=== PATIENT | male | born 1960 | race Caucasian/White ===

== ENCOUNTER 2023-07-01 11:04 | Outpatient (REF) | payer BC, SELFPAY | END 2023-07-01 11:05 | disposition home or self-care (01) | LOC: HO.BBR 11:04 | PROVIDERS: PCP Physician Assistant Surgical; Visit Provider Internal Medicine Hematology & Oncology | DX: D75.1 Secondary polycythemia (principal) | CPT/HCPCS: 85018; 99195 ==

== ENCOUNTER 2023-08-01 09:54 | Outpatient (REF) | payer BC, SELFPAY | END 2023-08-01 09:55 | disposition home or self-care (01) | LOC: HO.BBR 09:54 | PROVIDERS: PCP Physician Assistant Surgical; Visit Provider Internal Medicine Hematology & Oncology | DX: D75.1 Secondary polycythemia (principal) | CPT/HCPCS: 85014; 85018; 99195 ==

== ENCOUNTER 2023-09-01 08:57 | Outpatient (REF) | payer BC, SELFPAY | END 2023-09-01 08:58 | disposition home or self-care (01) | LOC: HO.BBR 08:57 | PROVIDERS: PCP Physician Assistant Surgical; Visit Provider Internal Medicine Hematology & Oncology | DX: D75.1 Secondary polycythemia (principal) | CPT/HCPCS: 85018 ==

== ENCOUNTER 2023-10-02 09:18 | Outpatient (REF) | payer BC, SELFPAY | END 2023-10-02 09:19 | disposition home or self-care (01) | LOC: HO.BBR 09:18 | PROVIDERS: PCP Physician Assistant Surgical; Visit Provider Internal Medicine Hematology & Oncology | DX: D75.1 Secondary polycythemia (principal) | CPT/HCPCS: 85014; 85018; 99195 ==

== ENCOUNTER 2023-11-06 08:07 | Outpatient (REF) | payer BC, SELFPAY | END 2023-11-06 08:08 | disposition home or self-care (01) | LOC: HO.BBR 08:07 | PROVIDERS: PCP Family Medicine; Visit Provider Internal Medicine Hematology & Oncology | DX: D75.1 Secondary polycythemia (principal) | CPT/HCPCS: 85014; 85018; 99195 ==

== ENCOUNTER 2023-12-11 08:22 | Outpatient (REF) | payer BC, SELFPAY | END 2023-12-11 08:23 | disposition home or self-care (01) | LOC: HO.BBR 08:22 | PROVIDERS: PCP Family Medicine; Visit Provider Physician Assistant Medical | DX: D75.1 Secondary polycythemia (principal) | CPT/HCPCS: 85018; 99195 ==

== ENCOUNTER 2024-02-11 08:06 | Outpatient (REF) | payer BC, SELFPAY | END 2024-02-11 08:07 | disposition home or self-care (01) | LOC: HO.BBR 08:06 | PROVIDERS: PCP Family Medicine; Visit Provider Physician Assistant Medical | DX: E83.110 Hereditary hemochromatosis (principal) | CPT/HCPCS: 85018; 99195 ==

== ENCOUNTER 2024-04-09 08:07 | Outpatient (REF) | payer BC, SELFPAY | END 2024-04-09 08:08 | disposition home or self-care (01) | LOC: HO.BBR 08:07 | PROVIDERS: PCP Family Medicine; Visit Provider Physician Assistant Medical | DX: D75.1 Secondary polycythemia (principal) | CPT/HCPCS: 85018; 99195 ==

== ENCOUNTER 2024-06-09 08:08 | Outpatient (REF) | payer BC, OTHER, SELFPAY ==
--- OUTSIDE RECORDS SUMMARY | 2024-06-09 08:14 | XMS_ITS | Continuity of Care Document ---
Author Name [facility] Organization [facility] Care Team Providers Care Plate Glass Installer Name Role Phone [facility] Unavailable Unavailable Problems Combined list of problems from Department of Defense and Veterans Affairs facilities. It does not include entries that were removed or entered in error. Problem Status Onset Date Problem Type Date of Resolution Comments Source Acute right-sided congestive heart failure Active 06/23/19 23 Condition Jul 29, 2023 Entered By: GIBRAN SCHWARTZ Comment: Acute on chronic right-sided heart failureFe2023 Entered By: RAUL GOLDBERG Comment: acute COPD exac 04/2023- intubated in ICU [facility] [place] [facility] Liver cyst Active 06/23/19 23 Condition [facility] [place] [facility] Peripheral venous insufficiency Active 06/23/19 23 Condition Jul 29, 2023 Entered By: GIBRAN SCHWARTZ Comment: Edema of both lower extremities due to peripheral venous insufficiency [facility] [place] [facility] Polyneuropathy Active 06/23/19 23 Condition Jul 29, 2023 Entered By: GIBRAN SCHWARTZ Comment: Peripheral polyneuropathy [facility] [place] [facility] Pulmonary emphysema Active 06/23/19 Condition Jul 30, 2023 Entered By: RAUL GOLDBERG Comment: home BiPAP and oxygen concentrator [facility] [place] [facility] Sleep apnea Active 06/23/19 23 Condition [facility] [place] [facility] Stasis dermatitis Active 06/23/19 23 Condition Jul 29, 2023 Entered By: GIBRAN SCHWARTZ Comment: Venous stasis dermatitis of both lower extremities [facility] [place] [facility] Alcoholic cirrhosis Active Condition Jul 30, 2023 Entered By: RAUL GOLDBERG Comment: on imaging while inpatient with right sided heart failure. recommend f/u liver u/s around 04/2024 [facility] [place] [facility] Diabetes mellitus Active Condition [facility] [place] [facility] Erythrocytosis Active Condition Jul Entered By: RAUL GOLDBERG Comment: HCT 62 in setting of resp failure/copd. seen by [facility] heme-nc, neg VIOLETA, epo not elevated. thought related to underlying lung disease and HETAL, phlebotomies scheduled by heme[facility] [place] [facility] Diagnosis: ICD-10-CM Z46.0 Encounter for fit/adjst of spectacles and contact lenses [facility] [place] [facility] Diagnosis: ICD-10-CM H40.033 Anatomical narrow angle, bilateral Active [facility] [place] [facility] Diagnosis: ICD-10-CM L71.8 Other rosacea Active [facility] [place] [facility] Diagnosis: ICD-10-CM D75.1 Secondary polycythemia Active Diagnosis [facility] [place] [place] [facility] Diagnosis: ICD-10-CM E11.9 Type 2 diabetes mellitus without complications Active [facility] [place] [facility] Diagnosis: ICD-10-CM Z23 Encounter for immunization Active [facility] [place] [facility] Medications Combined list of outpatient medications from Department of Defense and Veterans Affairs facilities.Medications provided include 1) outpatient medications from the last 15 months, and 2) patient-reported medications. Medication Details Route Status Patient Instructions Prescription Expires Prescription Number Last Dispense Date Ordering Provider Order Date Order Qty Source FUROSEMIDE 40MG TAB TAKE ONE TABLET BY MOUTH ONCE DAILY TO REMOVE FLUID/CO NTROL BLOOD PRESSURE ORAL ACTIVE 07/30/2024 [id number] Teodoro GOLDBERG 2023 90 [facility] [place] [facility] OLODATEROL 2.5MCG/TIOT ROPIUM 2.5MCG/ACTU AT [facility],ORAL,6 0D,4GM INHALE 2 PUFFS (1 DOSE) BY MOUTH ONCE DAILY FOR COPD RESPIR ATORY (INHAL ATION) ACTIVE 08/21/2024 [id number] CARA ENAMORADO 2023 1 [facility] TIOTROPIUM 2.5MCG/ACTU AT [facility],ORAL,6 0D,4GM INHALE 2 PUFFS BY MOUTH ONCE DAILY RESPIR ATORY (INHAL ATION) DISCONT INUED 08/07/2024 [id number] FURCOLO,T DAVID 2023 3 [facility] [place] [facility] UMECLIDINIU M/VILANTERO L (ANORO) [facility],ORAL INHALE BY MOUTH ONCE DAILY RESPIR ATORY (INHAL ATION) ACTIVE FURCOLO,T DAVID 2023 [facility] [place] Immunizations Combined list of available immunizations from the Department of Defense and Veterans Affairs facilities. Immunization Series Date Given Administered By Site Reaction Lot Number CVX Code Drug Human Resources Operations Specialist Status Comments Source COVID-19 (MODERNA), MRNA, LNP-S, PF, 50 MCG/0.5 ML (AGES 12+ YEARS) 2023 GIBRAN PACHECO E LEFT DELTO ID [id number] 312 complet ed [facility] INFLUENZA, SPLIT VIRUS, TRIVALENT, PF 2023 GIBRAN PACHECO E LEFT DELTO ID [id number] 140 complet ed [facility] ZOSTER RECOMBINANT 2023 AKASH DE ANDA RIGHT DELTO ID [id number] 187 complet ed [facility] HEP A-HEP B 2 2023 GRACIE MONTOYA SSA H LEFT DELTO ID [id number] 104 complet ed [facility] HEP A-HEP B 1 2023 RICKEY MATOSOT HY E LEFT DELTO ID [id number] 104 complet ed [facility] [place] ZOSTER RECOMBINANT 1 2023 CHILSON,TIMOT HY E RIGHT DELTO ID [id number] 187 complet ed [facility] [place] PNEUMOCOCCAL CONJUGATE PCV20, POLYSACCHARID E [id number] CONJUGATE, ADJUVANT, PF 2023 RICKEY MATOSOT HY E RIGHT DELTO ID [id number] 216 complet ed [facility] TDAP 2023 MANNIE MATOS HY E LEFT DELTO ID [id number] 115 complet ed [facility] [place] INFLUENZA, UNSPECIFIED FORMULATION 2023 88 complet ed [facility] [place] COVID-19 (MODERNA), MRNA, LNP-S, PF, 100 MCG/0.5ML DOSE OR 50 MCG/0.25ML DOSE 3 2020 207 complet ed Lot#: [id number] Mfr: [employer] [facility] COVID-19 (PFIZER), MRNA, LNP-S, PF, 30 MCG/0.3 ML DOSE 2 2020 208 complet ed Covid Card- [facility] Lot#: [id number] Mfr: [email or web address] [facility] [place] COVID-19 (PFIZER), MRNA, LNP-S, PF, 30 MCG/0.3 ML DOSE 1 2020 208 complet ed Covid card Lot#: [id number] Mfr: [email or web address] [facility] [place] Results Combined list of recent chemistry, hematology and other laboratory results from Department of Defense and Veterans Affairs, ranging from 15 months to all on record, depending upon the facility. Order Name Results Value Reference Range Date Interpretation Specimen Comments Source BASIC METABOLIC PANEL (fasting) UREA NITROGEN [MASS/VOLUM E] IN SERUM OR PLASMA 17 mg/dL 7 - 25 02/01 Specimen Type: SERUM No comment entered. Ordering Provider: OKSANA GOLDBERG Report Released Date/Time: Jan 13, 2024 03:44 PM Reporting Lab: [facility] [place] [facility] [address] [address] Performing Lab: [facility] [place] [facility] [address] [address] [facility] [place] [facility] BASIC METABOLIC PANEL (fasting) GLUCOSE [MASS/VOLUM E] IN SERUM OR PLASMA 123 mg/dL 65 - 100 02/01 H Specimen Type: SERUM No comment entered. Ordering Provider: OKSANA GOLDBERG Report Released Date/Time: Jan 13, 2024 03:44 PM Reporting Lab: [facility] [place] [facility] [address] [address] Performing Lab: [place] [facility] [place] [facility] [address] [address] [facility] [place] [facility] BASIC METABOLIC PANEL (fasting) SODIUM [MOLES/VOLU ME] IN SERUM OR PLASMA 139 mmol/L 135 - 145 02/01 Specimen Type: SERUM No comment entered. Ordering Provider: OKSANA GOLDBERG Report Released Date/Time: Jan 13, 2024 03:44 PM Reporting Lab: [place] [facility] [place] [facility] [address] [address] Performing Lab: [place] [facility] [place] [place] [facility] [address] [address] [facility] BASIC METABOLIC PANEL (fasting) POTASSIUM [MOLES/VOLU ME] IN SERUM OR PLASMA 4.1 mmol/L 3.5 - 5.0 02/01 Specimen Type: SERUM No comment entered. Ordering Provider: OKSANA GOLDBERG Report Released Date/Time: Jan 13, 2024 03:44 PM Reporting Lab: [place] [facility] [place] [facility] [address] [address] Performing Lab: [place] [facility] [place] [facility] [address] [address] [facility] [place] [facility] BASIC METABOLIC PANEL (fasting) CHLORIDE [MOLES/VOLU ME] IN SERUM OR PLASMA 104 mmol/L 100 - 110 02/01 Specimen Type: SERUM No comment entered. Ordering Provider: OKSANA GOLDBERG Report Released Date/Time: Jan 13, 2024 03:44 PM Reporting Lab: [place] [facility] [place] [facility] [address] [address] Performing Lab: [place] [facility] [place] [place] [facility] [address] [address] [facility] BASIC METABOLIC PANEL (fasting) CARBON DIOXIDE, TOTAL [MOLES/VOLU ME] IN SERUM OR PLASMA 26 meq/L 20 - 30 02/01 Specimen Type: SERUM No comment entered. Ordering Provider: OKSANA GOLDBERG Report Released Date/Time: Jan 13, 2024 03:44 PM Reporting Lab: [address] [address] Performing Lab: [address] [address] [facility] BASIC METABOLIC PANEL (fasting) CREATININE [MASS/VOLUM E] IN SERUM OR PLASMA 0.77 mg/dL 0.50 - 1.40 02/01 Specimen Type: SERUM No comment entered. Ordering Provider: OKSANA GOLDBERG Report Released Date/Time: Jan 13, 2024 03:44 PM Reporting Lab: [address] [address] Performing Lab: [phone] [place] [address] BASIC METABOLIC PANEL (fasting) GLOMERULAR FILTRATION RATE/1.73 SQ M.PREDICTED [VOLUME RATE/AREA] IN SERUM, PLASMA OR BLOOD BY CREATININE- BASED FORMULA (CKD-EPI 2020) >90mL/ min 60 02/01 Specimen Type: SERUM No comment entered. Ordering Provider: OKSANA GOLDBERG Report Released Date/Time: Jan 13, 2024 03:44 PM Reporting Lab: [address] [address] Performing Lab: [address] [phone] [place] [address] HEMOGLOBI N A1C PANEL HEMOGLOBIN A1C/HEMOGLO BIN.TOTAL IN BLOOD BY HPLC 5.6 4.0 - 5.6 02/01 Specimen Type: BLOOD Comment: Values obtained from A1C measurement s can vary. For atypical A1C assays, a reported value of 7.0 could actually be between 6.72 and 7.28 if measured by a reference method. A reported value of 9.0 could actually be between 8.73 and 9.27. Ref: http://www. ngsp.org/[place] Pdata.asp Ordering Provider: OKSANA GOLDBERG Report Released Date/Time: Jan 13, 2024 03:44 PM Reporting Lab: [facility] [place] [facility] [address] [address] Performing Lab: [facility] [place] [facility] [address] [address] [facility] [place] [facility] PSA PROSTATE SPECIFIC AG [MASS/VOLUM E] IN SERUM OR PLASMA 4.79 ng/mL 0.00 - 4.00 02/01 H Specimen Type: SERUM No comment entered. Ordering Provider: OKSANA GOLDBERG Report Released Date/Time: Jan 16, 2024 11:20 AM Reporting Lab: [facility] [place] [facility] [address] [address] Performing Lab: [facility] [place] [address] [address] [facility] [place] [facility] MICROALBU MIN CREATININ E RATIO PANEL MICROALBUMI N/CREATININ E [MASS RATIO] IN URINE 12.2 mg/g 0 - 29.9 07/30 Specimen Type: URINE No comment entered. Ordering Provider: OKSANA GOLDBERG Report Released Date/Time: Jul 30, 2023 11:11 AM Reporting Lab: [facility] [place] [facility] [address] [address] Performing Lab: [facility] [place] [address] [address] [facility] [place] [facility] MICROALBU MIN CREATININ E RATIO PANEL MICROALBUMI N [MASS/VOLUM E] IN URINE 0.5 mg/dL 07/30 Specimen Type: URINE No comment entered. Ordering Provider: OKSANA GOLDBERG Report Released Date/Time: Jul 30, 2023 11:11 AM Reporting Lab: [facility] [place] [facility] [address] [address] Performing Lab: [facility] [place] [address] [address] [facility] [place] [facility] MICROALBU MIN CREATININ E RATIO PANEL CREATININE [MASS/VOLUM E] IN URINE 40.83 mg/dL 07/30 Specimen Type: URINE No comment entered. Ordering Provider: OKSANA GOLDBERG Report Released Date/Time: Jul 30, 2023 11:11 AM Reporting Lab: [facility] [place] [facility] [address] [address] Performing Lab: [place] [facility] [place] [place] [facility] [address] [address] [facility] [place] [facility] CBC LEUKOCYTES [#/VOLUME] IN BLOOD BY AUTOMATED COUNT 7.13 10*3/u L 4.50 - 11.00 07/30 Specimen Type: BLOOD No comment entered. Ordering Provider: ROWENA SCHWARTZ Report Released Date/Time: Jul 29, 2023 07:36 PM Reporting Lab: [facility] [place] [place] [address] [address] Performing Lab: [place] [facility] [place] [address] [address] [facility] [place] [facility] CBC ERYTHROCYTE S [#/VOLUME] IN BLOOD BY AUTOMATED COUNT 5.12 10*6/u L 4.23 - 5.66 07/30 Specimen Type: BLOOD No comment entered. Ordering Provider: ROWENA SCHWARTZ Report Released Date/Time: Jul 29, 2023 07:36 PM Reporting Lab: [facility] [place] [address] [address] Performing Lab: [place] [facility] [place] [place] [address] [address] [facility] [place] [facility] CBC HEMOGLOBIN [MASS/VOLUM E] IN BLOOD 13.9 g/dL 12.8 - 17 07/30 Specimen Type: BLOOD No comment entered. Ordering Provider: ROWENA SCHWARTZ Report Released Date/Time: Jul 29, 2023 07:36 PM Reporting Lab: [facility] [place] [place] [address] [address] Performing Lab: [facility] [place] [place] [address] [address] [facility] [place] [facility] CBC HEMATOCRIT [VOLUME FRACTION] OF BLOOD BY AUTOMATED COUNT 44.1 39.2 - 50.4 07/30 Specimen Type: BLOOD No comment entered. Ordering Provider: ROWENA SCHWARTZ Report Released Date/Time: Jul 29, 2023 07:36 PM Reporting Lab: [facility] [place] [facility] [address] [address] Performing Lab: [place] [facility] [place] [facility] [address] [address] [facility] [place] [facility] CBC MCV [ENTITIC VOLUME] BY AUTOMATED COUNT 86.1 fL 82 - 99 07/30 Specimen Type: BLOOD No comment entered. Ordering Provider: ROWENA SCHWARTZ Report Released Date/Time: Jul 29, 2023 07:36 PM Reporting Lab: [facility] [place] [address] [address] Performing Lab: [facility] [place] [address] [address] [facility] [place] [facility] CBC MCHC [MASS/VOLUM E] BY AUTOMATED COUNT 31.5 g/dL 30.8 - 35.1 07/30 Specimen Type: BLOOD No comment entered. Ordering Provider: ROWENA SCHWARTZ Report Released Date/Time: Jul 29, 2023 07:36 PM Reporting Lab: [facility] [place] [address] [address] Performing Lab: [facility] [place] [address] [address] [facility] [place] [facility] CBC PLATELETS [#/VOLUME] IN BLOOD BY AUTOMATED COUNT 274 10*3/u L 140 - 360 07/30 Specimen Type: BLOOD No comment entered. Ordering Provider: ROWENA SCHWARTZ Report Released Date/Time: Jul 29, 2023 07:36 PM Reporting Lab: [facility] [place] [address] [address] Performing Lab: [facility] [place] [address] [address] [facility] [place] [facility] CBC ERYTHROCYTE DISTRIBUTIO N WIDTH [RATIO] BY AUTOMATED COUNT 18.4 12.0 - 16.0 07/30 H Specimen Type: BLOOD No comment entered. Ordering Provider: ROWENA SCHWARTZ Report Released Date/Time: Jul 29, 2023 07:36 PM Reporting Lab: [facility] [place] [facility] [address] [address] Performing Lab: [facility] [place] [facility] [address] [address] [facility] [place] [facility] CBC MCH [ENTITIC MASS] BY AUTOMATED COUNT 27.1 pg 26.2 - 32.6 07/30 Specimen Type: BLOOD No comment entered. Ordering Provider: ROWENA SCHWARTZ Report Released Date/Time: Jul 29, 2023 07:36 PM Reporting Lab: [facility] [place] [address] [address] Performing Lab: [facility] [place] [address] [address] [facility] [place] [facility] LIVER FUNCTION PROTEIN [MASS/VOLUM E] IN SERUM OR PLASMA 7.1 g/dL 6.0 - 8.3 07/30 Specimen Type: SERUM No comment entered. Ordering Provider: ROWENA SCHWARTZ Report Released Date/Time: Jul 29, 2023 07:36 PM Reporting Lab: [facility] [place] [address] [address] Performing Lab: [facility] [place] [address] [address] [facility] [place] [facility] LIVER FUNCTION ALBUMIN [MASS/VOLUM E] IN SERUM OR PLASMA 4.1 g/dL 3.5 - 5.0 07/30 Specimen Type: SERUM No comment entered. Ordering Provider: ROWENA SCHWARTZ Report Released Date/Time: Jul 29, 2023 07:36 PM Reporting Lab: [facility] [place] [address] [address] Performing Lab: [facility] [place] [facility] [address] [address] [facility] [place] [facility] LIVER FUNCTION ALKALINE PHOSPHATASE [ENZYMATIC ACTIVITY/VO LUME] IN SERUM OR PLASMA 64 U/L 40 - 150 07/30 Specimen Type: SERUM No comment entered. Ordering Provider: ROWENA SCHWARTZ Report Released Date/Time: Jul 29, 2023 07:36 PM Reporting Lab: [facility] [place] [facility] [address] [address] Performing Lab: [facility] [place] [facility] [address] [address] [facility] [place] [facility] LIVER FUNCTION ASPARTATE AMINOTRANSF ERASE [ENZYMATIC ACTIVITY/VO LUME] IN SERUM OR PLASMA 14 U/L 5 - 34 07/30 Specimen Type: SERUM No comment entered. Ordering Provider: ROWENA SCHWARTZ Report Released Date/Time: Jul 29, 2023 07:36 PM Reporting Lab: [facility] [place] [facility] [address] [address] Performing Lab: [facility] [place] [facility] [address] [address] [place] [facility] [place] [facility] LIVER FUNCTION ALANINE AMINOTRANSF ERASE [ENZYMATIC ACTIVITY/VO LUME] IN SERUM OR PLASMA 17 U/L 07/30 Specimen Type: SERUM No comment entered. Ordering Provider: ROWENA SCHWARTZ Report Released Date/Time: Jul 29, 2023 07:36 PM Reporting Lab: [facility] [place] [facility] [address] [address] Performing Lab: [facility] [place] [facility] [address] [address] [facility] [place] [facility] LIVER FUNCTION BILIRUBIN.T OTAL [MASS/VOLUM E] IN SERUM OR PLASMA 0.4 mg/dL 0.2 - 1.2 07/30 Specimen Type: SERUM No comment entered. Ordering Provider: ROWENA SCHWARTZ Report Released Date/Time: Jul 29, 2023 07:36 PM Reporting Lab: [facility] [place] [facility] [address] [address] Performing Lab: [place] [facility] [place] [facility] [address] [address] [facility] [place] [facility] BASIC METABOLIC PANEL (fasting) UREA NITROGEN [MASS/VOLUM E] IN SERUM OR PLASMA 14 mg/dL 7 - 25 07/30 Specimen Type: SERUM No comment entered. Ordering Provider: ROWENA SCHWARTZ Report Released Date/Time: Jul 29, 2023 07:36 PM Reporting Lab: [facility] [address] [address] Performing Lab: [facility] [address] [address] [facility] BASIC METABOLIC PANEL (fasting) GLUCOSE [MASS/VOLUM E] IN SERUM OR PLASMA 104 mg/dL 65 - 100 07/30 H Specimen Type: SERUM No comment entered. Ordering Provider: ROWENA SCHWARTZ Report Released Date/Time: Jul 29, 2023 07:36 PM Reporting Lab: [facility] [address] [address] Performing Lab: [facility] [address] [address] [facility] BASIC METABOLIC PANEL (fasting) SODIUM [MOLES/VOLU ME] IN SERUM OR PLASMA 139 mmol/L 135 - 145 07/30 Specimen Type: SERUM No comment entered. Ordering Provider: ROWENA SCHWARTZ Report Released Date/Time: Jul 29, 2023 07:36 PM Reporting Lab: [facility] [place] [facility] [address] [address] Performing Lab: [place] [facility] [address] [address] [facility] BASIC METABOLIC PANEL (fasting) POTASSIUM [MOLES/VOLU ME] IN SERUM OR PLASMA 4.6 mmol/L 3.5 - 5.0 07/30 Specimen Type: SERUM No comment entered. Ordering Provider: ROWENA SCHWARTZ Report Released Date/Time: Jul 29, 2023 07:36 PM Reporting Lab: [place] [facility] [place] [place] [facility] [address] [address] Performing Lab: [facility] [place] [place] [facility] [address] [address] [facility] [place] [facility] BASIC METABOLIC PANEL (fasting) CHLORIDE [MOLES/VOLU ME] IN SERUM OR PLASMA 103 mmol/L 100 - 110 07/30 Specimen Type: SERUM No comment entered. Ordering Provider: ROWENA SCHWARTZ Report Released Date/Time: Jul 29, 2023 07:36 PM Reporting Lab: [facility] [place] [place] [facility] [address] [address] Performing Lab: [facility] [place] [address] [address] [facility] [place] [facility] BASIC METABOLIC PANEL (fasting) CARBON DIOXIDE, TOTAL [MOLES/VOLU ME] IN SERUM OR PLASMA 25 meq/L 20 - 30 07/30 Specimen Type: SERUM No comment entered. Ordering Provider: ROWENA SCHWARTZ Report Released Date/Time: Jul 29, 2023 07:36 PM Reporting Lab: [facility] [place] [facility] [address] [address] Performing Lab: [facility] [place] [facility] [address] [address] [facility] [place] [facility] BASIC METABOLIC PANEL (fasting) CREATININE [MASS/VOLUM E] IN SERUM OR PLASMA 0.76 mg/dL 0.50 - 1.40 07/30 Specimen Type: SERUM No comment entered. Ordering Provider: ROWENA SCHWARTZ Report Released Date/Time: Jul 29, 2023 07:36 PM Reporting Lab: [facility] [place] [facility] [address] [address] Performing Lab: [facility] [place] [address] [address] [facility] [place] [facility] BASIC METABOLIC PANEL (fasting) GLOMERULAR FILTRATION RATE/1.73 SQ M.PREDICTED [VOLUME RATE/AREA] IN SERUM, PLASMA OR BLOOD BY CREATININE- BASED FORMULA (CKD-EPI 2020) >90mL/ min 60 07/30 Specimen Type: SERUM No comment entered. Ordering Provider: ROWENA SCHWARTZ Report Released Date/Time: Jul 29, 2023 07:36 PM Reporting Lab: [facility] [address] [address] Performing Lab: [facility] [address] [facility] LIPID PANEL, NON FASTING CHOLESTEROL [MASS/VOLUM E] IN SERUM OR PLASMA 157 mg/dL 07/30 Specimen Type: SERUM No comment entered. Ordering Provider: ROWENA SCHWARTZ Report Released Date/Time: Jul 29, 2023 07:36 PM Reporting Lab: [facility] [address] [address] Performing Lab: [facility] [address] [facility] LIPID PANEL, NON FASTING TRIGLYCERID E [MASS/VOLUM E] IN SERUM OR PLASMA 105 mg/dL 0 - 150 07/30 Specimen Type: SERUM No comment entered. Ordering Provider: ROWENA SCHWARTZ Report Released Date/Time: Jul 29, 2023 07:36 PM Reporting Lab: [facility] [address] [address] Performing Lab: [facility]ITALTRN [facility] [address] [facility]USE [facility] LIPID PANEL, NON FASTING CHOLESTEROL IN LDL [MASS/VOLUM E] IN SERUM OR PLASMA BY CALCULATION 84 mg/dL 0 - 129 07/30 Specimen Type: SERUM No comment entered. Ordering Provider: ROWENA SCHWARTZ Report Released Date/Time: Jul 29, 2023 07:36 PM Reporting Lab: [facility] [address] Performing Lab: [facility]ITALUSENY[facility] [address] [address] [facility] LIPID PANEL, NON FASTING CHOLESTEROL .TOTAL/CHOL ESTEROL IN HDL [MASS RATIO] IN SERUM OR PLASMA 3.0 07/30 Specimen Type: SERUM No comment entered. Ordering Provider: ROWENA SCHWARTZ Report Released Date/Time: Jul 29, 2023 07:36 PM Reporting Lab: [facility]ITALUSEN[facility] [address] [address] Performing Lab: [facility] [address] [address] [facility] LIPID PANEL, NON FASTING CHOLESTEROL IN HDL [MASS/VOLUM E] IN SERUM OR PLASMA 52 mg/dL 40 - 60 07/30 Specimen Type: SERUM No comment entered. Ordering Provider: ROWENA SCHWARTZ Report Released Date/Time: Jul 29, 2023 07:36 PM Reporting Lab: [facility] [address] [address] Performing Lab: [facility] [address] [address] [facility] HEPATITIS C ANTIBODY (HCV)-ARC HEPATITIS C VIRUS AB [PRESENCE] IN SERUM NON-RE ACTIVE 07/30 Specimen Type: SERUM Comment: Hep C Ab: No HCV antibody detected. If recent infection is suspected or other evidence suggests HCV infection, consider HCV nucleic acid testing Ordering Provider: ROWENA SCHWARTZ Report Released Date/Time: Jul 29, 2023 07:36 PM Reporting Lab: [facility] [address] [address] Performing Lab: [facility] [address] [address] [facility] PSA PROSTATE SPECIFIC AG [MASS/VOLUM E] IN SERUM OR PLASMA 3.96 ng/mL 0.00 - 4.00 07/30 Specimen Type: SERUM No comment entered. Ordering Provider: ROWENA SCHWARTZ Report Released Date/Time: Jul 29, 2023 07:36 PM Reporting Lab: [facility] [address] [address] Performing Lab: [facility] [address] [address] [facility] Vital Signs Combined list of inpatient and outpatient Vital Signs from Department of Defense and Veterans Affairs, ranging from 12 months to all on record, depending upon the facility. Vital Sign Value Date Comments Source SYSTOLIC BLOOD PRESSURE 120 03/04/20 24 14:28:22 [facility] DIASTOLIC BLOOD PRESSURE 80 024 14:28:22 [facility] PULSE OXIMETRY 94 03/04/2024 14:28:22 [facility] WEIGHT 180 03/04/2024 14:28:22 [facility] BMI 29kg/m2 03/04/2024 14:28:22 [facility] PAIN 5 03/04/2024 14:28:22 [facility] TEMPERATURE 98.3 03/04/2024 14:28:22 [facility] PULSE 84 03/04/2024 14:28:22 [facility] RESPIRATION 16 03/04/2024 14:28:22 [facility] SYSTOLIC BLOOD PRESSURE 134 11/05/19 24 13:55:25 [facility] DIASTOLIC BLOOD PRESSURE 80 024 13:55:25 [facility] PULSE OXIMETRY 97 11/05/2023 13:55:25 [facility] WEIGHT 190 11/05/2023 13:55:25 [facility] BMI 31kg/m2 11/05/2023 13:55:25 [facility] TEMPERATURE 98.1 11/05/2023 13:55:25 [facility] PULSE 81 11/05/2023 13:55:25 [facility] RESPIRATION 16 11/05/2023 13:55:25 [facility] WEIGHT 198.3 08/08/2023 14:07:58 [facility] BMI 32kg/m2 08/08/2023 14:07:58 [facility] SYSTOLIC BLOOD PRESSURE 140 07/30/19 24 10:17:04 [facility] DIASTOLIC BLOOD PRESSURE 90 024 10:17:04 [facility] PULSE OXIMETRY 93 07/30/2023 10:17:04 [facility] WEIGHT 200 07/30/2023 10:17:04 [facility] BMI 32kg/m2 07/30/2023 10:17:04 [facility] PAIN 3 07/30/2023 10:17:04 [facility] HEIGHT 66 07/30/2023 10:17:04 [facility] TEMPERATURE 98.8 07/30/2023 10:17:04 [facility] PULSE 92 07/30/2023 10:17:04 [facility] RESPIRATION 18 07/30/2023 10:17:04 [facility] Encounters Combined list of: 1) Encounters from Department of Veterans Affairs facilities going back up to thelast 18 months. 2) Encounters from the Department of Defense facilities going back up to 280 months. Location Location Details Encounter Type Encounter Number Reason For Visit Attending Provider ADM Date DC Date Status Disposition Source [facility] Outpatient Encounter [id number] 04/29 [facility] Outpatient [facility]counter [id number] 07/15 [facility] Out[facility]counter [id number] 07/25 [facility] Outpatient [facility]counter [id number] 07/25 [facility] Out[facility]counter [id number] 07/28 [facility] Out[facility]counter [id number] 07/29 [facility] Outpatient Encounter [id number] 07/29 [facility] OFFICE O/P NEW [place] 60 MIN [id number] Diagnos is: ICD-10- CM 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<b r/> FURCOLO,TI NA 07/30 [facility] Out[facility] Encounter [id number] 08/06 [facility] OFF/OP EST OCTOBER X REQ PHY/QHP [id number] Diagnos is: ICD-10- CM Z23 Encount er for immuniz ation<b r/> CHILSON,TI MOTHY E 08/08 [facility] Outpatient Encounter [id number] 08/21 [facility] OFF/OP EST MAY X REQ PHY/QHP [id number] Diagnos is: ICD-10- CM Z23 Encount er for immuniz ation<b r/> GALDINODULCE,TI MOTHY E 09/03 [facility] OFF/OP EST MAY X REQ PHY/QHP [id number] Diagnos is: ICD-10- CM Z23 Encount er for immuniz ation<b r/> Consuelo MONTOYA H 10/06 [facility] Outpatient Encounter [id number] 10/19 [facility] Outpatient Encounter [id number] 10/29 [facility] OFFICE O/P EST MOD 30 MIN [id number] Diagnos is: ICD-10- CM E11.9 Type 2 diabete s mellitu s without complic ations< br/> FURCOSONIA,TI NA 11/04 [facility] Outpatient Encounter [id number] 01/18 [facility] Outpatient Encounter [id number] 02/01 [facility] OFFICE O/P EST MOD 30 MIN [id number] Diagnos is: ICD-10- CM 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
CHRISTOPHER HENDRICKSONE 03/29 [facility] CMPTR OPHTH IMG OPTIC NERVE [id number] 1. 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
CHRISTOPHER HENDRICKSON 03/29 [facility] FIT SPECTACLES MULTIFOCAL [id number] Diagnos is: ICD-10- CM Z46.0 Encount er for fit/adj st of spectac les and contact lenses< br/> MADHAVICHRISTOPHER LI 03/29 [facility] Outpatient Encounter [id number] 04/20 [facility] Outpatient Encounter [id number] 05/10 [facility] Social History Combined list of available smoking, tobacco, and other social history from Department of Defense and Veterans Affairs facilities. Social History Type Response Date Comment Sourc e Tobacco smoking status [facility] VA-TOBACCO FORMER USER 07/29/2023 [facility] History of tobacco use CT-TOBACCO QUIT < 1 YEAR 07/29/2023 [facility] Plan of Care List of future care activities from Department of Veterans Affairs facilities. Additional future care activities may be listed in the Assessment and Plan section. Date/Time Care Activity Care Activity Detail Facili ty 08/26/2024 AMBULATORY - MEDICINE AMBULATORY - MEDICI NE [facility] 05/10/2024 Consult Order COMMUNITY CARE-P ULMONARY Cons Paring Machine Operator's Choice [facility]
--- OUTSIDE RECORDS SUMMARY | 2024-06-09 08:14 | XMS_ITS ---
Author Name [facility] [place] [facility] [place] [facility] [place] Address [address] [place] [address] Care Team Providers Care First Breaker Feeder Name Role Phone OKSANA GOLDBERGA Primary Care Provider Alejandro juarez Insurance Providers: All historical and current Section Date Range: From patient's date of to the date document was created. This section includes the names of all active insurance providers for the patient. Insurance Provider Type of Coverage Plan Name Start of Policy Coverage End of Policy Coverage Group Number Member ID Insurance Provider's Telephone Number Policy Block's Name Patient's Relationship to Policy Block [place]) PREFERRED PROVIDER ORGANIZAT ION (PPO) [employer] Jun 23, 2021 [id number] JACKELIN ACKERMAN PATIENT Selected Encounter This section includes the information on record at [place] for the Encounter. Date/Time Encounter Type Encounter Description Reason Pro vider Source Jul 28, 2023 11:01 AM Outpatient Encounter PRIMARY CARE/MEDICINE IHE Encounter Template Text not used by [place] Plan of Treatment: Future Appointments (+ 6 months) and Future Tests (+/- 45 days) The Plan of Treatment section includes future care activities for the patient from all [facility] treatment[facility]ilities. This section includes future appointments and future orders which are active, pending or scheduled. Future Appointments This section includes appointments that were scheduled to occur 6 months from the date of the Encounter, up to a maximum of 20 appointments. The data comes from all [place] treatment facilities. Appointment Date/Time Appointment Type Appointme nt Facility Name Jul 30, 2023 10:00 AM [place] [facility] [place] [facility] Aug 08, 2023 02:00 PM [place] [facility] [place] [facility] Aug 22[facility] 2023 06:00 AM [place] [facility] [place] [facility] Sep 04, 2023 01:00 PM [place] [place] [facility] [place] [facility] Oct 07, 2023 01:00 PM [place] [facility] [place] [facility] November 05, 2023 02:00 PM [place] [facility] [place] [facility] Lab Results: +/- 30 days of the encounter This section includes the Chemistry and Hematology Lab Results on record with [place] for the patient. Radiology Reports and Pathology Reports are provided separately, in subsequent sections. Lab Results This section contains the Chemistry/Hematology Results that were resulted 30 days before or 30 daysafter the date of the Encounter. Date/Time Source Result Type Result - Unit Interpretation Reference Range Comment Jul 30, 2023 11:48 AM [facility] [place] [facility] MICROALBUMIN CREATININE RATIO PANEL Specimen Type: URINE No comment entered. Ordering Provider: RAUL GOLDBERG Report Released Date/Time: Jul 30, 2023 11:11 AM Reporting Lab: [facility] [place] [facility] [address] [address] Performing [facility]: [facility] [place] [facility] [address] [address] MICROALBUMIN/C REATININE RATIO 12.2 mg/g 0-29.9 MICROALBUMIN,Q UANTITATIVE 0.5 mg/dL RR UNAVAIL CREATININE URINE 40.83 mg/dL Jul 30, 2023 11:43 AM [facility] [place] [facility] CBC Specimen Type: BLOOD No comment entered. Ordering Provider: GIBRAN SCHWARTZ Report Released Date/Time: Jul 29, 2023 07:36 PM Reporting Lab: [facility] [place] [facility] [address] [address] Performing Lab: [facility] [place] [facility] [address] [address] WBC 7.13 10*3/uL 4.50-11.00 RBC 5.12 10*6/uL 4.23-5.66 HGB 13.9 g/dL 12.8-17 HCT 44.1 39.2-50.4 MCV 86.1 fL 82-99 MCHC 31.5 g/dL 30.8-35.1 PLT 274 10*3/uL 140-360 RDW-CV 18.4 H 12.0-16.0 MCH 27.1 pg 26.2-32.6 Jul 30, 2023 11:43 AM [facility] LIVER FUNCTION Specimen Type: SERUM No comment entered. Ordering Provider: GIBRAN SCHWARTZ Report Released Date/Time: Jul 29, 2023 07:36 PM Reporting Lab: [address] [address] Performing Lab: [address] [address] PROTEIN,TOTAL 7.1 g/dL 6.0-8.3 ALBUMIN 4.1 g/dL 3.5-5.0 ALKALINE PHOSPHATASE 64 U/L 40-150 AST 14 U/L 5-34 ALT 17 U/L BILIRUBIN, TOTAL 0.4 mg/dL 0.2-1.2 Jul 30, 2023 11:43 AM [facility] BASIC METABOLIC PANEL (fasting) Specimen Type: SERUM No comment entered. Ordering Provider: GIBRAN SCHWARTZ Report Released Date/Time: Jul 29, 2023 07:36 PM Reporting Lab: [address] [address] Performing Lab: [address] [address] UREA NITROGEN 14 mg/dL 7-25 GLUCOSE 104 mg/dL H 65-100 SODIUM 139 mmol/L 135-145 POTASSIUM 4.6 mmol/L 3.5-5.0 CHLORIDE 103 mmol/L 100-110 CO2 25 meq/L 20-30 CREATININE, Serum 0.76 mg/dL 0.50-1.40 eGFR(CKD-EPI 2020) >90 mL/min >60 Jul 30, 2023 11:43 AM [facility] LIPID PANEL, NON FASTING Specimen Type: SERUM No comment entered. Ordering Provider: GIBRAN SCHWARTZ Report Released Date/Time: Jul 29, 2023 07:36 PM Reporting Lab: [facility] [address] [address] [address] Performing Lab: [facility] [address] [address] CHOLESTEROL 157 mg/dL TRIGLYCERIDE 105 mg/dL 0-150 LDL calculated 84 mg/dL 0-129 CHOL/HDL 3.0 HDL CHOLESTEROL 52 mg/dL 40-60 Jul 30, 2023 11:43 AM [facility] HEPATITIS C ANTIBODY (HCV)-ARC Specimen Type: SERUM Comment: Hep C Ab: No HCV antibody detected. If recent infection is suspected or other evidence suggests HCV infection, consider HCV nucleic acid testing Ordering Provider: GIBRAN SCWHARTZ Report Released Date/Time: Jul 29, 2023 07:36 PM Reporting Lab: [facility] [address] [address] [address] Performing Lab: [facility] [address] [address] [address] HEPATITIS C ANTIBODY NON-REACTIVE NON-REACTI VE Jul 30, 2023 11:43 AM [facility] PSA Specimen Type: SERUM No comment entered. Ordering Provider: GIBRAN SCHWARTZ Report Released Date/Time: Jul 29, 2023 07:36 PM Reporting Lab: [facility] [address] [facility] [address] [address] Performing Lab: [address] [address] PSA 3.96 ng/mL 0.00-4.00 Jul 30, 2023 11:42 AM [facility] HEMOGLOBIN A1C PANEL Specimen Type: BLOOD Comment: Values obtained from A1C measurements can vary. For atypical A1C assays, a reported value of 7.0 could actually be between 6.72 and 7.28 if measured by a reference method. A reported value of 9.0 could actually be between 8.73 and 9.27. Ref: http://www.ngs p.org/CAPdata. asp Ordering Provider: RAUL GOLDBERG Report Released Date/Time: Jul 30, 2023 11:11 AM Reporting Lab: [facility] [address] [facility] [address] [address] Performing Lab: [facility] [address] [facility] [address] HEMOGLOBIN A1C 6.8 H 4.0-5.6 Encounter Notes: All associated encounter notes This section contains the clinical notes associated to the Encounter. Date/Time Encounter Note(s) Provider Source Jul 28, 2023 11:01 AM PRIMARY CARE TELEP LJ ENCOUNTER NOTE: LOCAL TITLE: TELEPHONE NOTE/PRIMARY CARE STANDARD TITLE: PRIMARY CARE TELEPHONE ENCOUNTER NOTE DATE OF NOTE: JUL 28, 2023@11:01 ENTRY DATE: JUL 28, 2023@11:01:41 AUTHOR: INA PLATA EXP COSIGNER: URGENCY: STATUS: COMPLETED New pt. /es/ INA PLATA Advanced New Media Strategist Signed: 07/28/2023 11:01 Receipt Acknowledged By: 07/30/2023 16:39 /garo/ ALEXI MATOS MSN Ed., BSN WEBSITE DEVELOPER NURSE INA PLATA [facility]
--- OUTSIDE RECORDS SUMMARY | 2024-06-09 08:14 | XMS_ITS | Encounter Summary ---
Author Name [facility] [place] Organization [facility] [place] Address [address] [place] [address] Care Team Providers Care Bottom Ironer Name Role Phone OKSANA LANGA Primary Care Provider Alejandro juarez Insurance Providers: [...] [employer] Jun 23, 2021 [id number] JACKELIN ACKERMAN PATIENT Selected Encounter This section includes the information on record at [place] for the Encounter. Date/Time Encounter Type Encounter Description Reason Pro vider Source Jul 29, 2023 02:19 PM Outpatient Encounter PRIMARY CARE/MEDICINE IHE Encounter Template Text not used by [place] Plan of Treatment: Future Appointments (+ 6 [...] 20 appointments. The data comes from all [place] treatment facilities. Appointment Date/Time Appointment Type Appointme nt Facility Name Jul 30, 2023 10:00 AM AMBULATORY - MEDICINE [place] [facility] [place] [facility] Aug 08, 2023 02:00 PM AMBULATORY - MEDICINE [place] [facility] [place] [facility] Aug 22, 2023 06:00 AM AMBULATORY - MEDICINE [place] [facility] [place] [facility] Sep 04, 2023 01:00 PM AMBULATORY - MEDICINE [place] [facility] [place] [facility] Oct 07, 2023 01:00 PM AMBULATORY - MEDICINE [place] [facility] [place] [facility] November 05, 2023 02:00 PM AMBULATORY - MEDICINE [place] [facility] [place] [facility] Lab Results: +/- 30 days of the encounter This section includes the Chemistry and Hematology Lab Results on record with [place] for the patient. Radiology Reports and Pathology Reports are provided separately, in subsequent sections. Lab Results This section contains the Chemistry/Hematology Results that were resulted 30 days before or 30 daysafter the date of the Encounter. Date/Time Source Result Type Result - Unit Interpretation Reference Range Comment Jul 30, 2023 11:48 AM [place] [facility] [facility] [place] [facility] MICROALBUMIN CREATININE RATIO PANEL Specimen Type: URINE No comment entered. Ordering Provider: RAUL LANG Report Released Date/Time: Jul 30, 2023 11:11 AM Reporting Lab: [place] [facility] [facility] [address] [facility] [address] Per[facility] [place] [facility] [address] [facility] [address] MICROALBUMIN/C REATININE RATIO 12.2 mg/g 0-29.9 MICROALBUMIN,Q UANTITATIVE 0.5 mg/dL RR UNAVAIL CREATININE URINE 40.83 mg/dL Jul 30, 2023 11:43 AM [place] [facility] [facility] CBC Specimen Type: BLOOD No comment entered. Ordering Provider: GIBRAN SCHWARTZ Report Released Date/Time: Jul 29, 2023 07:36 PM Reporting [facility] [place] [facility] [address] [facility] [address] Performing Lab: [place] [facility] [facility] [facility] [address] [facility] [address] WBC 7.13 10*3/uL 4.50-11.00 RBC 5.12 10*6/uL 4.23-5.66 HGB 13.9 g/dL 12.8-17 HCT 44.1 39.2-50.4 MCV 86.1 fL 82-99 MCHC 31.5 g/dL 30.8-35.1 PLT 274 10*3/uL 140-360 RDW-CV 18.4 H 12.0-16.0 MCH 27.1 pg 26.2-32.6 Jul 30, 2023 11:43 AM [facility] LIVER FUNCTION Specimen Type: SERUM No comment entered. Ordering Provider: GIBRAN SCHWARTZ Report Released Date/Time: Jul 29, 2023 07:36 PM Reporting Lab: [address] [address] Performing Lab: [address] [address] PROTEIN,TOTAL 7.1 g/dL 6.0-8.3 ALBUMIN 4.1 g/dL 3.5-5.0 ALKALINE PHOSPHATASE 64 U/L 40-150 AST 14 U/L 5-34 ALT 17 U/L BILIRUBIN, TOTAL 0.4 mg/dL 0.2-1.2 Jul 30, 2023 11:43 AM [facility] BASIC METABOLIC PANEL (fasting) Specimen Type: SERUM No comment entered. Ordering Provider: GIBRAN SCHWARTZ Report Released Date/Time: Jul 29, 2023 07:36 PM Reporting Lab: [address] [address] Performing Lab: [address] [address] UREA NITROGEN 14 mg/dL 7-25 GLUCOSE 104 mg/dL H 65-100 SODIUM 139 mmol/L 135-145 POTASSIUM 4.6 mmol/L 3.5-5.0 CHLORIDE 103 mmol/L 100-110 CO2 25 meq/L 20-30 CREATININE, Serum 0.76 mg/dL 0.50-1.40 eGFR(CKD-EPI 2020) >90 mL/min >60 Jul 30, 2023 11:43 AM [facility] LIPID PANEL, NON FASTING Specimen Type: SERUM No comment entered. Ordering Provider: GIBRAN SCHWARTZ Report Released Date/Time: Jul 29, 2023 07:36 PM Reporting Lab: [facility] [address] [facility] [address] Performing Lab: [facility] [address] [facility] [address] CHOLESTEROL 157 mg/dL TRIGLYCERIDE 105 mg/dL 0-150 LDL calculated 84 mg/dL 0-129 CHOL/HDL 3.0 HDL CHOLESTEROL 52 mg/dL 40-60 Jul 30, 2023 11:43 AM [facility] HEPATITIS C ANTIBODY (HCV)-ARC Specimen Type: SERUM Comment: Hep C Ab: No HCV antibody detected. If recent infection is suspected or other evidence suggests HCV infection, consider HCV nucleic acid testing Ordering Provider: GIBRAN SCHWARTZ Report Released Date/Time: Jul 29, 2023 07:36 PM Reporting Lab: [facility] [address] [facility] [address] Performing Lab: [facility] [address] [facility] [address] HEPATITIS C ANTIBODY NON-REACTIVE NON-REACTI VE Jul 30, 2023 11:43 AM [facility] PSA Specimen Type: SERUM No comment entered. Ordering Provider: GIBRAN SCHWARTZ Report Released Date/Time: Jul 29, 2023 07:36 PM Reporting Lab: [facility] [address] [facility] [address] Performing Lab: [address] [address] PSA 3.96 ng/mL 0.00-4.00 Jul 30, 2023 11:42 AM [facility] HEMOGLOBIN A1C PANEL Specimen Type: BLOOD Comment: Values obtained from A1C measurements can vary. For atypical A1C assays, a reported value of 7.0 could actually be between 6.72 and 7.28 if measured by a reference method. A reported value of 9.0 could actually be between 8.73 and 9.27. Ref: http://www.ngs p.org/CAPdata. asp Ordering Provider: RAUL LANG Report Released Date/Time: Jul 30, 2023 11:11 AM Reporting Lab: [facility] [address] [facility] [address] Performing Lab: [address] [address] HEMOGLOBIN A1C 6.8 H 4.0-5.6 Social History: Smoking Status (Most current) and Tobacco Use (All prior to encounter date) This section includes the most current, and the historical, smoking and tobacco- related health factors from the [place] facility where the Encounter took place. Current Smoking Status This section includes the most current smoking, or tobacco-related health factor, from the [place] facility where the Encounter took place. Date/Time Current Smoking Status Comment Monica itisidro Jul 29, 2023 02:19 PM VA-TOBACCO FORMER USER [facility] Tobacco Use History This section includes a history of the smoking, or tobacco-related health factors, that were collected on or before the date of the Encounter. The data comes from the [place] facility where the Encounter took place. Date/Time Smoking Status/Tobacco Use Comment F acility Jul 29, 2023 02:19 PM VA-TOBACCO QUIT < 1 YEAR [facility] Encounter Notes: All associated encounter notes This section contains the clinical notes associated to the Encounter. Date/Time Encounter Note(s) Provider Source Jul 29, 2023 02:24 PM LETTERS: LOCAL TITLE: PATIENT LETTER (B) STANDARD TITLE: LETTERS DATE OF NOTE: JUL 29, 2023@14:24 ENTRY DATE: JUL 29, 2023@14:24:08 AUTHOR: ALEXI MATOS COSIGNER: URGENCY: STATUS: COMPLETED [facility] Outpatient [place] [phone] * [phone] * Date: 07/29/23 Dear Pelican: Jeannine Thank you for choosing the [facility] ([place]) [facility]. The Whole Health Program aims to support you in pursuing what matters most to you, and includes services that support your values and overall wellness. This includes the following offerings: * Yoga * Acupuncture * [place] Acupuncture for Acute Pain (offered weekly; drop-in or scheduled) * Individual health coaching * Facilities Coordinator * Biofeedback for Hypertension and Anxiety * Guided Imagery Group * Meditation Group * Cancer Support Group * Stress Management Group ( Stress Less ) The following require no referral from a provider, and can be initiated by you at any time: * Yoga * Meditation * [place] Acupuncture * Cancer Support Group * Individual Health Coaching * Stress Management Group ( Stress Less ) If interested in any of the above offerings, please reach out to the Whole Health Team at [phone]. [phone]. To schedule consult-required services, or if you would like more information regarding [place] health care benefits, please call toll free at [phone]), visit the [place] website at [place].gov[place]health[place] , or contact your local [place] Medical Center. If you have any questions, please do not hesitate to contact the Department of 's Affairs call center. Sincerely. Dr. Alexandra Walker Whole Health and Integrated School Manager [facility] Direct ALEXI MATOS [place] [facility] [place] [facility] Jul 29, 2023 02:23 PM LETTERS: LOCAL TITLE: PATIENT LETTER (B) STANDARD TITLE: LETTERS DATE OF NOTE: JUL 29, 2023@14:23 ENTRY DATE: JUL 29, 2023@14:23:12 AUTHOR: ALEXI MATOS EXP COSIGNER: URGENCY: STATUS: [place] [address] [phone] * [phone] Ext [phone] * Date: 07/29/23 Dear : Jeannine Thank you for choosing the [facility] ([place]) [facility]. Please be a few minutes early to this appt- about 15 mins. We would like to update your demographic information. To schedule or if you would like more information regarding [place] health care benefits, please call toll free at [phone]), visit the [place] website at [email or web address] , or contact your local [place] Medical Center. Welcome to patient aligned care team (Pact Team Eight) with (Dr. Lang). Prior to meeting you at your new patient appointment we are requesting some of your past medical history so that we may provide you with the exceptional care you deserve. Please note that it is very helpful to have these documents prior to your appointment date as the more information we have the better we will be able to meet your needs: * Last History & Physical * Immunization records * Medication list * Diagnosis list * Most recent labs * Diagnostic screens (Colonoscopy, Abdominal Aortic Aneurysm screen, Mammograms, PAPS, etc.) We have scheduled the following appt with you to see your new PCP: Your appt is scheduled for (07/30/23@1000)- This appt will be about an hour long appt which will give you and your Provider a chance to get to know each other. We have noticed that you are due to receive the following Immunizations: 1. Zoster vaccine- 2 shot series 2. TD/TDAP immunization 3. Covid 19 vaccine 4. Pneumococcal PCR 15, & 20 5. Influenza Vaccine You may either bring your records with you to your scheduled appointment, or drop them off ahead of your appointment or you may have them faxed to [phone] ATTN: CWM/NO/PACT- EightChamp Lang If you have any questions, please do not hesitate to contact the Department of 's Affairs call center at Ext [phone]. Just so that you know if you're feeling sick we have sick call hours at the [facility], and the [facility]- Fri thru Friday 08-1530- first come first serve- walk-in basis. [facility] has sick call hours Fri-Fri- -12, and 3P-4P- first come, first serve, walk-in basis- no appt needed. You can utilize our sick call system once you have seen your Primary Care Physician for the first time. Audiology Phone number- [phone]- Ext [phone] Optometry Phone Number- [phone] Ext [phone] Mental Health Clinic- [phone] Ext- [phone] Eligibility/Enrollment- [phone]- Ext-[phone], or- [phone] Veterans Rep [phone] Ext [phone] ROSENDO Van [phone] [place] Transportation [phone] Ext [phone], or,[phone] [place] [employer] [phone] ( Call within 72hrs of being seen in an acute care setting Sincerely. [facility] [address] [place] [address] Phone: Ext [phone] Upcoming Appointments: 07/30/23@1000- CWM/NO/PACT-Eight- Rickey Matos MSN Ed., BSN, RN [facility] [address] [place] [address] [address] [place] [address] [place] [address] - Ext [phone] [place] [facility] [address] [place] [address] [place] [address] [facility] Jul 29, 2023 02:19 PM PREVENTIVE MEDICINE NURSING NOTE: LOCAL TITLE: CLINICAL REMINDERS/NURSING STANDARD TITLE: PREVENTIVE MEDICINE NURSING NOTE DATE OF NOTE: JUL 29, 2023@14:19 ENTRY DATE: JUL 29, 2023@14:19:37 AUTHOR: ALEXI MATOS COSIGNER: URGENCY: STATUS: COMPLETED Community PCP's Teresa SHAFER General Work Place: [address] [place] [address] Tel: [employer] Advance Directive Screen MH AD: Patient does not have an Advance Directive completed and is requesting more information. The patient received education about Advance Directives and written notification of his/her rights. Vet was sent an advanced directive and was asked to fill it out and bring it in for PCP appt Depression Screening: Perform PHQ-2 A PHQ-2 screen was performed. The score was 0 which is a negative screen for depression. Over the past two weeks, how often have you been bothered by the following problems? 1. Little interest or pleasure in doing things Not at all 2. Feeling down, depressed, or hopeless Not at all Suicide Screen: C-SSRS Screening Forrest Suicide Severity Rating Scale (C-SSRS) screener 1. Over the past month, have you wished you were or wished you could go to sleep and not wake up? No 2. Over the past month, have you had any actual thoughts of killing yourself? No 3. Over the past month, have you been thinking about how you might do this? Response not required due to responses to other questions. 4. Over the past month, have you had these thoughts and had some intention of acting on them? Response not required due to responses to other questions. 5. Over the past month, have you started to work out or worked out the details of how to kill yourself? Response not required due to responses to other questions. 6. If yes, at any time in the past month did you intend to carry out this plan? Response not required due to responses to other questions. 7. In your lifetime, have you ever done anything, started to do anything, or prepared to do anything to end your life (for example, collected pills, obtained a gun, gave away valuables, went to the roof but didn't jump)? No 8. If YES, was this within the past 3 months? Response not required due to responses to other questions. Homelessness/Food Insecurity Screen: In the past 2 months, have you been living in stable housing that you own, rent, or stay in as part of a household? Yes - Living in stable housing. Are you worried or concerned that in the next 2 months you may NOT have stable housing that you own, rent, or stay in as part of a household? No - Not worried about housing near future The reports the following: Within the past 12 months, you worried whether your food would run out before you got money to buy more. Never true Within the past 12 months, the food you bought just didn't last and you didn't have money to get more. Never true MST Screening: Patient denies experiencing sexual trauma (MST). Preferred Language: What is your, or your caregiver's preferred language for healthcare? Preferred Language: Lithuanian PTSD Screening: PC-PTSD-5 A PTSD screening test (PC-PTSD-5) was negative (score=0). IN THE PAST MONTH, have you ever had any experience that was so frightening, horrible or traumatic. For example: A serious accident or fire a physical or sexual assault or abuse An earthquake or flood A war Seeing someone be killed or seriously injured Having a loved one through homicide or suicide 1. Have you ever experienced this kind of event? NO 2. Had nightmares about the event(s) or thought about the event(s) when you did not want to? Response not required due to responses to other questions. 3. Tried hard not to think about the event(s) or went out of your way to avoid situations that reminded you of the event(s)? Response not required due to responses to other questions. 4. Been constantly on guard, watchful, or easily startled? Response not required due to responses to other questions. 5. Hatch numb or detached from people, activities, or your surroundings? Response not required due to responses to other questions. 6. Hatch guilty or unable to stop blaming yourself or others for the event(s) or any problems the event(s) may have caused? Response not required due to responses to other questions. Tobacco Use Screening: The patient is a former tobacco user. The patient quit less than one year ago. Influenza Immunization: The patient has received the seasonal influenza vaccine for the current season at another location. Documented: INFLUENZA, UNSPECIFIED FORMULATION Historical Date Administered: Jul 25, 2023 Outside Location: Outside Healthcare Provider Information Source: FROM OTHER REGISTRY Comment: Zheng Alcohol Use Screen (AUDIT-C): Alcohol Screen: SCREEN FOR ALCOHOL (AUDIT-C) An alcohol screening test (AUDIT-C) was negative (score=2). 1. How often did you have a drink containing alcohol in the past year? Consider a drink to be a 12 ounce can or bottle of regular beer, 8 ounces of malt liquor, a 5 ounce glass of table wine, or a 1.5 ounce shot of liquor (like scotch, gin, or vodka). Monthly or less 2. How many drinks containing alcohol did you have on a typical day when you were drinking in the past year? One or two drinks 3. How often did you have six or more drinks on one occasion in the past year? Less than monthly /garo/ ALEXI MATOS MSN Ed., BSN ANCHOR TACKER NURSE Signed: 07/29/2023 19:31 ALEXI MATOS [facility]
--- OUTSIDE RECORDS SUMMARY | 2024-06-09 08:15 | XMS_ITS ---
Author Name [facility] [place] Organization [facility] [place] Address [address] [place] [address] Care Team Providers Care Music Therapist Name Role Phone RAUL GOLDBERG Primary Care Provider Alejandro juarez Insurance Providers: [...] [employer] Jun 23, 2021 [id number] JACKELIN ACKERMAN PATIENT Selected Encounter This section includes the information on record at [place] for the Encounter. Date/Time Encounter Type Encounter Description Reason Pro vider Source Jul 25, 2023 12:00 AM Outpatient Encounter EVENT (HISTORICAL) IHE Encounter Template Text not used by [place] Plan of Treatment: Future Appointments (+ 6 [...] 20 appointments. The data comes from all [place] treatment facilities. Appointment Date/Time Appointment Type Appointme nt Facility Name Jul 30, 2023 10:00 AM AM[place]ATORY [place]ICINE [place] [facility] Aug 08, 2023 02:00 PM AM[place]ULATORY [place]ICINE [place] [facility] Aug 22, 2023 06:00 AM AMBULATORY - [place]ICINE [place] [facility] Sep 04, 2023 01:00 PM AMBULATORY - MEDICINE [place] [facility] Oct 07, 2023 01:00 PM AMBULATORY [place]ICINE [place] [facility] November 05, 2023 02:00 PM AMBULATORY [place]ICINE [place] [facility] Lab Results: +/- 30 days of the encounter This section includes the Chemistry and Hematology Lab Results on record with [place] for the patient. Radiology Reports and Pathology Reports are provided separately, in subsequent sections. Lab Results This section contains the Chemistry/Hematology Results that were resulted 30 days before or 30 daysafter the date of the Encounter. Date/Time Source Result Type Result - Unit Interpretation Reference Range Comment Jul 30, 2023 11:48 AM [place] [facility] [place] [facility] MICROALBUMIN CREATININE RATIO PANEL Specimen Type: URINE No comment entered. Ordering Provider: RAUL GOLDBERG Report Released Date/Time: Jul 30, 2023 11:11 AM Reporting Lab: [place] [facility] [place] [facility] [address] [facility] [address] Performing Lab: [facility] [place] [facility] [address] [facility] [address] MICROALBUMIN/C REATININE RATIO 12.2 mg/g 0-29.9 MICROALBUMIN,Q UANTITATIVE 0.5 mg/dL RR UNAVAIL CREATININE URINE 40.83 mg/dL Jul 30, 2023 11:43 AM [place] [facility] [place] [facility] CBC Specimen Type: BLOOD No comment entered. Ordering Provider: GIBRAN SCHWARTZ Report Released Date/Time: Jul 29, 2023 07:36 PM Reporting Lab: [facility] [place] [facility] [address] [facility] [address] Performing Lab: [place] [facility] [facility] [address] [facility] [address] WBC 7.13 10*3/uL 4.50-11.00 RBC 5.12 10*6/uL 4.23-5.66 HGB 13.9 g/dL 12.8-17 HCT 44.1 39.2-50.4 MCV 86.1 fL 82-99 MCHC 31.5 g/dL 30.8-35.1 PLT 274 10*3/uL 140-360 RDW-CV 18.4 H 12.0-16.0 MCH 27.1 pg 26.2-32.6 Jul 30, 2023 11:43 AM [facility] LIVER FUNCTION Specimen Type: SERUM No comment entered. Ordering Provider: GIBRAN SCHWARTZ Report Released Date/Time: Jul 29, 2023 07:36 PM Reporting Lab: [address] [address] Performing Lab: [address] [address] PROTEIN,TOTAL 7.1 g/dL 6.0-8.3 ALBUMIN 4.1 g/dL 3.5-5.0 ALKALINE PHOSPHATASE 64 U/L 40-150 AST 14 U/L 5-34 ALT 17 U/L BILIRUBIN, TOTAL 0.4 mg/dL 0.2-1.2 Jul 30, 2023 11:43 AM [facility] BASIC METABOLIC PANEL (fasting) Specimen Type: SERUM No comment entered. Ordering Provider: GIBRAN SCHWARTZ Report Released Date/Time: Jul 29, 2023 07:36 PM Reporting Lab: [address] [address] Performing Lab: [address] [address] UREA NITROGEN 14 mg/dL 7-25 GLUCOSE 104 mg/dL H 65-100 SODIUM 139 mmol/L 135-145 POTASSIUM 4.6 mmol/L 3.5-5.0 CHLORIDE 103 mmol/L 100-110 CO2 25 meq/L 20-30 CREATININE, Serum 0.76 mg/dL 0.50-1.40 eGFR(CKD-EPI 2020) >90 mL/min >60 Jul 30, 2023 11:43 AM [facility] LIPID PANEL, NON FASTING Specimen Type: SERUM No comment entered. Ordering Provider: GIBRAN SCHWARTZ Report Released Date/Time: Jul 29, 2023 07:36 PM Reporting Lab: [facility] [address] [facility] [address] Performing Lab: [facility] [address] [facility] [address] CHOLESTEROL 157 mg/dL TRIGLYCERIDE 105 mg/dL 0-150 LDL calculated 84 mg/dL 0-129 CHOL/HDL 3.0 HDL CHOLESTEROL 52 mg/dL 40-60 Jul 30, 2023 11:43 AM [facility] HEPATITIS C ANTIBODY (HCV)-ARC Specimen Type: SERUM Comment: Hep C Ab: No HCV antibody detected. If recent infection is suspected or other evidence suggests HCV infection, consider HCV nucleic acid testing Ordering Provider: GIBRAN SCHWARTZ Report Released Date/Time: Jul 29, 2023 07:36 PM Reporting Lab: [facility] [address] [facility] [address] Performing Lab: [facility] [address] [facility] [address] HEPATITIS C ANTIBODY NON-REACTIVE NON-REACTI VE Jul 30, 2023 11:43 AM [facility] PSA Specimen Type: SERUM No comment entered. Ordering Provider: GIBRAN SCHWARTZ Report Released Date/Time: Jul 29, 2023 07:36 PM Reporting Lab: [facility] [address] [facility] [address] Performing Lab: [address] [address] PSA 3.96 ng/mL 0.00-4.00 Jul 30, 2023 11:42 AM [facility] HEMOGLOBIN A1C PANEL Specimen Type: BLOOD [...] Jul 30, 2023 11:11 AM Reporting Lab: [address] [address] Performing Lab: [address] [address] HEMOGLOBIN A1C 6.8 H 4.0-5.6 Immunizations: All administered on the encounter date This section contains immunizations associated to the Encounter. Immunization Series Date Issued Reaction Comments INFLUENZA, UNSPECIFIED FORMULATION Jul 25, 2023 Zheng
--- OUTSIDE RECORDS SUMMARY | 2024-06-09 08:16 | XMS_ITS ---
Author Name [facility] [place] [facility] [place] Address [address] [place] [address] Care Team Providers Care Sand Screener Operator Name Role Phone YUSUF RAUL Primary Care Provider Alejandro juarez Insurance Providers: [...] Name Patient's Relationship to Policy Block [place] PREFERRED PROVIDER ORGANIZAT ION (PPO) [employer] Jun 23, 2021 [id number] [phone] JACKELIN ACKERMAN PATIENT Selected Encounter This section includes the information on record at [place] for the Encounter. Date/Time Encounter Type Encounter Description Reason Provider Source Aug 08, 2023 02:00 PM OFF/OP EST OCTOBER X REQ PHY/QHP PRIMARY CARE/MEDICINE ICD-10-CM Z23 Encounter for immunization CHILSON,TIMOT HY E IHE Encounter Template Text not used by [place] Assessments - Encounter Diagnoses This section includes the primary and secondary diagnoses documented for the Encounter. Date/Time Primary/Secondary Diagnosis Diagnosis Name Provider Source Aug 08, 2023 02:26 PM PRIMARY Encounter for immunization CHILSON,TIMOT HY E [place] [facility] [place] [facility] Plan of Treatment: Future Appointments (+ 6 months) and Future Tests (+/- 45 days) The Plan of Treatment section includes future care activities for the patient from all [place] [facility] This section includes future appointments and future orders which are active, pending or scheduled. Future Appointments This section includes appointments that were scheduled to occur 6 months from the date of the Encounter, up to a maximum of 20 appointments. The data comes from all [place] treatment facilities. Appointment Date/Time Appointment Type Appointme nt Facility Name Aug 22, 2023 06:00 AM AMBULATORY - MEDICINE [facility] NTR WSN [facility] Sep 04, 2023 01:00 PM AMBULATORY MEDICINE [facility] NTRL [facility] Oct 07, 2023 01:00 PM AMBULATORY MEDICINE [facility] NTRL [facility] November 05, 2023 02:00 PM [facility] Feb 02, 2024 09:00 AM AMBULATORY MEDICINE [facility] Lab Results: +/- 30 days of the encounter This section includes the Chemistry and Hematology Lab Results on record with [place] for the patient. Radiology Reports and Pathology Reports are provided separately, in subsequent sections. Lab Results This section contains the Chemistry/Hematology Results that were resulted 30 days before or 30 daysafter the date of the Encounter. Date/Time Source Result Type Result - Unit Interpretation Reference Range Comment Jul 30, 2023 11:48 AM [facility] MICROALBUMIN CREATININE RATIO PANEL Specimen Type: URINE No comment entered. Ordering Provider: RAUL GOLDBERG Report Released Date/Time: Jul 30, 2023 11:11 AM Reporting Lab: [facility] [address] [facility] [address] Performing Lab: [facility] [address] [facility] [address] MICROALBUMIN/C REATININE RATIO 12.2 mg/g 0-29.9 MICROALBUMIN,Q UANTITATIVE 0.5 mg/dL RR UNAVAIL CREATININE URINE 40.83 mg/dL Jul 30, 2023 11:43 AM [facility] CBC Specimen Type: BLOOD No comment entered. Ordering Provider: GIBRAN SCHWARTZ Report Released Date/Time: Jul 29, 2023 07:36 PM Reporting Lab: [facility] [address] [facility] [address] Performing Lab: [facility] [address] [address] WBC 7.13 10*3/uL 4.50-11.00 RBC 5.12 10*6/uL 4.23-5.66 HGB 13.9 g/dL 12.8-17 HCT 44.1 39.2-50.4 MCV 86.1 fL 82-99 MCHC 31.5 g/dL 30.8-35.1 PLT 274 10*3/uL 140-360 RDW-CV 18.4 H 12.0-16.0 MCH 27.1 pg 26.2-32.6 Jul 30, 2023 11:43 AM [facility] LIVER FUNCTION Specimen Type: SERUM No comment entered. Ordering Provider: GIBRAN SCHWARTZ Report Released Date/Time: Jul 29, 2023 07:36 PM Reporting Lab: [address] [address] Performing Lab: [address] [address] PROTEIN,TOTAL 7.1 g/dL 6.0-8.3 ALBUMIN 4.1 g/dL 3.5-5.0 ALKALINE PHOSPHATASE 64 U/L 40-150 AST 14 U/L 5-34 ALT 17 U/L BILIRUBIN, TOTAL 0.4 mg/dL 0.2-1.2 Jul 30, 2023 11:43 AM [facility] BASIC METABOLIC PANEL (fasting) Specimen Type: SERUM No comment entered. Ordering Provider: GIBRAN SCHWARTZ Report Released Date/Time: Jul 29, 2023 07:36 PM Reporting Lab: [address] [address] Performing Lab: [address] [address] UREA NITROGEN 14 mg/dL 7-25 GLUCOSE 104 mg/dL H 65-100 SODIUM 139 mmol/L 135-145 POTASSIUM 4.6 mmol/L 3.5-5.0 CHLORIDE 103 mmol/L 100-110 CO2 25 meq/L 20-30 CREATININE, Serum 0.76 mg/dL 0.50-1.40 eGFR(CKD-EPI 2020) >90 mL/min >60 Jul 30, 2023 11:43 AM [facility] LIPID PANEL, NON FASTING Specimen Type: SERUM No comment entered. Ordering Provider: GIBRAN SCHWARTZ Report Released Date/Time: Jul 29, 2023 07:36 PM Reporting Lab: [address] [address] Performing Lab: [address] [address] CHOLESTEROL 157 mg/dL TRIGLYCERIDE 105 mg/dL 0-150 LDL calculated 84 mg/dL 0-129 CHOL/HDL 3.0 HDL CHOLESTEROL 52 mg/dL 40-60 Jul 30, 2023 11:43 AM [facility] HEPATITIS C ANTIBODY (HCV)-ARC Specimen Type: SERUM Comment: Hep C Ab: No HCV antibody detected. If recent infection is suspected or other evidence suggests HCV infection, consider HCV nucleic acid testing Ordering Provider: GIBRAN SCHWARTZ Report Released Date/Time: Jul 29, 2023 07:36 PM Reporting Lab: [address] [address] Performing Lab: [address] [address] HEPATITIS C ANTIBODY NON-REACTIVE NON-REACTI VE Jul 30, 2023 11:43 AM [facility] PSA Specimen Type: SERUM No comment entered. Ordering Provider: GIBRAN SCHWARTZ Report Released Date/Time: Jul 29, 2023 07:36 PM Reporting Lab: [facility] [address] [facility] [address] Performing Lab: [address] [address] PSA 3.96 ng/mL 0.00-4.00 Jul 30, 2023 11:42 AM [facility] HEMOGLOBIN A1C PANEL Specimen Type: BLOOD Comment: [...] Jul 30, 2023 11:11 AM Reporting Lab: [facility] [address] [facility] [address] Performing Lab: [address] [address] HEMOGLOBIN A1C 6.8 H 4.0-5.6 Vital Signs: All taken on the encounter date This section contains inpatient and outpatient Vital Signs collected on the date of the Encounter. Date/Time Temperature Pulse Blood Pressure Respiratory Rate SP02 Pain Height Weight Body Mass Index Source Aug 08, 2023 02:07 PM 198.3 32 [facility] Immunizations: All administered on the encounter date This section contains immunizations associated to the Encounter. Immunization Series Date Issued Reaction Comments PNEUMOCOCCAL CONJUGATE PCV20 , POLYSACCHARIDE [id number] CONJUGATE, ADJUVANT, PF Aug 08, 2023 TDAP Aug 08, 2023 Social History: Smoking Status (Most current) and Tobacco Use (All prior to encounter date) This section includes the most current, and the historical, smoking and tobacco- related health factors from the [place] facility where the Encounter took place. Current Smoking Status This section includes the most current smoking, or tobacco-related health factor, from the [place] facility where the Encounter took place. Date/Time Current Smoking Status Comment Monica ity Jul 29, 2023 02:19 PM [place]-TOBACCO FORMER USER [facility] Tobacco Use History This section includes a history of the smoking, or tobacco-related health factors, that were collected on or before the date of the Encounter. The data comes from the [place] facility where the Encounter took place. Date/Time Smoking Status/Tobacco Use Comment F acility Jul 29, 2023 02:19 PM VA-TOBACCO QUIT < 1 YEAR [place] [facility] [place] [facility] Encounter Notes: All associated encounter notes This section contains the clinical notes associated to the Encounter. Date/Time Encounter Note(s) Provider Source Aug 08, 2023 02:10 PM PREVENTIVE MEDICINE NURSING NOTE: LOCAL TITLE: CLINICAL REMINDERS/NURSING STANDARD TITLE: PREVENTIVE MEDICINE NURSING NOTE DATE OF NOTE: AUG 08, 2023@14:10 ENTRY DATE: AUG 08, 2023@14:10:34 AUTHOR: JUAN MATOS EXP COSIGNER: URGENCY: STATUS: COMPLETED Medication requested D: Vet would like the following med ordered: 1) TIOTROPIUM 2.5MCG/ACTUAT 60D ORAL INHL INHALE 2 PUFFS ACTIVE BY MOUTH ONCE DAILY Vet was told that he could go to Pharm as he has 3 refills left. Tdap Immunization: Administered: TDAP Date Administered: Aug 08, 2023 14:00 Endbander: [employer] Lot: [id number] Exp Date: Oct 16, 2025 NDC: 476422237922 Admin Route/Site: INTRAMUSCULAR/LEFT DELTOID Dosage: 0.5mL Vaccine Information Statement(s): TDAP (TETANUS, DIPHTHERIA, PERTUSSIS) VACCINE VIS Jan 26, 2021 ([place]) Order By: Policy Administered By: Juan Matos Vaccine Information Sheet (VIS) was given to the patient/caregiver, education regarding adverse reactions was discussed, as well as barriers to learning, if any, were acknowledged. Pneumococcal Conjugate Vaccine (PCV15/PCV20): PCV20 (Prevnar 20) Administered: PNEUMOCOCCAL CONJUGATE PCV20, POLYSACCHARIDE [id number] CONJUGATE, ADJUVANT, PF Date Administered: Aug 08, 2023 14:00 Endbander: [employer] Lot: [id number] Exp Date: Jun 22, 2024 NDC: [id number] Admin Route/Site: INTRAMUSCULAR/RIGHT DELTOID Dosage: 0.5mL Vaccine Information Statement(s): PNEUMOCOCCAL CONJUGATE ([id number]) VIS November 01, 2022 ([place]ORGI[place]) Order By: Policy Administered By: Juan Matos Vaccine Information Sheet (VIS) was given to the patient/caregiver, education regarding adverse reactions was discussed, as well as barriers to learning, if any, were acknowledged. /garo/ JUAN MATOS MSN Ed., BSN LAND DEVELOPMENT PROJECT MANAGER NURSE Signed: 08/08/2023 14:26 JUAN MATOS CNTRL [facility]
--- OUTSIDE RECORDS SUMMARY | 2024-06-09 08:16 | XMS_ITS ---
Author Name [facility] [place] [facility] [place] Address [address] [place] [address] Care Team Providers Care Crossband Layer Name Role Phone OKSANA GOLDBERGA Primary Care [...] [employer] Jun 23, 2021 [id number] [phone] JACKELIN ACKERMAN PATIENT Selected Encounter This section includes the information on record at [place] for the Encounter. Date/Time Encounter Type Encounter Description Reason Provider Source Sep 04, 2023 01:00 PM OFF/OP EST OCTOBER X REQ PHY/Q PRIMARY CARE/MEDICINE ICD-10-CM Z23 Encounter for immunization CHILSON,TIMOT HY E IHE Encounter Template Text not used by [place] Assessments - Encounter Diagnoses This section includes the primary and secondary diagnoses documented for the Encounter. Date/Time Primary/Secondary Diagnosis Diagnosis Name Provider Source Sep 04, 2023 01:23 PM PRIMARY Encounter for immunization CHILSON,TIMOT HY E [place] [facility] [place] [facility] Plan of Treatment: Future Appointments (+ 6 months) and Future Tests (+/- 45 days) The Plan of Treatment section includes future care activities for the patient from all [place] [facility]. This section includes future appointments and future orders which are active, pending or scheduled. Future Appointments This section includes appointments that were scheduled to occur 6 months from the date of the Encounter, up to a maximum of 20 appointments. The data comes from all [facility] facilities. Appointment Date/Time Appointment Type Appointme nt Facility Name Oct 07, 2023 01:00 PM AMBULATORY MEDICINE [facility] November 05, 2023 02:00 PM [facility] Feb 02, 2024 09:00 AM [facility] Mar 04, 2024 02:30 PM [facility] Immunizations: All administered on the encounter date This section contains immunizations associated to the Encounter. Immunization Series Date Issued Reaction Comments HEP A-HEP B 1 Sep 04, 2023 ZOSTER RECOMBINANT 1 Sep 04, 2023 Social History: Smoking Status (Most current) and Tobacco Use (All prior to encounter date) This section includes the most current, and the historical, smoking and tobacco- related health factors from the [place] facility where the Encounter took place. Current Smoking Status This section includes the most current smoking, or tobacco-related health factor, from the [place] facility where the Encounter took place. Date/Time Current Smoking Status Comment Facil ity Jul 29, 2023 02:19 PM VA-TOBACCO FORMER USER [facility] Tobacco Use History This section includes a history of the smoking, or tobacco-related health factors, that were collected on or before the date of the Encounter. The data comes from the [place] facility where the Encounter took place. Date/Time Smoking Status/Tobacco Use Comment F acility Jul 29, 2023 02:19 PM [place]-TOBACCO QUIT < 1 YEAR [facility] Encounter Notes: All associated encounter notes This section contains the clinical notes associated to the Encounter. Date/Time Encounter Note(s) Provider Source Sep 04, 2023 01:19 PM PREVENTIVE MEDICINE NURSING NOTE: LOCAL TITLE: CLINICAL REMINDERS/NURSING STANDARD TITLE: PREVENTIVE MEDICINE NURSING NOTE DATE OF NOTE: SEP 04, 2023@13:19 ENTRY DATE: SEP 04, 2023@13:19:51 AUTHOR: JUAN MATOS EXP COSIGNER: URGENCY: STATUS: COMPLETED Hepatitis B Serology/Immunization: Combination Hepatitis A / Hepatitis B vaccine Administered: HEP A-HEP B Date Administered: Sep 04, 2023 13:00 Series: Series 1 Street Cleaner: Where Was it Filmed Lot: [id number] Exp Date: Jun 21, 2025 ND: [id number] Admin Route/Site: INTRAMUSCULAR/LEFT DELTOID Dosage: 1mL Vaccine Information Statement(s): HEPATITIS B VACCINE VIS November 01, 2022 ([place]TH [place]ORE[place]) Order By: Policy Administered By: Juan Matos Vaccine Information Sheet (VIS) was given to the patient/caregiver, education regarding adverse reactions was discussed, as well as barriers to learning, if any, were acknowledged. Herpes Zoster (Shingles) Vaccine: Administered: ZOSTER RECOMBINANT Date Administered: Sep 04, 2023 13:00 Series: Series 1 Street Cleaner: Where Was it Filmed Lot: [id number] Exp Date: Mar 30, 2024 ND: [id number] Admin Route/Site: INTRAMUSCULAR/RIGHT DELTOID Dosage: 0.5mL Vaccine Information Statement(s): RECOMBINANT ZOSTER VACCINE VIS Jul 27, 2021 ([place]) Order By: Policy Administered By: Juan Matos Vaccine Information Sheet (VIS) was given to the patient/caregiver, education regarding adverse reactions was discussed, as well as barriers to learning, if any, were acknowledged. /garo/ JUAN MATOS MSN Ed., BSN FIRE PROTECTION SPECIALIST NURSE Signed: 09/04/2023 13:23 JUAN MATOS [facility]L [facility]
--- OUTSIDE RECORDS SUMMARY | 2024-06-09 08:16 | XMS_ITS | Encounter Summary ---
Author Name [facility] [place] Organization [place] Address [address] [place] [id number] Care Team Providers Care Church Organist Name Role Phone OKSANA GOLDBERGA Primary Care [...] [employer] Jun 23, 2021 [id number] [id number] JACKELIN ACKERMAN PATIENT Selected Encounter This section includes the information on record at [place] for the Encounter. Date/Time Encounter Type Encounter Description Reason Pro vider Source Oct 20, 2023 12:00 PM Outpatient Encounter COMMUNITY CARE CONSULT IHE Encounter Template Text not used by [place] Plan of Treatment: Future Appointments (+ 6 [...] 20 appointments. The data comes from all [place] treatment facilities. Appointment Date/Time Appointment Type Appointme nt Facility Name November 05, 2023 02:00 PM [facility]UL[facility] Feb 02, 2024 09:00 AM AMBULATORY - MEDICINE [facility] NTRL [facility] Mar 04, 2024 02:30 PM AMBULATORY - MEDICINE [facility] NTRL [facility] Mar 29, 2024 08:00 AM AMBULATORY - MEDICINE [facility] NTRL TRN [facility] Mar 29, 2024 08:30 AM AMBULATORY - MEDICINE [facility] Social History: Smoking Status (Most current) and Tobacco Use (All prior to encounter date) This section includes the most current, and the historical, smoking and tobacco- related health factors from the [place] facility where the Encounter took place. Current Smoking Status This section includes the most current smoking, or tobacco-related health factor, from the [place] facility where the Encounter took place. Date/Time Current Smoking Status Comment Monica blackmon Jul 29, 2023 02:19 PM VA-TOBACCO FORMER USER [facility] Tobacco Use History This section includes a history of the smoking, or tobacco-related health factors, that were collected on or before the date of the Encounter. The data comes from the [place] facility where the Encounter took place. Date/Time Smoking Status/Tobacco Use Comment [place] acmagui Jul 29, 2023 02:19 PM VA-TOBACCO QUIT < 1 YEAR [facility] Encounter Notes: All associated encounter notes This section contains the clinical notes associated to the Encounter. Date/Time Encounter Note(s) Provider Source Oct 20, 2023 12:00 PM NONVA CONSULT: LOCAL TITLE: COMMUNITY CARE-CONSULT RESULT NOTE STANDARD TITLE: NONVA CONSULT DATE OF NOTE: OCT 20, 2023@12:00 ENTRY DATE: OCTOBER 23, 2023@10:44:58 AUTHOR: CARLEY SEGOVIA EXP COSIGNER: URGENCY: STATUS: COMPLETED VistA Imaging - Scanned Document SCANNED DOCUMENT SIGNATURE NOT REQUIRED Electronically Filed: 10/23/2023 by: CARLEY SEGOVIA SQL SERVER DBA DEVELOPER CARLEY SEGOVIA [facility]
--- OUTSIDE RECORDS SUMMARY | 2024-06-09 08:16 | XMS_ITS | Encounter Summary ---
Author Name [facility] [place] Address [address] [place] [address] Care Team Providers Care Business Services Assistant Name Role Phone RAUL GOLDBERG Primary Care Provider Unavailyonas juarez Insurance Providers: All historical and current [...] [employer] Jun 23, 2021 [id number] JACKELIN ACKERMAN PATIENT Selected Encounter This section includes the information on record at [place] for the Encounter. Date/Time Encounter Type Encounter Description Reason Provider Source Oct 07, 2023 01:00 PM OFF/OP EST OCTOBER X REQ PHY/Q PRIMARY CARE/MEDICINE ICD-10-CM Z23 Encounter for immunization GRACIE GRIDER IHE Encounter Template Text not used by [place] Assessments - Encounter Diagnoses This section includes the primary and secondary diagnoses documented for the Encounter. Date/Time Primary/Secondary Diagnosis Diagnosis Name Provider Source Oct 07, 2023 01:25 PM PRIMARY Encounter for immunization GRACIE GRIDER [facility] [place] [facility] Plan of Treatment: Future Appointments (+ 6 months) and Future Tests (+/- 45 days) The Plan of Treatment section includes future care activities for the patient from all [place] [facility] This section includes future appointments and future orders which are active, pending or scheduled. Future Appointments This section includes appointments that were scheduled to occur 6 months from the date of the Encounter, up to a maximum of 20 appointments. The data comes from all [facility] facilities. Appointment Date/Time Appointment Type Appointme nt Facility Name November 05, 2023 02:00 PM AMBULATORY - MEDICINE [facility] Feb 02, 2024 09:00 AM [facility] MEDICINE [facility] Mar 04, 2024 02:30 PM AMBULATORY MEDICINE [facility] Mar 29, 2024 08:00 AM AMBULATORY MEDICINE [facility] Mar 29, 2024 08:30 AM AMBULATORY MEDICINE [facility] Immunizations: All administered on the encounter date This section contains immunizations associated to the Encounter. Immunization Series Date Issued Reaction Comments HEP A-HEP B 2 Oct 07, 2023 Social History: Smoking Status (Most current) and Tobacco Use (All prior to encounter date) This section includes the most current, and the historical, smoking and tobacco- related health factors from the [place] facility where the Encounter took place. Current Smoking Status This section includes the most current smoking, or tobacco-related health factor, from the [place] facility where the Encounter took place. Date/Time Current Smoking Status Comment Monica blackmon Jul 29, 2023 02:19 PM VA-TOBACCO FORMER USER [facility] Tobacco Use History This section includes a history of the smoking, or tobacco-related health factors, that were collected on or before the date of the Encounter. The data comes from the [place] facility where the Encounter took place. Date/Time Smoking Status/Tobacco Use Comment [place] acmagui Jul 29, 2023 02:19 PM [place]-TOBACCO QUIT < 1 YEAR [facility] Encounter Notes: All associated encounter notes This section contains the clinical notes associated to the Encounter. Date/Time Encounter Note(s) Provider Source November 11, 2023 01:37 PM ADMINISTRATIVE NOTE: LOCAL TITLE: FAX/MAIL RECEIVED STANDARD TITLE: ADMINISTRATIVE NOTE DATE OF NOTE: NOVEMBER 11, 2023@13:37 ENTRY DATE: NOVEMBER 11, 2023@13:37:29 AUTHOR: AKASH DE ANDA EXP COSIGNER: URGENCY: STATUS: COMPLETED Document Received On: October Document Type: Other: Disability Attending physician Statement Date of Service: October Facility and or Provider: Contact Information: PCP of Record: RAUL GOLDBERG Next visit with PCP: 02/02/2024 09:00 CWM/NO/PACT EIGHT Primary Care May keep copies of this document for up to 14 days and send the original for scanning. /garo/ AKASH DE ANDA LPN License Practical Nurse Signed: 11/11/2023 13:38 AKASH DE ANDA [place] [facility] [place] [facility] Oct 07, 2023 01:09 PM PREVENTIVE MEDICINE NURSING NOTE: LOCAL TITLE: CLINICAL REMINDERS/NURSING STANDARD TITLE: PREVENTIVE MEDICINE NURSING NOTE DATE OF NOTE: OCT 07, 2023@13:09 ENTRY DATE: OCT 07, 2023@13:09:08 AUTHOR: REGINA GRIDER EXP COSIGNER: URGENCY: STATUS: COMPLETED Hepatitis B Immunization: Combination Hepatitis A / Hepatitis B vaccine Administered: HEP A-HEP B Date Administered: Oct 07, 2023 13:00 Series: Series 2 Security Attendant: [employer] Lot: [id number] Exp Date: Jul 09, 2025 NDC: [id number] Admin Route/Site: INTRAMUSCULAR/LEFT DELTOID Dosage: 1mL Vaccine Information Statement(s): HEPATITIS B VACCINE VIS November 01, 2022 ([place]OR[place]) Order By: Policy Administered By: Regina Grider Vaccine Information Sheet (VIS) was given to the patient/caregiver, education regarding adverse reactions was discussed, as well as barriers to learning, if any, were acknowledged. COVID-19 Immunization: Vaccine given previously - no written/electronic documentation available The patient was instructed to bring a copy of their COVID-19 vaccine information to their next appointment so that this can be accurately recorded in their [place] medical record. [place] has upcoming PCP appointment-[place] agrees to get the third shot Hep A/B then. tolerated well and left area amb ad juanis. /garo/ REGINA GRIDER REGISTERED NURSE Signed: 10/07/2023 13:28 REGINA GRIDER CNTRL [facility]
--- OUTSIDE RECORDS SUMMARY | 2024-06-09 08:16 | XMS_ITS | Encounter Summary ---
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 Date/Time Encounter Type Encounter Description Reason Pro vider Source Aug 06, 2023 04:15 PM Outpatient Encounter COMMUNITY CARE CONSULT IHE [...] 20 appointments. The data comes from all [place] treatment facilities. Appointment Date/Time Appointment Type Appointme nt Facility Name Aug 08, 2023 02:00 PM AM[place]ULATORY [place]ICINE [place] [facility] [place] [facility] Aug 22, 2023 06:00 AM [place] [facility] [place] [facility] Sep 04, 2023 01:00 PM [place] [facility] [place] [facility] Oct 07, 2023 01:00 PM [place] [facility] [place] [facility] November 05, 2023 02:00 PM [place] [facility] [place] [facility] Feb 02, 2024 09:00 AM [place] [facility] [place] [facility] Lab Results: +/- 30 days of the encounter This section includes the Chemistry and Hematology Lab Results on record with [place] for the patient. Radiology Reports and Pathology Reports are provided separately, in subsequent sections. Lab Results This section contains the Chemistry/Hematology Results that were resulted 30 days before or 30 daysafter the date of the Encounter. Date/Time Source Result Type Result - Unit Interpretation Reference Range Comment Jul 30, 2023 11:48 AM [place] [facility] [place] [facility] MICROALBUMIN CREATININE RATIO PANEL Specimen Type: URINE No comment entered. Ordering Provider: RAUL GOLDBERG Report Released Date/Time: Jul 30, 2023 11:11 AM Reporting Lab: [place] [facility] [place] [facility] [address] [facility] [address] Performing Lab: [facility] [place] [facility] [address] [facility] [address] MICROALBUMIN/C REATININE RATIO 12.2 mg/g 0-29.9 MICROALBUMIN,Q UANTITATIVE 0.5 mg/dL RR UNAVAIL CREATININE URINE 40.83 mg/dL Jul 30, 2023 11:43 AM [place] [facility] [place] [facility] CBC Specimen Type: BLOOD No comment entered. Ordering Provider: GIBRAN SCHWARTZ Report Released Date/Time: Jul 29, 2023 07:36 PM Reporting Lab: [place] [facility] [place] [facility] [address] [facility] [address] Performing Lab: [place] [facility] [place] [facility] [address] [facility] [address] WBC 7.13 10*3/uL 4.50-11.00 RBC 5.12 10*6/uL 4.23-5.66 HGB 13.9 g/dL 12.8-17 HCT 44.1 39.2-50.4 MCV 86.1 fL 82-99 MCHC 31.5 g/dL 30.8-35.1 PLT 274 10*3/uL 140-360 RDW-CV 18.4 H 12.0-16.0 MCH 27.1 pg 26.2-32.6 Jul 30, 2023 11:43 AM [facility] LIVER FUNCTION Specimen Type: SERUM No comment entered. Ordering Provider: GIBRAN SCHWARTZ Report Released Date/Time: Jul 29, 2023 07:36 PM Reporting Lab: [address] [address] Performing Lab: [address] [address] PROTEIN,TOTAL 7.1 g/dL 6.0-8.3 ALBUMIN 4.1 g/dL 3.5-5.0 ALKALINE PHOSPHATASE 64 U/L 40-150 AST 14 U/L 5-34 ALT 17 U/L BILIRUBIN, TOTAL 0.4 mg/dL 0.2-1.2 Jul 30, 2023 11:43 AM [facility] BASIC METABOLIC PANEL (fasting) Specimen Type: SERUM No comment entered. Ordering Provider: GIBRAN SCHWARTZ Report Released Date/Time: Jul 29, 2023 07:36 PM Reporting Lab: [address] [address] Performing Lab: [address] [address] UREA NITROGEN 14 mg/dL 7-25 GLUCOSE 104 mg/dL H 65-100 SODIUM 139 mmol/L 135-145 POTASSIUM 4.6 mmol/L 3.5-5.0 CHLORIDE 103 mmol/L 100-110 CO2 25 meq/L 20-30 CREATININE, Serum 0.76 mg/dL 0.50-1.40 eGFR(CKD-EPI 2020) >90 mL/min >60 Jul 30, 2023 11:43 AM [facility] LIPID PANEL, NON FASTING Specimen Type: SERUM No comment entered. Ordering Provider: GIBRAN SCHWARTZ Report Released Date/Time: Jul 29, 2023 07:36 PM Reporting Lab: [facility] [address] [facility] [address] Performing Lab: [facility] [address] [facility] [address] CHOLESTEROL 157 mg/dL TRIGLYCERIDE 105 mg/dL 0-150 LDL calculated 84 mg/dL 0-129 CHOL/HDL 3.0 HDL CHOLESTEROL 52 mg/dL 40-60 Jul 30, 2023 11:43 AM [facility] HEPATITIS C ANTIBODY (HCV)-ARC Specimen Type: SERUM Comment: Hep C Ab: No HCV antibody detected. If recent infection is suspected or other evidence suggests HCV infection, consider HCV nucleic acid testing Ordering Provider: GIBRAN SCHWARTZ Report Released Date/Time: Jul 29, 2023 07:36 PM Reporting Lab: [facility] [address] [facility] [address] Performing Lab: [address] [address] HEPATITIS C ANTIBODY NON-REACTIVE NON-REACTI VE Jul 30, 2023 11:43 AM [facility] PSA Specimen Type: SERUM No comment entered. Ordering Provider: GIBRAN SCHWARTZ Report Released Date/Time: Jul 29, 2023 07:36 PM Reporting Lab: [facility] [address] [facility] [address] Performing Lab: [address] [address] PSA 3.96 ng/mL 0.00-4.00 Jul 30, 2023 11:42 AM [facility] HEMOGLOBIN A1C PANEL Specimen Type: BLOOD [...] Jul 30, 2023 11:11 AM Reporting Lab: [facility] [address] [facility] [address] Performing Lab: [facility] [address] [facility] [address] HEMOGLOBIN A1C 6.8 H 4.0-5.6 Social History: Smoking Status (Most current) and Tobacco Use (All prior to encounter date) This section includes the most current, and the historical, smoking and tobacco- related health factors from the [place] facility where the Encounter took place. Current Smoking Status This section includes the most current smoking, or tobacco-related health factor, from the [place] facility where the Encounter took place. Date/Time Current Smoking Status Comment Facil ity Jul 29, 2023 02:19 PM VA-TOBACCO FORMER USER [facility] Tobacco Use History This section includes a history of the smoking, or tobacco-related health factors, that were collected on or before the date of the Encounter. The data comes from the [place] facility where the Encounter took place. Date/Time Smoking Status/Tobacco Use Comment F acility Jul 29, 2023 02:19 PM VA-TOBACCO QUIT < 1 YEAR [facility] Encounter Notes: All associated encounter notes This section contains the clinical notes associated to the Encounter. Date/Time Encounter Note(s) Provider Source Aug 06, 2023 04:15 PM NONVA NOTE: LOCAL TITLE: COMMUNITY CARE-CARE COORDINATION PLAN NOTE STANDARD TITLE: NONVA NOTE DATE OF NOTE: AUG 06, 2023@16:15 ENTRY DATE: AUG 06, 2023@16:15:51 AUTHOR: JONAH SOSA COSIGNER: URGENCY: STATUS: COMPLETED is requesting community care Cardiology consult for his upcoming cardiology appt. at [facility] on 08/22/2023 at 10 AM [facility] also requesting script for Spiriva be filled by [place] pharmacy. BOBBI denis is active if needed for this request. Thank you. /garo/ JONAH SOSA Community [facility] RN Signed: 08/06/2023 16:17 Receipt Acknowledged By: 08/07/2023 15:02 /es/ ALEXI MATOS MSN Ed., BSN CORPORATE TRAVEL COORDINATOR NURSE 08/07/2023 09:40 /garo/ RAUL GOLDBERG D.O. PHYSICIAN JONAH SOSA [facility]
--- OUTSIDE RECORDS SUMMARY | 2024-06-09 08:16 | XMS_ITS | Encounter Summary ---
Author Name [facility] Organization [facility] [place] [place] Address [address] [place] [address] Care Team Providers Care Reliability Manager Name Role Phone OKSANA GOLDBERGA Primary Care [...] [employer] Jun 23, 2021 [id number] JACKELIN ACKERMAN PATIENT Selected Encounter This section includes the information on record at [place] for the Encounter. Date/Time Encounter Type Encounter Description Reason Pro vider Source Aug 22, 2023 12:00 AM Outpatient Encounter COMMUNITY CARE CONSULT IHE Encounter [...] 20 appointments. The data comes from all [place] treatment facilities. Appointment Date/Time Appointment Type Appointme nt Facility Name Sep 04, 2023 01:00 PM [place] [facility] [place] [facility] Oct 07, 2023 01:00 PM [place] [facility] [place] [facility] November 05, 2023 02:00 PM [place] [facility] [place] [facility] Feb 02, 2024 09:00 AM [place] [facility] Lab Results: +/- 30 days of the encounter This section includes the Chemistry and Hematology Lab Results on record with [place] for the patient. Radiology Reports and Pathology Reports are provided separately, in subsequent sections. Lab Results This section contains the Chemistry/Hematology Results that were resulted 30 days before or 30 daysafter the date of the Encounter. Date/Time Source Result Type Result - Unit Interpretation Reference Range Comment Jul 30, 2023 11:48 [facility] MICROALBUMIN CREATININE RATIO PANEL Specimen Type: URINE No comment entered. Ordering Provider: RAUL GOLDBERG Report Released Date/Time: Jul 30, 2023 11:11 AM Reporting Lab: [place] [facility] [place] [facility] [address] [facility] [address] Performing Lab: [facility] [address] [facility] [address] MICROALBUMIN/C REATININE RATIO 12.2 mg/g 0-29.9 MICROALBUMIN,Q UANTITATIVE 0.5 mg/dL RR UNAVAIL CREATININE URINE 40.83 mg/dL Jul 30, 2023 11:43 AM [facility] CBC Specimen Type: BLOOD No comment entered. Ordering Provider: GIBRAN SCHWARTZ Report Released Date/Time: Jul 29, 2023 07:36 PM Reporting Lab: [facility] [place] [facility] [address] [facility] [address] Performing Lab: [place] [facility] [address] [facility] [address] WBC 7.13 10*3/uL 4.50-11.00 RBC 5.12 10*6/uL 4.23-5.66 HGB 13.9 g/dL 12.8-17 HCT 44.1 39.2-50.4 MCV 86.1 fL 82-99 MCHC 31.5 g/dL 30.8-35.1 PLT 274 10*3/uL 140-360 RDW-CV 18.4 H 12.0-16.0 MCH 27.1 pg 26.2-32.6 Jul 30, 2023 11:43 AM [facility] LIVER FUNCTION Specimen Type: SERUM No comment entered. Ordering Provider: GIBRAN SCHWARTZ Report Released Date/Time: Jul 29, 2023 07:36 PM Reporting Lab: [address] [address] Performing Lab: [address] [address] PROTEIN,TOTAL 7.1 g/dL 6.0-8.3 ALBUMIN 4.1 g/dL 3.5-5.0 ALKALINE PHOSPHATASE 64 U/L 40-150 AST 14 U/L 5-34 ALT 17 U/L BILIRUBIN, TOTAL 0.4 mg/dL 0.2-1.2 Jul 30, 2023 11:43 AM [facility] BASIC METABOLIC PANEL (fasting) Specimen Type: SERUM No comment entered. Ordering Provider: GIBRAN SCHWARTZ Report Released Date/Time: Jul 29, 2023 07:36 PM Reporting Lab: [address] [address] Performing Lab: [address] [address] UREA NITROGEN 14 mg/dL 7-25 GLUCOSE 104 mg/dL H 65-100 SODIUM 139 mmol/L 135-145 POTASSIUM 4.6 mmol/L 3.5-5.0 CHLORIDE 103 mmol/L 100-110 CO2 25 meq/L 20-30 CREATININE, Serum 0.76 mg/dL 0.50-1.40 eGFR(CKD-EPI 2020) >90 mL/min >60 Jul 30, 2023 11:43 AM [facility] LIPID PANEL, NON FASTING Specimen Type: SERUM No comment entered. Ordering Provider: GIBRAN SCHWARTZ Report Released Date/Time: Jul 29, 2023 07:36 PM Reporting Lab: [facility] [address] [facility] [address] Performing Lab: [facility] [address] [facility] [address] CHOLESTEROL 157 mg/dL TRIGLYCERIDE 105 mg/dL 0-150 LDL calculated 84 mg/dL 0-129 CHOL/HDL 3.0 HDL CHOLESTEROL 52 mg/dL 40-60 Jul 30, 2023 11:43 AM [facility] HEPATITIS C ANTIBODY (HCV)-ARC Specimen Type: SERUM Comment: Hep C Ab: No HCV antibody detected. If recent infection is suspected or other evidence suggests HCV infection, consider HCV nucleic acid testing Ordering Provider: GIBRAN SCHWARTZ Report Released Date/Time: Jul 29, 2023 07:36 PM Reporting Lab: [facility] [address] [facility] [address] Performing Lab: [address] [address] HEPATITIS C ANTIBODY NON-REACTIVE NON-REACTI VE Jul 30, 2023 11:43 AM [facility] PSA Specimen Type: SERUM No comment entered. Ordering Provider: GIBRAN SCHWARZT Report Released Date/Time: Jul 29, 2023 07:36 PM Reporting Lab: [facility] [address] [facility] [address] Performing Lab: [address] [address] PSA 3.96 ng/mL 0.00-4.00 Jul 30, 2023 11:42 AM [facility] HEMOGLOBIN A1C PANEL Specimen Type: BLOOD [...] Jul 30, 2023 11:11 AM Reporting Lab: [facility] [address] [facility] [address] Performing Lab: [facility] [address] [facility] [address] HEMOGLOBIN A1C 6.8 H 4.0-5.6 Social History: Smoking Status (Most current) and Tobacco Use (All prior to encounter date) This section includes the most current, and the historical, smoking and tobacco- related health factors from the [place] facility where the Encounter took place. Current Smoking Status This section includes the most current smoking, or tobacco-related health factor, from the [place] facility where the Encounter took place. Date/Time Current Smoking Status Comment Facil ity Jul 29, 2023 02:19 PM VA-TOBACCO FORMER USER [facility] Tobacco Use History This section includes a history of the smoking, or tobacco-related health factors, that were collected on or before the date of the Encounter. The data comes from the [place] facility where the Encounter took place. Date/Time Smoking Status/Tobacco Use Comment F acility Jul 29, 2023 02:19 PM VA-TOBACCO QUIT < 1 YEAR [facility] Encounter Notes: All associated encounter notes This section contains the clinical notes associated to the Encounter. Date/Time Encounter Note(s) Provider Source Aug 22, 2023 12:00 AM NONVA CONSULT: LOCAL TITLE: COMMUNITY CARE-CONSULT RESULT NOTE STANDARD TITLE: NONVA CONSULT DATE OF NOTE: AUG 22, 2023 ENTRY DATE: OCTOBER 24, 2023@07:26:31 AUTHOR: YOSEF WELDON MA EXP COSIGNER: URGENCY: STATUS: COMPLETED VistA Imaging - Scanned Document SCANNED DOCUMENT SIGNATURE NOT REQUIRED Electronically Filed: 10/24/2023 by: YOSEF WELDON SUPERVISORY EXAMINER YOSEF WELDON [facility]
--- OUTSIDE RECORDS SUMMARY | 2024-06-09 08:16 | XMS_ITS ---
Author Name [facility] Organization [facility] Address [address] [place] [address] Care Team Providers Care Attendant [employer] La[employer] Name Role Phone RAUL GOLDBERG Primary Care Provider Unavailabl e Insurance Providers: All historical and current Section [...] [employer] Jun 23, 2021 [id number] JACKELIN ACKERMAN PATIENT Selected Encounter This section includes the information on record at NH for the Encounter. Date/Time Encounter Type Encounter Description Reason Provider Source Jul 30, 2023 10:00 AM OFFICE O/P [place] 60 MIN PRIMARY CARE/MEDICINE ICD-10-CM D75.1 Secondary polycythemia FURCOLO,RAUL E Encounter Template Text not used by NH Assessments - Encounter Diagnoses This section includes the primary and secondary diagnoses documented for the Encounter. Date/Time Primary/Secondary Diagnosis Diagnosis Name Provider Source Jul 30, 2023 12:32 PM PRIMARY Secondary polycythemia FURCOLO,RAUL [facility] [place] [facility] Jul 30, 2023 12:32 PM SECONDARY Acute diastolic (congestive) heart failure [facility]SANA GOLDBERGA [facility] [place] [facility] Jul 30, 2023 12:32 PM SECONDARY Emphysema, unspecified [facility] [place] [facility] Jul 30, 2023 12:32 PM SECONDARY Sleep apnea, unspecified FURCOLO,RAUL [facility] [place] [facility] Jul 30, 2023 12:32 PM SECONDARY Type 2 diabetes mellitus without complications RAUL GOLDBERG [facility] [place] [facility] Plan of Treatment: Future Appointments (+ 6 months) and Future Tests (+/- 45 days) The Plan of Treatment section includes future care activities for the patient from all NH treatmentfacilities. This section includes future appointments and future orders which are active, pending or scheduled. Future Appointments This section includes appointments that were scheduled to occur 6 months from the date of the Encounter, up to a maximum of 20 appointments. The data comes from all NH treatment facilities. Appointment Date/Time Appointment Type Appointme nt Facility Name Aug 08, 2023 02:00 PM AMBULATORY - MEDICINE [facility] [place] [facility] Aug 22, 2023 06:00 AM AMBULATORY - MEDICINE [facility] [place] [facility] Sep 04, 2023 01:00 PM AMBULATORY - MEDICINE [facility] [place] [facility] Oct 07, 2023 01:00 PM AMBULATORY - MEDICINE [facility] [place] [facility] November 05, 2023 02:00 PM AMBULATORY - MEDICINE [facility] [place] [facility] Lab Results: +/- 30 days of the encounter This section includes the Chemistry and Hematology Lab Results on record with NH for the patient. Radiology Reports and Pathology Reports are provided separately, in subsequent sections. Lab Results This section contains the Chemistry/Hematology Results that were resulted 30 days before or 30 daysafter the date of the Encounter. Date/Time Source Result Type Result - Unit Interpretation Reference Range Comment Jul 30, 2023 11:48 AM [facility] [place] [facility] MICROALBUMIN CREATININE RATIO PANEL Specimen Type: URINE No comment entered. Ordering Provider: RAUL GOLDBERG Report Released Date/Time: Jul 30, 2023 11:11 AM Reporting Lab: [facility] [address] [facility] [address] Performing Lab: [address] [address] MICROALBUMIN/C REATININE RATIO 12.2 mg/g 0-29.9 MICROALBUMIN,Q UANTITATIVE 0.5 mg/dL RR UNAVAIL CREATININE URINE 40.83 mg/dL Jul 30, 2023 11:43 AM [facility] CBC Specimen Type: BLOOD No comment entered. Ordering Provider: GIBRAN SCHWARTZ Report Released Date/Time: Jul 29, 2023 07:36 PM Reporting Lab: [address] [address] Performing Lab: [address] [address] WBC 7.13 10*3/uL 4.50-11.00 RBC 5.12 10*6/uL 4.23-5.66 HGB 13.9 g/dL 12.8-17 HCT 44.1 39.2-50.4 MCV 86.1 fL 82-99 MCHC 31.5 g/dL 30.8-35.1 PLT 274 10*3/uL 140-360 RDW-CV 18.4 H 12.0-16.0 MCH 27.1 pg 26.2-32.6 Jul 30, 2023 11:43 AM [facility] LIVER FUNCTION Specimen Type: SERUM No comment entered. Ordering Provider: GIBRAN SCHWARTZ Report Released Date/Time: Jul 29, 2023 07:36 PM Reporting Lab: [address] [address] Performing Lab: [address] [address] PROTEIN,TOTAL 7.1 g/dL 6.0-8.3 ALBUMIN 4.1 g/dL 3.5-5.0 ALKALINE PHOSPHATASE 64 U/L 40-150 AST 14 U/L 5-34 ALT 17 U/L BILIRUBIN, TOTAL 0.4 mg/dL 0.2-1.2 Jul 30, 2023 11:43 AM [facility] BASIC METABOLIC PANEL (fasting) Specimen Type: SERUM No comment entered. Ordering Provider: GIBRAN SCHWARTZ Report Released Date/Time: Jul 29, 2023 07:36 PM Reporting Lab: [facility] [address] [facility] [address] Performing Lab: [facility] [address] [facility] [address] UREA NITROGEN 14 mg/dL 7-25 GLUCOSE 104 mg/dL H 65-100 SODIUM 139 mmol/L 135-145 POTASSIUM 4.6 mmol/L 3.5-5.0 CHLORIDE 103 mmol/L 100-110 CO2 25 meq/L 20-30 CREATININE, Serum 0.76 mg/dL 0.50-1.40 eGFR(CKD-EPI 2020) >90 mL/min >60 Jul 30, 2023 11:43 AM [facility] LIPID PANEL, NON FASTING Specimen Type: SERUM No comment entered. Ordering Provider: GIBRAN SCHWARTZ Report Released Date/Time: Jul 29, 2023 07:36 PM Reporting Lab: [address] [address] Performing Lab: [address] [address] CHOLESTEROL 157 mg/dL TRIGLYCERIDE 105 mg/dL 0-150 LDL calculated 84 mg/dL 0-129 CHOL/HDL 3.0 HDL CHOLESTEROL 52 mg/dL 40-60 Jul 30, 2023 11:43 AM [facility] HEPATITIS C ANTIBODY (HCV)-ARC Specimen Type: SERUM Comment: Hep C Ab: No HCV antibody detected. If recent infection is suspected or other evidence suggests HCV infection, consider HCV nucleic acid testing Ordering Provider: GIBRAN SCHWARTZ Report Released Date/Time: Jul 29, 2023 07:36 PM Reporting Lab: [facility] [address] [facility] [address] Performing Lab: [address] [address] HEPATITIS C ANTIBODY NON-REACTIVE NON-REACTI VE Jul 30, 2023 11:43 AM [facility] PSA Specimen Type: SERUM No comment entered. Ordering Provider: GIBRAN SCHWARTZ Report Released Date/Time: Jul 29, 2023 07:36 PM Reporting Lab: [facility] [address] [facility] [address] Performing Lab: [facility] [address] [facility] [address] PSA 3.96 ng/mL 0.00-4.00 Jul 30, 2023 11:42 AM [facility] HEMOGLOBIN A1C PANEL Specimen Type: BLOOD Comment: Values obtained from A1C measurements can vary. For atypical A1C assays, a reported value of 7.0 could actually be between 6.72 and 7.28 if measured by a reference method. A reported value of 9.0 could actually be between 8.73 and 9.27. Ref: [email or web address] Ordering Provider: RAUL GOLDBERG Report Released Date/Time: Jul 30, 2023 11:11 AM Reporting Lab: [address] [address] Performing Lab: [address] [address] HEMOGLOBIN A1C 6.8 H 4.0-5.6 Vital Signs: All taken on the encounter date This section contains inpatient and outpatient Vital Signs collected on the date of the Encounter. Date/Time Temperature Pulse Blood Pressure Respiratory Rate SP02 Pain Height Weight Body Mass Index Source Jul 30, 2023 11:12 AM 113/76 [facility] [employer] [facility] Jul 30, 2023 10:17 AM 98.8 92 140/90 18 93 3 66 200 32 [facility] Social History: Smoking Status (Most current) and Tobacco Use (All prior to encounter date) This section includes the most current, and the historical, smoking and tobacco- related health factors from the NH facility where the Encounter took place. Current Smoking Status This section includes the most current smoking, or tobacco-related health factor, from the NH facility where the Encounter took place. Date/Time Current Smoking Status Comment Monica blackmon Jul 29, 2023 02:19 PM VA-TOBACCO FORMER USER [facility] Tobacco Use History This section includes a history of the smoking, or tobacco-related health factors, that were collected on or before the date of the Encounter. The data comes from the NH facility where the Encounter took place. Date/Time Smoking Status/Tobacco Use Comment F acility Jul 29, 2023 02:19 PM VA-TOBACCO QUIT < 1 YEAR [facility] Encounter Notes: All associated encounter notes This section contains the clinical notes associated to the Encounter. Date/Time Encounter Note(s) Provider Source Jul 30, 2023 10:21 AM PREVENTIVE MEDICINE NURSING NOTE: LOCAL TITLE: CLINICAL REMINDERS/NURSING STANDARD TITLE: PREVENTIVE MEDICINE NURSING NOTE DATE OF NOTE: JUL 30, 2023@10:21 ENTRY DATE: JUL 30, 2023@10:21:19 AUTHOR: YOHANA PACHECO EXP COSIGNER: URGENCY: STATUS: COMPLETED CLINICAL REMINDERS/NURSING Has ADDENDA Tobacco Pack Year History: Patient used cigarettes in the past, but quit and does not currently use them: Quit smoking LESS THAN 15 years. Year the patient quit smoking: Date: April 29, 2023 How many years has the patient smoked? # of years 40 Average number of packs/day over the entire time patient smoked: Packs/day /garo/ YOHANA PACHECO LPN Signed: 07/30/2023 10:22 07/30/2023 ADDENDUM STATUS: COMPLETED COVID-19 Immunization: Pfizer Patient received a prior dose of the [employer] COVID-19 Vaccine. Documented: COVID-19 ([employer]), MRNA, LNP-S, PF, 30 MCG/0.3 ML DOSE Historical Date Administered: October 27, 2020 Series: Series 1 [employer]iler Chief: [employer] Lot: [id number] Exp Date: Unknown Outside Location: Outside Healthcare Provider Information Source: FROM OTHER REGISTRY Comment: Covid card Patient received a prior dose of the [employer] COVID-19 Vaccine. Documented: COVID-19 ([employer]), MRNA, LNP-S, PF, 30 MCG/0.3 ML DOSE Historical Date Administered: November 17, 2020 Series: Series 2 [employer]iler Chief: [employer] Lot: [id number] Exp Date: Unknown Outside Location: Outside Healthcare Provider Information Source: FROM OTHER REGISTRY Comment: Covid Card- [facility] COVID-19 Immunization: Moderna Patient received a prior dose of the Moderna COVID-19 Vaccine. Documented: COVID-19 ([employer]), MRNA, LNP-S, PF, 100 MCG/0.5ML DOSE OR 50 MCG/0.25ML DOSE Historical Date Administered: Jun 20, 2021 Series: Series 3 Trailer Chief: [employer]. Lot: [id number] Exp Date: Unknown Outside Location: Outside Healthcare Provider Information Source: FROM OTHER REGISTRY BMI>30/>24.99 High Risk: At this visit, the health risks of obesity were reviewed and discussed with the [place], and the benefits of a weight management treatment program, such as MOVE! was discussed and offered to the . New Height and/or Weight Measurement just entered. BMI:32.35 HT: 66 inches Wt: 200 lbs /es/ ALEXI MATOS MSN Ed., BSN DYER HELPER NURSE Signed: 07/30/2023 11:20 YOHANA PACHECO [facility] [place] [facility] Jul 30, 2023 09:00 AM PHYSICIAN NOTE: LOCAL TITLE: MD NOTE STANDARD TITLE: PHYSICIAN NOTE DATE OF NOTE: JUL 30, 2023@09:00 ENTRY DATE: JUL 30, 2023@09:00:28 AUTHOR: RAUL GOLDBERG EXP COSIGNER: URGENCY: STATUS: COMPLETED KYRAJEANNINE II is a 63 year old WHITE MALE who is being seen today in primary care to establish care. ==== CARE TEAM ==== Community Primary Care Provider: SONI Casas (had not seen in years, to re- establish) [place] Specialists: Community Specialists: hematology- [facility]- apt 08/18/23- had HCT >60 Lashell Martinez 08/01/23- [place] [facility] Dr. 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 ==== HISTORY OF PRESENT ILLNESS ==== Patient presents today for establishing care. Late Mar 2023 started to develop LE edema and SOB. Had not seen his community PCP in many years- was going to be considered new patient- so took awhile to get in. Found to have sats in the 70s. Sent to [facility], then to [facility] as no improvement in resp status and needed intubation. Was in ICU on a ventilator for 3-4 days. HCT was 64. HbA1c was 7.4. diuresed. Echo showed normal Ef 65%. Left atrium severely dilated- pulm HTN and right heart failure. CT angio showed no PE. signs of liver cirrhosis. Sent home on BiPAP, oxygen, spiriva and lasix. given apts for heme- onc, pulm, cardiology. currently feeling back to baseline- no edema in legs, breathing is good, no weight gain. is out on short term disability from work. 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 ==== RELEVANT PAST MEDICAL HISTORY ==== Active problems - Computerized Problem List is the source for the followin. Erythrocytosis HCT 62 in setting of resp failure/copd. seen by [facility] heme-nc, neg VIOLETA, epo not elevated. thought related to underlying lung disease and HETAL, phlebotomies scheduled by heme/onc 2. Diabetes mellitus 3. Acute right-sided congestive heart failure Acute on chronic right-sided heart failure acute COPD exac 04/2023- intubated in ICU [facility] 4. Liver cyst 5. Pulmonary emphysema home BiPAP and oxygen concentrator 6. Peripheral venous insufficiency Edema of both lower extremities due to peripheral venous insufficiency 7. Stasis dermatitis Venous stasis dermatitis of both lower extremities 8. Polyneuropathy Peripheral polyneuropathy 9. Sleep apnea ==== PAST SURGICAL HISTORY ==== broken foot ==== FAMILY HISTORY ==== Mother: at age 79- COPD Father: alive at 88, BPH Siblings:4- sisters older sister - leukemia ==== SOCIAL HISTORY ==== Background: born and raised in [place], raised in [place]. did 2 years of college Sexual Orientation: heterosexual Marital Status: Children: 2 daughters and 1 son Lives with: one roommate- fired, involved with grandkids Employment Status: on disability- since hospitalization 05/12/23. 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 ==== REVIEW OF SYMPTOMS ==== NEGATIVE FOR: CONSTITUTION: no weight loss/gain, fatigue, fevers, night sweats HEENT: no vision problems, hearing loss,swallowing difficulties, sinus pain CV: no chest pain, palpitations, dyspnea on exertion, orthopnea RESP: no cough, shortness of breath, wheezing GI: no abdominal pain, N/V/D, constipation, blood in stool, normal appetite : no urinary frequency, nocturia, hematuria MUSC: no joint pain, joint swelling, muscle aches NEURO: no headaches, dizziness, memory loss, tremor, weakness PSYCH: no depression, anxiety, suicidal or homicidal thoughts SKIN: no rash, new skin lesions ==== PHYSICAL EXAM ==== Vitals: - - - - - - - B/P: 113/76 (07/30/2023 11:12) pulse: 92 (07/30/2023 10:17) resp: 18 (07/30/2023 10:17) temp: 98.8 F [37.1 C] (07/30/2023 10:17) Ht: 66 in [167.6 cm] (07/30/2023 10:17) Wgt: 200 lb [90.72 kg] (07/30/2023 10:17) BMI: BMI: 32.3 Exam: - - - - - - - RRR S1 S2 LCTA bilat, no rhonchi no LE edema normal thyroid ==== RECENT LABS ==== reviewed from [facility] 05/18/23 wbc 7.7, Hb 17.9, HCT 60 Na 138, K 4.3, eGFR 89 Mag 2.1 ==== ASSESSMENT AND PLAN ==== Active problems - Computerized Problem List is the source for the followin. Erythrocytosis HCT 62 in setting of resp failure/copd. seen by [facility] heme-nc, neg VIOLETA, epo not elevated. thought related to underlying lung disease and HETAL, phlebotomies scheduled by heme/onc 2. Diabetes mellitus- in hosp HbA1c 7.2, had no medical care for last few years- did not know he had diabetes. will recheck today and start medications if needed. 3. Acute right-sided congestive heart failure Acute on chronic right-sided heart failure acute COPD exac 04/2023- intubated in ICU [facility] 4. Liver cyst- found incedentally 5. Pulmonary emphysema home BiPAP and oxygen concentrator 6. Peripheral venous insufficiency Edema of both lower extremities due to peripheral venous insufficiency 7. Stasis dermatitis Venous stasis dermatitis of both lower extremities 8. Polyneuropathy Peripheral polyneuropathy- previously on gabapentin- not surrently 9. Sleep apnea- pulmonary HTN- thought to have sleep apnea, home with BiPAP. seeing pulmonary. may need official sleep study. 10. former smoker- quit 04/2023- 40 pack year. had CTA chest when hospitalized with respiratory failure 04/2023 at [facility]- no nodularity ==== HEALTH MAINTENANCE ==== Colonoscopy - will check with his pcp Abdominal Aortic Aneurysm Screening - CTA [facility] 04/2023- neg for AAA Prostate screening - Tetanus: due every 10 years Pneumonia Vacccine: Flu Vaccine: due yearly Covid Vaccine: due yearly ==== FOLLOW UP ==== 6 months VISIT TYPE: a HIGH complexity visit where over 60 minutes was spent in direct patient care, review of records and documentation. 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 The /caregiver was informed that we will continue to ask this screening question every 5 years. They can contact their provider/healthcare team if they have concerns about exposures and would like to be screened sooner. Printed information was offered and provided if desired. Sexual Orientation: The patient thinks of their sexual orientation as: Straight or Heterosexual /garo/ RAUL GOLDBERG D.O. PHYSICIAN Signed: 07/30/2023 12:32 RAUL GOLDBERG [facility]
--- OUTSIDE RECORDS SUMMARY | 2024-06-09 08:16 | XMS_ITS | Encounter Summary ---
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 Date/Time Encounter Type Encounter Description Reason Pro vider Source Jul 15, 2023 12:00 AM Outpatient Encounter COMMUNITY CARE [...] 20 appointments. The data comes from all [place] treatment facilities. Appointment Date/Time Appointment Type Appointme nt Facility Name Jul 30, 2023 10:00 AM [place]ORY [place] [facility] [place] [facility] Aug 08, 2023 02:00 PM [facility]ORY [place] [facility] [place] [facility] Aug 22, 2023 06:00 AM [facility] [place]INE [place] [facility] [place] [facility] Sep 04, 2023 01:00 PM [place] [place] [facility] [place] [facility] Oct 07, 2023 01:00 PM [place] [place] [facility] [place] [facility] November 05, 2023 02:00 PM [place]ORY - [place]INE [place] [facility] [place] [facility] Lab Results: +/- 30 days of the encounter This section includes the Chemistry and Hematology Lab Results on record with [place] for the patient. Radiology Reports and Pathology Reports are provided separately, in subsequent sections. Lab Results This section contains the Chemistry/Hematology Results that were resulted 30 days before or 30 daysafter the date of the Encounter. Date/Time Source Result Type Result - Unit Interpretation Reference Range Comment Jul 30, 2023 11:48 AM [place] [facility] [place] [facility] MICROALBUMIN CREATININE RATIO PANEL Specimen Type: URINE No comment entered. Ordering Provider: RAUL GOLDBERG Report Released Date/Time: Jul 30, 2023 11:11 AM Reporting Lab: [place] [facility] [place] [facility] [address] [facility] [address] Performing Lab: [facility] [place] [facility] [address] [facility] [address] MICROALBUMIN/C REATININE RATIO 12.2 mg/g 0-29.9 MICROALBUMIN,Q UANTITATIVE 0.5 mg/dL RR UNAVAIL CREATININE URINE 40.83 mg/dL Jul 30, 2023 11:43 AM [place] [facility] [place] [facility] CBC Specimen Type: BLOOD No comment entered. Ordering Provider: GIBRAN SCHWARTZ Report Released Date/Time: Jul 29, 2023 07:36 PM Reporting Lab: [place] [facility] [place] [facility] [address] [facility] [address] Performing Lab: [place] [facility] [place] [facility] [address] [facility] [address] WBC 7.13 10*3/uL 4.50-11.00 RBC 5.12 10*6/uL 4.23-5.66 HGB 13.9 g/dL 12.8-17 HCT 44.1 39.2-50.4 MCV 86.1 fL 82-99 MCHC 31.5 g/dL 30.8-35.1 PLT 274 10*3/uL 140-360 RDW-CV 18.4 H 12.0-16.0 MCH 27.1 pg 26.2-32.6 Jul 30, 2023 11:43 AM [facility] LIVER FUNCTION Specimen Type: SERUM No comment entered. Ordering Provider: GIBRAN SCHWARTZ Report Released Date/Time: Jul 29, 2023 07:36 PM Reporting Lab: [address] [address] Performing Lab: [address] [address] PROTEIN,TOTAL 7.1 g/dL 6.0-8.3 ALBUMIN 4.1 g/dL 3.5-5.0 ALKALINE PHOSPHATASE 64 U/L 40-150 AST 14 U/L 5-34 ALT 17 U/L BILIRUBIN, TOTAL 0.4 mg/dL 0.2-1.2 Jul 30, 2023 11:43 AM [facility] BASIC METABOLIC PANEL (fasting) Specimen Type: SERUM No comment entered. Ordering Provider: GIBRAN SCHWARTZ Report Released Date/Time: Jul 29, 2023 07:36 PM Reporting Lab: [address] [address] Performing Lab: [address] [address] UREA NITROGEN 14 mg/dL 7-25 GLUCOSE 104 mg/dL H 65-100 SODIUM 139 mmol/L 135-145 POTASSIUM 4.6 mmol/L 3.5-5.0 CHLORIDE 103 mmol/L 100-110 CO2 25 meq/L 20-30 CREATININE, Serum 0.76 mg/dL 0.50-1.40 eGFR(CKD-EPI 2020) >90 mL/min >60 Jul 30, 2023 11:43 AM [facility] LIPID PANEL, NON FASTING Specimen Type: SERUM No comment entered. Ordering Provider: GIBRAN SCHWARTZ Report Released Date/Time: Jul 29, 2023 07:36 PM Reporting Lab: [facility] [address] [facility] [address] Performing Lab: [facility] [address] [facility] [address] CHOLESTEROL 157 mg/dL TRIGLYCERIDE 105 mg/dL 0-150 LDL calculated 84 mg/dL 0-129 CHOL/HDL 3.0 HDL CHOLESTEROL 52 mg/dL 40-60 Jul 30, 2023 11:43 AM [facility] HEPATITIS C ANTIBODY (HCV)-ARC Specimen Type: SERUM Comment: Hep C Ab: No HCV antibody detected. If recent infection is suspected or other evidence suggests HCV infection, consider HCV nucleic acid testing Ordering Provider: GIBRAN SCHWARTZ Report Released Date/Time: Jul 29, 2023 07:36 PM Reporting Lab: [facility] [address] [facility] [address] Performing Lab: [address] [address] HEPATITIS C ANTIBODY NON-REACTIVE NON-REACTI VE Jul 30, 2023 11:43 AM [facility] PSA Specimen Type: SERUM No comment entered. Ordering Provider: GIBRAN SCHWARTZ Report Released Date/Time: Jul 29, 2023 07:36 PM Reporting Lab: [facility] [address] [facility] [address] Performing Lab: [address] [address] PSA 3.96 ng/mL 0.00-4.00 Jul 30, 2023 11:42 AM [facility] HEMOGLOBIN A1C PANEL Specimen Type: [...] Jul 30, 2023 11:11 AM Reporting Lab: [facility] [address] [facility] [address] Performing Lab: [address] [address] HEMOGLOBIN A1C 6.8 H 4.0-5.6 Encounter Notes: All associated encounter notes This section contains the clinical notes associated to the Encounter. Date/Time Encounter Note(s) Provider Source Jul 15, 2023 12:00 AM NONVA CONSULT: LOCAL TITLE: COMMUNITY CARE-CONSULT RESULT NOTE STANDARD TITLE: NONVA CONSULT DATE OF NOTE: JUL 15, 2023 ENTRY DATE: AUG 18, 2023@10:55:01 AUTHOR: DAVEY EDWARD EXP COSIGNER: URGENCY: STATUS: COMPLETED VistA Imaging - Scanned Document SCANNED DOCUMENT SIGNATURE NOT REQUIRED Electronically Filed: 08/18/2023 by: DAVEY CRAMER [facility]
--- OUTSIDE RECORDS SUMMARY | 2024-06-09 08:16 | XMS_ITS ---
Author Name [facility] [place] [facility] [place] Address [address] [place] [address] Care Team Providers Care Pre K Lead Teacher Name Role Phone OKSANA GOLDBERGA Primary Care [...] [employer] Jun 23, 2021 [id number] [phone] JACKELIN ACKERMAN PATIENT Selected Encounter This section includes the information on record at [place] for the Encounter. Date/Time Encounter Type Encounter Description Reason Pro vider Source Jul 29, 2023 07:20 PM Outpatient Encounter PRIMARY CARE/MEDICINE I[facility] Encounter Template Text not used by [place] Plan of Treatment: Future Appointments (+ 6 [...] 20 appointments. The data comes from all [place] treatment facilities. Appointment Date/Time Appointment Type Appointme nt Facility Name Jul 30, 2023 10:00 AM AM[place]ULATORY - [place]ICINE [place] [facility] [place] [facility] Aug 08, 2023 02:00 PM AMBULATORY - MEDICINE [place] [facility] [place] [facility] Aug 22, 2023 06:00 AM AMBULATORY - MEDICINE [place] [facility] [place] [facility] Sep 04, 2023 01:00 PM AMBULATORY - MEDICINE [place] [facility] [place] [facility] Oct 07, 2023 01:00 PM AMBULATORY - MEDICINE [place] [facility] [place] [facility] November 05, 2023 02:00 PM AMBULATORY - MEDICINE [place] [facility] [place] [facility] Lab Results: +/- 30 days of the encounter This section includes the Chemistry and Hematology Lab Results on record with [place] for the patient. Radiology Reports and Pathology Reports are provided separately, in subsequent sections. Lab Results This section contains the Chemistry/Hematology Results that were resulted 30 days before or 30 daysafter the date of the Encounter. Date/Time Source Result Type Result - Unit Interpretation Reference Range Comment Jul 30, 2023 11:48 AM [place] [facility] [place] [facility] MICROALBUMIN CREATININE RATIO PANEL Specimen Type: URINE No comment entered. Ordering Provider: RAUL GOLDBERG Report Released Date/Time: Jul 30, 2023 11:11 AM Reporting Lab: [place] [facility] [place] [facility] [address] [facility] [address] Performing [facility] [place] [facility] [address] [facility] [address] MICROALBUMIN/C REATININE RATIO 12.2 mg/g 0-29.9 MICROALBUMIN,Q UANTITATIVE 0.5 mg/dL RR UNAVAIL CREATININE URINE 40.83 mg/dL Jul 30, 2023 11:43 AM [place] [facility] [place] [facility] CBC Specimen Type: BLOOD No comment entered. Ordering Provider: GIBRAN SCHWARTZ Report Released Date/Time: Jul 29, 2023 07:36 PM Reporting Lab: [facility] [place] [facility] [address] [facility] [address] Performing Lab: [place] [facility] [place] [facility] [address] [facility] [address] WBC 7.13 10*3/uL 4.50-11.00 RBC 5.12 10*6/uL 4.23-5.66 HGB 13.9 g/dL 12.8-17 HCT 44.1 39.2-50.4 MCV 86.1 fL 82-99 MCHC 31.5 g/dL 30.8-35.1 PLT 274 10*3/uL 140-360 RDW-CV 18.4 H 12.0-16.0 MCH 27.1 pg 26.2-32.6 Jul 30, 2023 11:43 AM [facility] LIVER FUNCTION Specimen Type: SERUM No comment entered. Ordering Provider: GIBRAN SCHWARTZ Report Released Date/Time: Jul 29, 2023 07:36 PM Reporting Lab: [address] [address] Performing Lab: [address] [address] PROTEIN,TOTAL 7.1 g/dL 6.0-8.3 ALBUMIN 4.1 g/dL 3.5-5.0 ALKALINE PHOSPHATASE 64 U/L 40-150 AST 14 U/L 5-34 ALT 17 U/L BILIRUBIN, TOTAL 0.4 mg/dL 0.2-1.2 Jul 30, 2023 11:43 AM [facility] BASIC METABOLIC PANEL (fasting) Specimen Type: SERUM No comment entered. Ordering Provider: GIBRAN SCHWARTZ Report Released Date/Time: Jul 29, 2023 07:36 PM Reporting Lab: [address] [address] Performing Lab: [address] [address] UREA NITROGEN 14 mg/dL 7-25 GLUCOSE 104 mg/dL H 65-100 SODIUM 139 mmol/L 135-145 POTASSIUM 4.6 mmol/L 3.5-5.0 CHLORIDE 103 mmol/L 100-110 CO2 25 meq/L 20-30 CREATININE, Serum 0.76 mg/dL 0.50-1.40 eGFR(CKD-EPI 2020) >90 mL/min >60 Jul 30, 2023 11:43 AM [facility] LIPID PANEL, NON FASTING Specimen Type: SERUM No comment entered. Ordering Provider: GIBRAN SCHWARTZ Report Released Date/Time: Jul 29, 2023 07:36 PM Reporting Lab: [facility] [address] [facility] [address] Performing Lab: [facility] [address] [facility] [address] CHOLESTEROL 157 mg/dL TRIGLYCERIDE 105 mg/dL 0-150 LDL calculated 84 mg/dL 0-129 CHOL/HDL 3.0 HDL CHOLESTEROL 52 mg/dL 40-60 Jul 30, 2023 11:43 AM [facility] HEPATITIS C ANTIBODY (HCV)-ARC Specimen Type: SERUM Comment: Hep C Ab: No HCV antibody detected. If recent infection is suspected or other evidence suggests HCV infection, consider HCV nucleic acid testing Ordering Provider: GIBRAN SCHWARTZ Report Released Date/Time: Jul 29, 2023 07:36 PM Reporting Lab: [facility] [address] [facility] [address] Performing Lab: [facility] [address] [facility] [address] HEPATITIS C ANTIBODY NON-REACTIVE NON-REACTI VE Jul 30, 2023 11:43 AM [facility] PSA Specimen Type: SERUM No comment entered. Ordering Provider: GIBRAN SCHWARTZ Report Released Date/Time: Jul 29, 2023 07:36 PM Reporting Lab: [facility] [address] [facility] [address] Performing Lab: [address] [address] PSA 3.96 ng/mL 0.00-4.00 Jul 30, 2023 11:42 AM [facility] HEMOGLOBIN A1C PANEL Specimen Type: BLOOD [...] Jul 30, 2023 11:11 AM Reporting Lab: [facility] [address] [facility] [address] Performing Lab: [address] [address] HEMOGLOBIN A1C 6.8 H 4.0-5.6 Social History: Smoking Status (Most current) and Tobacco Use (All prior to encounter date) This section includes the most current, and the historical, smoking and tobacco- related health factors from the [place] facility where the Encounter took place. Current Smoking Status This section includes the most current smoking, or tobacco-related health factor, from the [place] facility where the Encounter took place. Date/Time Current Smoking Status Comment Facil ity Jul 29, 2023 02:19 PM VA-TOBACCO FORMER USER [facility] Tobacco Use History This section includes a history of the smoking, or tobacco-related health factors, that were collected on or before the date of the Encounter. The data comes from the [place] facility where the Encounter took place. Date/Time Smoking Status/Tobacco Use Comment F acility Jul 29, 2023 02:19 PM VA-TOBACCO QUIT < 1 YEAR [facility] Encounter Notes: All associated encounter notes This section contains the clinical notes associated to the Encounter. Date/Time Encounter Note(s) Provider Source Jul 29, 2023 07:22 PM MEDICATION MGT NOTE: LOCAL TITLE: MEDICATION RECONCILIATION STANDARD TITLE: MEDICATION MGT NOTE DATE OF NOTE: JUL 29, 2023@19:22 ENTRY DATE: JUL 29, 2023@19:22:53 AUTHOR: ALEXI MATOS COSIGNER: URGENCY: STATUS: COMPLETED Community PCP's Teresa SHAFER General Work Place: [address] [place] [phone] [place] [address] Tel: [employer] F: Medication reconciliation D: Vet is on the following med profile 1. tiotropium (Spiriva HandiHaler) 18 MCG inhalation capsule Indications: Pulmonary emphysema, unspecified emphysema type (CMS/HCC) Place 1 capsule (18 mcg) into inhaler and inhale in the morning. 30 capsule 2. 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 30 tablet /es/ ALEXI MATOS MSN Ed., BSN ORAL PATHOLOGIST NURSE Signed: 07/29/2023 19:26 Receipt Acknowledged By: 07/30/2023 08:06 /garo/ RAUL GOLDBERG D.O. PHYSICIAN ALEXI MATOS [facility]
--- OUTSIDE RECORDS SUMMARY | 2024-06-09 08:16 | XMS_ITS | Encounter Summary ---
Author Name [facility] [place] Organization [place] Address [address] [place] [address] Care Team Providers Care Tanning Drum Operator Name Role Phone RAUL GOLDBERG Primary Care [...] [employer] Jun 23, 2021 [id number] JACKELIN ACKERMAN PATIENT Selected Encounter This section includes the information on record at [place] for the Encounter. Date/Time Encounter Type Encounter [...] 20 appointments. The data comes from all [place] treatment facilities. Appointment Date/Time Appointment Type Appointme nt Facility Name Jul 30, 2023 10:00 AM AM[place]ULATORY [place]INE [place] [facility] [facility] Aug 08, 2023 02:00 PM AM[place]ORY [place] [facility] [place] [facility] Aug 22, 2023 06:00 AM [place] [facility] [place] [facility] Sep 04, 2023 01:00 PM AM[place]ULATORY [place]ICINE [place] [facility] [place] [facility] Oct 07, 2023 01:00 PM AM[place]ULATORY [place]ICINE [place] [facility] [place] [facility] November 05, 2023 02:00 PM AMBULATORY [place]ICINE [place] [facility] [place] [facility] Lab Results: +/- 30 days of the encounter This section includes the Chemistry and Hematology Lab Results on record with [place] for the patient. Radiology Reports and Pathology Reports are provided separately, in subsequent sections. Lab Results This section contains the Chemistry/Hematology Results that were resulted 30 days before or 30 daysafter the date of the Encounter. Date/Time Source Result Type Result - Unit Interpretation Reference Range Comment Jul 30, 2023 11:48 AM [place] [facility] [place] [facility] MICROALBUMIN CREATININE RATIO PANEL Specimen Type: URINE No comment entered. Ordering Provider: RAUL GOLDBERG Report Released Date/Time: Jul 30, 2023 11:11 AM Reporting Lab: [place] [facility] [place] [facility] [address] [facility] [address] Performing [facility] [place] [facility] [address] [facility] [address] MICROALBUMIN/C REATININE RATIO 12.2 mg/g 0-29.9 MICROALBUMIN,Q UANTITATIVE 0.5 mg/dL RR UNAVAIL CREATININE URINE 40.83 mg/dL Jul 30, 2023 11:43 AM [place] [facility] [place] [facility] CBC Specimen Type: BLOOD No comment entered. Ordering Provider: GIBRAN SCHWARTZ Report Released Date/Time: Jul 29, 2023 07:36 PM Reporting Lab[facility] [place] [facility] [address] [facility] [address] Performing Lab: [place] [facility] [facility] [address] [facility] [address] WBC 7.13 10*3/uL 4.50-11.00 RBC 5.12 10*6/uL 4.23-5.66 HGB 13.9 g/dL 12.8-17 HCT 44.1 39.2-50.4 MCV 86.1 fL 82-99 MCHC 31.5 g/dL 30.8-35.1 PLT 274 10*3/uL 140-360 RDW-CV 18.4 H 12.0-16.0 MCH 27.1 pg 26.2-32.6 Jul 30, 2023 11:43 AM [facility] LIVER FUNCTION Specimen Type: SERUM No comment entered. Ordering Provider: GIBRAN SCHWARTZ Report Released Date/Time: Jul 29, 2023 07:36 PM Reporting Lab: [address] [address] Performing Lab: [address] [address] PROTEIN,TOTAL 7.1 g/dL 6.0-8.3 ALBUMIN 4.1 g/dL 3.5-5.0 ALKALINE PHOSPHATASE 64 U/L 40-150 AST 14 U/L 5-34 ALT 17 U/L BILIRUBIN, TOTAL 0.4 mg/dL 0.2-1.2 Jul 30, 2023 11:43 AM [facility] BASIC METABOLIC PANEL (fasting) Specimen Type: SERUM No comment entered. Ordering Provider: GIBRAN SCHWARTZ Report Released Date/Time: Jul 29, 2023 07:36 PM Reporting Lab: [address] [address] Performing Lab: [address] [address] UREA NITROGEN 14 mg/dL 7-25 GLUCOSE 104 mg/dL H 65-100 SODIUM 139 mmol/L 135-145 POTASSIUM 4.6 mmol/L 3.5-5.0 CHLORIDE 103 mmol/L 100-110 CO2 25 meq/L 20-30 CREATININE, Serum 0.76 mg/dL 0.50-1.40 eGFR(CKD-EPI 2020) >90 mL/min >60 Jul 30, 2023 11:43 AM [facility] LIPID PANEL, NON FASTING Specimen Type: SERUM No comment entered. Ordering Provider: GIBRAN SCHWARTZ Report Released Date/Time: Jul 29, 2023 07:36 PM Reporting Lab: [facility] [address] [facility] [address] Performing Lab: [facility] [address] [facility] [address] CHOLESTEROL 157 mg/dL TRIGLYCERIDE 105 mg/dL 0-150 LDL calculated 84 mg/dL 0-129 CHOL/HDL 3.0 HDL CHOLESTEROL 52 mg/dL 40-60 Jul 30, 2023 11:43 AM [facility] HEPATITIS C ANTIBODY (HCV)-ARC Specimen Type: SERUM Comment: Hep C Ab: No HCV antibody detected. If recent infection is suspected or other evidence suggests HCV infection, consider HCV nucleic acid testing Ordering Provider: GIBRAN SCHWARTZ Report Released Date/Time: Jul 29, 2023 07:36 PM Reporting Lab: [facility] [address] [facility] [address] Performing Lab: [facility] [address] [facility] [address] HEPATITIS C ANTIBODY NON-REACTIVE NON-REACTI VE Jul 30, 2023 11:43 AM [facility] PSA Specimen Type: SERUM No comment entered. Ordering Provider: GIBRAN SCHWARTZ Report Released Date/Time: Jul 29, 2023 07:36 PM Reporting Lab: [facility] [address] [facility] [address] Performing Lab: [address] [address] PSA 3.96 ng/mL 0.00-4.00 Jul 30, 2023 11:42 AM [facility] HEMOGLOBIN A1C PANEL Specimen Type: BLOOD [...] Jul 30, 2023 11:11 AM Reporting Lab: [facility] [address] [facility] [address] Performing Lab: [address] [address] HEMOGLOBIN A1C 6.8 H 4.0-5.6 Encounter Notes: All associated encounter notes This section contains the clinical notes associated to the Encounter. Date/Time Encounter Note(s) Provider Source Jul 25, 2023 12:00 AM NONVA NOTE: LOCAL TITLE: NON-VA OUTPATIENT NOTES STANDARD TITLE: NONVA NOTE DATE OF NOTE: JUL 25, 2023 ENTRY DATE: AUG 08, 2023@14:20:04 AUTHOR: DAVEY EDWARD EXP COSIGNER: URGENCY: STATUS: COMPLETED VistA Imaging - Scanned Document SCANNED DOCUMENT SIGNATURE NOT REQUIRED Electronically Filed: 08/08/2023 by: DAVEY CRAMER [facility]
--- OUTSIDE RECORDS SUMMARY | 2024-06-09 08:18 | XMS_ITS ---
Author Name [facility] [place] Organization [facility] [place] Address [address] [place] [address] Care Team Providers Care Lead Application Architect Name Role Phone OKSANA GOLDBERGA Primary Care [...] [employer] Jun 23, 2021 [id number] [phone] JACKELIN ACKERMAN PATIENT Selected Encounter This section includes the information on record at [place] for the Encounter. Date/Time Encounter Type Encounter Description Reason Pro vider Source Jan 19, 2024 02:28 PM Outpatient Encounter PRIMARY CARE/MEDICINE IHE Encounter Template Text not used by [place] Plan of Treatment: Future Appointments (+ 6 [...] 20 appointments. The data comes from all [place] treatment facilities. Appointment Date/Time Appointment Type Appointme nt Facility Name Feb 02, 2024 09:00 AM AMBULATORY - MEDICINE [facility] Mar 04, 2024 02:30 PM AMBULATORY - MEDICINE [facility] Mar 29, 2024 08:00 AM [facility] Mar 29, 2024 08:30 AM [facility] May 25, 2024 10:00 AM AMBULATORY - MEDICINE [facility] Lab Results: +/- 30 days of the encounter This section includes the Chemistry and Hematology Lab Results on record with [place] for the patient. Radiology Reports and Pathology Reports are provided separately, in subsequent sections. Lab Results This section contains the Chemistry/Hematology Results that were resulted 30 days before or 30 daysafter the date of the Encounter. Date/Time Source Result Type Result - Unit Interpretation Reference Range Comment Feb 02, 2024 09:41 AM [facility] BASIC METABOLIC PANEL (fasting) Specimen Type: SERUM No comment entered. Ordering Provider: RAUL GOLDBERG Report Released Date/Time: Jan 13, 2024 03:44 PM Reporting Lab: [facility] [address] [facility] [id number] Performing Lab: [address] [address] UREA NITROGEN 17 mg/dL 7-25 GLUCOSE 123 mg/dL H 65-100 SODIUM 139 mmol/L 135-145 POTASSIUM 4.1 mmol/L 3.5-5.0 CHLORIDE 104 mmol/L 100-110 CO2 26 meq/L 20-30 CREATININE, Serum 0.77 mg/dL 0.50-1.40 eGFR(CKD-EPI 2020) >90 mL/min >60 Feb 02, 2024 09:41 AM [facility] HEMOGLOBIN A1C PANEL Specimen Type: BLOOD Comment: Values obtained from A1C measurements can vary. For atypical A1C assays, a reported value of 7.0 could actually be between 6.72 and 7.28 if measured by a reference method. A reported value of 9.0 could actually be between 8.73 and 9.27. Ref: http://www.ngs p.org/CAPdata. asp Ordering Provider: RAUL GOLDBERG Report Released Date/Time: Jan 13, 2024 03:44 PM Reporting Lab: [address] [address] Performing Lab: [address] [address] HEMOGLOBIN A1C 5.6 4.0-5.6 Feb 02, 2024 09:40 AM [facility] PSA Specimen Type: SERUM No comment entered. Ordering Provider: RAUL GOLDBERG Report Released Date/Time: Jan 16, 2024 11:20 AM Reporting Lab: [address] [address] Performing Lab: [address] [address] PSA 4.79 ng/mL H 0.00-4.00 Social History: Smoking Status (Most current) and [...] 29, 2023 02:19 PM VA-TOBACCO FORMER USER [facility] Tobacco Use History This section includes a history of the smoking, or tobacco-related health factors, that were collected on or before the date of the Encounter. The data comes from the [place] facility where the Encounter took place. Date/Time Smoking Status/Tobacco Use Comment F acility Jul 29, 2023 02:19 PM VA-TOBACCO QUIT < 1 YEAR [facility] Encounter Notes: All associated encounter notes This section contains the clinical notes associated to the Encounter. Date/Time Encounter Note(s) Provider Source Jan 19, 2024 02:31 PM ADMINISTRATIVE NOTE: LOCAL TITLE: ADMINISTRATIVE NOTE STANDARD TITLE: ADMINISTRATIVE NOTE DATE OF NOTE: JAN 19, 2024@14:31 ENTRY DATE: JAN 19, 2024@14:31:59 AUTHOR: JUSTIN HANDY EXP COSIGNER: URGENCY: STATUS: COMPLETED AMSA SPOKE TO ON THE TELEPHONE AND INFORMED HIM OF UPCOMING APPT AND THAT LABWORK IS NEEDED. /garo/ JUSTIN HANDY AMSA Signed: 01/19/2024 14:32 [facility] [place] [facility]
--- OUTSIDE RECORDS SUMMARY | 2024-06-09 08:18 | XMS_ITS ---
Author Name [facility] [place] [place] Organization [facility] [place] Address [address] [place] [address] Care Team Providers Care Project Reservoir Engineer Name Role Phone RAUL GOLDBERG Primary Care [...] [employer] Jun 23, 2021 [id number] JACKELIN ACKERMAN PATIENT Selected Encounter This section includes the information on record at [place] for the Encounter. Date/Time Encounter Type Encounter Description Reason Provider Source November 05, 2023 02:00 PM OFFICE O/P EST MOD 30 MIN PRIMARY CARE/MEDICINE ICD-10-CM E11.9 Type 2 diabetes mellitus without complications RALU GOLDBERG Sunny Encounter Template Text not used by [place] Assessments - Encounter Diagnoses This section includes the primary and secondary diagnoses documented for the Encounter. Date/Time Primary/Secondary Diagnosis Diagnosis Name Provider Source November 10, 2023 04:45 PM PRIMARY Type 2 diabetes mellitus without complications RAUL GOLDBERG [place] [facility] [place] [facility] November 10, 2023 04:45 PM SECONDARY Acute diastolic (congestive) heart failure RAUL GOLDBERG [place] [facility] [place] [facility] November 10, 2023 04:45 PM SECONDARY Encounter for immunization AKASH DE ANDA [place] [facility] [place] [facility] November 10, 2023 04:45 PM SECONDARY Sleep apnea, unspecified RAUL GOLDBERG [place] [facility] [place] [facility] November 10, 2023 04:45 PM SECONDARY Venous insufficiency (chronic) (peripheral) RAUL GOLDBERG [place] [facility] [place] [facility] Plan of Treatment: Future Appointments (+ 6 months) and Future Tests (+/- 45 days) The Plan of Treatment section includes future care activities for the patient [facility] [place] [facility] This section includes future appointments and future [...] 02, 2024 09:00 AM AMBULATORY - MEDICINE [facility] [place] [facility] Mar 04, 2024 02:30 PM AMBULATORY MEDICINE [facility] [place] [facility] Mar 29, 2024 08:00 AM AMBULATORY MEDICINE [facility] [place] [facility] Mar 29, 2024 08:30 AM AMBULATORY MEDICINE [facility] [place] [place] [facility] Vital Signs: All taken on the encounter date This section contains inpatient and outpatient Vital Signs collected on the date of the Encounter. Date/Time Temperature Pulse Blood Pressure Respiratory Rate SP02 Pain Height Weight Body Mass Index Source November 05, 2023 01:55 PM 98.1 81 134/80 16 97 190 31 [place] [facility] [place] [facility] Immunizations: All administered on the encounter date This section contains immunizations associated to the Encounter. Immunization Series Date Issued Reaction Comments ZOSTER RECOMBINANT November 05, 2023 Social History: Smoking Status (Most current) [...] 29, 2023 02:19 PM VA-TOBACCO FORMER USER [facility] Tobacco Use History This section includes a history of the smoking, or tobacco-related health factors, that were collected on or before the date of the Encounter. The data comes from the [place] facility where the Encounter took place. Date/Time Smoking Status/Tobacco Use Comment F acility Jul 29, 2023 02:19 PM [facility] Encounter Notes: All associated encounter notes This section contains the clinical notes associated to the Encounter. Date/Time Encounter Note(s) Provider Source November 05, 2023 02:19 PM PHYSICIAN NOTE: LOCAL TITLE: MD NOTE STANDARD TITLE: PHYSICIAN NOTE DATE OF NOTE: NOVEMBER 05, 2023@14:19 ENTRY DATE: NOVEMBER 05, 2023@14:19:43 AUTHOR: RAUL GOLDBERG COSIGNER: URGENCY: STATUS: COMPLETED JEANNINE RAE II is a 63 year old WHITE MALE who is being seen today in primary care for disability forms to be completed === CARE TEAM === Community Primary Care Provider: SONI Casas (had not seen in years, to re- establish) [place] Specialists: Community Specialists: hematology- [facility]- apt 08/18/23- had HCT >60 Lashell Martinez 08/01/23- gets phlebotomies [facility] pullore- Dr. 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 === HISTORY OF PRESENT ILLNESS === Late Mar 2023 started to develop LE edema and SOB. Had not seen his community PCP in many years- was going to be considered new patient- so took awhile to get in. Found to have sats in the 70s. Sent to [facility], then to [facility] as no improvement in resp status and [...] grandkids get off the bus from school. 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 gets winded and tired/fatigued easily. === RELEVANT PAST MEDICAL HISTORY === Active problems - Computerized Problem List is the source for the followin. Erythrocytosis HCT 62 in setting of resp failure/copd. seen by [facility] heme-nc, neg VIOLETA, epo not elevated. thought related to underlying lung disease and HETAL, phlebotomies scheduled by heme/onc 2. Diabetes mellitus 3. Acute right-sided congestive heart failure Acute on chronic right-sided heart failure acute COPD exac 04/2023- intubated in ICU [facility] 4. Liver cyst 5. Pulmonary emphysema home BiPAP and oxygen concentrator 6. Peripheral venous insufficiency Edema of both lower extremities due to peripheral venous insufficiency 7. Stasis dermatitis Venous stasis dermatitis of both lower extremities 8. Polyneuropathy Peripheral polyneuropathy 9. Sleep apnea === PAST SURGICAL HISTORY === broken foot === FAMILY HISTORY === Mother: at age 79- COPD Father: alive at 88, BPH Siblings:4- sisters older sister - leukemia === SOCIAL HISTORY === Background: born and raised in [place], raised in [place]. did 2 years of college Sexual Orientation: heterosexual Marital Status: Children: 2 daughters and 1 son Lives with: one roommate- fired, involved with grandkids Employment Status: on disability- since hospitalization 05/12/23. 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 === REVIEW OF SYMPTOMS === NEGATIVE FOR: CONSTITUTION: no weight loss/gain, fatigue, [...] thoughts SKIN: no rash, new skin lesions === PHYSICAL EXAM === Vitals: - - - - - - - B/P: 134/80 (11/05/2023 13:55) pulse: 81 (11/05/2023 13:55) resp: 16 (11/05/2023 13:55) temp: 98.1 F [36.7 C] (11/05/2023 13:55) Ht: 66 in [167.6 cm] (07/30/2023 10:17) Wgt: 190 lb [86.18 kg] (11/05/2023 13:55) BMI: BMI: 30.7 Exam: - - - - - - - RRR S1 S2 LCTA bilat, no rhonchi no LE edema normal thyroid === RECENT LABS === reviewed from [facility] 05/18/23 wbc 7.7, Hb 17.9, HCT 60 Na 138, K 4.3, eGFR 89 Mag 2.1 === ASSESSMENT AND PLAN === Active problems - Computerized Problem List is the source for the followin. Erythrocytosis HCT 62 in setting of resp failure/copd. seen by [facility] heme-nc, neg VIOLETA, epo not elevated. thought related to underlying lung disease and HETAL, phlebotomies scheduled by heme/onc 2. Diabetes mellitus- in hosp HbA1c 7.2, had no medical care for last few years- did not know he had diabetes. repeat was 6.8. diet controlled- moving better, walking better, taking better care of himself. 3. Acute right-sided congestive heart failure Acute on chronic right-sided heart failure acute COPD exac 04/2023- intubated in ICU [facility]. no further edema, better breathing status. complete [employer]ability forms today- unable to perform lifting/carry and repetitive movements. will require out of work for 6 months. 4. Liver cyst- found incedentally 5. Pulmonary emphysema home BiPAP and oxygen concentrator- not needing as much now 6. Peripheral venous insufficiency - improved overall 7. Stasis dermatitis Venous stasis dermatitis of both lower extremities 8. Polyneuropathy Peripheral polyneuropathy- previously on gabapentin- not surrently 9. Sleep apnea- pulmonary HTN- thought to have sleep apnea, home with BiPAP. seeing pulmonary. may need official sleep study. 10. former smoker- quit 04/2023- 40 pack year. had CTA chest when hospitalized with respiratory [place] [facility] no nodularity === HEALTH MAINTENANCE === Colonoscopy - will check with his pcp Abdominal Aortic Aneurysm Screening - CTA [facility] 04/2023- neg for AAA Prostate screening - Tetanus: due every 10 years Pneumonia Vacccine: Flu Vaccine: due yearly Covid Vaccine: due yearly === FOLLOW UP === 6 months VISIT TYPE: a MODERATE complexity visit where 30 minutes was spent in direct patient care, review of records and documentation. /garo/ RAUL GOLDBERG D.O. PHYSICIAN Signed: 11/10/2023 16:46 RAUL GOLDBERG [facility] [place] [facility] November 05, 2023 02:00 PM PREVENTIVE MEDICIN E NURSING NOTE: LOCAL TITLE: CLINICAL REMINDERS/NURSING STANDARD TITLE: PREVENTIVE MEDICINE NURSING NOTE DATE OF NOTE: NOVEMBER 05, 2023@14:00 ENTRY DATE: NOVEMBER 05, 2023@14:01:01 AUTHOR: AKASH DE ANDA EXP COSIGNER: URGENCY: STATUS: COMPLETED Herpes Zoster (Shingles) Vaccine: Administered: ZOSTER RECOMBINANT Date Administered: November 05, 2023 14:00 Series: Complete Gizzard Puller: Parkinsor Lot: [id number] Exp Date: Jul 17, 2025 NDC: [id number] Admin Route/Site: INTRAMUSCULAR/RIGHT DELTOID Dosage: 0.5mL Vaccine Information Statement(s): RECOMBINANT ZOSTER VACCINE VIS Jul 27, 2021 (IRAQI) Order By: Policy Administered By: Akash De Anda Vaccine Information Sheet (VIS) was given to the patient/caregiver, education regarding adverse reactions was discussed, as well as barriers to learning, if any, were acknowledged. PAVE Foot Check: A complete foot check was completed at this encounter. VISUAL INSPECTION: Includes inspection for skin breaks, deformity, erythema, trauma, pallor on elevation, dependent rubor, nail deformities, extensive callus and pitting edema. Visual exam results: Normal PEDAL PULSES: Includes palpation of dorsalis and posterior tibial pulses and signs/symptoms of vascular compromise like pain, pallor, parasthesia or paralysis. Present (even if diminished) SENSORY CHECK: Includes 10 gram Monofilament (Oakham-Cecile) test of sensation. Intact (Greater than or equal to 80% of sites checked) Abnormal (Less than 80% of sites checked): Intact LOW-RISK: LOW RISK INFORMATION PROVIDED: 1. Advised patient not to walk barefoot. 2. Explained the importance of daily foot checks for changes. 3. Stressed the importance of daily foot hygiene, including bathing and complete drying. /garo/ AKASH DE ANDA LPN License Practical Nurse Signed: 11/05/2023 14:04 AKASH DE ANDA [facility] [place] [facility]
--- OUTSIDE RECORDS SUMMARY | 2024-06-09 08:18 | XMS_ITS ---
Author Name [facility] [place] [facility] [place] Address [address] [place] [address] Care Team Providers Care Oil Developer Name Role Phone OKSANA LANGA Primary Care [...] [employer] Jun 23, 2021 [id number] [phone] JACKELIN ACKERMAN PATIENT Selected Encounter This section includes the information on record at [place] for the Encounter. Date/Time Encounter Type Encounter Description Reason Pro vider Source Feb 02, 2024 09:00 AM Outpatient Encounter PRIMARY CARE/MEDICINE IHE Encounter Template Text not used by [place] Plan of Treatment: Future Appointments (+ 6 [...] Date/Time Appointment Type Appointme nt Facility Name Mar 04, 2024 02:30 PM AMBULATORY - MEDICINE [facility] Mar 29, 2024 08:00 AM [email or web address] Mar 29, 2024 08:30 AM [facility] May 25, 2024 10:00 AM AMBULATORY - MEDICINE [facility] Lab Results: +/- 30 days of the [...] Range Comment Feb 02, 2024 09:41 AM [facility] BASIC METABOLIC PANEL (fasting) Specimen Type: SERUM No comment entered. Ordering Provider: RAUL LANG Report Released Date/Time: Jan 13, 2024 03:44 PM Reporting Lab: [facility] [address] [facility] [address] Performing Lab: [address] [address] UREA NITROGEN 17 mg/dL 7-25 GLUCOSE 123 mg/dL H 65-100 SODIUM 139 mmol/L 135-145 POTASSIUM 4.1 mmol/L 3.5-5.0 CHLORIDE 104 mmol/L 100-110 CO2 26 meq/L 20-30 CREATININE, Serum 0.77 mg/dL 0.50-1.40 eGFR(CKD-EPI 2020) >90 mL/min >60 Feb 02, 2024 09:41 AM [facility] HEMOGLOBIN A1C PANEL Specimen Type: BLOOD Comment: Values obtained from A1C measurements can vary. For atypical A1C assays, a reported value of 7.0 could actually be between 6.72 and 7.28 if measured by a reference method. A reported value of 9.0 could actually be between 8.73 and 9.27. Ref: http://www.ngs p.org/CAPdata. asp Ordering Provider: RAUL LANG Report Released Date/Time: Jan 13, 2024 03:44 PM Reporting Lab: [facility] [address] [facility] [address] Performing Lab: [address] [address] HEMOGLOBIN A1C 5.6 4.0-5.6 Feb 02, 2024 09:40 AM [facility] PSA Specimen Type: SERUM No comment entered. Ordering Provider: RAUL LANG Report Released Date/Time: Jan 16, 2024 11:20 AM Reporting Lab: [facility] [address] [facility] [address] Performing Lab: [address] [address] PSA 4.79 ng/mL H 0.00-4.00 Social History: Smoking Status (Most current) and Tobacco Use (All prior to encounter date) This section includes the most current, and the historical, smoking and tobacco- related health factors from the [place] facility where the Encounter took place. Current Smoking Status This section includes the most current smoking, or tobacco-related health factor, from the [place] facility where the Encounter took place. Date/Time Current Smoking Status Comment Monica blackmon Jul 29, 2023 02:19 PM VA-TOBACCO FORMER USER [facility] Tobacco Use History This section includes a history of the smoking, or tobacco-related health factors, that were collected on or before the date of the Encounter. The data comes from the [place] facility where the Encounter took place. Date/Time Smoking Status/Tobacco Use Comment F acmagui Jul 29, 2023 02:19 PM VA-TOBACCO QUIT < 1 YEAR [facility] Encounter Notes: All associated encounter notes This section contains the clinical notes associated to the Encounter. Date/Time Encounter Note(s) Provider Source Mar 15, 2024 03:42 PM ADDENDUM: LOCAL TITLE: Addendum STANDARD TITLE: ADDENDUM DATE OF NOTE: MAR 15, 2024@15:42:32 ENTRY DATE: MAR 15, 2024@15:42:33 AUTHOR: RAUL LANG EXP COSIGNER: URGENCY: STATUS: COMPLETED please fax to FAX number listed on letter. thanks. /garo/ RAUL LANG D.O. PHYSICIAN Signed: 03/15/2024 15:43 Receipt Acknowledged By: 03/15/2024 15:57 /garo/ JUSTIN RAMOSERSON AMSA --- Original Document --- 03/15/24 PATIENT LETTER (T): DATE 03/15/24 RE: JEANNINE FRANK SHORT II, 58 [employer] FAX: [phone] To Whom it may concern, I am the primary care physician for Mr. Short. It is no longer medically necessary for Mr. Short to use supplemental oxygen at night. Dr. Raul Lang [address] [address] RAUL LANG [place] [facility] [place] [facility] Mar 15, 2024 03:38 PM LETTERS: LOCAL TITLE: PATIENT LETTER (T) STANDARD TITLE: LETTERS DATE OF NOTE: MAR 15, 2024@15:38 ENTRY DATE: MAR 15, 2024@15:38:49 AUTHOR: RAUL LANG COSIGNER: URGENCY: STATUS: COMPLETED PATIENT LETTER (T) Has ADDENDA DEPARTMENT OF [facility] Toll Free Number Primary Care Telephone Assistance can be reached at extension [phone] [facility] scheduling can be reached at extension [phone] [facility] scheduling can be reached at ext [phone] DATE 03/15/24 RE: JEANNINE SHORT II, 58 [employer] FAX: [phone] To Whom it may concern, I am the primary care physician for Mr. Short. It is no longer medically necessary for Mr. Short to use supplemental oxygen at night. Dr. Raul Lang [facility] [address] [place] [address] 03/15/2024 ADDENDUM STATUS: COMPLETED please fax to FAX number listed on letter. princess. /garo/ RAUL LANG D.O. PHYSICIAN Signed: 03/15/2024 15:43 Receipt Acknowledged By: * AWAITING SIGNATURE * JUSTIN HANDY Sincerely, Your Primary Care Team [facility] [address] [facility] [address] [place] [address] [place] [address] [phone] [facility] [address] [place] [address] [place] [address] [phone] [facility] [address] [facility],[address]st Floor [address] [place] [address] [place] [address] [phone] RAUL LANG [place] [facility] [place] [facility] Feb 03, 2024 07:55 AM LETTERS: LOCAL TITLE: PATIENT LETTER (T) STANDARD TITLE: LETTERS DATE OF NOTE: FEB 03, 2024@07:55 ENTRY DATE: FEB 03, 2024@07:55:52 AUTHOR: RAUL LANG EXP COSIGNER: URGENCY: STATUS: COMPLETED DEPARTMENT OF [facility] Toll Free Number Primary Care Telephone Assistance can be reached at extension [phone] [facility] scheduling can be reached at extension [phone] [facility] scheduling can be reached at ext [phone] JEANNINE SHORT [address] [place], [place], [address] [place], Your recent test results are as follows: normal kidney function and electrolytes. slightly elevated prostate level, but only minimal change in the past 18 months, will continue to trend yearly. ---- PROSTATIC ASSAYS ---- SERUM Feb 01 Jul 30 Reference 2023 2023 09:40 11:43 Units Ranges - PSA 4.79 H 3.96 ng/mL 0 - 4 LAB CHEMISTRY & HEMATOLOGY Collection DT Specimen Test Name Result Units Ref Range 02/02/2024 09:41 BLOOD !! HEMOGLOBIN A1C 5.6 % 4.0 - 5.6 02/02/2024 09:41 SERUM CREATININE, Serum 0.77 mg/dL 0.50 - 1.40 eGFR(CKD-EPI 2020 >90 mL/min Ref: >=60 SODIUM 139 mmol/L 135 - 145 POTASSIUM 4.1 mmol/L 3.5 - 5.0 CHLORIDE 104 mmol/L 100 - 110 CO2 26 mEq/L 20 - 30 UREA NITROGEN 17 mg/dL 7 - 25 GLUCOSE 123 H mg/dL 65 - 100 02/02/2024 09:40 SERUM PSA 4.79 H ng/mL 0.00 - 4.00 Please call if you have any questions or concerns. Upcoming Appointments: 03/04/2024 14:30 CWM/NO/PACT EIGHT Sincerely, Your Primary Care Team [facility] [address] [address] [place] [address] [phone] [facility] [address] [place] [address] [place] [address] [phone] [facility] [address] [facility],1st Floor [address] [place] [address] [place] [address] [phone] RAUL LANG [facility]
--- OUTSIDE RECORDS SUMMARY | 2024-06-09 08:18 | XMS_ITS | Encounter Summary ---
Author Name [facility] [place] Organization [place] Address [address] [place] [address] Care Team Providers Care Bond Trader Name Role Phone OKSANA GOLDBERGA Primary Care Provider Unavailyonas juarez Insurance Providers: [...] [employer] Jun 23, 2021 [id number] [phone] JACKELIN ACKERMAN PATIENT Selected Encounter This section includes the information on record at [place] for the Encounter. Date/Time Encounter Type Encounter Description Reason Pro vider Source Mar 15, 2024 03:15 PM Outpatient Encounter ADMIN PAT ACTIVTIES (MASNONCT) IHE Encounter Template Text not used by [place] Plan of Treatment: Future Appointments (+ 6 [...] 20 appointments. The data comes from all [place] treatment facilities. Appointment Date/Time Appointment Type Appointme nt Facility Name Mar 29, 2024 08:00 AM AMBULATORY - MEDICINE [facility] Mar 29, 2024 08:30 AM [facility] May 25, 2024 10:00 AM AMBULATORY MEDICINE [facility] Aug 26, 2024 02:30 PM AMBULATORY MEDICINE [facility] Social History: Smoking Status (Most current) and Tobacco Use (All prior to encounter date) This section includes the most current, and the historical, smoking and tobacco- related health factors from the [place] facility where the Encounter took place. Current Smoking Status This section includes the most current smoking, or tobacco-related health factor, from the [place] facility where the Encounter took place. Date/Time Current Smoking Status Comment Facil ity Jul 29, 2023 02:19 PM VA-TOBACCO FORMER USER [facility] Tobacco Use History This section includes a history of the smoking, or tobacco-related health factors, that were collected on or before the date of the Encounter. The data comes from the [place] facility where the Encounter took place. Date/Time Smoking Status/Tobacco Use Comment F acility Jul 29, 2023 02:19 PM VA-TOBACCO QUIT < 1 YEAR [facility] Encounter Notes: All associated encounter notes This section contains the clinical notes associated to the Encounter. Date/Time Encounter Note(s) Provider Source Mar 15, 2024 03:15 PM ADMINISTRATIVE NOT E: LOCAL TITLE: CCC: SCHEDULING ADMINISTRATION STANDARD TITLE: ADMINISTRATIVE NOTE DATE OF NOTE: MAR 15, 2024@15:15:18 ENTRY DATE: MAR 15, 2024@15:15:18 AUTHOR: ODESSA GUERRERO COSIGNER: URGENCY: STATUS: COMPLETED CCC: SCHEDULING ADMINISTRATION Has ADDENDA Patient Demographics Patient Name: JEANNINE RAE II Patient Primary Phone: [phone] Patient Primary Address: [address] [place] [id number] Patient : 1960 Patient Age: 63 Caller/Recipient Relation to Patient: Self Administrative Administrative Note Reason: Medication Renewal [place] Medications Refill/Renewal Request: Rx #[id number] - TIOTROPIUM 2.5MCG/ACTUAT 60D ORAL INHL Administrative Note Comments: Pt. requests refill/renewal for above listed medication(s), be sent to address on file. IMPORTANT: This note was created by [facility] Clinical Contact Center staff. Please do not alert the staff member by adding them as a signer for future communications. Alerts are not monitored by this user. /garo/ ODESSA GUERRERO [facility] A[facility] Signed: 03/15/2024 15:15 Receipt Acknowledged By: 03/15/2024 16:24 /es/ RAUL GOLDBERG D.O. PHYSICIAN 03/15/2024 15:51 /es/ REINA MARTINEZ, RN REGISTERED NURSE 03/15/2024 ADDENDUM STATUS: COMPLETED has refills- he needs to call pharamcy for them /garo/ RAUL GOLDBERG D.O. PHYSICIAN Signed: 03/15/2024 16:25 ODESSA GUERRERO [place] [facility] TRN [facility]
--- OUTSIDE RECORDS SUMMARY | 2024-06-09 08:18 | XMS_ITS ---
Author Name [facility] [place] Address [address] [place] [address] Care Team Providers Care Financial Recording Clerk Name Role Phone OKSANA GOLDBERGA Primary Care [...] [employer] Jun 23, 2021 [id number] [phone] JACKELIN ACKERMAN PATIENT Selected Encounter This section includes the information on record at [place] for the Encounter. Date/Time Encounter Type Encounter Description Reason Pro vider Source Mar 15, 2024 01:59 PM Outpatient Encounter PRIMARY CARE/MEDICINE IHE Encounter [...] 29, 2024 08:00 AM AMBULATORY - MEDICINE [facility] Mar 29, 2024 08:30 AM [place] [facility] May 25, 2024 10:00 AM [place] [place] [facility] Aug 26, 2024 02:30 PM [facility] Social History: Smoking Status (Most current) and Tobacco Use (All prior to encounter date) This section includes the most current, and the historical, smoking and tobacco- related health factors from the [place] facility where the Encounter took place. Current Smoking Status This section includes the most current smoking, or tobacco-related health factor, from the [place] facility where the Encounter took place. Date/Time Current Smoking Status Comment Facil ity Jul 29, 2023 02:19 PM VA-TOBACCO FORMER USER [facility] Tobacco Use History This section includes a history of the smoking, or tobacco-related health factors, that were collected on or before the date of the Encounter. The data comes from the [place] facility where the Encounter took place. Date/Time Smoking Status/Tobacco Use Comment F acility Jul 29, 2023 02:19 PM VA-TOBACCO QUIT < 1 YEAR [facility] Encounter Notes: All associated encounter notes This section contains the clinical notes associated to the Encounter. Date/Time Encounter Note(s) Provider Source Mar 15, 2024 01:59 PM ADMINISTRATIVE NOTE: LOCAL TITLE: ADMINISTRATIVE NOTE STANDARD TITLE: ADMINISTRATIVE NOTE DATE OF NOTE: MAR 15, 2024@13:59 ENTRY DATE: MAR 15, 2024@13:59:27 AUTHOR: LINDSEY CASTRO COSIGNER: URGENCY: STATUS: COMPLETED ADMINISTRATIVE NOTE Has ADDENDA CALLED THE CLINIC FOR THE FOLLOWIN)NEEDS CONSULT FOR OPTOM APPT HERE AT THE [facility] 2) NEEDS THE PCP TO SEND FAX STATING HE NO LONGER NEEDS O2 AT NIGHT TO /garo/ LINDSEY CHERRY Signed: 03/15/2024 14:02 Receipt Acknowledged By: 03/15/2024 14:36 /es/ DEMARCUS WU LPN [employer] CAPTAIN for AKASH DE ANDA 03/15/2024 15:38 /es/ RAUL GOLDBERG D.O. PHYSICIAN 03/15/2024 14:14 /es/ REINA MARTINEZ, RN REGISTERED NURSE 03/15/2024 ADDENDUM STATUS: COMPLETED consult entered as requested, held for signature ALERT TO PCP for consideration of faxing letter to number in message stating that is no longer in need of Oxygen at nighttime. 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 /garo/ REINA MARTINEZ, SOFÍA REGISTERED NURSE Signed: 03/15/2024 14:15 LINDSEY CASTRO CN[facility]L [facility]
--- OUTSIDE RECORDS SUMMARY | 2024-06-09 08:18 | XMS_ITS | Encounter Summary ---
Author Name [facility] [place] Organization [facility] [place] [facility] [place] Address [address] [place] [address] Care Team Providers Care Lumber Cutter Name Role Phone RAUL GOLDBERG Primary Care [...] [employer] Jun 23, 2021 [id number] JACKELIN ACKERMAN PATIENT Selected Encounter This section includes the information on record at [place] for the Encounter. Date/Time Encounter Type Encounter Description Reason Provider Source Mar 04, 2024 02:30 PM OFFICE O/P EST MOD 30 MIN PRIMARY CARE/MEDICINE ICD-10-CM D75.1 Secondary polycythemia FURCOLO,RAUL E Encounter Template Text not used by [place] Assessments - Encounter Diagnoses This section includes the primary and secondary diagnoses documented for the Encounter. Date/Time Primary/Secondary Diagnosis Diagnosis Name Provider Source Mar 04, 2024 03:02 PM PRIMARY Secondary polycythemia FURCOLO,RAUL [place] [facility] [place] [facility] Mar 04, 2024 03:02 PM SECONDARY Alcoholic cirrhosis of liver without ascites FURCOLO,RAUL [facility] [place] [facility] Mar 04, 2024 03:02 PM SECONDARY Emphysema, unspecified FURCOLO,RAUL [facility] [place] [facility] Mar 04, 2024 03:02 PM SECONDARY Encounter for immunization GIBRAN PACHECO [facility] [place] [facility] Mar 04, 2024 03:02 PM SECONDARY Polyneuropathy, unspecified FURCOLO,RAUL [facility] [place] [facility] Mar 04, 2024 03:02 PM SECONDARY Sleep apnea, unspecified FURCOLO,RAUL [facility] [place] [facility] Mar 04, 2024 03:02 PM SECONDARY Type 2 diabetes mellitus without complications FURCOLO,RAUL [facility] [place] [facility] Mar 04, 2024 03:02 PM SECONDARY Venous insufficiency (chronic) (peripheral) FURCOLO,RAUL [facility] [place] [facility] Plan of Treatment: Future Appointments (+ 6 months) and Future Tests (+/- 45 days) The Plan of Treatment section includes future care activities for the patient from all [place] [facility]. This section includes future appointments and future orders which are active, pending or scheduled. Future Appointments This section includes appointments that were scheduled to occur 6 months from the date of the Encounter, up to a maximum of 20 appointments. The data comes from all [place] treatment facilities. Appointment Date/Time Appointment Type Appointme nt Facility Name Mar 29, 2024 08:00 AM AMBULATORY - MEDICINE [place] [facility] [place] [facility] Mar 29, 2024 08:30 AM AMBULATORY - MEDICINE [place] [facility] [place] [facility] May 25, 2024 10:00 AM AMBULATORY - MEDICINE [place] [facility] [place] [facility] Aug 26, 2024 02:30 PM AMBULATORY - MEDICINE [place] [facility] [place] [facility] Vital Signs: All taken on the encounter date This section contains inpatient and outpatient Vital Signs collected on the date of the Encounter. Date/Time Temperature Pulse Blood Pressure Respiratory Rate SP02 Pain Height Weight Body Mass Index Source Mar 04, 2024 02:28 PM 98.3 84 120/80 16 94 5 180 29 [facility] Immunizations: All administered on the encounter date This section contains immunizations associated to the Encounter. Immunization Series Date Issued Reaction Comments COVID-19 (MODERNA), MRNA, LN P-S, PF, 50 MCG/0.5 ML (AGES 12+ YEARS) Mar 04, 2024 INFLUENZA, SPLIT VIRUS, TRIVALENT, PF Sep 12, 2 024 Social History: Smoking Status (Most current) and Tobacco Use (All prior to encounter date) This section includes the most current, and the historical, smoking and tobacco- related health factors from the [place] facility where the Encounter took place. Current Smoking Status This section includes the most current smoking, or tobacco-related health factor, from the [place] facility where the Encounter took place. Date/Time Current Smoking Status Comment Facil ity Jul 29, 2023 02:19 PM VA-TOBACCO FORMER USER [facility] Tobacco Use History This section includes a history of the smoking, or tobacco-related health factors, that were collected on or before the date of the Encounter. The data comes from the [place] facility where the Encounter took place. Date/Time Smoking Status/Tobacco Use Comment F acility Jul 29, 2023 02:19 PM VA-TOBACCO QUIT < 1 YEAR [facility] Encounter Notes: All associated encounter notes This section contains the clinical notes associated to the Encounter. Date/Time Encounter Note(s) Provider Source Mar 04, 2024 02:41 PM PHYSICIAN NOTE: LOCAL TITLE: NOTE STANDARD TITLE: PHYSICIAN NOTE DATE OF NOTE: MAR 04, 2024@14:41 ENTRY DATE: MAR 04, 2024@14:41:55 AUTHOR: RAUL GOLDBERG EXP COSIGNER: URGENCY: STATUS: COMPLETED NOTE Has ADDENDA JEANNINE RAE II is a 63 year old WHITE MALE who is being seen today in primary care for disability forms to be completed ==== CARE TEAM ==== Community Primary Care Provider: SONI Casas (had not seen in years, to re- establish) [facility] Specialists: Community Specialists: hematology- [place] Oates- apt 08/18/23- had HCT >60 Lashell Martinez 08/01/23- gets phlebotomies [facility] [place] [place] pulm- Dr. 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 ==== HISTORY OF PRESENT ILLNESS ==== -gets phlebotomies still every 2 months, if Hb >13 -seeing pulmonary- no changes -feels wel, energy is good, no LE edema, no SOB -no longer on home O2. does pull through hooker O2 with his CPAP (was his mom's oxygen unit) -still out on shrt term disability- active- driving, fishing, doing home projects -continues with improved diet- diabetic control good ==== RELEVANT PAST MEDICAL HISTORY ==== Active problems - Computerized Problem List is the source for the followin. Erythrocytosis HCT 62 in setting of resp failure/copd. seen by [facility] heme-nc, neg VIOLETA, epo not elevated. thought related to underlying lung disease and HETAL, phlebotomies scheduled by heme/onc 2. Diabetes mellitus- imporved 3. Acute right-sided congestive heart failure Acute on chronic right-sided heart failure acute COPD exac 04/2023- intubated in ICU [facility] 4. Liver cyst 5. Pulmonary emphysema home BiPAP and oxygen concentrator 6. Peripheral venous insufficiency Edema of both lower extremities due to peripheral venous insufficiency 7. Stasis dermatitis Venous stasis dermatitis of both lower extremities 8. Polyneuropathy Peripheral polyneuropathy 9. Sleep apnea - uses cpap ==== PAST SURGICAL HISTORY ==== broken foot ==== FAMILY HISTORY ==== Mother: at age 79- COPD Father: alive at 88, BPH Siblings:4- sisters older sister - leukemia ==== SOCIAL HISTORY ==== Background: born and raised in [place], raised in [place]. did 2 years of college Sexual Orientation: heterosexual Marital Status: Children: 2 daughters and 1 son Lives with: one roommate- fired, involved with grandkids Employment Status: on disability- since hospitalization 05/12/23. 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 [employer] Alcohol Use: currently drinks 6 beers a week, previously drank heavier, denies any problematic drinking Tobacco Use: former smoker- quit after hospitalization 04/2023- 40 years x 1 ppd Drug Use: marijuana, remote cocaine Exercise: goes up and down 3 floors, can walk 1 mile ==== ALLERGIES ==== Patient has answered NKA ==== MEDICATIONS ==== Active and Recently Outpatient Medications (excluding Supplies): Active Outpatient Medications Status 1) FUROSEMIDE 40MG TAB TAKE ONE TABLET BY MOUTH ONCE ACTIVE DAILY TO REMOVE FLUID/CONTROL BLOOD PRESSURE 2) OLODATEROL/TIOTROP 2.5MCG/ACTUAT 60D INH INHALE 2 ACTIVE PUFFS (1 DOSE) BY MOUTH ONCE DAILY FOR COPD Active Non-VA Medications Status 1) Non-VA UMECLIDINIUM/VILANTEROL (ANORO) INHL,ORAL BY ACTIVE MOUTH 3 Total Medications ==== REVIEW OF SYMPTOMS ==== NEGATIVE FOR: [...] - - - - - - B/P: 120/80 (03/04/2024 14:28) pulse: 84 (03/04/2024 14:28) resp: 16 (03/04/2024 14:28) temp: 98.3 F [36.8 C] (03/04/2024 14:28) Ht: 66 in [167.6 cm] (07/30/2023 10:17) Wgt: 180 lb [81.65 kg] (03/04/2024 14:28) BMI: BMI: 29.1 Exam: - - - - - - - RRR S1 S2 LCTA bilat no LE edema ==== RECENT LABS ==== SERUM Aug 12 Reference 2023 09:41 Units Ranges - GLUCOSE 123 H mg/dL 65 - 100 BUN 17 mg/dL 7 - 25 CREATININE 0.77 mg/dL .5 - 1.4 eGFR See Eval Ref: See Eval Sodium 139 mmol/L 135 - 145 K+/Pot 4.1 mmol/L 3.5 - 5 CL 104 mmol/L 100 - 110 CO2 26 mEq/L 20 - 30 HGB-A1c 5.6 % 4 - 5.6 PSA 4.79 H ng/mL 0 - 4 ==== ASSESSMENT AND PLAN ==== Active problems - Computerized Problem List is the source for the followin. Erythrocytosis HCT 62 in setting of resp failure/copd. seen by [facility] heme-nc, neg VIOLETA, epo not elevated. thought related to underlying lung disease and HETAL, phlebotomies scheduled by heme/onc- now every 2 mo- when Hb>13 2. Diabetes mellitus- improved overall with better diet 3. Acute right-sided congestive heart failure Acute on chronic right-sided heart failure acute COPD exac 04/2023- intubated in ICU [facility]. no further edema, better breathing status. nromal echo on repeat Ef 60% 4. Liver cyst- found incedentally 5. Pulmonary emphysema home BiPAP and oxygen concentrator- not needing as much now. sees pulmonary [facility] 6. Peripheral venous insufficiency - improved overall 7. Stasis dermatitis Venous stasis dermatitis of both lower extremities 8. Polyneuropathy Peripheral polyneuropathy- previously on gabapentin- not currently 9. Sleep apnea- pulmonary HTN- thought to have sleep apnea, home with BiPAP. seeing pulmonary. 10. former smoker- quit 04/2023- 40 pack year. had CTA chest when hospitalized with respiratory failure 04/2023 at [facility]- no nodularity ==== HEALTH MAINTENANCE ==== Colonoscopy - will check with his pcp Abdominal Aortic Aneurysm Screening - CTA [facility] 04/2023- neg for AAA Prostate screening - Tetanus: due every 10 years Pneumonia Vacccine: Flu Vaccine: due yearly Covid Vaccine: due yearly ==== FOLLOW UP ==== 6 months VISIT TYPE: a MODERATE complexity visit where 30 minutes was spent in direct patient care, review of records and documentation. /garo/ RAUL GOLDBERG D.O. PHYSICIAN Signed: 03/04/2024 15:04 04/23/2024 ADDENDUM STATUS: COMPLETED reviewed [facility] records 04/23/24- no record of colonosocpy /es/ RAUL GOLDBERG D.O. PHYSICIAN Signed: 04/23/2024 14:14 RAUL GOLDBERG [facility] [place] [facility] Mar 04, 2024 02:33 PM PREVENTIVE MEDICINE NURSING NOTE: LOCAL TITLE: CLINICAL REMINDERS/NURSING STANDARD TITLE: PREVENTIVE MEDICINE NURSING NOTE DATE OF NOTE: MAR 04, 2024@14:33 ENTRY DATE: MAR 04, 2024@14:33:18 AUTHOR: KARTHIK PACHECO EXP COSIGNER: URGENCY: STATUS: COMPLETED COVID-19 Immunization: Moderna Monovalent (Spikevax) Administered: COVID-19 (MODERNA), MRNA, LNP-S, PF, 50 MCG/0.5 ML (AGES 12 + YEARS) Date Administered: Mar 04, 2024 14:30 Series: Booster Relationship Specialist: CDEL. Lot: [id number] Exp Date: Apr 25, 2024 NDC: [id number] Admin Route/Site: INTRAMUSCULAR/LEFT DELTOID Dosage: 0.5mL Vaccine Information Statement(s): COVID-19 MRNA VACCINE (12+ YRS) VACCINE VIS Apr 10, 2023 (MOZAMBICAN) Order By: Policy Administered By: Karthik Pacheco Vaccine administered without complications. Influenza Immunization: Influenza, Trivalent, Preservative Free (Fluarix-Syringe) Administered: INFLUENZA, SPLIT VIRUS, TRIVALENT, PF Date Administered: Mar 04, 2024 14:30 Series: Booster Relationship Specialist: [employer] Lot: [id number] Exp Date: Dec 20, 2024 NDC: [id number] Admin Route/Site: INTRAMUSCULAR/LEFT DELTOID Dosage: 0.5mL Vaccine Information Statement(s): INFLUENZA(FLU) VACC(INACTIVATED OR RECOMBINANT)VIS Jan 26, 2021 (MOZAMBICAN) Order By: Policy Administered By: Karthik Pacheco The Influenza Vaccine Information Statement (VIS) was reviewed with the patient/caregiver which lists the benefits and risks of the vaccine and the risks of not receiving the Influenza vaccine. The patient/caregiver denied any prior severe reaction to this vaccine or its components or a severe allergic reaction, such as anaphylaxis, to any vaccine or any injectable therapy. The patient/caregiver gave verbal consent to receive the vaccine. /garo/ KARTHIK PACHECO LPN Signed: 03/04/2024 14:35 KARTHIK PACHECO [facility]
--- OUTSIDE RECORDS SUMMARY | 2024-06-09 08:19 | XMS_ITS | Encounter Summary ---
Author Name [facility] [place] Organization [place] Address [address] [place] [address] Care Team Providers Care Field Examiner Name Role Phone RAUL GOLDBERG Primary Care [...] [employer] Jun 23, 2021 [id number] JACKELIN ACKERMAN PATIENT Selected Encounter This section includes the information on record at [place] for the Encounter. Date/Time Encounter Type Encounter Description Reason Pro vider Source Apr 20, 2024 03:10 PM Outpatient Encounter ADMIN PAT ACTIVTIES (MASNONCT) IHE Encounter Template Text not used by [place] Plan of Treatment: Future Appointments (+ 6 [...] 20 appointments. The data comes from all [facility]. Appointment Date/Time Appointment Type Appointme nt Facility Name May 25, 2024 10:00 AM AMBULATORY - MEDICINE [facility] Aug 26, 2024 02:30 PM AMBULATORY - MEDICINE [facility] Active, Pending, and Scheduled Orders This section includes a listing of several types of active, pending, and scheduled orders, including clinic medications orders, diagnostic test orders, procedure orders and consult orders; where the start date of the order is 45 days before the date of the Encounter or 45 days after the date of theEncounter. The data comes from all [facility]. Test Date/Time Test Type Test Details Facility Name May 10, 2024 02:04 PM Consult Order COMMUNITY CARE-PULMONARY Cons Track Laminating Machine Tender's Choice [facility] Social History: Smoking Status (Most current) and Tobacco Use (All prior to encounter date) This section includes the most current, and the historical, smoking and tobacco- related health factors from the [place] facility where the Encounter took place. Current Smoking Status This section includes the most current smoking, or tobacco-related health factor, from the [place] facility where the Encounter took place. Date/Time Current Smoking Status Comment Facil ity Jul 29, 2023 02:19 PM VA-TOBACCO FORMER USER [facility] Tobacco Use History This section includes a history of the smoking, or tobacco-related health factors, that were collected on or before the date of the Encounter. The data comes from the [place] facility where the Encounter took place. Date/Time Smoking Status/Tobacco Use Comment F acility Jul 29, 2023 02:19 PM [place]-TOBACCO QUIT < 1 YEAR [facility] Encounter Notes: All associated encounter notes This section contains the clinical notes associated to the Encounter. Date/Time Encounter Note(s) Provider Source Apr 20, 2024 03:10 PM PHARMACY NOTE: LOCAL TITLE: V1 PHARMACY CUSTOMER CARE MEDICATION RENEWAL STANDARD TITLE: PHARMACY NOTE DATE OF NOTE: APR 20, 2024@15:10 ENTRY DATE: APR 20, 2024@15:10:55 AUTHOR: MAGGY MERA EXP COSIGNER: URGENCY: STATUS: COMPLETED V1 PHARMACY CUSTOMER CARE MEDICATION RENEWAL Has ADDENDA Date: Mar Division: [facility] referred by Pharmacy Call Center for medication renewal: Non-controlled/maintenan ce medication Medications requested: [id number] TIOTROPIUM 2.5MCG/ACTUAT 60D ORAL INHL Defer to primary care provider To be mailed . Please review and renew if appropriate. *This note was generated by [facility]/[place] Pharmacy Customer Care. If you have any questions or need assistance, do not contact this author. Please refer all questions to your local, on-site pharmacy departments. /garo/ MAGGY MERA [facility] [employer] Trailer Mechanic, [place]/Pharmacy Customer Care Signed: 04/20/2024 15:11 Receipt Acknowledged By: 04/20/2024 16:17 /garo/ RAUL GOLDBERG D.O. PHYSICIAN 04/20/2024 15:20 /garo/ REINA MARTINEZ, SOFÍA REGISTERED NURSE 04/20/2024 ADDENDUM STATUS: COMPLETED already refills- please direct them to the pharmacy /garo/ RAUL GOLDBERG D.O. PHYSICIAN Signed: 04/20/2024 16:18 MAGGY MERA [facility]
--- OUTSIDE RECORDS SUMMARY | 2024-06-09 08:19 | XMS_ITS ---
Author Name [facility] [place] Organization [place] Address [address] [place] [address] Care Team Providers Care Education Diagnostician Name Role Phone OKSANA GOLDBERGA Primary Care [...] [employer] Jun 23, 2021 [id number] JACKELIN ACKERMAN PATIENT Selected Encounter This section includes the information on record at [place] for the Encounter. Date/Time Encounter Type Encounter Description Reason Provider Source Mar 29, 2024 09:04 AM FIT SPECTACLES MULTIFOCAL OPTOMETRY ICD-10-CM Z46.0 Encounter for fit/adjst of spectacles and contact lenses SPENCER HENDRICKSON Encounter Template Text not used by [place] Assessments - Encounter Diagnoses This section includes the primary and secondary diagnoses documented for the Encounter. Date/Time Primary/Secondary Diagnosis Diagnosis Name Provider Source Mar 29, 2024 09:04 AM PRIMARY Encounter for fit/adjst of spectacles and contact lenses [facility] Plan of Treatment: Future Appointments (+ 6 months) and Future Tests (+/- 45 days) The Plan of Treatment section includes future care activities for the patient from all [place] [facility]. This section includes future appointments and future orders which are active, pending or scheduled. Future Appointments This section includes appointments that were scheduled to occur 6 months from the date of the Encounter, up to a maximum of 20 appointments. The data comes from all [facility]. Appointment Date/Time Appointment Type Appointme nt Facility Name May 25, 2024 10:00 AM AMBULATORY - MEDICINE [facility] Aug 26, 2024 02:30 PM AMBULATORY - MEDICINE [facility] Active, Pending, and Scheduled Orders This section includes a listing of several types of active, pending, and scheduled orders, including clinic medications orders, diagnostic test orders, procedure orders and consult orders; where the start date of the order is 45 days before the date of the Encounter or 45 days after the date of theEncounter. The data comes from all [facility]. Test Date/Time Test Type Test Details Facility Name May 10, 2024 02:04 PM Consult Order COMMUNITY CARE-PULMONARY Cons Ophthalmology Surgical Technician's Choice [facility] Social History: Smoking Status (Most current) and [...] 29, 2023 02:19 PM VA-TOBACCO FORMER USER [facility] Tobacco Use History This section includes a history of the smoking, or tobacco-related health factors, that were collected on or before the date of the Encounter. The data comes from the [place] facility where the Encounter took place. Date/Time Smoking Status/Tobacco Use Comment F acility Jul 29, 2023 02:19 PM [place]-TOBACCO QUIT < 1 YEAR [facility] Encounter Notes: All associated encounter notes This section contains the clinical notes associated to the Encounter. Date/Time Encounter Note(s) Provider Source Mar 29, 2024 09:04 AM OPTOMETRY NOTE: LOCAL TITLE: OPTOMETRY NOTE STANDARD TITLE: OPTOMETRY NOTE DATE OF NOTE: MAR 29, 2024@09:04 ENTRY DATE: MAR 29, 2024@09:04:14 AUTHOR: DUTCH PEÑA COSIGNER: URGENCY: STATUS: COMPLETED OPTOMETRY NOTE Has ADDENDA The quote provided below is for informational purposes only. Please verify prior to the creation of a purchase order. [facility] [employer] 2819 RX INFORMATION OD +4.00 -1.00 X80 Add:+2.25 Pzm:0.00 Dir: Prz2:0.00 Dir2: OS +3.75 -0.25 X105 Add:+2.25 Pzm:0.00 Dir: Prz2:0.00 Dir2: FITTING INFORMATION FPD: NPD: Meigs:R:30.5 L:32.0 SEG HT:R:19 L:19 Tint:BALDWIN Shade:3 VA Billable Items FRAME: 28 [facility] [id number] Right Lens: POLY VA PROGRESSIVE 1.586 POLY Left Lens: POLY VA PROGRESSIVE 1.586 POLY KLEAR ANTI-REFLECTIVE COATING SOLID TINT CLIN items [employer] - AR Coating 0004 - Progressive - Glass Plastic Poly The quote provided below is for informational purposes only. Please verify prior to the creation of a purchase order. [facility] [employer] 2819 RX INFORMATION OD +4.00 -1.00 X80 Add:+2.25 Pzm:0.00 Dir: Prz2:0.00 Dir2: OS +3.75 -0.25 X105 Add:+2.25 Pzm:0.00 Dir: Prz2:0.00 Dir2: FITTING INFORMATION FPD: NPD: Meigs:R:30.5 L:32.0 SEG HT:R:18 L:18 Tint:None Shade:None VA Billable Items FRAME: SA5 [facility] [id number] Right Lens: POLY VA PROGRESSIVE 1.586 POLY Left Lens: POLY VA PROGRESSIVE 1.586 POLY KLEAR ANTI-REFLECTIVE COATING CLIN items [employer] - AR Coating [employer] - [employer] Frame 0004 - Progressive - Glass Plastic Poly /garo/ DUTCH PEÑA SCOUT EXECUTIVE Signed: 03/29/2024 09:07 Receipt Acknowledged By: 03/29/2024 09:09 /garo/ Rosemary Willett LPN Licensed Practical Nurse 03/29/2024 ADDENDUM STATUS: COMPLETED PDS pharmacy graduate intern fit 2 PAL eyeglasses on 03/29/2024. OPT HT entered consult(s) as requested for provider signature. /garo/ Rosemary Willett LPN Licensed Practical Nurse Signed: 03/29/2024 09:12 DUTCH PEÑA [facility]
--- OUTSIDE RECORDS SUMMARY | 2024-06-09 08:19 | XMS_ITS | Encounter Summary ---
Author Name [place] Organization [place] Address [address] [place] [address] Care Team Providers Care Asphalt Patcher Name Role Phone OKSANA GOLDBERGA Primary Care [...] [employer] Jun 23, 2021 [id number] JACKELIN ACKERMAN PATIENT Selected Encounter This section includes the information on record at [place] for the Encounter. Date/Time Encounter Type Encounter Description Reason Provider Source Mar 29, 2024 08:30 AM [facility] OPTIC NERVE OPTOMETRY ICD-10-CM H40.033 Anatomical narrow angle, bilateral SPENCER HENDRICKSON Sunny Encounter Template Text not used by [place] Assessments - Encounter Diagnoses This section includes the primary and secondary diagnoses documented for the Encounter. Date/Time Primary/Secondary Diagnosis Diagnosis Name Provider Source Mar 29, 2024 02:08 PM PRIMARY Anatomical narrow angle, bilateral [facility]ICKSON [facility] Mar 29, 2024 02:08 PM SECONDARY Open angle with borderline findings, low risk, bilateral SPENCER HENDRICKSON [facility] Plan of Treatment: Future Appointments (+ 6 months) and Future Tests (+/- 45 days) The Plan of Treatment section includes future care activities for the patient from all [place] treatmentfacilities. This section includes future appointments and future orders which are active, pending or scheduled. Future Appointments This section includes appointments that were scheduled to occur 6 months from the date of the Encounter, up to a maximum of 20 appointments. The data comes from all [place] treatment facilities. Appointment Date/Time Appointment Type Appointme nt Facility Name May 25, 2024 10:00 AM AMBULATORY - MEDICINE [facility] Aug 26, 2024 02:30 PM AMBULATORY - MEDICINE [facility] Active, Pending, and Scheduled Orders This section includes a listing of several types of active, pending, and scheduled orders, including clinic medications orders, diagnostic test orders, procedure orders and consult orders; where the start date of the order is 45 days before the date of the Encounter or 45 days after the date of theEncounter. The data comes from all [facility]. Test Date/Time Test Type Test Details Facility Name May 10, 2024 02:04 PM Consult Order COMMUNITY CARE-PULMONARY Cons Marketing Strategy Manager's Choice [facility] Social History: Smoking Status (Most current) and Tobacco Use (All prior to encounter date) This section includes the most current, and the historical, smoking and tobacco- related health factors from the [place] facility where the Encounter took place. Current Smoking Status This section includes the most current smoking, or tobacco-related health factor, from the [place] facility where the Encounter took place. Date/Time Current Smoking Status Comment Facil ity Jul 29, 2023 02:19 PM VA-TOBACCO FORMER USER [facility] Tobacco Use History This section includes a history of the smoking, or tobacco-related health factors, that were collected on or before the date of the Encounter. The data comes from the [place] facility where the Encounter took place. Date/Time Smoking Status/Tobacco Use Comment F acility Jul 29, 2023 02:19 PM VA-TOBACCO QUIT < 1 YEAR [facility] Encounter Notes: All associated encounter notes This section contains the clinical notes associated to the Encounter. 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 Optical pachymetry right eye: Average central corneal thickness is 520 ??m. Average central corneal thickness left eye is 529 ??m. ++++++++++++++++++++++++ ++++++++++++++++++++++++ ++++++++++++++++++++++++ ++++++++ ++++++++++++++++++++++++ ++++++++++++++++++++++++ ++++++++++++++++++++++++ ++++++++ Marginal quality OCT with low signal strength each eye Optic nerve OCT left eye: Average retinal nerve fiber layer thickness is 71 ??m with average cup-to-disc ratio 0.77 and vertical cup-to-disc ratio of 0.72. Disc area is large measuring 2.03 mm??. There is evidence of nerve fiber layer thinning superior and temporal quadrant right eye. Optic nerve OCT left eye: Average central retinal nerve fiber layer thickness is 73 ??m with average cup-to-disc ratio 0.77 and vertical cup-to-disc ratio of 0.74. Disc area is larger than right measuring 2.26 mm??. There is evidence of nerve fiber layer thinning temporal and inferior quadrants. Will continue to follow this low risk glaucoma suspect based on physical examination and imaging. Will plan for repeat optic nerve OCT with visual field testing at return exam in 12 months. /garo/ Sydni Hendrickson OD CHIEF OF OPTOMETRY Signed: 03/29/2024 14:09 SYDNI HENDRICKSON CNTL [facility]
== END 2024-06-09 08:09 | disposition home or self-care (01) ==
LOC: HO.BBR 08:08
PROVIDERS: PCP Family Medicine; Visit Provider Physician Assistant Medical
DX: D75.1 Secondary polycythemia (principal)
CPT/HCPCS: 85014; 85018; 99195

== ENCOUNTER 2024-08-10 08:05 | Outpatient (REF) | payer BC, OTHER, SELFPAY ==
--- OUTSIDE RECORDS SUMMARY | 2024-08-10 08:09 | XMS_ITS | Encounter Summary ---
Author Name Department of Vetera Affairs ([place]) Organization Department of Vetera [place]) Address [address] [place] [address] Care Team Providers Care Brownfield Program Coordinator Name Role Phone OKSANA GOLDBERGA Primary Care Provider Unavailyonas e Insurance Providers: All historical and current [...] [employer] Jun 23, 2021 [id number] [id number] JACKELIN ACKERMAN PATIENT Selected Encounter This section includes the information on record at [place] for the Encounter. Date/Time Encounter Type Encounter Description Reason Pro vider Source Jul 15, 2024 11:25 AM Outpatient Encounter ADMIN PAT ACTIVTIES (MASNONCT) IHE Encounter Template Text not used by MD Plan of Treatment: Future Appointments (+ 6 [...] 20 appointments. The data comes from all [facility]. Appointment Date/Time Appointment Type Appointme nt Facility Name Jul 28, 2024 03:00 PM AMBULATORY - MEDICINE [facility] Aug 04, 2024 11:20 AM AMBULATORY - MEDICINE [facility] Aug 05, 2024 09:00 AM AMBULATORY - NONE [facility] Active, Pending, and Scheduled Orders This section includes a listing of several types of active, pending, and scheduled orders, including clinic medications orders, diagnostic test orders, procedure orders and consult orders; where the start date of the order is 45 days before the date of the Encounter or 45 days after the date of theEncounter. The data comes from all [facility]. Test Date/Time Test Type Test Details Facility Name Jul 28, 2024 03:48 PM Consult Order COMMUNITY CARE-COLONOSCOPY SCREENING Cons Research Editor's Choice [facility] Lab Results: +/- 30 days of the encounter This section includes the Chemistry and Hematology Lab Results on record with MD for the patient. Radiology Reports and Pathology Reports are provided separately, in subsequent sections. Lab Results This section contains the Chemistry/Hematology Results that were resulted 30 days before or 30 daysafter the date of the Encounter. Date/Time Source Result Type Result - Unit Interpretation Reference Range Comment Jul 28, 2024 03:54 PM [facility] BASIC METABOLIC PANEL (fasting) Specimen Type: SERUM No comment entered. Ordering Provider: RAUL GOLDBERG Report Released Date/Time: Mar 04, 2024 03:04 PM Reporting Lab: [facility] [address] [address] Performing Lab: [facility] [address] [address] UREA NITROGEN 14 mg/dL 7-25 GLUCOSE 129 mg/dL H 65-100 SODIUM 139 mmol/L 135-145 POTASSIUM 3.7 mmol/L 3.5-5.0 CHLORIDE 100 mmol/L 100-110 CO2 31 meq/L H 20-30 CREATININE, Serum 0.89 mg/dL 0.50-1.40 eGFR(CKD-EPI 2020) >90 mL/min >60 Jul 28, 2024 03:54 PM [facility] LIVER FUNCTION Specimen Type: SERUM No comment entered. Ordering Provider: RAUL GOLDBERG Report Released Date/Time: Mar 04, 2024 03:04 PM Reporting Lab: [facility] [address] [facility] [address] Performing Lab: [address] [address] PROTEIN,TOTAL 7.6 g/dL 6.0-8.3 ALBUMIN 4.2 g/dL 3.5-5.0 ALKALINE PHOSPHATASE 75 U/L 40-150 AST 14 U/L 5-34 ALT 13 U/L BILIRUBIN, TOTAL 0.3 mg/dL 0.2-1.2 Jul 28, 2024 03:54 PM [facility] HEMOGLOBIN A1C PANEL Specimen Type: BLOOD Comment: Values obtained from A1C measurements can vary. For atypical A1C assays, a reported value of 7.0 could actually be between 6.72 and 7.28 if measured by a reference method. A reported value of 9.0 could actually be between 8.73 and 9.27. Ref: http://www.ngs p.org/CAPdata. asp Ordering Provider: RAUL GOLDBERG Report Released Date/Time: Mar 04, 2024 03:04 PM Reporting Lab: [address] [address] Performing Lab: [address] [address] HEMOGLOBIN A1C 6.1 H 4.0-5.6 Jul 28, 2024 03:54 PM [facility] CBC Specimen Type: BLOOD No comment entered. Ordering Provider: RAUL GOLDBERG Report Released Date/Time: Mar 04, 2024 03:04 PM Reporting Lab: [address] [address] Performing Lab: [address] [address] WBC 8.16 10*3/uL 4.50-11.00 RBC 4.85 10*6/uL 4.23-5.66 HGB 14.5 g/dL 12.8-17 HCT 43.2 39.2-50.4 MCV 89.1 fL 82-99 MCHC 33.6 g/dL 30.8-35.1 PLT 290 10*3/uL 140-360 RDW-CV 13.5 12.0-16.0 MCH 29.9 pg 26.2-32.6 Social History: Smoking Status (Most current) and Tobacco Use (All prior to encounter date) This section includes the most current, and the historical, smoking and tobacco- related health factors from the [place] facility where the Encounter took place. Current Smoking Status This section includes the most current smoking, or tobacco-related health factor, from the [place] facility where the Encounter took place. Date/Time Current Smoking Status Comment Facil ity Jul 29, 2023 02:19 PM VA-TOBACCO FORMER USER [facility] Tobacco Use History This section includes a history of the smoking, or tobacco-related health factors, that were collected on or before the date of the Encounter. The data comes from the [place] facility where the Encounter took place. Date/Time Smoking Status/Tobacco Use Comment F acility Jul 29, 2023 02:19 PM VA-TOBACCO QUIT < 1 YEAR [facility] Radiology Reports: +/- 30 days of the encounter Radiology Reports For cases when an order for radiology services may have been completed prior to the date of the Encounter, the report list includes the Radiology Reports that were completed up to 30 days before dateof the Encounter. For cases when an order for radiology services may have been completed after the date of the Encounter, the report list also includes the Radiology Reports that were completed up to30 days after date of the Encounter. The data comes from all [place] treatment facilities. Date/Time Radiology Report Provider Source Aug 05, 2024 08:57 AM ULTRASOUND ABDOMEN LIMITED: JEANNINE RAE [id number] -1960 [facility] Date: AUG 05, 2024@08:57 Req Phys: RAUL GOLDBERG Loc: [facility] PACT EIGHT SALES AND PRODUCTION MANAGER (Req'g Loc) Img Loc: ULTRASOUND Service: Unknown [facility] [place] [id number] (Case [id number] COMPLETE) ULTRASOUND ABDOMEN LIMITED (US Detailed) CPT:48244 Reason for Study: f/u liver u/s Clinical History: abnormal in setting of acute CHF in 04/2023, needs repeat, h/o heavy ETOH Report Status: Verified Date Reported: AUG 05, 2024 Date Verified: AUG 05, 2024 Scene Painter E-Sig:/ES/FRANK HUSTON JR Report: Study: Abdominal ultrasound. Comparison: None. Reported prior abnormal liver ultrasound with no prior report or images provided. Findings: The liver is normal in size and diffusely increased in echogenicity consistent with hepatic steatosis/fibrosis with several areas of focal fatty sparing and several small hepatic simple cysts present, cysts all below 1.0 cm in greatest dimension. No intrahepatic bile duct dilatation is seen. No solid hepatic mass is seen. The portal vein is patent with normal hepatopedal flow. The common hepatic duct measures 0.35 cm, which is normal. Correlation with prior imaging and/or report is recommended. An addendum can be performed once submitted for comparison. The spleen is normal and measures 10.0 cm in length. The visualized pancreas is normal. The gallbladder is partially decompressed with no gallstones or pericholecystic edema identified. There is a negative sonographic Jordan sign present. If gallbladder dysfunction is suspected, a HIDA scan may be helpful to better evaluate. No ascites is identified. Impression: Liver and gallbladder findings, as described above. Primary Diagnostic Code: No immediate attention required Primary Interpreting Staff: FRANK HUSTON JR, Radiologist (Scene Painter) /FRANK BURGESS JR [facility] Encounter Notes: All associated encounter notes This section contains the clinical notes associated to the Encounter. Date/Time Encounter Note(s) Provider Source Jul 15, 2024 11:25 AM ADMINISTRATIVE NOTE: LOCAL TITLE: CCC: SCHEDULING ADMINISTRATION STANDARD TITLE: ADMINISTRATIVE NOTE DATE OF NOTE: JUL 15, 2024@11:25:16 ENTRY DATE: JUL 15, 2024@11:25:17 AUTHOR: BASSEM GRIFFITH COSIGNER: URGENCY: STATUS: COMPLETED CCC: SCHEDULING ADMINISTRATION Has ADDENDA Patient Demographics Patient Name: JEANNINE RAE II Patient Primary Phone: [phone] Patient Primary Address: [address] [place] [address] Patient : 1960 Patient Age: 64 Call Back Number: [phone] Caller/Recipient Relation to Patient: Other If Other Describe Relation to Patient: Steve Financial Disability Caller Name: William Administrative Administrative Note Reason: Other Administrative Note Comments: William with [employer] financial disability calling to request the Disability form be faxed again. Stated they received all records on 06/24/24 but did not receive the actual disability form that the provider fills out and signs. Please call [phone] and fax is [phone] IMPORTANT: This note was created by [facility] Clinical Contact Center staff. Please do not alert the staff member by adding them as a signer for future communications. Alerts are not monitored by this user. /garo/ BASSEM CLARKE 1 CCC AMSA Signed: 07/15/2024 11:25 Receipt Acknowledged By: 07/20/2024 08:30 /garo/ AKASH DE ANDA LPN License Practical Nurse 07/20/2024 10:05 /garo/ DAWSON LINDSEY, MSN, RN, CNL PRIMARY CARE TEAM NURSE 07/16/2024 ADDENDUM STATUS: COMPLETED form placed in RN folder /garo/ LEXII SMITH Registered Nurse Signed: 07/16/2024 10:56 07/20/2024 ADDENDUM STATUS: COMPLETED Last [employer] forms completed back in 11/11/23. Missing forms refaxed from that date per provider's advice. Advised to let us know if these are the froms they need by fax. /garo/ AKASH DE ANDA LPN License Practical Nurse Signed: 07/20/2024 08:39 BASSEM GRIFFITH MD CNTL [facility]
--- OUTSIDE RECORDS SUMMARY | 2024-08-10 08:09 | XMS_ITS ---
Author Name Department [place] Organization [place] Address [address] [place] [address] Care Team Providers Care Mobile Product Manager Name Role Phone OKSANA GOLDBERGA Primary [...] [employer] Jun 23, 2021 [id number] [id number] JACKELIN ACKERMAN PATIENT Selected Encounter This section includes the information on record at [place] for the Encounter. Date/Time Encounter Type Encounter Description Reason Pro vider Source Jul 16, 2024 01:54 PM Outpatient Encounter PRIMARY CARE/MEDICINE IHE Encounter Template Text not used by [place] Plan of Treatment: Future Appointments (+ 6 [...] 20 appointments. The data comes from all [place] treatment facilities. Appointment Date/Time Appointment Type Appointme nt Facility Name Jul 28, 2024 03:00 PM AMBULATORY - MEDICINE [place] [facility] Aug 04, 2024 11:20 AM AMBULATORY - MEDICINE [facility] NTRL [facility] Aug 05, 2024 09:00 AM AMBULATORY - NONE [facility] Active, Pending, and Scheduled Orders This section includes a listing of several types of active, pending, and scheduled orders, including clinic medications orders, diagnostic test orders, procedure orders and consult orders; where the start date of the order is 45 days before the date of the Encounter or 45 days after the date of theEncounter. The data comes from all [facility]. Test Date/Time Test Type Test Details Facility Name Jul 28, 2024 03:48 PM Consult Order COMMUNITY CARE-COLONOSCOPY SCREENING Cons Vineyard Tender's Choice [facility] Lab Results: +/- 30 days of the encounter This section includes the Chemistry and Hematology Lab Results on record with [place] for the patient. Radiology Reports and Pathology Reports are provided separately, in subsequent sections. Lab Results This section contains the Chemistry/Hematology Results that were resulted 30 days before or 30 daysafter the date of the Encounter. Date/Time Source Result Type Result - Unit Interpretation Reference Range Comment Jul 28, 2024 03:54 PM [facility] BASIC METABOLIC PANEL (fasting) Specimen Type: SERUM No comment entered. Ordering Provider: RAUL GOLDBERG Report Released Date/Time: Mar 04, 2024 03:04 PM Reporting Lab: [facility] [address] [facility] [address] Performing Lab: [address] [address] UREA NITROGEN 14 mg/dL 7-25 GLUCOSE 129 mg/dL H 65-100 SODIUM 139 mmol/L 135-145 POTASSIUM 3.7 mmol/L 3.5-5.0 CHLORIDE 100 mmol/L 100-110 CO2 31 meq/L H 20-30 CREATININE, Serum 0.89 mg/dL 0.50-1.40 eGFR(CKD-EPI 2020) >90 mL/min >60 Jul 28, 2024 03:54 PM [facility] LIVER FUNCTION Specimen Type: SERUM No comment entered. Ordering Provider: RAUL GOLDBERG Report Released Date/Time: Mar 04, 2024 03:04 PM Reporting Lab: [facility] [address] [facility] [address] Performing Lab: [address] [address] PROTEIN,TOTAL 7.6 g/dL 6.0-8.3 ALBUMIN 4.2 g/dL 3.5-5.0 ALKALINE PHOSPHATASE 75 U/L 40-150 AST 14 U/L 5-34 ALT 13 U/L BILIRUBIN, TOTAL 0.3 mg/dL 0.2-1.2 Jul 28, 2024 03:54 PM [facility] HEMOGLOBIN A1C PANEL Specimen Type: BLOOD [...] Mar 04, 2024 03:04 PM Reporting Lab: [address] [address] Performing Lab: [address] [address] HEMOGLOBIN A1C 6.1 H 4.0-5.6 Jul 28, 2024 03:54 PM [facility] CBC Specimen Type: BLOOD No comment entered. Ordering Provider: RAUL GOLDBERG Report Released Date/Time: Mar 04, 2024 03:04 PM Reporting Lab: [address] [address] Performing Lab: [address] [address] WBC 8.16 10*3/uL 4.50-11.00 RBC 4.85 10*6/uL [...] and tobacco- related health factors from the [place] facility where the Encounter took place. Current Smoking Status This section includes the most current smoking, or tobacco-related health factor, from the [place] facility where the Encounter took place. Date/Time Current Smoking Status Comment Facil ity Jul 29, 2023 02:19 PM VA-TOBACCO FORMER USER [facility] Tobacco Use History This section includes a history of the smoking, or tobacco-related health factors, that were collected on or before the date of the Encounter. The data comes from the [place] facility where the Encounter took place. Date/Time Smoking Status/Tobacco Use Comment F acility Jul 29, 2023 02:19 PM [place]-TOBACCO QUIT < 1 YEAR [facility] Radiology Reports: +/- 30 days of the [...] the Encounter. The data comes from all [place] treatment facilities. Date/Time Radiology Report Provider Source Aug 05, 2024 08:57 AM ULTRASOUND ABDOMEN LIMITED: JEANNINE RAE [id number] -[id number] M Ex Date: AUG 05, 2024@08:57 Req Phys: RAUL GOLDBERG Loc: [facility] PACT EIGHT REFERRAL MANAGER (Req'g Loc) Img Loc: ULTRASOUND Service: Unknown [facility] [place] [id number] (Case [id number] COMPLETE) ULTRASOUND ABDOMEN LIMITED (US Detailed) CPT:33178 Reason for Study: f/u liver u/s Clinical History: abnormal in setting of acute CHF in 04/2023, needs repeat, h/o heavy ETOH Report Status: Verified Date Reported: AUG 05, 2024 Date Verified: AUG 05, 2024 Experimental Machinist E-Sig:/ES/FRANK HUSTON JR Report: Study: Abdominal ultrasound. [...] Primary Interpreting Staff: FRANK HUSTON JR, Radiologist (Experimental Machinist) /FRANK BURGESS JR [facility] Encounter Notes: All associated encounter notes This section contains the clinical notes associated to the Encounter. Date/Time Encounter Note(s) Provider Source Jul 16, 2024 01:54 PM LETTERS: LOCAL TITLE: PATIENT LETTER (T) STANDARD TITLE: LETTERS DATE OF NOTE: JUL 16, 2024@13:54 ENTRY DATE: JUL 16, 2024@13:54:57 AUTHOR: JUSTIN HANDY COSIGNER: URGENCY: STATUS: COMPLETED DEPARTMENT OF Veterans Affairs [facility] Toll Free Number Primary Care Telephone Assistance can be reached at extension [phone] [facility] scheduling can be reached at extension [phone] [facility] scheduling can be reached at ext [phone] JEANNINE VASQUEZHORTENSIA GARCIA [address] [place], [place], [address] Dear [place]: If you are still interested in scheduling your'e appointment with to discuss and fill out disability form, please give us a call to schedule your appointment at Ext [phone]. We have been unable to reach you by the phone number that is currently on our records. If you have any questions, please do not hesitate to contact the Department of [place]'s Affairs call center at Ext [phone]. Just so that you know,if you're feeling sick we have sick call hours at the [facility], and the [facility]- Fri thru Friday 08-1530- first come first serve- walk-in basis. [facility] has sick call hours Fri-Fri- -12, and 3P-4P- first come, first serve, walk-in basis- no appt needed. You can utilize our sick call system once you have seen your Primary Care Physician for the first time. Audiology Phone number- [phone]- Ext [phone] Optometry Phone Number- [phone] Ext [phone] [facility]- [phone] Ext- [phone] Eligibility/Enrollment- [phone]- [phone], or- [phone] [facility] [phone] Ext [phone] [facility] [phone] Thank you for your service to our nation, and we look forward to hearing from you soon. If you have any questions, please do not hesitate to contact the Department of 's Affairs call center at Ext [phone]. We look forward to providing your health care! Please call us so that we can update your record. Sincerely. Justin Barron NO PACT 8 [facility] [address] [place] [phone] Ext [phone] [facility] [address] [phone] [place], [place] [phone] - Ext [phone] [facility] [address] [facility] [place] [address] 78 [facility] [phone] [place] [address] Sincerely, Your Primary Care Team [facility] [address] [address] [place] [address] [phone] [facility] [address] [place] [address] [place] [address] [phone] [facility] [address] [facility] [place] [address] [place] [address] JUSTIN HANDY [place] [facility]
--- OUTSIDE RECORDS SUMMARY | 2024-08-10 08:09 | XMS_ITS | Encounter Summary ---
Author Organization [employer] Address [address] [place] [address] Care Team Providers Care Cigarette Inspector Name Role Phone Geovanna Morgan DO Primary Care Provider [phone] Inactive/Transferred Primary Care Provider Unava ilable Encounter Details Date Type Department Care Team (Late st Contact Info) Description 01/14/2024 Orders Only [facility] MEDICAL [address] [place] [address] Kimberlee Osorio PA Pulmonary emphysema, unspecified emphysema type (CMS/HCC); Liver cyst; Polycythemia; Acute on chronic right-sided heart failure (CMS/HCC); History of snoring; Venous stasis dermatitis of both lower extremities Social History Tobacco Use Types Packs/Day Years Used Date Smoking Tobacco: Some Days Cigarettes Passive Smoke Exposure: Current Smokeless Tobacco: Never Comments:Cutting down to abo ut two to three days out of the week with smoking. Alcohol Use Standard Drinks/Week Comments Yes 0 (1 standard drink = 0.6 oz pur e alcohol) Ocassionally Alcohol Answer Date Recorded How often do you have a drink containing alcohol ? 0 01/08/2024 How many drinks containing a lcohol do you have on a typical day when you are drinking? 0 01/08/2024 How often do you have six or more drinks on one occasion? 0 01/08/2024 Housing Stability Answer Date Recorded What is your housing situation today? I have kindra bingham 05/08/[address] you li ve. Do you have problems with any of the following? None of the above 05/08/2023 Food Insecurity Answer Date Recorded Within the past 12 months, y ou worried that your food would run out before you got money to buy more: Never True 05/08/2023 Within the past 12 months,th e food you bought just didn't last and you didn't have enough money to get more: Never True Transportation Answer Date Recorded In the past 12 months, has l ack of transportation kept you from medical appts, meetings, work or from getting things needed for daily living? No 05/08/2023 Intimate Partner Violence Answer Date R ecorded Within the last year, have y ou been afraid of your partner or ex-partner? 2 01/08/2024 Within the last year, have y ou been humiliated or emotionally abused in other ways by your partner or ex-partner? 2 Within the last year, have y ou been kicked, hit, slapped, or otherwise physically hurt by your partner or ex-partner? 2 01/08/2024 Within the last year, have y ou been raped or forced to have any kind of sexual activity by your partner or ex-partner? 2 01/08/2024 Utilities Answer Date Recorded In the past 12 months, has t he [employer], gas, oil or water [place] threatened to shut off services in your home? 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 Not on file Not on file Not on file documented as of this encounter Plan of Treatment Not on file documented as of this encounter Procedures Procedure Name Priority Date/Time Associated Diagnosis Comments POLYSOMNOGRAM Routine 10/20/2023 History of snoring documented in this encounter Results * Polysomnography (10/20/2023) [facility] ORDERABLES Final Re sult documented in this encounter Visit Diagnoses Diagnosis Pulmonary emphysema, unspecified emphysema type (CMS/HCC) Liver cyst Other specified disorders of liver Polycythemia Polycythemia, secondary Acute on chronic right-sided heart failure (CMS/HCC) History of snoring Venous stasis dermatitis of both lower extremities documented in this encounter Care Teams Cigarette Inspector Relationship Specialty Start Date End Date Geovanna Morgan DO [address] [place], [place] [id number] PCP - General Family Medicine 01/07/24 07/04/24 Inactive/Transferred PCP - General 07/05/24 documented as of this encounter
--- OUTSIDE RECORDS SUMMARY | 2024-08-10 08:09 | XMS_ITS ---
Author Name [facility] [place] [facility] [place] Organization [facility] [place] Address [address] [place] [address] Care Team Providers Care Preschool Teacher Name Role Phone YUSUF RAUL Primary Care Provider Unavailyonas juarez Insurance Providers: [...] [employer] Jun 23, 2021 [id number] JACKELIN ACKERMAN PATIENT Selected Encounter This section includes the information on record at [place] for the Encounter. Date/Time Encounter Type Encounter Description Reason Provider Source Aug 04, 2024 11:20 AM RPR&REFITG SPECT XCP APHAKIA OPTOMETRY ICD-10-CM Z46.0 Encounter for fit/adjst of spectacles and contact lenses KENTON CRABTREE Encounter Template Text not used by [place] Assessments - Encounter Diagnoses This section includes the primary and secondary diagnoses documented for the Encounter. Date/Time Primary/Secondary Diagnosis Diagnosis Name Provider Source Aug 04, 2024 11:50 AM PRIMARY Encounter for fit/adjst of spectacles and contact lenses KENTON CRABTREE [facility] Plan of Treatment: Future Appointments (+ 6 months) and Future Tests (+/- 45 days) The Plan of Treatment section includes future care activities for the patient from all [place] treatmentfacilities. This section includes future appointments and future orders which are active, pending or scheduled. Future Appointments This section includes appointments that were scheduled to occur 6 months from the date of the Encounter, up to a maximum of 20 appointments. The data comes from all [place] treatment facilities. Appointment Date/Time Appointment Type Appointme nt Facility Name Aug 05, 2024 09:00 AM AMBULATORY - NONE [facility] Feb 01, 2025 11:30 AM AMBULATORY - MEDICINE [facility] Active, Pending, and Scheduled Orders This section includes a listing of several types of active, pending, and scheduled orders, including clinic medications orders, diagnostic test orders, procedure orders and consult orders; where the start date of the order is 45 days before the date of the Encounter or 45 days after the date of theEncounter. The data comes from all [facility] Test Date/Time Test Type Test Details Facility Name Jul 28, 2024 03:48 PM Consult Order COMMUNITY CARE-COLONOSCOPY SCREENING Cons Quarter Seamer's Choice [facility] Lab Results: +/- 30 days of the encounter This section includes the Chemistry and Hematology Lab Results on record with [place] for the patient. Radiology Reports and Pathology Reports are provided separately, in subsequent sections. Lab Results This section contains the Chemistry/Hematology Results that were resulted 30 days before or 30 daysafter the date of the Encounter. Date/Time Source Result Type Result - Unit Interpretation Reference Range Comment Jul 28, 2024 03:54 PM [facility] BASIC METABOLIC PANEL (fasting) Specimen Type: SERUM No comment entered. Ordering Provider: RAUL GOLDBERG Report Released Date/Time: Mar 04, 2024 03:04 PM Reporting Lab: [address] [address] Performing Lab: [address] [address] UREA NITROGEN 14 mg/dL 7-25 GLUCOSE 129 mg/dL H 65-100 SODIUM 139 mmol/L 135-145 POTASSIUM 3.7 mmol/L 3.5-5.0 CHLORIDE 100 mmol/L 100-110 CO2 31 meq/L H 20-30 CREATININE, Serum 0.89 mg/dL 0.50-1.40 eGFR(CKD-EPI 2020) >90 mL/min >60 Jul 28, 2024 03:54 PM [facility] LIVER FUNCTION Specimen Type: SERUM No comment entered. Ordering Provider: RAUL GOLDBERG Report Released Date/Time: Mar 04, 2024 03:04 PM Reporting Lab: [address] [address] Performing Lab: [address] [address] PROTEIN,TOTAL 7.6 g/dL 6.0-8.3 ALBUMIN 4.2 g/dL 3.5-5.0 ALKALINE PHOSPHATASE 75 U/L 40-150 AST 14 U/L 5-34 ALT 13 U/L BILIRUBIN, TOTAL 0.3 mg/dL 0.2-1.2 Jul 28, 2024 03:54 PM [facility] HEMOGLOBIN A1C PANEL Specimen Type: [...] Mar 04, 2024 03:04 PM Reporting Lab: [address] [address] Performing Lab: [address] [address] HEMOGLOBIN A1C 6.1 H 4.0-5.6 Jul 28, 2024 03:54 PM [facility] CBC Specimen Type: BLOOD No comment entered. Ordering Provider: RAUL GOLDBERG Report Released Date/Time: Mar 04, 2024 03:04 PM Reporting Lab: [facility] [address] [facility] [address] Performing Lab: [facility] [address] [facility] [address] WBC 8.16 10*3/uL 4.50-11.00 RBC 4.85 10*6/uL [...] and tobacco- related health factors from the [place] facility where the Encounter took place. Current Smoking Status This section includes the most current smoking, or tobacco-related health factor, from the [place] facility where the Encounter took place. Date/Time Current Smoking Status Comment Facil ity Jul 28, 2024 03:00 PM VA-TOBACCO USE CAROLYN E DAYS CIGARETTES [facility] Tobacco Use History This section includes a history of the smoking, or tobacco-related health factors, that were collected on or before the date of the Encounter. The data comes from the [place] facility where the Encounter took place. Date/Time Smoking Status/Tobacco Use Comment F acility Jul 28, 2024 03:00 PM VA-TOBACCO USE CAROLYN E DAYS CIGARETTES [facility] Jul 29, 2023 02:19 PM VA-TOBACCO FORMER USER [facility] Jul 29, 2023 02:19 PM VA-TOBACCO QUIT < 1 YEAR [facility] Radiology Reports: +/- 30 days of [...] the Encounter. The data comes from all [place] treatment facilities. Date/Time Radiology Report Provider Source Aug 05, 2024 08:57 AM ULTRASOUND ABDOMEN LIMITED: JEANNINE RAE [id number] -[id number] M Exm Date: AUG 05, 2024@08:57 Req Phys: GUIDORAUL GUERRA Pat Loc: [facility] PACT EIGHT PRODUCT DEVELOPMENT ENGINEER (Req'g Loc) Img Loc: ULTRASOUND Service: Unknown [facility] [address] (Case [id number] COMPLETE) ULTRASOUND ABDOMEN LIMITED (US Detailed) CPT:54714 Reason for Study: f/u liver u/s Clinical History: abnormal in setting of acute CHF in 04/2023, needs repeat, h/o heavy ETOH Report Status: Verified Date Reported: AUG 05, 2024 Date Verified: AUG 05, 2024 Airplane Refueler E-Sig:/ES/FRANK HUSTON JR Report: Study: Abdominal ultrasound. [...] Primary Interpreting Staff: FRANK HUSTON JR, Radiologist (Airplane Refueler) /FRANK BURGESS JR [facility] Encounter Notes: All associated encounter notes This section contains the clinical notes associated to the Encounter. Date/Time Encounter Note(s) Provider Source Aug 04, 2024 11:50 AM OPTOMETRY NOTE: LOCAL TITLE: OPTOMETRY NOTE STANDARD TITLE: OPTOMETRY NOTE DATE OF NOTE: AUG 04, 2024@11:50 ENTRY DATE: AUG 04, 2024@11:50:13 AUTHOR: KENTON CRABTREE EXP COSIGNER: URGENCY: STATUS: COMPLETED OPT HT Fit and adjusted 2 pairs of eyeglasses per patients request. /garo/ KENTON LEVI [facility] Signed: 08/04/2024 11:50 KENTON CRABTREE [facility]
--- OUTSIDE RECORDS SUMMARY | 2024-08-10 08:09 | XMS_ITS ---
Author Name [facility] [place] Organization [place] Address [address] [place] [address] Care Team Providers Care General Lithographic Worker Name Role Phone OKSANA GOLDBERGA Primary Care [...] [employer] Jun 23, 2021 [id number] [id number] JACKELIN ACKERMAN PATIENT Selected Encounter This section includes the information on record at [place] for the Encounter. Date/Time Encounter Type Encounter Description Reason Pro vider Source Jul 28, 2024 03:00 PM Outpatient Encounter TELEPHONE/MEDICINE IHE Encounter Template Text not used by [place] Plan of Treatment: Future Appointments (+ 6 [...] 20 appointments. The data comes from all [place] treatment facilities. Appointment Date/Time Appointment Type Appointme nt Facility Name Aug 04, 2024 11:20 AM AMBULATORY - MEDICINE [facility] Aug 05, 2024 09:00 AM AMBULATORY - NONE [facility] Active, Pending, and Scheduled Orders This section includes a listing of several types of active, pending, and scheduled orders, including clinic medications orders, diagnostic test orders, procedure orders and consult orders; where the start date of the order is 45 days before the date of the Encounter or 45 days after the date of theEncounter. The data comes from all [place] treatment facilities. Test Date/Time Test Type Test Details Facility Name Jul 28, 2024 03:48 PM Consult Order COMMUNITY CARE-COLONOSCOPY SCREENING Cons Machine [employer] Choice [facility] Lab Results: +/- 30 days of the encounter This section includes the Chemistry and Hematology Lab Results on record with [place] for the patient. Radiology Reports and Pathology Reports are provided separately, in subsequent sections. Lab Results This section contains the Chemistry/Hematology Results that were resulted 30 days before or 30 daysafter the date of the Encounter. Date/Time Source Result Type Result - Unit Interpretation Reference Range Comment Jul 28, 2024 03:54 PM [facility] BASIC METABOLIC PANEL (fasting) Specimen Type: SERUM No comment entered. Ordering Provider: RAUL GOLDBERG Report Released Date/Time: Mar 04, 2024 03:04 PM Reporting Lab: [address] [address] Performing Lab: [address] [address] UREA NITROGEN 14 mg/dL 7-25 GLUCOSE 129 mg/dL H 65-100 SODIUM 139 mmol/L 135-145 POTASSIUM 3.7 mmol/L 3.5-5.0 CHLORIDE 100 mmol/L 100-110 CO2 31 meq/L H 20-30 CREATININE, Serum 0.89 mg/dL 0.50-1.40 eGFR(CKD-EPI 2020) >90 mL/min >60 Jul 28, 2024 03:54 PM [facility] LIVER FUNCTION Specimen Type: SERUM No comment entered. Ordering Provider: RAUL GOLDBERG Report Released Date/Time: Mar 04, 2024 03:04 PM Reporting Lab: [facility] [address] [facility] [address] Performing Lab: [address] [address] PROTEIN,TOTAL 7.6 g/dL 6.0-8.3 ALBUMIN 4.2 g/dL 3.5-5.0 ALKALINE PHOSPHATASE 75 U/L 40-150 AST 14 U/L 5-34 ALT 13 U/L BILIRUBIN, TOTAL 0.3 mg/dL 0.2-1.2 Jul 28, 2024 03:54 PM [facility] HEMOGLOBIN A1C PANEL Specimen Type: BLOOD Comment: [...] Mar 04, 2024 03:04 PM Reporting Lab: [address] [address] Performing Lab: [address] [address] HEMOGLOBIN A1C 6.1 H 4.0-5.6 Jul 28, 2024 03:54 PM [facility] CBC Specimen Type: BLOOD No comment entered. Ordering Provider: RAUL GOLDBERG Report Released Date/Time: Mar 04, 2024 03:04 PM Reporting Lab: [address] [address] Performing Lab: [address] [address] WBC 8.16 10*3/uL 4.50-11.00 RBC 4.85 10*6/uL [...] and tobacco- related health factors from the [place] facility where the Encounter took place. Current Smoking Status This section includes the most current smoking, or tobacco-related health factor, from the [place] facility where the Encounter took place. Date/Time Current Smoking Status Comment Facil ity Jul 28, 2024 03:00 PM VA-TOBACCO USE CAROLYN E DAYS CIGARETTES [place] [facility] [place] [facility] Tobacco Use History This section includes a history of the smoking, or tobacco-related health factors, that were collected on or before the date of the Encounter. The data comes from the [place] facility where the Encounter took place. Date/Time Smoking Status/Tobacco Use Comment F acility Jul 28, 2024 03:00 PM VA-TOBACCO USE CAROLYN E DAYS CIGARETTES [facility] [place] [facility] Jul 29, 2023 02:19 PM VA-TOBACCO FORMER USER [facility] [place] [facility] Jul 29, 2023 02:19 PM VA-TOBACCO QUIT < 1 YEAR [place] [facility] [place] [facility] Radiology Reports: +/- 30 days of [...] the Encounter. The data comes from all [place] treatment facilities. Date/Time Radiology Report Provider Source Aug 05, 2024 08:57 AM ULTRASOUND ABDOMEN LIMITED: JEANNINE RAE [id number] -[id number] [facility] Date: AUG 05, 2024@08:57 Req Phys: RAUL GOLDBERG Loc: [facility] PACT EIGHT FISH BIN TENDER (Req'g Loc) Img Loc: ULTRASOUND Service: Unknown [facility] [place] [address] (Case [id number] COMPLETE) ULTRASOUND ABDOMEN LIMITED (US Detailed) CPT:38442 Reason for Study: f/u liver u/s Clinical History: abnormal in setting of acute CHF in 04/2023, needs repeat, h/o heavy ETOH Report Status: Verified Date Reported: AUG 05, 2024 Date Verified: AUG 05, 2024 Grubber E-Sig:/ES/FRANK HUSTON JR Report: Study: Abdominal ultrasound. [...] Primary Interpreting Staff: FRANK HUSTON JR, Radiologist (Grubber) /FRANK BURGESS JR [facility] Encounter Notes: All associated encounter notes This section contains the clinical notes associated to the Encounter. Date/Time Encounter Note(s) Provider Source Jul 28, 2024 05:38 PM LETTERS: LOCAL TITLE: PATIENT LETTER (T) STANDARD TITLE: LETTERS DATE OF NOTE: JUL 28, 2024@17:38 ENTRY DATE: JUL 28, 2024@17:38:53 AUTHOR: VERA LIRIANO COSIGNER: URGENCY: STATUS: COMPLETED PATIENT LETTER (T) Has ADD[facility] Toll Free Number Primary Care Telephone Assistance can be reached at extension [phone] [facility] scheduling can be reached at extension [phone] [facility] scheduling can be reached at ext [phone] JEANNINE RAE II [address] [place], [place], [address] Dear , The Referral Coordination Team at [facility] has attempted to contact you on 07.28.2024 to discuss a Gastroenterology referral that was requested by your healthcare provider. We would appreciate hearing from you so that we can assist in coordinating this care. Please call FINA Pham,RN-BC at [phone] Ext [phone] at your earliest convenience. It's important that we process this request as soon as possible to make sure you receive the care your provider requested. Unfortunately if you do not hear from you within 14 days of this letter your healthcare provider will be informed and the request may be discontinued. We look forward to your call and thank you for the opportunity to serve you. 07/30/2024 ADDENDUM STATUS: COMPLETED LETTER MAILED TODAY 07/30/2024. GASTRO. /garo/ ANGELA MOODY Signed: 07/30/2024 09:40 Sincerely, Your Primary Care Team [facility] [address] [facility] [address] [place] [address] [place] [address] [facility] [address] [place] [address] [place] [address] [phone] [facility] [address] [facility] Floor [address] [place] [address] [place] [address] VERA LIRIANO [facility] C[facility]ANDR[facility]
--- OUTSIDE RECORDS SUMMARY | 2024-08-10 08:09 | XMS_ITS | Encounter Summary ---
Author Organization [employer] Address [address] [place] [address] Care Team Providers Care Capacitor Pack Press Operator Name Role Phone Kimberlee Osorio Primary Care Provider Geovanna Herrera DO Primary Care Provider [phone] Inactive/Transferred Primary Care Provider Unava ilable Encounter Details Date Type Department Care Team (Late st Contact Info) Description 09/15/2023 Orders Only [facility] MEDICAL [address] [place] [address] Kimberlee Osorio PA Pulmonary emphysema, unspecified emphysema type (CMS/HCC) Social History Tobacco Use Types Packs/Day Years Used Date Smoking Tobacco: Every Day Cigarettes Passive Smoke Exposure: Current Smokeless Tobacco: Never Alcohol Use Standard Drinks/Week Comments Yes 0 (1 standard drink = 0.6 oz pur e alcohol) Ocassionally Housing Stability Answer Date Recorded What is your housing situation today? I have kindrahiginio bingham 05/08/[address] you [...] things needed for daily living? No 05/08/2023 Utilities Answer Date Recorded In the past 12 months, has t he electric, gas, oil or water company threatened to shut off services in your home? No 05/08/2023 Depression Answer Date Recorded Patient Health Questionnaire-2 Score 2 05/08/2023 Sex and Gender Information Value Date Recorded Sex Assigned at Male 05/07/2023 12:05 PM EST Legal Sex Male 12:00 PM EST Gender Identity Male 05/07/2023 12:05 PM EST Sexual Orientation Straight 05/07/2023 12 :05 PM EST documented as of this encounter Plan of Treatment Not on file documented as of this encounter Procedures Procedure Name Priority Date/Time Associated Diagnosis Comments PULMONARY FUNCTION TESTING Routine 09/10/2023 Pulmonary emphysema, unspecified emphysema type (CMS/HCC) documented in this encounter Results * Pulmonary function test (09/10/2023) Kimberlee [facility]AFER PFT ORDERABLES Final Result documented in this encounter Visit Diagnoses Diagnosis Pulmonary emphysema, unspecified emphysema type (CMS/HCC) documented in this encounter Care Teams Capacitor Pack Press Operator Relationship Specialty Start Date End Date Kimberlee Osorio PA PCP - General Family Medicine 05/09/23 01/06/24 Geovanna Morgan DO [address] [place] [address] PCP - General Family Medicine 01/07/24 07/04/24 Inactive/Transferred PCP - General 07/05/24 documented as of this encounter
--- OUTSIDE RECORDS SUMMARY | 2024-08-10 08:09 | XMS_ITS ---
Author Name [facility] Organization [facility] Address [address] [place] [address] Care Team Providers Care Yarn Weigher Name Role Phone OKSANA GOLDBERGA Primary Care [...] [employer] Jun 23, 2021 [id number] JACKELIN ACKERMAN PATIENT Selected Encounter This section includes the information on record at [place] for the Encounter. Date/Time Encounter Type Encounter Description Reason Provider Source Mar 29, 2024 08:00 AM COMPRE OPH EXAM NEW PT 1/> OPTOMETRY ICD-10-CM L71.8 SPENCER Fair Encounter Template Text not used by [place] Assessments - Encounter Diagnoses This section includes the primary and secondary diagnoses documented for the Encounter. Date/Time Primary/Secondary Diagnosis Diagnosis Name Provider Source Mar 29, 2024 10:50 AM PRIMARY Other [facility] Mar 29, 2024 10:50 AM SECONDARY Anatomical narrow angle, bilateral DEANN HENDRICKSON [facility] [place] [facility] Mar 29, 2024 10:50 AM SECONDARY Combined forms of age-related cataract, bilateral DEANN HENDRICKSON [facility] [place] [facility] Mar 29, 2024 10:50 AM SECONDARY Meibomian gland dysfnct left eye, upper and lower eyelids DEANN HENDRICKSON [facility] [place] [facility] Mar 29, 2024 10:50 AM SECONDARY Meibomian gland dysfnct right eye, upper and lower eyelids DEANN HENDRICKSON [facility] [place] [facility] Mar 29, 2024 10:50 AM SECONDARY Open angle with borderline findings, low risk, bilateral DEANN HENDRICKSON [facility] [place] [facility] Mar 29, 2024 10:50 AM SECONDARY Type 2 diabetes mellitus without complications DEANN HENDRICKSON [facility] [place] [facility] Plan of Treatment: Future Appointments (+ 6 months) and Future Tests (+/- 45 days) The Plan of Treatment section includes future care activities for the patient from all [facility] This section includes future appointments and future orders which are active, pending or scheduled. Future Appointments This section includes appointments that were scheduled to occur 6 months from the date of the Encounter, up to a maximum of 20 appointments. The data comes from all [place] treatment facilities. Appointment Date/Time Appointment Type Appointme nt Facility Name May 25, 2024 10:00 AM AMBULATORY - MEDICINE [facility] [place] [facility] Jul 28, 2024 03:00 PM AMBULATORY - MEDICINE [facility] [place] [facility] Aug 04, 2024 11:20 AM AMBULATORY - MEDICINE [facility] [place] [facility] Aug 05, 2024 09:00 AM AMBULATORY - NONE [facility] [place] [facility] Active, Pending, and Scheduled Orders This section includes a listing of several types of active, pending, and scheduled orders, including clinic medications orders, diagnostic test orders, procedure orders and consult orders; where the start date of the order is 45 days before the date of the Encounter or 45 days after the date of theEncounter. The data comes from all [place] treatment facilities. Test Date/Time Test Type Test Details Facility Name May 10, 2024 02:04 PM Consult Order COMMUNITY CARE-PULMONARY Cons First Assistant's Choice [facility] Social History: Smoking Status (Most current) and Tobacco Use (All prior to encounter date) This section includes the most current, and the historical, smoking and tobacco- related health factors from the [place] facility where the Encounter took place. Current Smoking Status This section includes the most current smoking, or tobacco-related health factor, from the [place] facility where the Encounter took place. Date/Time Current Smoking Status Comment Facil ity Jul 29, 2023 02:19 PM VA-TOBACCO FORMER USER [facility] Tobacco Use History This section includes a history of the smoking, or tobacco-related health factors, that were collected on or before the date of the Encounter. The data comes from the [place] facility where the Encounter took place. Date/Time Smoking Status/Tobacco Use Comment F acility Jul 29, 2023 02:19 PM VA-TOBACCO QUIT < 1 YEAR [facility] Encounter Notes: All associated encounter notes This section contains the clinical notes associated to the Encounter. Date/Time Encounter Note(s) Provider Source Mar 29, 2024 08:22 AM OPTOMETRY CONSULT: LOCAL TITLE: CONSULT REPORT/OPTOMETRY STANDARD TITLE: OPTOMETRY CONSULT DATE OF NOTE: MAR 29, 2024@08:22 ENTRY DATE: MAR 29, 2024@08:22:16 AUTHOR: SIMONE HENDRICKSON COSIGNER: URGENCY: STATUS: COMPLETED Active problems - Computerized Problem List is the source for the followin. Erythrocytosis 2. Diabetes mellitus 3. Alcoholic cirrhosis 4. Acute right-sided congestive heart failure 5. Liver cyst 6. Pulmonary emphysema 7. Peripheral venous insufficiency 8. Stasis dermatitis 9. Polyneuropathy 10. Sleep apnea Active Outpatient Medications (including Supplies): Active Outpatient Medications Status 1) FUROSEMIDE 40MG TAB TAKE ONE TABLET BY MOUTH ONCE ACTIVE DAILY TO REMOVE FLUID/CONTROL BLOOD PRESSURE 2) OLODATEROL/TIOTROP 2.5MCG/ACTUAT 60D INH INHALE 2 ACTIVE PUFFS (1 DOSE) BY MOUTH ONCE DAILY FOR COPD Active Non-VA Medications Status 1) Non-VA UMECLIDINIUM/VILANTEROL (ANORO) INHL,ORAL BY ACTIVE MOUTH 3 Total Medications Allergies: Patient has answered NKA All medications including those prescribed by outside VA's, community providers, and all OTC meds were reviewed and reconciled with patient to the best of their abilities. This 63 year old MALE is seen today for eye examination Medical, eye, personal, and social history are all reviewed and is contributory to today's visit for history of diabetes without retinopathy or macular edema either eye as well as bilateral anatomically narrow angle glaucoma status post laser iridotomy's each eye. He was seen for comprehensive eye examination at [facility] 02/20/24 but could not afford to obtain new glasses at that time and comes with prescription requesting updated glasses. Since last hemoglobin A1c obtained February 02, 2024 was 5.6. He is diet controlled for his diabetes. (-) Pain: (-) CRUZ: (-) Diplopia: (-) Flashes: (-) Floaters: (-) Amaurosis Fugax/Tia's: (+) Eye Injury: Laceration upper lid as child without complication or sequelae (+) Eye Surgery: Bilateral laser iridotomy's [place] 1 1-2 years ago (-) TBI: Family ocular history: (+) Glaucoma mother (-) macular degeneration or blindness Chief Complaint: Needs new eye glasses. Vision: With 20/20 right eye 20/20 left eye Without Correction Pupils, EOMS, confrontation flynn are all done and shows round somewhat miotic but reactive pupils with full extraocular motility and full confrontation flynn to finger counting each eye Current Wear: OD: +3.75 -0.75 axis 087 OS: +3.75 -0.50 axis 100 +1.75 add New RX 02/20/24 OD: +4.25 -1.50 axis 090 OS: +3.50 -0.50 axis 100 +2.25 add Autorefraction: OD: +4.00 -1.25 axis 074 OS: +3.75 -0.75 axis 109 Refraction: OD: +4.00 -1.00 axis 080 20/20 OS: +3.75 -0.25 axis 105 20/20 +2.25 add 20/20 Tonometry: 14 OD 14 OS Time: 8:12 AM declines dilated retinal examination today due to recent community exam PreTreatment IOP: OD OS Pachymetry: Optical pachymetry obtained today 520 ??m right eye 529 ??m left eye Thinner than average right thinner than the left eye Rosacea facies with rhinophyma Anterior segment: Lids: Heavy dermatochalasis with winking and ptosis right greater than the left upper lid with lower lid bags and chronic meibomian gland dysfunction all 4 live Conj: Mild chronic injection each eye Cornea: Clear centrally without staining or pigment each eye AC:2 and quiet each eye Iris: Patent iridotomy 9:00 right eye 3:00 left eye no NVI, no pigment dispersion Lens: Early nuclear sclerotic and cortical changes each eye no pseudoexfoliation Vit: Clear each eye Fundus exam: Dilated: xxx Non dilated: C/D: Larger asymmetric disc size left greater than right I 0.75 each eye with intact rim tissue, good color no splinter hemorrhage or notching and no NVD Macula: No lipid, edema, thickening each eye A/V: 1/2 each eye Vessels: Mild tortuosity each eye Periphery: Not assessed each eye Impression: Rosacea facies with chronic meibomian gland dysfunction currently asymptomatic with regard to dry eye symptoms. Bilateral anatomically narrow angle glaucoma status post patent laser iridotomy's each eye. Bilateral open-angle glaucoma suspect secondary to larger optic nerve cupping with somewhat thinner than average pachymetry each eye but without evidence of pseudoexfoliation or pigment dispersion each eye. Diabetes without obvious evidence of retinopathy or macular edema either eye. Declines dilated retinal examination today due to recent community exam 02/20/24. Early nuclear sclerotic and cortical cataracts overall functioning well visually at present, update glasses today Plan: Patient education as noted above reviewed exam and imaging findings now. Marginal quality OCT without dilation. Will plan for repeat optic nerve OCT with visual field testing at return exam in 12 months. Order new glasses today. Stressed the importance of optimize control of blood sugar, blood pressure and cholesterol with healthy lifestyle. Education: Diabetes: Patient was educated regarding diabetes and related ocular complications including retinopathy and cataract formation as well as other related systemic complications. The importance of good blood sugar control, blood sugar testing as recommended by their PCP and the importance of timely follow up were all emphasized. Glaucoma: Patient was educated regarding glaucoma/glaucoma suspect as well as the natural history of this diagnosis including prognosis. Stress importance of compliance and persistency with glaucoma medication when prescribed, timely follow up as well as the role of ancillary testing. Exclusion criteria for ancillary testing include significantly reduced acuity, mental status changes affecting the patient's ability to attend to the test or other physical limitations that would prohibit the patient's ability to participate in testing. Return to Clinic 12 months for exam with optic nerve OCT and visual field testing at her bilateral low risk glaucoma suspect secondary to optic nerve appearance with history of bilateral anatomically narrow angle glaucoma status post laser iridotomy's each eye. Ophthalmic medication reconciliation: He is currently not taking or prescribed any ocular medications. EYE: Visual Function Reminder: Normal Vision: 20/25 or better: Unspecified disorder of refraction or accommodation (367.9). Medication Reconciliation: Outpatient: Has the patient been taking medications as documented in the EMLR? YES: The patient has been taking medications as documented in the EMLR. Essential Medication List for Review used to complete this medication reconciliation. INCLUDED IN THIS LIST: Alphabetical list of active outpatient prescriptions dispensed from this VA (local) and dispensed from another VA or [facility] facility (remote) as well as inpatient orders (local, pending and active), local clinic medications, locally documented non-VA medications, and local prescriptions that have or been discontinued in the past 90 days. - All changes in medications, including all non-VA/Herbal/OTC medications were entered into CPRS. - If there were any medications the patient should no longer take, they were discontinued. - The patient/caregiver was instructed to update this list, discard old lists, and take this list to the next appointment, whether with a VA or non-VA provider. JLV Link Data on this list may not be complete. Please check JLV. Allergies/ADRs (Tool #5) FACILITY ALLERGY/ADR -------- No Remote Allergy/ADR Data available for this patient [facility] No Known Allergies Med [facility] (Tool #1) INCLUDED IN THIS LIST: Alphabetical list of active outpatient prescriptions dispensed from this [place] (local) and dispensed from another [place] or [facility] facility (remote) as well as inpatient orders (local pending and active), local clinic medications, locally documented non-VA medications, and local prescriptions that have or been discontinued in the past 90 days. Non-VA Meds Last Documented On: Jul 30, 2023 NOTE The display of VA prescriptions dispensed from another [place] or [facility] facility (remote) is limited to active outpatient prescription entries matched to National Drug File at the originating site and may not include some items such as investigational drugs, compounds, etc. NOT INCLUDED IN THIS LIST: Medications self-entered by the patient into personal health records (i.e. [facility]) are NOT included in this list. Non-VA medications documented outside this [place], remote inpatient orders (regardless of status) and remote clinic medications are NOT included in this list. The patient and provider must always discuss medications the patient is taking, regardless of where the medication was dispensed or obtained. OUTPT FUROSEMIDE 40MG TAB (Status = Active) TAKE ONE TABLET BY MOUTH ONCE DAILY TO REMOVE FLUID/CONTROL BLOOD PRESSURE Rx# [id number] Last Released: 02/20/24 Qty/Days Supply: Rx Expiration Date: 07/30/24 Refills Remainin Indication: FOR EDEMA WITH DEFECTIVE KIDNEY FUNCTION OUTPT OLODATEROL/TIOTROP 2.5MCG/ACTUAT 60D INH (Status = Active) INHALE 2 PUFFS (1 DOSE) BY MOUTH ONCE DAILY FOR COPD Rx# [id number] Last Released: 03/26/24 Qty/Days Supply: 07/22 Rx Expiration Date: 08/21/24 Refills Remainin Indication: FOR COPD Non-VA UMECLIDINIUM/VILANTEROL (ANORO) INHL,ORAL INHALE BY MOUTH ONCE DAILY Non-VA medication recommended by [place] provider. Indication: FOR BRONCHOSPASM PREVENTION WITH COPD SUPPLIES Declines printed copy of medication list nayan /garo/ Simone Hendrickson OD CHIEF OF OPTOMETRY Signed: 03/29/2024 14:03 SIM[facility]ENDRICKSON [facility]
--- OUTSIDE RECORDS SUMMARY | 2024-08-10 08:09 | XMS_ITS | Continuity of Care Document ---
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 It does not include entries that were removed or entered in error. Problem Status Onset Date Problem Type Date of Resolution Comments Source Acute right-sided congestive heart failure Active 06/23/19 23 Condition Jul 30, 2023 Entered By: RAUL GOLDBERG Comment: acute COPD exac 04/2023- intubated in ICU [facility] 2024 Entered By: RAUL GOLDBERG Comment: repeat echo- normal Ef 60% [facility] Liver cyst Active [...] [facility] Pulmonary emphysema Active 06/23/19 23 Condition Jul 30, 2023 Entered By: RAUL GOLDBERG Comment: home BiPAP and oxygen concentrator [facility] Sleep apnea Active 06/23/19 23 Condition [facility] Stasis dermatitis Active 06/23/19 23 Condition Jul 29, 2023 Entered By: GIBRAN SCHWARTZ Comment: Venous stasis dermatitis of both lower extremities [facility] Diabetes mellitus Active Condition [facility] [place] [facility] Erythrocytosis Active Condition Jul Entered By: RAUL GOLDBERG Comment: HCT 62 in setting of resp failure/copd. seen by [facility] heme-nc, neg VIOLETA, epo not elevated. thought related to underlying lung disease and HETAL, phlebotomies [facility] Fatty liver Active Condition Jul 30, 2023 Entered By: RUAL GOLDBERG Comment: on imaging while inpatient with right sided heart failure. 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 Active Diagnosis [facility] [place] [facility] Diagnosis: ICD-10-CM E11.9 Type 2 diabetes mellitus without complications Active Diagnosis [facility] [place] [facility] Diagnosis: ICD-10-CM Z23 Encounter for immunization Active [facility] [place] [facility] Medications Combined list of outpatient medications [...] REMOVE FLUID/CO NTROL BLOOD PRESSURE ORAL ACTIVE 07/29/2025 [id number] JESSIKALOT DAVID 2024 90 [facility] FUROSEMIDE 40MG TAB TAKE ONE TABLET BY MOUTH ONCE DAILY TO REMOVE FLUID/CO NTROL BLOOD PRESSURE ORAL DISCONT INUED 07/30/2024 [id number] GUIDOCOLOT DAVID 2023 90 [facility] OLODATEROL 2.5MCG/TIOT ROPIUM 2.5MCG/ACTU AT INHL,ORAL,6 0D,4GM INHALE 2 PUFFS (1 DOSE) BY MOUTH ONCE DAILY FOR COPD RESPIR ATORY (INHAL ATION) ACTIVE 07/29/2025 [id number] FURCOLO,T DAVID 2024 3 [facility] [place] OLODATEROL 2.5MCG/TIOT ROPIUM 2.5MCG/ACTU AT INHL,ORAL,6 0D,4GM INHALE 2 PUFFS (1 DOSE) BY MOUTH ONCE DAILY FOR COPD RESPIR ATORY (INHAL ATION) DISCONT INUED 08/21/2024 [id number] DILLAN CARA LOYD 2023 1 [facility] [place] TIOTROPIUM 2.5MCG/ACTU AT INHL,ORAL,6 0D,4GM INHALE 2 PUFFS BY MOUTH ONCE DAILY RESPIR ATORY (INHAL ATION) DISCONT INUED 08/07/2024 [id number] FURCOLO,T DAVID 2023 3 [facility] [place] UMECLIDINIU M/VILANTERO L (ANORO) INHL,ORAL INHALE BY MOUTH ONCE DAILY RESPIR ATORY (INHAL ATION) ACTIVE FURCOLO,T DAVID 2023 [facility] [place] [facility] Immunizations Combined list of available immunizations from the Department of Defense and Veterans Affairs facilities. 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 Comments Source COVID-19 (MODERNA), MRNA, LNP-S, PF, 50 MCG/0.5 ML (AGES 12+ YEARS) 2023 GIBRAN PACHECO E LEFT DELTO ID [id number] 312 complet ed [facility] [place] [facility] INFLUENZA, SPLIT VIRUS, TRIVALENT, PF 2023 GIBRAN PACHECO E LEFT DELTO ID [id number] 140 complet ed [facility] [place] [facility] ZOSTER RECOMBINANT 2023 AKASH DE ANDA RIGHT DELTO ID [id number] 187 complet ed [facility] [place] [facility] HEP A-HEP B 2 2023 GRACIE MONTOYA SSA H LEFT DELTO ID [id number] 104 complet ed [facility] HEP A-HEP B 1 2023 CHIDULCE,TIMOT HY E LEFT DELTO ID [id number] 104 complet ed [facility] ZOSTER RECOMBINANT 1 2023 CHILSON,TIMOT HY E RIGHT DELTO ID [id number] 187 complet ed [facility] PNEUMOCOCCAL CONJUGATE PCV20, POLYSACCHARID E [id number] CONJUGATE, ADJUVANT, PF 2023 CHILSON,TIMOT HY E RIGHT DELTO ID [id number] 216 complet ed [facility] TDAP 2023 CHILSON,TIMOT HY E LEFT DELTO ID [id number] 115 complet ed [facility] INFLUENZA, UNSPECIFIED FORMULATION 2023 88 complet ed [employer] [facility] COVID-19 (MODERNA), MRNA, LNP-S, PF, 100 MCG/0.5ML DOSE OR 50 MCG/0.25ML DOSE 3 2020 207 complet ed Lot#: [id number] Mfr: MODERNA [employer] [facility] COVID-19 (PFIZER), MRNA, LNP-S, PF, 30 MCG/0.3 ML DOSE 2 2020 208 complet ed Covid Card- [facility] Lot#: [id number] Mfr: [employer] [facility] COVID-19 (PFIZER), MRNA, LNP-S, PF, 30 MCG/0.3 ML DOSE 1 2020 208 complet ed Covid card Lot#: [id number] Mfr: [employer], [employer] [facility] Results [...] OR PLASMA 14 mg/dL 7 - 25 07/28 Specimen Type: SERUM No comment entered. Ordering Provider: OKSANA GOLDBERG Report Released Date/Time: Mar 04, 2024 03:04 PM Reporting Lab: [facility] [place] [facility] [address] [facility] [address] Performing Lab: [facility] [place] [facility] [address] [facility] [address] [facility] [place] [facility] BASIC METABOLIC PANEL (fasting) GLUCOSE [MASS/VOLUM E] IN SERUM OR PLASMA 129 mg/dL 65 - 100 07/28 H Specimen Type: SERUM No comment entered. Ordering Provider: OKSANA GOLDBERG Report Released Date/Time: Mar 04, 2024 03:04 PM Reporting Lab: [facility] [address] [facility] [address] Performing Lab: [facility] [address] [facility]ITAL[facility] BASIC METABOLIC PANEL (fasting) SODIUM [MOLES/VOLU ME] IN SERUM OR PLASMA 139 mmol/L 135 - 145 07/28 Specimen Type: SERUM No comment entered. Ordering Provider: OKSANA GOLDBERG Report Released Date/Time: Mar 04, 2024 03:04 PM Reporting Lab: [facility] [place] [facility] [address] [facility] [address] Performing Lab: [facility] [address] [address] [facility] BASIC METABOLIC PANEL (fasting) POTASSIUM [MOLES/VOLU ME] IN SERUM OR PLASMA 3.7 mmol/L 3.5 - 5.0 07/28 Specimen Type: SERUM No comment entered. Ordering Provider: OKSANA GOLDBERG Report Released Date/Time: Mar 04, 2024 03:04 PM Reporting Lab: [facility] [place] [facility] [address] [facility] [address] Performing Lab: [facility] [address] [address] [facility] [facility] BASIC METABOLIC PANEL (fasting) CHLORIDE [MOLES/VOLU ME] IN SERUM OR PLASMA 100 mmol/L 100 - 110 07/28 Specimen Type: SERUM No comment entered. Ordering Provider: OKSANA GOLDBERG Report Released Date/Time: Mar 04, 2024 03:04 PM Reporting Lab: [address] [address] Performing Lab: [address] [address] [facility] BASIC METABOLIC PANEL (fasting) CARBON DIOXIDE, TOTAL [MOLES/VOLU ME] IN SERUM OR PLASMA 31 meq/L 20 - 30 07/28 H Specimen Type: SERUM No comment entered. Ordering Provider: KOSANA GOLDBERG Report Released Date/Time: Mar 04, 2024 03:04 PM Reporting Lab: [address] [address] Performing Lab: [address] [address] [facility] BASIC METABOLIC PANEL (fasting) CREATININE [MASS/VOLUM E] IN SERUM OR PLASMA 0.89 mg/dL 0.50 - 1.40 07/28 Specimen Type: SERUM No comment entered. Ordering Provider: OKSANA GOLDBERG Report Released Date/Time: Mar 04, 2024 03:04 PM Reporting Lab: [address] [address] Performing Lab: [address] [address] [facility] BASIC METABOLIC PANEL (fasting) GLOMERULAR FILTRATION RATE/1.73 SQ M.PREDICTED [VOLUME RATE/AREA] IN SERUM, PLASMA OR BLOOD BY CREATININE- BASED FORMULA (CKD-EPI 2020) >90mL/ min 60 07/28 Specimen Type: SERUM No comment entered. Ordering Provider: OKSANA GOLDBERG Report Released Date/Time: Mar 04, 2024 03:04 PM Reporting Lab: [address] [address] Performing Lab: [facility] [place] [facility] [address] [facility] [address] [facility] [place] [facility] LIVER FUNCTION PROTEIN [MASS/VOLUM E] IN SERUM OR PLASMA 7.6 g/dL 6.0 - 8.3 07/28 Specimen Type: SERUM No comment entered. Ordering Provider: OKSANA GOLDBERG Report Released Date/Time: Mar 04, 2024 03:04 PM Reporting Lab: [facility] [place] [facility] [address] [facility] [address] Performing Lab: [facility] [place] [facility] [address] [facility] [address] [facility] [place] [facility] LIVER FUNCTION ALBUMIN [MASS/VOLUM E] IN SERUM OR PLASMA 4.2 g/dL 3.5 - 5.0 07/28 Specimen Type: SERUM No comment entered. Ordering Provider: OKSANA GOLDBERG Report Released Date/Time: Mar 04, 2024 03:04 PM Reporting Lab: [facility] [place] [facility] [address] [facility] [address] Performing Lab: [facility] [place] [address] [address] [facility] [place] [facility] LIVER FUNCTION ALKALINE PHOSPHATASE [ENZYMATIC ACTIVITY/VO LUME] IN SERUM OR PLASMA 75 U/L 40 - 150 07/28 Specimen Type: SERUM No comment entered. Ordering Provider: OKSANA GOLDBERG Report Released Date/Time: Mar 04, 2024 03:04 PM Reporting Lab: [facility] [place] [facility] [address] [facility] [address] Performing Lab: [facility] [place] [address] [address] [facility] [place] [facility] LIVER FUNCTION ASPARTATE AMINOTRANSF ERASE [ENZYMATIC ACTIVITY/VO LUME] IN SERUM OR PLASMA 14 U/L 5 - 34 07/28 Specimen Type: SERUM No comment entered. Ordering Provider: OKSANA GOLDBERG Report Released Date/Time: Mar 04, 2024 03:04 PM Reporting Lab: [facility] [address] [facility] [address] Performing Lab: [facility]RL TRN [facility]ITALUSE[facility] [address] [facility] [address] [facility] LIVER FUNCTION ALANINE AMINOTRANSF ERASE [ENZYMATIC ACTIVITY/VO LUME] IN SERUM OR PLASMA 13 U/L 07/28 Specimen Type: SERUM No comment entered. Ordering Provider: OKSANA GOLDBERG Report Released Date/Time: Mar 04, 2024 03:04 PM Reporting Lab: [facility] [address] [facility] [address] Performing Lab: [facility]RL [facility]N [facility]ITALUSE[address] [address] [facility] LIVER FUNCTION BILIRUBIN.T OTAL [MASS/VOLUM E] IN SERUM OR PLASMA 0.3 mg/dL 0.2 - 1.2 07/28 Specimen Type: SERUM No comment entered. Ordering Provider: OKSANA GOLDBERG Report Released Date/Time: Mar 04, 2024 03:04 PM Reporting Lab: [facility]ITALN [address] [address] Performing Lab: [facility] [address] [address] [facility] HEMOGLOBI N A1C PANEL HEMOGLOBIN A1C/HEMOGLO BIN.TOTAL IN BLOOD BY HPLC 6.1 4.0 - 5.6 07/28 H Specimen Type: BLOOD Comment: Values obtained from A1C measurement s can vary. For atypical A1C assays, a reported value of 7.0 could actually be between 6.72 and 7.28 if measured by a reference method. A reported value of 9.0 could actually be between 8.73 and 9.27. Ref: http://www. ngsp.org/[place] Pdata.asp Ordering Provider: OKSANA GOLDBERG Report Released Date/Time: Mar 04, 2024 03:04 PM Reporting Lab: [address] [address] Performing Lab: [facility] [address] [facility] [address] [facility] [place] [facility] CBC LEUKOCYTES [#/VOLUME] IN BLOOD BY AUTOMATED COUNT 8.16 10*3/u L 4.50 - 11.00 07/28 Specimen Type: BLOOD No comment entered. Ordering Provider: OKSANA GOLDBERG Report Released Date/Time: Mar 04, 2024 03:04 PM Reporting Lab: [facility] [address] [facility] [address] Performing Lab: [facility] [address] [facility] [address] [facility] [place] [facility] CBC ERYTHROCYTE S [#/VOLUME] IN BLOOD BY AUTOMATED COUNT 4.85 10*6/u L 4.23 - 5.66 07/28 Specimen Type: BLOOD No comment entered. Ordering Provider: OKSANA GOLDBERG Report Released Date/Time: Mar 04, 2024 03:04 PM Reporting Lab: [facility] [place] [facility] [address] [facility] [address] Performing Lab: [facility] [place] [facility] [address] [facility] [address] [facility] [place] [facility] CBC HEMOGLOBIN [MASS/VOLUM E] IN BLOOD 14.5 g/dL 12.8 - 17 07/28 Specimen Type: BLOOD No comment entered. Ordering Provider: OKSANA GOLDBERG Report Released Date/Time: Mar 04, 2024 03:04 PM Reporting Lab: [facility] [place] [facility] [address] [facility] [address] Performing Lab: [facility] [place] [address] [address] [facility] [place] [facility] CBC HEMATOCRIT [VOLUME FRACTION] OF BLOOD BY AUTOMATED COUNT 43.2 39.2 - 50.4 07/28 Specimen Type: BLOOD No comment entered. Ordering Provider: OKSANA GOLDBERG Report Released Date/Time: Mar 04, 2024 03:04 PM Reporting Lab: [facility] [place] [facility] [address] [facility] [address] Performing Lab: [facility] [place] [facility] [address] [facility] [address] [facility] [place] [facility] CBC MCV [ENTITIC VOLUME] BY AUTOMATED COUNT 89.1 fL 82 - 99 07/28 Specimen Type: BLOOD No comment entered. Ordering Provider: OKSANA GOLDBERG Report Released Date/Time: Mar 04, 2024 03:04 PM Reporting Lab: [facility] [place] [facility] [address] [facility] [address] Performing Lab: [facility] [place] [facility] [address] [facility] [address] [facility] [place] [facility] CBC MCHC [MASS/VOLUM E] BY AUTOMATED COUNT 33.6 g/dL 30.8 - 35.1 07/28 Specimen Type: BLOOD No comment entered. Ordering Provider: OKSANA GOLDBERG Report Released Date/Time: Mar 04, 2024 03:04 PM Reporting Lab: [facility] [place] [facility] [address] [facility] [address] Performing Lab: [facility] [place] [facility] [address] [facility] [address] [facility] [place] [facility] CBC PLATELETS [#/VOLUME] IN BLOOD BY AUTOMATED COUNT 290 10*3/u L 140 - 360 07/28 Specimen Type: BLOOD No comment entered. Ordering Provider: OKSANA GOLDBERG Report Released Date/Time: Mar 04, 2024 03:04 PM Reporting Lab: [facility] [place] [facility] [address] [facility] [address] Performing Lab: [facility] [place] [facility] [address] [facility] [address] [facility] [place] [facility] CBC ERYTHROCYTE DISTRIBUTIO N WIDTH [RATIO] BY AUTOMATED COUNT 13.5 12.0 - 16.0 07/28 Specimen Type: BLOOD No comment entered. Ordering Provider: OKSANA GOLDBERG Report Released Date/Time: Mar 04, 2024 03:04 PM Reporting Lab: [facility] [place] [facility] [address] [facility] [address] Performing Lab: [facility] [place] [facility] [address] [facility] [address] [facility] [place] [facility] CBC MCH [ENTITIC MASS] BY AUTOMATED COUNT 29.9 pg 26.2 - 32.6 07/28 Specimen Type: BLOOD No comment entered. Ordering Provider: OKSANA GOLDBERG Report Released Date/Time: Mar 04, 2024 03:04 PM Reporting Lab: [facility] [place] [facility] [address] [facility] [address] Performing Lab: [facility]RL W[facility]N [facility] [address] [facility] [place] [facility] BASIC METABOLIC PANEL (fasting) UREA NITROGEN [MASS/VOLUM E] IN SERUM OR PLASMA 17 mg/dL 7 - 25 02/01 Specimen Type: SERUM No comment entered. Ordering Provider: OKSANA GOLDBERG Report Released Date/Time: Jan 13, 2024 03:44 PM Reporting Lab: [facility] [place] [facility] [address] [facility] [address] Performing Lab: [facility] [place] [place] [address] [address] [facility] [place] [facility] BASIC METABOLIC PANEL (fasting) GLUCOSE [MASS/VOLUM E] IN SERUM OR PLASMA 123 mg/dL 65 - 100 02/01 H Specimen Type: SERUM No comment entered. Ordering Provider: OKSANA GOLDBERG Report Released Date/Time: Jan 13, 2024 03:44 PM Reporting Lab: [facility] [place] [facility] [address] [facility] [address] Performing Lab: [facility] [place] [place] [address] [address] [facility] [place] [facility] BASIC METABOLIC PANEL (fasting) SODIUM [MOLES/VOLU ME] IN SERUM OR PLASMA 139 mmol/L 135 - 145 02/01 Specimen Type: SERUM No comment entered. Ordering Provider: OKSANA GOLDBERG Report Released Date/Time: Jan 13, 2024 03:44 PM Reporting Lab: [facility] [place] [facility] [address] [facility] [address] Performing Lab: [facility]RL W[facility]N [facility]ITALUSEMARY [facility] [address] [facility] [address] [facility]ERRUN[facility]LETRN [facility]OSPITALUSE [facility] BASIC METABOLIC PANEL (fasting) POTASSIUM [MOLES/VOLU ME] IN SERUM OR PLASMA 4.1 mmol/L 3.5 - 5.0 02/01 Specimen Type: SERUM No comment entered. Ordering Provider: OKSANA GOLDBERG Report Released Date/Time: Jan 13, 2024 03:44 PM Reporting Lab: [facility]ENTERRUN[facility]LETRN [facility]PITALUSEMARY [facility] [address] [facility] [address] Performing Lab: [facility]RL TRN [facility]ITALUSE[address] [address] [facility] BASIC METABOLIC PANEL (fasting) CHLORIDE [MOLES/VOLU ME] IN SERUM OR PLASMA 104 mmol/L 100 - 110 02/01 Specimen Type: SERUM No comment entered. Ordering Provider: OKSANA GOLDBERG Report Released Date/Time: Jan 13, 2024 03:44 PM Reporting Lab: [facility]LETRN [facility]ITALUSE[address] [address] Performing Lab: [facility]RL W[facility]N [facility]ITALUSE[address] [address] [facility] BASIC METABOLIC PANEL (fasting) CARBON DIOXIDE, TOTAL [MOLES/VOLU ME] IN SERUM OR PLASMA 26 meq/L 20 - 30 02/01 Specimen Type: SERUM No comment entered. Ordering Provider: OKSANA GOLDBERG Report Released Date/Time: Jan 13, 2024 03:44 PM Reporting Lab: [facility]LETRN [facility]ITALUSE[address] [address] Performing Lab: [facility]RL TRN [facility]ITALUSE[address] [address] [facility] BASIC METABOLIC PANEL (fasting) CREATININE [MASS/VOLUM E] IN SERUM OR PLASMA 0.77 mg/dL 0.50 - 1.40 02/01 Specimen Type: SERUM No comment entered. Ordering Provider: OKSANA GOLDBERG Report Released Date/Time: Jan 13, 2024 03:44 PM Reporting Lab: [address] [address] Performing Lab: [address] [address] [facility] BASIC METABOLIC PANEL (fasting) GLOMERULAR FILTRATION RATE/1.73 SQ M.PREDICTED [VOLUME RATE/AREA] IN SERUM, PLASMA OR BLOOD BY CREATININE- BASED FORMULA (CKD-EPI 2020) >90mL/ min 60 02/01 Specimen Type: SERUM No comment entered. Ordering Provider: OKSANA GOLDBERG Report Released Date/Time: Jan 13, 2024 03:44 PM Reporting Lab: [address] [address] Performing Lab: [address] [address] [facility] HEMOGLOBI N A1C PANEL HEMOGLOBIN A1C/HEMOGLO BIN.TOTAL [...] Jan 13, 2024 03:44 PM Reporting Lab: [address] [address] Performing Lab: [address] [address] [facility] PSA PROSTATE SPECIFIC AG [MASS/VOLUM E] IN SERUM OR PLASMA 4.79 ng/mL 0.00 - 4.00 02/01 H Specimen Type: SERUM No comment entered. Ordering Provider: OKSANA GOLDBERG Report Released Date/Time: Jan 16, 2024 11:20 AM Reporting Lab: [facility] [address] [facility] [address] Performing Lab: [facility] [address] [facility] [address] [facility] MICROALBU MIN CREATININ E RATIO PANEL MICROALBUMI N/CREATININ E [MASS RATIO] IN URINE 12.2 mg/g 0 - 29.9 07/30 Specimen Type: URINE No comment entered. Ordering Provider: OKSANA GOLDBERG Report Released Date/Time: Jul 30, 2023 11:11 AM Reporting Lab: [facility] [address] [facility] [address] Performing Lab: [facility] [address] [facility] [address] [facility] MICROALBU MIN CREATININ E RATIO PANEL MICROALBUMI N [MASS/VOLUM E] IN URINE 0.5 mg/dL 07/30 Specimen Type: URINE No comment entered. Ordering Provider: OKSANA GOLDBERG Report Released Date/Time: Jul 30, 2023 11:11 AM Reporting Lab: [facility] [address] [facility] [address] Performing Lab: [facility] [facility] [address] [facility] [address] [facility] MICROALBU MIN CREATININ E RATIO PANEL CREATININE [MASS/VOLUM E] IN URINE 40.83 mg/dL 07/30 Specimen Type: URINE No comment entered. Ordering Provider: OKSANA GOLDBERG Report Released Date/Time: Jul 30, 2023 11:11 AM Reporting Lab: [facility] [facility] [address] [facility] [address] Performing Lab: [facility] [place] [facility] [address] [facility] [address] [facility] CBC LEUKOCYTES [#/VOLUME] IN BLOOD BY AUTOMATED COUNT 7.13 10*3/u L 4.50 - 11.00 07/30 Specimen Type: BLOOD No comment entered. Ordering Provider: ROWENA SCHWARTZ Report Released Date/Time: Jul 29, 2023 07:36 PM Reporting Lab: [facility] [place] [facility] [address] [facility] [address] Performing Lab: [facility] [place] [facility] [address] [facility] [address] [facility] CBC ERYTHROCYTE S [#/VOLUME] IN BLOOD BY AUTOMATED COUNT 5.12 10*6/u L 4.23 - 5.66 07/30 Specimen Type: BLOOD No comment entered. Ordering Provider: ROWENA SCHWARTZ Report Released Date/Time: Jul 29, 2023 07:36 PM Reporting Lab: [facility] [place] [address] [address] Performing Lab: [facility] [place] [address] [address] [facility] CBC HEMOGLOBIN [MASS/VOLUM E] IN BLOOD 13.9 g/dL 12.8 - 17 07/30 Specimen Type: BLOOD No comment entered. Ordering Provider: ROWENA SCHWARTZ Report Released Date/Time: Jul 29, 2023 07:36 PM Reporting Lab: [facility] [place] [address] [address] Performing Lab: [facility] [place] [address] [address] [facility] CBC HEMATOCRIT [VOLUME FRACTION] OF BLOOD BY AUTOMATED COUNT 44.1 39.2 - 50.4 07/30 Specimen Type: BLOOD No comment entered. Ordering Provider: ROWENA SCHWARTZ Report Released Date/Time: Jul 29, 2023 07:36 PM Reporting Lab: [facility] [place] [address] [address] Performing Lab: [facility] [place] [address] [address] [facility] CBC MCV [ENTITIC VOLUME] BY AUTOMATED COUNT 86.1 fL 82 - 99 07/30 Specimen Type: BLOOD No comment entered. Ordering Provider: ROWENA SCHWARTZ Report Released Date/Time: Jul 29, 2023 07:36 PM Reporting Lab: [facility] [place] [facility] [address] [facility] [address] Performing Lab: [facility] [place] [facility] [address] [facility] [address] [facility] CBC MCHC [MASS/VOLUM E] BY AUTOMATED COUNT 31.5 g/dL 30.8 - 35.1 07/30 Specimen Type: BLOOD No comment entered. Ordering Provider: ROWENA SCHWARTZ Report Released Date/Time: Jul 29, 2023 07:36 PM Reporting Lab: [facility] [place] [address] [address] Performing Lab: [facility] [place] [address] [address] [facility] [place] [facility] CBC PLATELETS [#/VOLUME] IN BLOOD BY AUTOMATED COUNT 274 10*3/u L 140 - 360 07/30 Specimen Type: BLOOD No comment entered. Ordering Provider: ROWENA SCHWARTZ Report Released Date/Time: Jul 29, 2023 07:36 PM Reporting Lab: [facility] [place] [address] [address] Performing Lab: [facility] [place] [address] [address] [facility] [place] CBC ERYTHROCYTE DISTRIBUTIO N WIDTH [RATIO] BY AUTOMATED COUNT 18.4 12.0 - 16.0 07/30 H Specimen Type: BLOOD No comment entered. Ordering Provider: ROWENA SCHWARTZ Report Released Date/Time: Jul 29, 2023 07:36 PM Reporting Lab: [facility] [place] [address] [address] Performing Lab: [facility] [place] [address] [address] [facility] [place] [facility] CBC MCH [ENTITIC MASS] BY AUTOMATED COUNT 27.1 pg 26.2 - 32.6 07/30 Specimen Type: BLOOD No comment entered. Ordering Provider: ROWENA SCHWARTZ Report Released Date/Time: Jul 29, 2023 07:36 PM Reporting Lab: [facility] [place] [facility] [address] [facility] [address] Performing Lab: [facility] [place] [facility] [address] [facility] [address] [facility] [place] [facility] LIVER FUNCTION PROTEIN [MASS/VOLUM E] IN SERUM OR PLASMA 7.1 g/dL 6.0 - 8.3 07/30 Specimen Type: SERUM No comment entered. Ordering Provider: ROWENA SCHWARTZ Report Released Date/Time: Jul 29, 2023 07:36 PM Reporting Lab: [facility] [place] [facility] [address] [facility] [address] Performing Lab: [facility] [place] [facility] [address] [facility] [address] [facility] [place] [facility] LIVER FUNCTION ALBUMIN [MASS/VOLUM E] IN SERUM OR PLASMA 4.1 g/dL 3.5 - 5.0 07/30 Specimen Type: SERUM No comment entered. Ordering Provider: ROWENA SCHWARTZ Report Released Date/Time: Jul 29, 2023 07:36 PM Reporting Lab: [facility] [place] [address] [address] Performing Lab: [facility] [place] [facility] [address] [facility] [address] [facility] L[facility] FUNCTION ALKALINE PHOSPHATASE [ENZYMATIC ACTIVITY/VO LUME] IN SERUM OR PLASMA 64 U/L 40 - 150 07/30 Specimen Type: SERUM No comment entered. Ordering Provider: ROWENA SCHWARTZ Report Released Date/Time: Jul 29, 2023 07:36 PM Reporting Lab: [facility] [place] [facility] [address] [facility] [address] Performing Lab: [facility] [place] [facility] [address] [facility] [address] [facility] LIVER FUNCTION ASPARTATE AMINOTRANSF ERASE [ENZYMATIC ACTIVITY/VO LUME] IN SERUM OR PLASMA 14 U/L 5 - 34 07/30 Specimen Type: SERUM No comment entered. Ordering Provider: ROWENA SCHWARTZ Report Released Date/Time: Jul 29, 2023 07:36 PM Reporting Lab: [facility] [place] [facility] [address] [facility] [address] Performing Lab: [facility] [place] [facility] [address] [facility] [address] [facility] LIVER FUNCTION ALANINE AMINOTRANSF ERASE [ENZYMATIC ACTIVITY/VO LUME] IN SERUM OR PLASMA 17 U/L 07/30 Specimen Type: SERUM No comment entered. Ordering Provider: ROWENA SCHWARTZ Report Released Date/Time: Jul 29, 2023 07:36 PM Reporting Lab: [facility] [place] [facility] [address] [facility] [address] Performing Lab: [facility] [place] [facility] [address] [facility] [address] [facility] [place] LIVER FUNCTION BILIRUBIN.T OTAL [MASS/VOLUM E] IN SERUM OR PLASMA 0.4 mg/dL 0.2 - 1.2 07/30 Specimen Type: SERUM No comment entered. Ordering Provider: ROWENA SCHWARZT Report Released Date/Time: Jul 29, 2023 07:36 PM Reporting Lab: [facility] [place] [facility] [address] [facility] [address] Performing Lab: [facility] [place] [facility] [address] [facility] [address] [facility] [place] [facility] Vital Signs Combined list of inpatient and outpatient Vital Signs from Department of Defense and Veterans Affairs, ranging from 12 months to all on record, depending upon the facility. Vital Sign Value Date Comments Source SYSTOLIC BLOOD PRESSURE 120 03/04/20 24 14:28:22 [facility] DIASTOLIC BLOOD PRESSURE 80 024 14:28:22 [facility] PULSE OXIMETRY 94 03/04/2024 14:28:22 [facility] WEIGHT 180 03/04/2024 14:28:22 [facility] BMI 29 kg/m2 03/04/2024 14:28:22 [facility] [...] 13[facility]55:25 [facility] BMI 31 kg/m2 11/05/2023 13:55:25 [facility] TEMPERATURE 98.1 11/05/2023 13:55:25 [facility] PULSE 81 11/05/2023 13[facility]55:25 [facility] RESPIRATION 16 11/05/2023 13:55:25 [facility] Encounters Combined list of: 1) Encounters from Department of Veterans Affairs facilities going backup to the last 18 months, not all VA inpatient encounters are included; 2) Encounters from the Department of Defense facilities going backup to 280 months. Location Location Details Encounter Type Encounter Number Reason For Visit Attending Provider ADM Date DC Date Status Disposition Source [facility] Out[facility]counter [id number] 04/29 [facility]counter [id number] 07/15 [facility] Out[facility]counter [id number] 07/25 [facility] [id number] 07/25 [facility] Encounter [id number] 07/28 [facility] [id number] 07/29 [facility] Encounter [id number] 07/29 [facility] OFFICE O/P NEW [place] 60 MIN [id number] Diagnos is: ICD-10- CM 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 FURCOLO,TI NA 07/30 [facility] Encounter [id number] 08/06 [facility] OFF/OP EST OCTOBER X REQ PHY/QHP [id number] Diagnos is: ICD-10- CM Z23 Encount er for immuniz ation CHILSON,TI MOTHY E 08/08 [facility] Out[facility] Encounter [id number] 08/21 [facility] OFF/OP EST MAY X REQ PHY/QHP [id number] Diagnos is: ICD-10- CM Z23 Encount er for immuniz ation MARY JO MATOS MOTHY E 09/03 [facility] OFF/OP EST MAY X REQ PHY/QHP [id number] Diagnos is: ICD-10- CM Z23 Encount er for immuniz ation Consuelo MONTOYA H 10/06 [facility] Out[facility] Encounter [id number] 10/19 [facility] Out[facility] Encounter [id number] 10/29 [facility] OFFICE O/P EST MOD 30 MIN [id number] Diagnos is: ICD-10- CM E11.9 Type 2 diabete s mellitu s without complic ations FURMARI,TI NA 11/04 [facility] Out[facility] En[facility] [id number] 01/18 [facility] Out[facility] Encounter [id number] 02/01 [facility] OFFICE O/P EST MOD 30 MIN [id number] Diagnos is: ICD-10- CM 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 Diagnos is: ICD-10- CM H40.033 Anatomi anni narrow angle, bilater al CHRISTOPHER HENDRICKSON 03/29 [facility] FIT SPECTACLES MULTIFOCAL [id number] Diagnos is: ICD-10- CM Z46.0 Encount er for fit/adj st of spectac les and contact lenses CHRISTOPHER HENDRICKSON 03/29 [facility] Encounter [id number] 1.04/20 [facility] Out[facility] [id number] 05/10 [facility] Out[facility] Encounter [id number] 07/01 [facility] Out[facility]counter [id number] 07/15 [facility] Outpatient [facility]counter [id number] 07/16 [facility] Outpatient [facility]counter [id number] 07/28 [facility] OFFICE O/P EST MOD 30 MIN [id number] Diagnos is: ICD-10- CM 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 Social History Type Response Date Comment Sourc e Tobacco smoking status NHIS VA-TOBACCO USE SOME DAYS CIGARETTES 07/28/2024 [facility] [place] [facility] History of tobacco use VA-TOBACCO NEVER USED OTHER TYPE 07/28/2024 [facility] [place] [facility] History of tobacco use VA-TOBACCO FORMER USER 07/29/2023 [facility] [place] [facility] Plan of Care List of future care activities from Department of Veterans Affairs facilities. Additional future care activities may be listed in the Assessment and Plan section. Date/Time Care Activity Care Activity Detail Facili ty 02/01/2025 AMBULATORY - MEDICINE AMBULATORY - MEDICI [place] [facility] [place] [facility] 07/28/2024 Consult Order COMMUNITY [facility]ARE-C OLONOSCOPY SCREENING Cons [facility]
--- OUTSIDE RECORDS SUMMARY | 2024-08-10 08:09 | XMS_ITS | Encounter Summary ---
Author Name [facility] [place] Organization [facility] [place] Address [address] [place] [address] Care Team Providers Care Field Gauger Name Role Phone RAUL GOLDBERG Primary Care [...] [employer] Jun 23, 2021 [id number] [phone] JACKELIN ACKERMAN PATIENT Selected Encounter This section includes the information on record at [place] for the Encounter. Date/Time Encounter Type Encounter Description Reason Provider Source Jul 28, 2024 03:00 PM OFFICE O/P EST MOD 30 MIN PRIMARY CARE/MEDICINE ICD-10-CM D75.1 Secondary polycythemia FURCOLORAUL E Encounter Template Text not used by CO Assessments - Encounter Diagnoses This section includes the primary and secondary diagnoses documented for the Encounter. Date/Time Primary/Secondary Diagnosis Diagnosis Name Provider Source Jul 28, 2024 04:01 PM PRIMARY Secondary polycythemia FURCOLO,RAUL [facility] [place] [facility] Jul 28, 2024 04:01 PM SECONDARY Acute diastolic (congestive) heart failure FURCOLO,RAUL [facility] [place] [facility] Jul 28, 2024 04:01 PM SECONDARY Alcoholic cirrhosis of liver without ascites FURCOLO,RAUL [facility] [place] [facility] Jul 28, 2024 04:01 PM SECONDARY Emphysema, unspecified FURCOLO,RAUL [facility] [place] [facility] Jul 28, 2024 04:01 PM SECONDARY Polyneuropathy, unspecified FURCOLO,RAUL [facility] [place] [facility] Jul 28, 2024 04:01 PM SECONDARY Sleep apnea, unspecified FURCOLO,RAUL [facility] [place] [facility] Jul 28, 2024 04:01 PM SECONDARY Type 2 diabetes mellitus without complications FURCOLO,RAUL [facility] [place] [facility] Jul 28, 2024 04:01 PM SECONDARY Venous insufficiency (chronic) (peripheral) FURCOLO,RAUL [facility] [place] [facility] Plan of Treatment: Future Appointments (+ 6 months) and Future Tests (+/- 45 days) The Plan of Treatment section includes future care activities for the patient from all [facility]. This section includes future appointments and future [...] - MEDICINE CO [facility] [place] [facility] Aug 05, 2024 09:00 AM AMBULATORY - NONE [facility] [place] [facility] Active, Pending, and Scheduled Orders This [...] PM Consult Order COMMUNITY CARE-COLONOSCOPY SCREENING Cons [employer] Lab Results: +/- 30 days of the encounter This section includes the Chemistry and Hematology Lab Results on record with CO for the patient. Radiology Reports and Pathology Reports are provided separately, in subsequent sections. Lab Results This section contains the Chemistry/Hematology Results that were resulted 30 days before or 30 daysafter the date of the Encounter. Date/Time Source Result Type Result - Unit Interpretation Reference Range Comment Jul 28, 2024 03:54 PM [facility] BASIC METABOLIC PANEL (fasting) Specimen Type: SERUM No comment entered. Ordering Provider: RAUL GOLDBERG Report Released Date/Time: Mar 04, 2024 03:04 PM Reporting Lab: [address] [address] Performing Lab: [address] [address] UREA NITROGEN 14 mg/dL 7-25 GLUCOSE 129 mg/dL H 65-100 SODIUM 139 mmol/L 135-145 POTASSIUM 3.7 mmol/L 3.5-5.0 CHLORIDE 100 mmol/L 100-110 CO2 31 meq/L H 20-30 CREATININE, Serum 0.89 mg/dL 0.50-1.40 eGFR(CKD-EPI 2020) >90 mL/min >60 Jul 28, 2024 03:54 PM [facility] LIVER FUNCTION Specimen Type: SERUM No comment entered. Ordering Provider: RAUL GOLDBERG Report Released Date/Time: Mar 04, 2024 03:04 PM Reporting Lab: [address] [address] Performing Lab: [address] [address] PROTEIN,TOTAL 7.6 g/dL 6.0-8.3 ALBUMIN 4.2 g/dL 3.5-5.0 ALKALINE PHOSPHATASE 75 U/L 40-150 AST 14 U/L 5-34 ALT 13 U/L BILIRUBIN, TOTAL 0.3 mg/dL 0.2-1.2 Jul 28, 2024 03:54 PM [facility] HEMOGLOBIN A1C PANEL Specimen Type: BLOOD [...] Mar 04, 2024 03:04 PM Reporting Lab: [facility] [address] [facility] [address] Performing Lab: [address] [address] HEMOGLOBIN A1C 6.1 H 4.0-5.6 Jul 28, 2024 03:54 PM [facility] CBC Specimen Type: BLOOD No comment entered. Ordering Provider: RAUL GOLDBERG Report Released Date/Time: Mar 04, 2024 03:04 PM Reporting Lab: [facility] [address] [facility] [address] Performing Lab: [facility] [address] [facility] [address] WBC 8.16 10*3/uL 4.50-11.00 RBC 4.85 10*6/uL [...] Current Smoking Status Comment Monica blackmon Jul 28, 2024 03:00 PM VA-TOBACCO USE CAROLYN E DAYS CIGARETTES [facility] Tobacco Use History This section includes a history of the smoking, or tobacco-related health factors, that were collected on or before the date of the Encounter. The data comes from the [place] facility where the Encounter took place. Date/Time Smoking Status/Tobacco Use Comment F acility Jul 28, 2024 03:00 PM VA-TOBACCO USE CAROLYN E DAYS CIGARETTES [facility] Jul 29, 2023 02:19 PM VA-TOBACCO FORMER USER [facility] Jul 29, 2023 02:19 PM CO-TOBACCO QUIT < 1 YEAR [facility] Radiology Reports: +/- 30 days of [...] the Encounter. The data comes from all [place] treatment facilities. Date/Time Radiology Report Provider Source Aug 05, 2024 08:57 AM ULTRASOUND ABDOMEN LIMITED: JEANNINE RAE [id number] -[id number] M Ex Date: AUG 05, 2024@08:57 Req Phys: RAUL GOLDBERG Loc: [facility] PACT EIGHT SCIENTIFIC SYSTEMS ANALYST (Req'g Loc) Img Loc: ULTRASOUND Service: Unknown [place] [address] (Case [id number] COMPLETE) ULTRASOUND ABDOMEN LIMITED (US Detailed) CPT:47572 Reason for Study: f/u liver u/s Clinical History: abnormal in setting of acute CHF in 04/2023, needs repeat, h/o heavy ETOH Report Status: Verified Date Reported: AUG 05, 2024 Date Verified: AUG 05, 2024 Historical Archeologist E-Sig:/ES/FRANK HUSTON JR Report: Study: Abdominal ultrasound. [...] Primary Interpreting Staff: FRANK HUSTON JR, Radiologist (Historical Archeologist) /FRANK BURGESS JR [facility] Encounter Notes: All associated encounter notes This section contains the clinical notes associated to the Encounter. Date/Time Encounter Note(s) Provider Source Jul 29, 2024 09:24 AM LETTERS: LOCAL TITLE: PATIENT LETTER (T) STANDARD TITLE: LETTERS DATE OF NOTE: JUL 29, 2024@09:24 ENTRY DATE: JUL 29, 2024@09:24:33 AUTHOR: RAUL GOLDBERG COSIGNER: URGENCY: STATUS: COMPLETED DEPARTMENT OF [facility] Toll Free Number Primary Care Telephone Assistance can be reached at extension [phone] [facility] scheduling can be reached at extension [phone] [facility] scheduling can be reached at ext [phone] JEANNINE RAE [address] [place], [place], [address] Dear , Your recent test results are as follows: Excellent diabetic control. Normal blood sugar. Normal kidney function and electrolytes. Normal blood counts. Your liver function is normal. LAB CHEMISTRY & HEMATOLOGY Collection DT Specimen Test Name Result Units Ref Range 07/28/2024 15:55 BLOOD !! HEMOGLOBIN A1C 6.1 H % 4.0 - 5.6 07/28/2024 15:55 BLOOD WBC 8.16 K/cmm 4.50 - 11.00 RBC 4.85 M/cmm 4.23 - 5.66 HGB 14.5 g/dL 12.8 - 17 HCT 43.2 % 39.2 - 50.4 MCV 89.1 fl 82 - 99 MCH 29.9 pg 26.2 - 32.6 MCHC 33.6 g/dL 30.8 - 35.1 RDW-CV 13.5 % 12.0 - 16.0 PLT 290 K/cmm 140 - 360 07/28/2024 15:54 SERUM CREATININE, Serum 0.89 mg/dL 0.50 - 1.40 eGFR(CKD-EPI 2020 >90 mL/min Ref: >=60 SODIUM 139 mmol/L 135 - 145 POTASSIUM 3.7 mmol/L 3.5 - 5.0 CHLORIDE 100 mmol/L 100 - 110 CO2 31 H mEq/L 20 - 30 UREA NITROGEN 14 mg/dL 7 - 25 GLUCOSE 129 H mg/dL 65 - 100 PROTEIN,TOTAL 7.6 g/dL 6.0 - 8.3 ALBUMIN 4.2 g/dL 3.5 - 5.0 ALK REBECA 75 U/L 40 - 150 AST 14 U/L 5 - 34 BILIRUBIN, TOTAL 0.3 mg/dL 0.2 - 1.2 ALT 13 U/L <6 - 55 Please call if you have any questions or concerns. Upcoming Appointments: 08/04/2024 11:20 [facility] OPTOMETRY FITTING 02/01/2025 11:30 CWM/NO/PACT EIGHT 04/07/2025 07:30 [facility] OPTOMETRY 2 AM Sincerely, Your Primary Care Team [facility] [address] [address] [place] [address] [phone] [facility] [address] [place] [address] [place] [address] [phone] [facility] [address] [facility] [place] [address] [place] [address] RAUL GOLDBERG [facility] Jul 28, 2024 03:25 PM PHYSICIAN NOTE: LOCAL TITLE: MD NOTE STANDARD TITLE: PHYSICIAN NOTE DATE OF NOTE: JUL 28, 2024@15:25 ENTRY DATE: JUL 28, 2024@15:25:52 AUTHOR: RAUL GOLDBERGIGNER: URGENCY: STATUS: COMPLETED JEANNINE RAE II is a 63 year old WHITE MALE who is being seen today in primary care for disability forms to be completed === CARE TEAM === Community Primary Care Provider: SONI Casas (had not seen in years, to re- establish) CO Specialists: Community Specialists: hematology- [facility]- apt 08/18/23- had HCT >60 [facility] Juan 08/01/23- gets phlebotomies [facility] pul- Dr. 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 === HISTORY OF PRESENT ILLNESS === -gets phlebotomies still every 2 months at [place], if Hb >13 -seeing pulmonary- no changes -feels wel, energy is good, no LE edema, no SOB -no longer on home O2. 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 Erythrocytosis HCT 62 in setting of resp failure/copd. seen by [facility] heme-nc, neg VIOLETA, epo not elevated. thought related to underlying lung disease and HETAL, phlebotomies scheduled by heme/onc 2. Diabetes mellitus- imporved 3. Acute right-sided congestive heart failure Acute on chronic right-sided heart failure acute COPD exac 04/2023- intubated in ICU [facility] 4. Liver cyst 5. Pulmonary emphysema home BiPAP and oxygen concentrator 6. Peripheral venous insufficiency Edema of both lower extremities due to peripheral venous insufficiency 7. Stasis dermatitis Venous stasis dermatitis of both lower extremities 8. Polyneuropathy Peripheral polyneuropathy 9. Sleep apnea - uses cpap === PAST SURGICAL HISTORY === broken foot === FAMILY HISTORY === Mother: at age 79- COPD Father: alive at 88, BPH Siblings:4- sisters older sister - leukemia === SOCIAL HISTORY === Background: born and raised in [place], raised in [place]. did 2 years of college Sexual Orientation: heterosexual Marital Status: Children: 2 daughters and 1 son Lives with: one roommate, involved with grandkids Employment Status: on disability 05/12/23-04/23/2024. 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 retiring at age [age]. does not plan on going back to work Alcohol Use: currently drinks 6 beers a week, previously drank heavier, denies any problematic drinking Tobacco Use: former smoker- quit after hospitalization 04/2023- 40 years x 1 ppd. some smoking occasionally now Drug Use: marijuana, remote cocaine Exercise: goes up and down 3 floors, can walk 1 mile === ALLERGIES === Patient has answered NKA === MEDICATIONS === Active and Recently Outpatient Medications (excluding Supplies): Active Outpatient Medications Status 1) FUROSEMIDE 40MG TAB TAKE ONE TABLET BY MOUTH ONCE ACTIVE DAILY TO REMOVE FLUID/CONTROL BLOOD PRESSURE 2) OLODATEROL/TIOTROP 2.5MCG/ACTUAT 60D INH INHALE 2 ACTIVE PUFFS (1 DOSE) BY MOUTH ONCE DAILY FOR COPD Active Non-VA Medications Status 1) Non-VA UMECLIDINIUM/VILANTEROL (ANORO) INHL,ORAL BY ACTIVE MOUTH 3 Total Medications === REVIEW OF SYMPTOMS === NEGATIVE FOR: [...] S1 S2 LCTA bilat no LE edema === RECENT LABS === will do labs today. === ASSESSMENT AND PLAN === Active problems - Computerized Problem List is the source for the followin. Erythrocytosis HCT 62 in setting of resp failure/copd. seen by [facility] heme-nc, neg VIOLETA, epo not elevated. thought related to underlying lung disease and HETAL, phlebotomies performed by [facility] now- they do POC Hb 2. Diabetes mellitus- improved overall with better diet. not on any medication- will do labs today 3. congestive heart failure - resolved. no further edema, better breathing status. normal echo on repeat Ef 60%. was on short term disability through [employer] from 05/12/2023- 04/23/2024. is retiring from his work now that he is 64. no need to complete any further short term disability paperwork. 4. Liver cyst- found incedentally. also in setting of CHF in 04/2023 appeared to have alcoholic cirrhosis- will repeat liver u/s 5. Pulmonary emphysema home BiPAP and oxygen concentrator- not needing as much now. sees pulmonary [facility] 6. Peripheral venous insufficiency - improved overall 7. Stasis dermatitis Venous stasis dermatitis of both lower extremities 8. Polyneuropathy Peripheral polyneuropathy- previously on gabapentin- not currently 9. Sleep apnea- pulmonary HTN- thought to have sleep apnea, home with BiPAP. seeing pulmonary. 10. nicotine dependece- did start smoking again. encourgaed to quit === HEALTH MAINTENANCE === Colonoscopy - agrees to do- ordered today Abdominal Aortic Aneurysm Screening - CTA [facility] 04/2023- neg for AAA Prostate screening - Tetanus: due every 10 years Pneumonia Vacccine: Flu Vaccine: due yearly Covid Vaccine: due yearly === FOLLOW UP === 6 months- will cancel august VISIT TYPE: a MODERATE complexity visit where 30 minutes was spent in direct patient care, review of records and documentation. /garo/ RAUL GOLDBERG D.O. PHYSICIAN Signed: 07/28/2024 16:01 RAUL GOLDBERG [facility] [place] [facility] Jul 28, 2024 03:13 PM PREVENTIVE MEDICIN E NURSING NOTE: LOCAL TITLE: CLINICAL REMINDERS/NURSING STANDARD TITLE: PREVENTIVE MEDICINE NURSING NOTE DATE OF NOTE: JUL 28, 2024@15:13 ENTRY DATE: JUL 28, 2024@15:13:20 AUTHOR: AKASH DE ANDA EXP COSIGNER: URGENCY: STATUS: COMPLETED Suicide Screen: C-SSRS Screening [place] Suicide Severity Rating Scale (C-SSRS) screener 1. [...] required due to responses to other questions. Depression Screening: Perform PHQ-2 A PHQ-2 screen was performed. The score was 0 which is a negative screen for depression. Over the past two weeks, how often have you been bothered by the following problems? 1. Little interest or pleasure in doing things Not at all 2. Feeling down, depressed, or hopeless Not at all Tobacco Use Screening: The patient smokes cigarettes some days. The patient has never used other types of tobacco. Alcohol Use Screen (AUDIT-C): Alcohol Screen: SCREEN FOR ALCOHOL (AUDIT-C) An alcohol screening test (AUDIT-C) was negative (score=3). 1. How often did you have a drink containing alcohol in the past year? Consider a drink to be a 12 ounce can or bottle of regular beer, 8 ounces of malt liquor, a 5 ounce glass of table wine, or a 1.5 ounce shot of liquor (like scotch, gin, or vodka). Two to three times per week 2. How many drinks containing alcohol did you have on a typical day when you were drinking in the past year? One or two drinks 3. How often did you have six or more drinks on one occasion in the past year? Never Sexual Orientation: The patient thinks of their sexual orientation as: Straight or Heterosexual /es/ AKASH DE ANDA LPN License Practical Nurse Signed: 07/28/2024 15:18 [facility]
--- OUTSIDE RECORDS SUMMARY | 2024-08-10 08:09 | XMS_ITS | Continuity of Care Document ---
Author Organization [facility] Address [address] [place] [address]- Care Team Providers Care Trimmer Tailer Name Role Phone Amrita Lang DO Primary Care Physician [id number] Date(s): [facility]17/24 - 07/19/24 [facility] [address] [place] [id number] Discharge Disposition: A-D/C Home Attending Physician: Marisel Camargo MD Admitting Physician: Marisel Camargo MD Referring Physician: Amrita Lang DO Encounter Type: Disch Recurring OP Allergies, Adverse Reactions, Alerts No Known Allergies Medications albuterol CFC free 90 mcg/inh inhalation aerosol 2, puffs, Inhalation, 4 times a day, PRN, # 18 Gm, Refills 11, Tot. Refills 11, Maintenance, 07/15/23 1:09:00 PM EST, Aerosol, Route to Pharmacy Electronically, [id number], [facility], 162.5, cm, 07/15/23 11:23:00 EST, Height, 87.7, kg, 06/17/23 10:06:00 EST, DryWeight Start Date: 07/15/23 Stop Date: 07/09/24 Status: Ordered Quantity: 18.0 Unit: g Repeat number: 12 Anoro Ellipta 62.5 mcg-25 mcg/inh inhalation powder 1 puffs, Inhalation, Daily, # 30 each, 11 Refills, Maintenance, 07/15/23 1:09:00 PM EST, Powder, [facility], Partial fill upon patient request if the prescription is for a schedule II opioid drug., 1 puffs Inhalation Daily, 162.5, cm, 07/15/23 11:23:00 EST, Height, 87.7, kg, 06/17/23 10:06:00 EST, Dry Weight Start Date: 07/15/23 Status: Ordered Quantity: 30.0 Unit: each Repeat number: 12 furosemide 40 mg oral tablet 40 mg, 1, tablet, By Mouth, Daily in AM, 1 tablet daily for management of weight/fluid overload/heart. Weigh yourself daily before breakfast and call your primary if you gain 3 lbs in 3 days or 5lbs in 7 days., # 30 tablet, Refills 0, Tot. Refills 0, Maintenance, 05/19/23 3:36:00 PM EST, Route to Pharmacy Electronically, [facility], NO FURTHER REFILLS FROM THIS MD. DO NOT CONTACT THIS MD. FURTHER REFILLS PER PCP DR PENNINGTON., 170, cm, 05/19/23 5:53:00 EST, Height, 97.5, kg, 05/13/23 3:09:00 EST, Dry Weight Start Date: 05/19/23 Status: Ordered Quantity: 30.0 Unit: tablet Repeat number: 1 gabapentin 100 mg oral capsule 100 mg, 1, capsule, By Mouth, 3 times a day Start Date: 05/13/23 Status: Ordered Repeat number: 1 Overnight oximetry Overnight oximetry, See Instructions, # 1 each, Refills 0, Tot. Refills 0, Maintenance, DME: [facility]. Diagnosis: COPD, J44.9; HETAL, G47.33. Test: Overnight oximetry on room air while using noninvasive ventilation., 05/25/24 12:12:00 PM EST, Supply Start Date: 05/25/24 Status: Ordered Quantity: 1.0 Unit: each Repeat number: 1 Spiriva HandiHaler 18 mcg inhalation capsule 1 capsule = 18 mcg, Inhalation, Daily, 1 capsule daily for management of COPD. use two inhalations of one capsule for each dose. Follow up closely with the lung doctors and your primary., # 30 capsule, 0 Refills, Maintenance, 05/19/23 3:37:00 PM EST, [facility], NO FURTHER REFILLS FROM THIS MD. DO NOT CONTACT THIS MD. FURTHER REFILLS PER PCP DR PENNINGTON., 170, cm, 05/19/23 5:53:00 EST,Height, 97.5, kg, 05/13/23 3:09:00 EST, Dry Weight Start Date: 05/19/23 Status: Ordered Quantity: 30.0 Unit: capsule Repeat number: 1 Stiolto Respimat 60 ACT 2.5 mcg-2.5 mcg/inh inhalation aerosol 2 puffs, Inhalation, Every 24 hours, # 4 Gm, 11 Refills, Maintenance, 08/21/23 10:49:00 AM EST, Aerosol, Partial fill upon patient request if the prescription is for a schedule II opioid drug. Start Date: 08/21/23 Status: Ordered Quantity: 4.0 Unit: g Repeat number: 12 Indication: Chronic obstructive pulmonary disease, unspecified Problem List Condition Confirmation Course Effective Dates Status Health St atus Informant Cor pulmonale (chronic) Confirmed Active Chronic hypoxemic respiratory failure Confirmed Active Liver cirrhosis Confirmed Active Obese class I Confirmed Active Vital Signs Most recent to oldest [Reference Range]: 1 Height 162.5 cm (05/19/24 10:11 AM) Weight 87.7 kg (05/19/24 10:11 AM) Oxygen Saturation [94-100 %] 97 % (05/19/24 10:11 AM) Pulse Rate [55-90 bpm] 94 bpm *H* (05/19/24 10:11 AM) Body Mass Index [18.5-24.99 kg/m2] 33.21 kg/m2 *>HHI* (05/19/24 10:11 AM) Blood Pressure [90-138/55-84 mm Hg] 143/ 90mm Hg *H* (05/19/24 10:11 AM) Temperature [96.8-100.4 DegF] 97.6 DegF (05/19/24 10:11 AM) Mode of Delivery (Oxygen) Room air (05/19/24 10:11 AM) Blood pressure sites Arm, right (05/19/24 10:11 AM) Temperature Route Oral (05/19/24 10:11 AM) Dry Weight 87.7 kg (05/19/24 10:11 AM) Weight Obtained Via Standing scale (05/19/24 10:11 AM) Dry Weight Obtained Via Standing scale (05/19/24 10:11 AM) Social History Social History Type Response Smoking Status 10 or more cigarette s (1/2 pack or more)/day in last 30 days; Use: quite 3 weeks ago; Interested in cessation: No; Patient wants NRT during admission No entered on: 06/04/23 Sex Sex Representation Male (finding) Patient Care team information Care Team Personnel Name: Maria Del Carmen Cowart RN Position: S RN Member Role: Primary Care Nurse Name: Amrita Lang DO Position: [facility] Outreach Member Role: PCP Address: [address] [facility] [place] [address]- Telecom: Name: Bunny Diego RN Position: [facility] RN Member Role: Primary Care Nurse Name: Jacqueline Pedersen RN Position: [facility] RN Member Role: Primary Care Nurse Name: Ruby Orta Position: [facility] Outreach Member Role: Lifetime Consulting Physician Name: Viviana Herring RN Position: [facility] RN Member Role: Primary Care Nurse Name: Geovanna Pendleton RN Position: [facility] RN Member Role: Primary Care Nurse Name: Sharri Draper RN Position: [facility] RN Member Role: Primary Care Nurse Name: Den Siddiqui RN Position: [facility] RN Member Role: Primary Care Nurse Name: Aleta Guzman RN Position: [facility] RN Member Role: Primary Care Nurse Name: Marisel Camargo MD Position: [facility] Physician - Oncology Med Service: Hematology & Oncology Member Role: Admitting Physician Address: [address] [place] [address] [place] [address]- Telecom: Care Team Related Persons Name: KRISTAN RAE Name: JEANNINE RAE Insurance Providers Guarantor name: JEANNINE RAE Health Plan Information #: 1 Payer: [employer] Member Number: [id number] Policy Number: NA Group Number: [id number] Health Plan Information #: 2 Payer: [employer] Member Number: [id number] Policy Number: NA Group Number: NA
--- OUTSIDE RECORDS SUMMARY | 2024-08-10 08:09 | XMS_ITS | Clinical Summary ---
Author Organization [employer] Address [address] [place] [address] 7[address] [place] [address] Care Team Providers Care Caregivers Non Medical Name Role Phone Inactive/Transferred Primary Care Provider Unava ilable Allergies No known active allergies Medications albuterol 108 (90 Base) MCG/ACT inhalerIndications :Pulmonary emphysema, unspecified emphysema type (CMS/HCC) Inhale 2 puffs in the morning, at noon, in the evening, and at bedtime. 18 g 3 4 Active furosemide (Lasix) 40 MG tabletIndications: Chronic right-sided heart failure (CMS/HCC),Edema of both lower extremities due to peripheral venous insufficiency Take 1 tablet (40 mg) by mouth Once per day. 30 tablet 11 4 01/08/20 25 Active Anoro Ellipta 62.5-25 MCG/ACT aerosol powderIndications: Pulmonary emphysema, unspecified emphysema type (CMS/HCC) Inhale 1 puff Once per day. 180 each 3 4 Active Active Problems Problem Noted Date Diagnosed Date Alcoholic cirrhosis 01/08/2024 Overview (01/08/2024): Jul 30, 2023 Entered By: RAUL GOLDBERG Comment: on imaging while inpatient with right sided heart failure. recommend f/u liver u/s around 04/2024 Type 2 diabetes mellitus wit hout complication, without long-term current use of insulin 01/08/2024 Erythrocytosis 01/08/2024 Overview (01/08/2024): Polycythemia d/t lung disease/HETAL. neg VIOLETA, epo not elevated. Followed by heme- onc every 6 months. Phlebotomies scheduled every 2 months but does not need frequently Assessment & Plan (01/08/2024 12:00 PM EDT): Polycythemia d/t lung disease/HETAL. neg VIOLETA, epo not elevated. Followed by heme- onc every 6 months. Phlebotomies scheduled every 2 months but does not need frequently Skin lesion of left leg 01/08/2024 Assessment & Plan (01/08/2024 2:03 PM EDT): 10x12 mm raised scaly lesion of medial left calf, reportedly unchanged. Will re-evaluate at next visit Umbilical hernia without obstruction and without gangrene 10/08/2023 Assessment & Plan (10/08/2023 11:38 AM EDT): Patient concerned today as he notes 'he has always had an innie belly button, but recently it has turned into an outtie.' He states that he has only noticed this recently and he is unsure how long it has been like this as he does not have any pain or associated symptoms. He denies any difficulty moving his bowels or feelings of constipation. On physical exam, a 1.5 cm, non-tender, flesh-colored bulge consistent with an umbilical hernia was noted. As the patient is not having any pain or constipation/obstructive symptoms and is otherwise not bothered by it, no further treatment recommended at this time. The patient was advised however, if this hernia becomes painful, discolored, or if he notices signs and symptoms of obstruction such as constipation to report to the emergency room for the possibility of a strangulated hernia. Patient agreed with the plan and understood the red flag symptoms. Cor pulmonale (chronic) 05/22/2023 Overview (01/08/2024): TTE 05/13/23 in hospital suggestive of pulmonary hypertension with right heart failure. Repeat TTE 11/12/23 showed improved right ventricular systolic function but confirmed elevated RASP 35-40mmHg Assessment & Plan (01/08/2024 4:55 PM EDT): Repeat TTE in October 2023 showed improvement in right ventricular function but pulmonary hypertension remains. Appears to be benefitting from treatment of HETAL and COPD. Continue current regimen Assessment & Plan (10/08/2023 11:34 AM EDT): Patient has a history of acute on chronic right sided heart failure for which he is being managed with Lasix 40 mg. He does note [facility] a cardiac rehab 'exercise group,' which he feels as though he does not need, but will be compliant with there recommendations. He reports that his symptoms related to this have also been well managed, denying any difficulty breathing or any signs of peripheral edema. Physical exam revealed no swelling of the bilateral upper or lower extremities as well as lungs that were clear to auscultation bilaterally. Patient continues to be stable, will continue current medication regimen and obtain CMP to assess for electrolyte status with continued lasix use. Assessment & Plan (07/09/2023 9:32 AM EST): Stable. Continues on Lasix 40mg. States he has not been having any peripheral edema. He has not been having any diff breathing. He has an appt with Vascular on . Assessment & Plan (05/22/2023 5:00 PM EST): Found to have HF upon admission to hospital. Echo results in chart. Follow up with Cardiology. Will be following him closely, every 2w for now. Extremity cyanosis 05/12/2023 Assessment & Plan (05/13/2023 8:45 AM EST): Kraig was seen today to review his labwork with polycythemia; his Hematocrit Fri and repeat Sat were 63.3 and 63.7. Hgb was 18.7. Provider covering advised pt to set up appt with me today, which he did. Pt asymptomatic. Pt was found to have some slightly erythematous bilateral hands upon arrival today. He had a BP of 97/64 with HR 79, RR of 16 and O2 sat 95%. Pt denied any new complaints/injuries since (when he was last seen). Upon my arrival in the room the pt's hands were more erythematous with violaceous hues. He also had decreased pulses and sensation bilaterally. He continues to deny any symptoms. He stated that he just started his Lasix today; he just picked up his medications. He has not taken the Ian at this point either. We discussed that he was getting worse and we would like to get an ambulance for him to get to the hospital. I discussed that I was not trying to scare him but he was having increased resp diff (abd breathing), increased cyanosis, and VS went to tachycardia and hypertension. His BP went to 148/79, HR went to 100, O2 sat 70% on RA. His hands/forearms began getting very violaceous and his R3 finger was completely white. His radial pulses bilaterally were weak and thready. He continued to mentate well. He began having some perioral cyanosis and the tip of his nose as well. He began having erythema all over his abdomen, which was distended but soft. He stated he would not go via ambulance to the ER. He called his roommate, who came from [place] to bring him to [facility]. I discussed with the pt due to his decline in the short amt of time that he was at our facility that he would likely start at [facility] but will likely be transferred to [facility]. I told him that he was pretty serious at this point and he needed immediate care but continued to refuse to go by ambulance. I discussed with him that the ambulance could get him O2, IVF/Lasix, etc. But he continued to refuse to go by ambulance. His friend brought him to [facility] [place] [facility]. I called in a report to SOFÍA Valles at [facility]. Discussed the seriousness/pt refusing to go by ambulance. Encounter to establish care 05/08/2023 Assessment & Plan (05/08/2023 4:44 PM EST): Pt not seen by PCP in many years. Will be scheduling a new pt visit at some point; we need to get his peripheral edema and venous stasis changes under control first. Edema of both lower extremit ies due to peripheral venous insufficiency 06/23/2022 Overview (01/08/2024): >>OVERVIEW FOR PERIPHERAL VENOUS INSUFFICIENCY WRITTEN ON 01/08/2024 11:40 AM BY JALIL SEGUNDO DO Jul 29, 2023 Entered By: GIBRAN SCHWARTZ Comment: Edema of both lower extremities due to peripheral venous insufficiency Assessment & Plan (02/15/2024 2:44 PM EDT): Stable on furosemide 40 mg daily Assessment & Plan (05/13/2023 8:32 AM EST): Continued 3+ pitting edema up to his knees. Just took first dose of Lasix today. Denies chest pain, diff breathing, and shortness of breath. Assessment & Plan (01/08/2024 11:41 AM EDT): Images from the original note were not included. >>ASSESSMENT AND PLAN FOR EDEMA OF BOTH LOWER EXTREMITIES DUE TO PERIPHERAL VENOUS INSUFFICIENCY WRITTEN ON 05/08/2023 4:46 PM BY SONI BAJWA Onset appx weeks ago. States he is having shooting pains, R>L. +3 pitting edema up to his knee bilaterally. Pain is shooting and stabbing pain. No medical history. Also having discoloration bilaterally, dark erythema to violaceous. Sensation intact to bilateral extremities. Pulses diminished bilaterally. Lasix 40mg daily. Advised to wear compression stockings daily. Refer to Vascular Sx for arterial concerns. US with ABIs ordered. >>ASSESSMENT AND PLAN FOR PERIPHERAL VENOUS INSUFFICIENCY WRITTEN ON 05/08/2023 4:47 PM BY SONI BAJWA Started with the peripheral edema. Smoker 40+y, appx 1/2ppd. Bilateral dark erythema/violaceous in color. Polyneuropathy 06/23/2022 Overview (01/08/2024): Jul 29, 2023 Entered By: GIBRAN SCHWARTZ Comment: Peripheral polyneuropathy Assessment & Plan (05/08/2023 4:46 PM EST): States when his legs started swelling he began having sharp, shooting pains down into his feet from his legs. R>L. States it is intermittent but when is it happening it hurts a lot. Gabapentin 100mg tid. Liver cyst 06/23/2022 Assessment & Plan (05/22/2023 4:59 PM EST): Found on CT while being admitted to hospital. Told to follow up outpatient with PCP. Ordered MRI and GI consult. Asymptomatic. Pulmonary emphysema 06/23/2022 Overview (01/08/2024): PFTs 09/10/23: mild obstructive ventilatory defect without significant bronchodilator response. FEV1/FVC = 62% Jul 30, 2023 Entered By: RAUL GOLDBERG Comment: home BiPAP and oxygen concentrator Assessment & Plan (01/08/2024 11:24 AM EDT): PFTs 09/10/23: mild obstructive ventilatory defect without significant bronchodilator response. FEV1/FVC = 62% Assessment & Plan (10/08/2023 11:30 AM EDT): Patient has a history of pulmonary emphysema which he has been managing on supplemental oxygen. He states his symptoms have been very good lately, he has not had to use the supplemental oxygen during the day at all and has been maintaining O2 saturations within his goal range. He notes that he only uses the supplemental oxygen at night, connected to his CPAP. Additionally, he states that he has a sleep study coming up to further monitor this. Patient is stable with this condition, continue current regimen and follow up with sleep study. Assessment & Plan (07/09/2023 9:32 AM EST): Stable. Doing very well. Continues on O2; however, not needing it as much. He states he occasionally needs it with exertion; but he was able to do some chores and housework yesterday and did not need his O2 at all and maintained his O2 sats around 93%. Great job! He has an appt with Dr Paul on 07/25. He continues on the Spiriva. He has completely quit smoking! He does occasionally smoke marijuana. Assessment & Plan (06/05/2023 3:21 PM EST): Doing well. Down to 2L O2! Having multiple follow up appts with Pulmonology, Cardiology. Followed by Hem/Onc and getting his blood taken out due to significant hematocrits. Followed closely by them. MRI scheduled for tomorrow due to incidental liver findings on CT while in hospital. Will be filling out short term disability paperwork to extend his disability longer. Has multiple upcoming doctor appts and is still recovering from a significant hospital stay. Assessment & Plan (05/22/2023 4:58 PM EST): Referral to Pulm. Ordered PFTs Smoking cessation. Continues on O2 3L via [place] for now. Will continue to monitor. Will be having VNA nursing at home to monitor. Sleep apnea 06/23/2022 Overview (02/04/2024): Images from the original note were not included. Assessment & Plan (02/15/2024 2:44 PM EDT): Compliant with CPAP Resolved Problems Problem Noted Date Diagnosed Date Resolved Date Stasis dermatitis 06/23/2022 01/08/2024 Overview (01/08/2024): Jul 29, 2023 Entered By: GIBRAN SCHWARTZ Comment: Venous stasis dermatitis of both lower extremities Immunizations Name Administration Dates Next Due Hep A / Hep B 10/07/2023,09/04/2023 Influenza injectable quadrivalent preservative f ree 07/21/2023 Influenza, Unspecified 07/25/2023 Influenza, seasonal, injectable, preservative fr ee 03/04/2024 Moderna Covid-19 Vaccine 12+ 06/20/2021 Pfizer Covid-19 Vaccine 12+ 11/17/2020, Pneumococcal Conjugate PCV 20 08/08/2023 Tdap 08/08/2023 Zoster, Recombinant 11/05/2023,09/04/2023 Social History Tobacco Use Types Packs/Day Years Used Date Smoking Tobacco: Some Days Cigarettes Passive Smoke Exposure: Current Smokeless Tobacco: Never Tobacco Cessation:Ready to Q uit: Not Asked; Counseling Given: Not Answered Comments:Cutting down to about two to three days out of the [...] the past 12 months, has t he [employer], gas, oil or water [employer] threatened to shut off services in your [...] file Not on file Not on file Last Filed Vital Signs Vital Sign Reading Time Taken Comments Blood Pressure 106/71 01/08/2024 10:52 AM EDT Pulse 81 01/08/2024 10:52 AM EDT Temperature 36.6 ??C (97.9 ??F) 01/08/2024 10:52 AM E DT Respiratory Rate - - Oxygen Saturation 93% 01/08/2024 10:52 AM EDT Inhaled Oxygen Concentration - - Weight 82.1 kg (181 lb) 01/08/2024 10:52 AM EDT Height 167.6 cm (5' 6 ) 01/08/2024 10:52 AM EDT Body Mass Index 29.21 01/08/2024 10:52 AM EDT Plan of Treatment Health Maintenance Due Date Last Done Comments CT Colonography 1959 Colonoscopy 1959 Colorectal Cancer Screening 1959 FIT DNA/Cologuard 1959 FIT 1959 FOBT 1959 Sigmoidoscopy 1959 Diabetes: Foot Exam 1969 Eye Exam 1969 Hepatitis C Screening 1977 Diabetes: Urine Protein Screening 1978 RSV Patients and Patients Aged 60 years or older (1 - Risk 60-74 years 1-dose series) 2019 Hepatitis A Vaccines (3 of 3 - Hep A Twinrix risk 3-dose series) 03/08/2024 10/07/2023, 09/04/2023 Hepatitis B Vaccines (3 of 3 - Hep B Twinrix risk 3-dose series) 03/08/2024 10/07/2023, 09/04/2023 Depression Screening 05/08/2024 05/08/2023, 05/08/20 23 Lipid Panel 05/08/2024 05/08/2023 SDOH Screening 05/08/2024 05/08/2023 Diabetes: Hemoglobin A1C 07/10/2024 01/08/2024, 04/23 Alcohol/Substance Use Screening 01/07/2025 01/08/2024 Tobacco Screening 01/07/2025 01/08/2024 DTaP/Tdap/Td Vaccines (2 - Td or Tdap) 08/08/2033 08/08/2023 Pneumococcal Vaccine: 50+ Years Completed 08/08/2023 Zoster Vaccines Completed 11/05/2023, 09/04/2023 COVID-19 Vaccine Completed 03/04/2024, , 06/20/2021, Additional history exists Influenza Vaccine Completed 03/04/2024, , 07/21/2023 HIB Vaccines Aged Out No longer eligi ble based on patient's age to complete this topic HPV Vaccines Aged Out No longer eligi ble based on patient's age to complete this topic IPV Vaccines Aged Out No longer eligi ble based on patient's age to complete this topic Meningococcal Vaccine Aged Out No catalina agustin eligible based on patient's age to complete this topic RSV under 20 months Aged Out No longe r eligible based on patient's age to complete this topic Rotavirus Vaccines Aged Out No longer eligible based on patient's age to complete this topic Procedures Procedure Name Priority Date/Time Associated Diagnosis Comments POCT GLYCOSYLATED HEMOGLOBIN (HGB A1C) Routine 01/08/2024 11:01 AM EDT Type 2 diabetes mellitus without complication, without long-term current use of insulin ([facility]) LIPID PANEL, STANDARD Routine 05/08/2023 4:13 PM EST Encounter to establish care from Last 3 Months or Most Recently Relevant to Health Maintenance Results * (ABNORMAL) POCT glycosylated hemoglobin (Hgb A1c) (01/08/2024 11:01 AM EDT) Pathologist [facility] Hemoglobin A1C 6.5(A) 4.0 - 6.0 % Blood Capillary blood specimen / Unknown 01/08/2024 11:01 AM EDT [facility] POINT OF CARE TEST ENTER/EDIT ORDERABLES Final Result * (ABNORMAL) Lipid panel (05/08/2023 4:13 PM EST) Cholesterol, Total 112 (<200) MG/DL [facility] Triglyceride (mg/dL) in Serum/Plasma 157(H) (<150) MG/DL [facility] HDL Cholesterol 39(L) (>39) MG/DL [facility] LDL Cholesterol, Calculated 42 (0-130) MG/DL [facility] Non HDL Chol. (LDL+VLDL) 73 (<160) MG/DL [facility] Comment: Testing performed or reported by [facility], a Service of [facility], [address] [place] [id number] Manuel Hopkins MD, Hook Puller [facility]# [id number] Blood Venous blood specimen / Unknown 05/08/2023 4:13 PM EST 05/08/2023 4:14 PM EST us Kimberlee [facility] BLOOD ORDERABLES Final Resul t [facility] [address] [place] [id number] from Last 3 Months or Most Recently Relevant to Health Maintenance Care Teams Caregivers Non Medical Relationship Specialty Start Date End Date Inactive/Transferred PCP - General 07/05/24
== END 2024-08-10 08:06 | disposition home or self-care (01) ==
LOC: HO.BBR 08:05
PROVIDERS: PCP Family Medicine; Visit Provider Physician Assistant Medical
DX: D75.1 Secondary polycythemia (principal)
CPT/HCPCS: 85014; 85018; 99195

== ENCOUNTER 2024-10-08 08:06 | Outpatient (REF) | payer OTHER, SELFPAY ==
--- OUTSIDE RECORDS SUMMARY | 2024-10-08 08:14 | XMS_ITS | Clinical Summary ---
Author Organization [employer] Address [address] [place] [address] [address] [place] [address] Care Team Providers Care Ocean Freight Agent Name Role Phone Inactive/Transferred Primary Care Provider [...] He called his roommate, who came from [place] to bring him to [place] [facility]. I discussed with the pt due to his decline in the short amt of time that he was at our facility that he would likely start at [place] but will likely be transferred to [facility]. I told him that he was pretty serious at this point and he needed immediate care but continued to refuse to go by ambulance. I discussed with him that the ambulance could get him O2, IVF/Lasix, etc. But he continued to refuse to go by ambulance. His friend brought him to [place] [facility]. I called in a report to SOFÍA Valles at [facility]. Discussed the seriousness/pt refusing to go by [...] the past 12 months, has t he [employer], gas, oil or water [employer] threatened to shut off services in your [...] complication, without long-term current use of insulin ([facility]) LIPID PANEL, STANDARD Routine 05/08/2023 4:13 PM EST Encounter to establish care from Last 3 Months or Most Recently Relevant to Health Maintenance Results * (ABNORMAL) POCT glycosylated hemoglobin (Hgb A1c) (01/08/2024 11:01 AM EDT) Pathologist [facility] Hemoglobin A1C 6.5(A) 4.0 - 6.0 % Blood Capillary blood specimen / Unknown 01/08/2024 11:01 AM EDT [facility] POINT OF CARE TEST ENTER/EDIT ORDERABLES Final Result * (ABNORMAL) Lipid panel (05/08/2023 4:13 PM EST) Cholesterol, Total 112 (<200) MG/DL [facility] Triglyceride (mg/dL) in Serum/Plasma 157(H) (<150) MG/DL [facility] HDL Cholesterol 39(L) (>39) MG/DL [facility] LDL Cholesterol, Calculated 42 (0-130) MG/DL [facility] Non HDL Chol. (LDL+VLDL) 73 (<160) MG/DL [facility] Comment: Testing performed or reported by [facility], a Service of [facility], [address] [place] [id number] Manuel Hopkins MD, Product Safety Associate [facility]# [id number] Blood Venous blood specimen / Unknown 05/08/2023 4:13 PM EST 05/08/2023 4:14 PM EST us Kimberlee [facility] BLOOD ORDERABLES Final Resul t [facility] [address] [place] [id number] from Last 3 Months or Most Recently Relevant to Health Maintenance Care Teams Ocean Freight Agent Relationship Specialty Start Date End Date Inactive/Transferred PCP - General 07/05/24
--- OUTSIDE RECORDS SUMMARY | 2024-10-08 08:14 | XMS_ITS ---
Author Name [facility] [place] [facility] [place] [facility] [place] Address [address] [place] [address] Care Team Providers Care Oral Surgery Technician Name Role Phone OKSANA GOLDBERGA Primary Care [...] Block's Name Patient's Relationship to Policy Block Selected Encounter This section includes the information on record at [place] for the Encounter. Date/Time Encounter Type Encounter Description Reason Provider Source Mar 29, 2024 08:00 AM COMPRE OPH EXAM NEW PT 1/> OPTOMETRY ICD-10-CM L71.8 Other SPENCER Marquis Encounter Template Text not used by VA Assessments - Encounter Diagnoses This section includes the primary and secondary diagnoses documented for the Encounter. Date/Time Primary/Secondary Diagnosis Diagnosis Name Provider Source Mar 29, 2024 10:50 AM PRIMARY Other DEANN Marquis [place] [facility] [place] [facility] Mar 29, 2024 10:50 AM SECONDARY Anatomical narrow angle, bilateral DEANN HENDRICKSON [place] [facility] [place] [facility] Mar 29, 2024 10:50 AM SECONDARY Combined forms of age-related cataract, bilateral DEANN HENDRICKSON [place] [facility] [place] [facility] Mar 29, 2024 10:50 AM SECONDARY Meibomian gland dysfnct left eye, upper and lower eyelids DEANN HENDRICKSON [place] [facility] [place] [facility] Mar 29, 2024 10:50 AM SECONDARY Meibomian gland dysfnct right eye, upper and lower eyelids DEANN HENDRICKSON [place] [facility] [place] [facility] Mar 29, 2024 10:50 AM SECONDARY Open angle with borderline findings, low risk, bilateral DEANN HENDRICKSON [place] [facility] [place] [facility] Mar 29, 2024 10:50 AM SECONDARY Type 2 diabetes mellitus without complications [facility] Plan of Treatment: Future Appointments (+ 6 months) and Future Tests (+/- 45 days) The Plan of Treatment section includes future care activities for the patient from all [place] [facility]. This section includes future appointments and future orders which are active, pending or scheduled. Future Appointments This section includes appointments that were scheduled to occur 6 months from the date of the Encounter, up to a maximum of 20 appointments. The data comes from all [place] treatment facilities. Appointment Date/Time Appointment Type Appointme nt Facility Name May 25, 2024 10:00 AM AMBULATORY - MEDICINE [place] [facility] [place] [facility] Jul 28, 2024 03:00 PM AMBULATORY - MEDICINE [place] [facility] [place] [facility] Aug 04, 2024 11:20 AM AMBULATORY - MEDICINE [place] [facility] [place] [facility] Aug 05, 2024 09:00 AM [facility] NONE [facility] Social History: Smoking Status (Most current) and Tobacco Use (All prior to encounter date) This section includes the most current, and the historical, smoking and tobacco- related health factors from the VA facility where the Encounter took place. Current Smoking Status This section includes the most current smoking, or tobacco-related health factor, from the VA facility where the Encounter took place. Date/Time Current Smoking Status [place] Jul 29, 2023 02:19 PM VA-TOBACCO FORMER USER [facility] Tobacco Use History This section includes a history of the smoking, or tobacco-related health factors, that were collected on or before the date of the Encounter. The data comes from the [place] facility where the Encounter took place. Date/Time Smoking Status/Tobacco Use Comment [place] frost Jul 29, 2023 02:19 PM VA-TOBACCO QUIT < 1 YEAR [place] [facility] Encounter Notes: All associated encounter [...] was seen for comprehensive eye examination at [facility] 02/20/24 but could not afford to [...] sequelae (+) Eye Surgery: Bilateral laser iridotomy's [place] 1 1-2 years ago (-) TBI: Family [...] this VA (local) and dispensed from another [place] or [facility] facility (remote) as well as inpatient orders [...] Remote Allergy/ADR Data available for this patient [place] [facility] [place] [facility] No Known Allergies Med Recon NoGlossary (Tool #1) INCLUDED IN THIS LIST: Alphabetical list of active outpatient prescriptions dispensed from this VA (local) and dispensed from another [place] or DoD facility (remote) as well as inpatient orders (local pending and active), local clinic medications, locally documented non-VA medications, and local prescriptions that have or been discontinued in the past 90 days. Non-VA Meds Last Documented On: Jul 30, 2023 NOTE The display of VA prescriptions dispensed from another [place] or [facility] facility (remote) is limited to active outpatient prescription entries matched to National Drug File at the originating site and may not include some items such as investigational drugs, compounds, etc. NOT INCLUDED IN THIS LIST: Medications self-entered by the patient into personal health records (i.e. [employer]) are NOT included in this list. Non-VA medications documented outside this [place], remote inpatient orders (regardless of status) and remote clinic medications are NOT included in this list. The patient and provider must always discuss medications the patient is taking, regardless of where the medication was dispensed or obtained. OUTPT FUROSEMIDE 40MG TAB (Status = Active) TAKE ONE TABLET BY MOUTH ONCE DAILY TO REMOVE FLUID/CONTROL BLOOD PRESSURE Rx# [id number] Last Released: 02/20/24 Qty/Days Supply: Rx Expiration Date: 07/30/24 Refills Remainin Indication: FOR EDEMA WITH DEFECTIVE KIDNEY FUNCTION OUTPT OLODATEROL/TIOTROP 2.5MCG/ACTUAT 60D INH (Status = Active) INHALE 2 PUFFS (1 DOSE) BY MOUTH ONCE DAILY FOR COPD Rx# [id number] Last Released: 03/26/24 Qty/Days Supply: 07/22 Rx Expiration Date: 08/21/24 Refills Remainin Indication: FOR COPD Non-VA UMECLIDINIUM/VILANTEROL (ANORO) INHL,ORAL INHALE BY MOUTH ONCE DAILY Non-VA medication recommended by [place] provider. Indication: FOR BRONCHOSPASM PREVENTION WITH COPD SUPPLIES Declines printed copy of medication list nayan /garo/ Simone Hendrickson OD CHIEF OF OPTOMETRY Signed: 03/29/2024 14:03 SIMONE HENDRICKSON [facility] [place] [facility]
--- OUTSIDE RECORDS SUMMARY | 2024-10-08 08:14 | XMS_ITS | Encounter Summary ---
Author Organization [employer] Address [address] [place] [address] Care Team Providers Care Care Consultant Name Role Phone Geovanna Morgan DO Primary Care Provider [phone] Inactive/Transferred Primary Care Provider Unava ilable Encounter Details Date Type Department Care Team (Late st Contact Info) Description 01/14/2024 Orders Only [facility] MEDICAL [address] [place] [address] Kimberlee Osorio PA Pulmonary emphysema, unspecified emphysema [...] the past 12 months, has t he [employer], gas, oil or water [facility]. threatened to shut off services in your [...] extremities documented in this encounter Care Teams Care Consultant Relationship Specialty Start Date End Date Geovanna Morgan DO [address] [place], [place] [id number] PCP - General Family Medicine 01/07/24 07/04/24 Inactive/Transferred PCP - General 07/05/24 documented as of this encounter
--- OUTSIDE RECORDS SUMMARY | 2024-10-08 08:14 | XMS_ITS ---
Author Name [facility] [place]) Organization [facility] [place] ([place] Address [address] [place] [address] Care Team Providers Care Recreation Leader Name Role Phone RAUL GOLDBERG Primary Care [...] MIN PRIMARY CARE/MEDICINE ICD-10-CM D75.1 Secondary polycythemia RAUL GOLDBERG E Encounter Template Text not used by [place] Assessments - Encounter Diagnoses This section includes the primary and secondary diagnoses documented for the Encounter. Date/Time Primary/Secondary Diagnosis Diagnosis Name Provider Source Jul 28, 2024 04:01 PM PRIMARY Secondary polycythemia OKSANA GOLDBERGA [place] [facility] [place] [facility] Jul 28, 2024 04:01 PM SECONDARY Acute diastolic (congestive) heart failure OKSANA GOLDBERGA [place] [facility] [place] [facility] Jul 28, 2024 04:01 PM SECONDARY Alcoholic cirrhosis of liver without ascites FURCOLO,RAUL [place] [facility] [place] [facility] Jul 28, 2024 04:01 PM SECONDARY Emphysema, unspecified FURCOLO,RAUL [place] [facility] [place] [facility] Jul 28, 2024 04:01 PM SECONDARY Polyneuropathy, unspecified FURCOLO,RAUL [place] [facility] [place] [facility] Jul 28, 2024 04:01 PM SECONDARY Sleep apnea, unspecified FURCOLO,RAUL [place] [facility] [place] [facility] Jul 28, 2024 04:01 PM SECONDARY Type 2 diabetes mellitus without complications FURCOLO,RAUL [place] [facility] [place] [facility] Jul 28, 2024 04:01 PM SECONDARY Venous insufficiency (chronic) (peripheral) GUIDOCOLORAUL [place] [facility] [place] [facility] Plan of Treatment: Future Appointments (+ 6 months) and Future Tests (+/- 45 days) The Plan of Treatment section includes future care activities for the patient [facility] [place] [facility] This section includes future appointments and [...] 04, 2024 11:20 AM AMBULATORY - MEDICINE [place] [facility] [place] [facility] Aug 05, 2024 09:00 AM AMBULATORY - NONE [place] [facility] [place] [facility] October 27, 2024 02:30 PM AMBULATORY - NONE [place] [facility] [place] [facility] Active, Pending, and Scheduled Orders This section includes a listing of several types of active, pending, and scheduled orders, including clinic medications orders, diagnostic test orders, procedure orders and consult orders; where the start date of the order is 45 days before the date of the Encounter or 45 days after the date of theEncounter. The data comes from all [place] treatment facilities. Test Date/Time Test Type Test Details Facility Name Jul 28, 2024 03:48 PM Consult Order COMMUNITY CARE-COLONOSCOPY SCREENING Cons [employer] Technician's Choice [place] [facility] [place] [facility] Lab Results: +/- 30 days [...] Type Result - Unit Interpretation Reference Range Specimen Type Comment Jul 28, 2024 03:54 PM [facility] BASIC METABOLIC PANEL (fasting) SERUM Specime n Type: SERUM No comment entered. Ordering Provider: RAUL GOLDBERG Report Released Date/Time: Mar 04, 2024 03:04 PM Reporting Lab: [address] [address] Performing Lab: [address] [address] UREA NITROGEN 14 mg/dL 7-25 GLUCOSE 129 mg/dL H 65-100 SODIUM 139 mmol/L 135-145 POTASSIUM 3.7 mmol/L 3.5-5.0 CHLORIDE 100 mmol/L 100-110 CO2 31 meq/L H 20-30 CREATININE, Serum 0.89 mg/dL 0.50-1.40 eGFR(CKD-EPI 2020) >90 mL/min >60 Jul 28, 2024 03:54 PM [facility] LIVER FUNCTION SERUM Specimen Type: SERUM No comment entered. Ordering Provider: RAUL GOLDBERG Report Released Date/Time: Mar 04, 2024 03:04 PM Reporting Lab: [address] [address] Performing Lab: [address] [address] PROTEIN,TOTAL 7.6 g/dL 6.0-8.3 ALBUMIN 4.2 g/dL 3.5-5.0 ALKALINE PHOSPHATASE 75 U/L 40-150 AST 14 U/L 5-34 ALT 13 U/L BILIRUBIN, TOTAL 0.3 mg/dL 0.2-1.2 Jul 28, 2024 03:54 PM [facility] HEMOGLOBIN A1C PANEL BLOOD Specimen Type: BLO OD Comment: Values obtained from A1C measurements can vary. For atypical A1C assays, a reported value of 7.0 could actually be between 6.72 and 7.28 if measured by a reference method. A reported value of 9.0 could actually be between 8.73 and 9.27. Ref: http://www.ngsp.org/CAPdata.asp Ordering Provider: RAUL GOLDBERG Report Released Date/Time: Mar 04, 2024 03:04 PM Reporting Lab: [address] [address] Performing Lab: [address] [address] HEMOGLOBIN A1C 6.1 H 4.0-5.6 Jul 28, 2024 03:54 PM [facility] CBC BLOOD Specimen Type: BLOOD No comment entered. Ordering Provider: RAUL GOLDBERG Report Released Date/Time: Mar 04, 2024 03:04 PM Reporting Lab: [address] [address] Performing Lab: [address] [address] WBC 8.16 10*3/uL 4.50-11.00 RBC 4.85 10*6/uL [...] PM VA-TOBACCO USE CAROLYN E DAYS CIGARETTES [facility] Tobacco Use History This section includes a history of the smoking, or tobacco-related health factors, that were collected on or before the date of the Encounter. The data comes from the [place] facility where the Encounter took place. Date/Time Smoking Status/Tobacco Use Comment F acility Jul 28, 2024 03:00 PM VA-TOBACCO USE CAROLYN E DAYS CIGARETTES [facility] Jul 29, 2023 02:19 PM VA-TOBACCO FORMER USER [facility] Jul 29, 2023 02:19 PM [place]-TOBACCO QUIT < 1 YEAR [facility] Radiology Reports: +/- 30 days of [...] the Encounter. The data comes from all [place] treatment facilities. Date/Time Radiology Report Provider Source Aug 05, 2024 08:57 AM ULTRASOUND ABDOMEN LIMITED: JEANNINE RAE [id number] -[id number] M Exm Date: AUG 05, 2024@08:57 Req Phys: RAUL GOLDBERG Loc: [facility] PACT EIGHT BRAZER ASSEMBLER (Req'g Loc) Img Loc: ULTRASOUND Service: [place] [address] (Case [id number] COMPLETE) ULTRASOUND ABDOMEN LIMITED (US Detailed) CPT:74612 Reason for Study: f/u liver u/s Clinical History: abnormal in setting of acute CHF in 04/2023, needs repeat, h/o heavy ETOH Report Status: Verified Date Reported: AUG 05, 2024 Date Verified: AUG 05, 2024 Medical Services Assistant E-Sig:/ES/FRANK HUSTON JR Report: Study: Abdominal ultrasound. [...] Primary Interpreting Staff: FRANK HUSTON JR, Radiologist (Medical Services Assistant) /FRANK BURGESS JR [facility] Encounter Notes: All associated encounter notes This section contains the clinical notes associated to the Encounter. Date/Time Encounter Note(s) Provider Source Jul 29, 2024 09:24 AM LETTERS: LOCAL TITLE: PATIENT LETTER (T) STANDARD TITLE: LETTERS DATE OF NOTE: JUL 29, 2024@09:24 ENTRY DATE: JUL 29, 2024@09:24:33 AUTHOR: RAUL GOLDBERG COSIGNER: URGENCY: STATUS: COMPLETED DEPARTMENT [facility] Toll Free Number Primary Care Telephone Assistance can be reached at extension [phone] [facility] scheduling can be reached at extension [phone] [facility] scheduling can be reached at ext [phone] [facility] [address] [place], [place], [address] Dear Aurora, Your recent test results are as follows: [...] 2 AM Sincerely, Your Primary Care Team [facility] [address] [address] [place] [address] [phone] [facility] [address] [place] [address] [place] [address] [phone] [facility] [address] [place] [address] [place] [address] RAUL GOLDBERG [place] [facility] [place] [facility] Jul 28, 2024 03:25 PM PHYSICIAN NOTE: [...] not seen in years, to re- establish) [place] Specialists: Community Specialists: [facility]- had HCT >60 Lashell Martinez 08/01/23- gets phlebotomies [facility] pulm- Dr. 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 === HISTORY OF PRESENT ILLNESS === -gets phlebotomies still every 2 months at [place], if Hb >13 -seeing pulmonary- no changes -feels wel, energy is good, no LE edema, no SOB -no longer on home O2. 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 Erythrocytosis HCT 62 in setting of resp failure/copd. seen by [facility] heme-nc, neg VIOLETA, epo not elevated. thought related to underlying lung disease and HETAL, phlebotomies scheduled by heme/onc 2. Diabetes mellitus- imporved 3. Acute right-sided congestive heart failure Acute on chronic right-sided heart failure acute COPD exac 04/2023- intubated in ICU [facility] 4. Liver cyst 5. Pulmonary [...] HISTORY === Background: born and raised in [place], raised in [place]. did 2 years of college Sexual Orientation: heterosexual Marital Status: Children: 2 daughters and 1 son Lives with: one roommate, involved with grandkids Employment Status: on disability 05/12/23-04/23/2024. 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 does not plan [...] in setting of resp failure/copd. seen by [facility] heme-nc, neg VIOLETA, epo not elevated. thought related to underlying lung disease and HETAL, phlebotomies performed by [facility] now- they do POC Hb 2. Diabetes mellitus- improved overall with better diet. not on any medication- will do labs today 3. congestive heart failure - resolved. no further edema, better breathing status. normal echo on repeat Ef 60%. was on short term disability through [employer] from 05/12/2023- 04/23/2024. is retiring from his work now that he is 64. no need to complete any further short term disability paperwork. 4. Liver cyst- found incedentally. also in setting of CHF in 04/2023 appeared to have alcoholic cirrhosis- will repeat liver u/s 5. Pulmonary emphysema home BiPAP and oxygen concentrator- not needing as much now. sees pulmonary [facility] 6. Peripheral venous insufficiency - improved [...] today Abdominal Aortic Aneurysm Screening - CTA [facility] 04/2023- neg for AAA Prostate screening - Tetanus: due every 10 years Pneumonia Vacccine: Flu Vaccine: due yearly Covid Vaccine: due yearly === FOLLOW UP === 6 months- will cancel august VISIT TYPE: a MODERATE complexity visit where 30 minutes was spent in direct patient care, review of records and documentation. /garo/ RAUL GOLDBERG D.O. PHYSICIAN Signed: 07/28/2024 16:01 RAUL GOLDBERG [place] [facility] [place] [facility] Jul 28, 2024 03:13 PM PREVENTIVE MEDICIN E NURSING NOTE: LOCAL TITLE: CLINICAL REMINDERS/NURSING STANDARD TITLE: PREVENTIVE MEDICINE NURSING NOTE DATE OF NOTE: JUL 28, 2024@15:13 ENTRY DATE: JUL 28, 2024@15:13:20 AUTHOR: AKASH DE ANDA EXP COSIGNER: URGENCY: STATUS: COMPLETED Suicide Screen: C-SSRS Screening [place] Suicide Severity Rating Scale (C-SSRS) screener 1. [...] Signed: 07/28/2024 15:18 AKASH DE ANDA [facility]
--- OUTSIDE RECORDS SUMMARY | 2024-10-08 08:14 | XMS_ITS | Continuity of Care Document ---
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 It does not include entries that were removed or entered in error. Problem Status Onset Date Problem Type Date of Resolution Comments Source Acute right-sided congestive heart failure Active 06/23/19 23 Condition Jul 30, 2023 Entered By: RAUL GOLDBERG Comment: acute COPD exac 04/2023- intubated in ICU [facility] 2024 Entered By: RAUL GOLDBERG Comment: [...] in setting of resp failure/copd. seen by [facility] heme-nc, neg VIOLETA, epo not elevated. thought related to underlying lung disease and HETAL, phlebotomies [facility] [place] [facility] Fatty liver Active Condition Jul 30, 2023 Entered By: RAUL GOLDBERG Comment: on imaging while inpatient with right sided heart failure. recommend f/u liver u/s around 04/[address] [facility] [place] [facility] Diagnosis: ICD-10-CM Z46.0 Encounter for fit/adjst of spectacles and contact lenses Active Diagnosis [facility] [place] [facility] Diagnosis: ICD-10-CM D75.1 Secondary polycythemia Active Diagnosis 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 Active Diagnosis [facility] [place] [facility] Diagnosis: ICD-10-CM E11.9 Type 2 diabetes mellitus without complications Active Diagnosis [facility] [place] [facility] Diagnosis: ICD-10-CM Z23 Encounter for immunization Active Diagnosis [facility] [place] [facility] Medications Combined list of outpatient medications [...] FLUID/CO NTROL BLOOD PRESSURE ORAL ACTIVE 07/29/2025 [id number] JESSIKALOT DAVID 2024 90 [facility] [place] [facility] FUROSEMIDE 40MG TAB TAKE ONE TABLET BY MOUTH ONCE DAILY TO REMOVE FLUID/CO NTROL BLOOD PRESSURE ORAL DISCONT INUED 07/30/2024 [id number] GUIDOCOLOT DAVID 2023 90 [facility] OLODATEROL 2.5MCG/TIOT ROPIUM 2.5MCG/ACTU AT INHL,ORAL,6 0D,4GM INHALE 2 PUFFS (1 DOSE) BY MOUTH ONCE DAILY FOR COPD RESPIR ATORY (INHAL ATION) ACTIVE 07/29/2025 [id number] FURCOLO,T DAVID 2024 3 [facility] OLODATEROL 2.5MCG/TIOT ROPIUM 2.5MCG/ACTU AT INHL,ORAL,6 0D,4GM INHALE 2 PUFFS (1 DOSE) BY MOUTH ONCE DAILY FOR COPD RESPIR ATORY (INHAL ATION) DISCONT INUED 08/21/2024 [id number] DILLAN CARA LOYD 2023 1 [facility] TIOTROPIUM 2.5MCG/ACTU AT INHL,ORAL,6 0D,4GM INHALE 2 PUFFS BY MOUTH ONCE DAILY RESPIR ATORY (INHAL ATION) DISCONT INUED 08/07/2024 [id number] FURCOLO,T DAVID 2023 3 [facility] UMECLIDINIU M/VILANTERO L (ANORO) INHL,ORAL INHALE BY MOUTH ONCE DAILY RESPIR ATORY (INHAL ATION) ACTIVE FURCOLO,T DAVID 2023 [facility] Immunizations Combined list of available immunizations from the Department of Defense and Veterans Affairs facilities. Immunization Series Date Given Administered By Site Reaction Lot Number CVX Code Drug Manager Ccu Status Comments Source COVID-19 (MODERNA), MRNA, LNP-S, PF, 50 MCG/0.5 ML (AGES 12+ YEARS) 2023 GIBRAN PACHECO E LEFT DELTO ID [id number] 312 complet ed Booster for Series, [facility] INFLUENZA, SPLIT VIRUS, TRIVALENT, PF 2023 GIBRAN PACHECO E LEFT DELTO ID [id number] 140 complet ed Booster for Series, [facility] ZOSTER RECOMBINANT 2023 AKASH DE ANDA RIGHT DELTO ID [id number] 187 complet ed Completed Series, [facility] HEP A-HEP B 2 2023 GRACIE MONTOYA SSA H LEFT DELTO ID [id number] 104 complet ed [facility] HEP A-HEP B 1 2023 CHILSON,TIMOT HY E LEFT DELTO ID [id number] 104 complet ed [facility] ZOSTER RECOMBINANT 1 2023 CHILSON,TIMOT HY E RIGHT DELTO ID [id number] 187 complet ed [facility] PNEUMOCOCCAL CONJUGATE PCV20, POLYSACCHARID E [id number] CONJUGATE, ADJUVANT, PF 2023 CHILSON,TIMOT HY E RIGHT DELTO ID [id number] 216 complet ed [facility] TDAP 2023 CHILSON,TIMOT HY E LEFT DELTO ID [id number] 115 complet ed [facility] INFLUENZA, UNSPECIFIED FORMULATION 2023 88 complet ed HISTORICA L INFORMATI ON - FROM OTHER REGISTRY, [facility] COVID-19 (MODERNA), MRNA, LNP-S, PF, 100 MCG/0.5ML DOSE OR 50 MCG/0.25ML DOSE 3 2020 207 complet ed HISTORICA L INFORMATI ON - FROM OTHER REGISTRY, Lot#: [id number] Mfr: [employer] [facility] COVID-19 (PFIZER), MRNA, LNP-S, PF, 30 MCG/0.3 ML DOSE 2 2020 208 complet ed HISTORICA L INFORMATI ON - FROM OTHER REGISTRY, Covid Card- [facility] Lot#: [id number] Mfr: [employer] [facility] COVID-19 (PFIZER), MRNA, LNP-S, PF, 30 MCG/0.3 ML DOSE 1 2020 208 complet ed HISTORICA L INFORMATI ON - FROM OTHER REGISTRY, Covid card Lot#: [id number] Mfr: [employer] [facility] [place] [facility] Results Combined list of recent chemistry, hematology [...] Mar 04, 2024 03:04 PM Reporting Lab: [facility] [place] [facility] [address] [address] Performing Lab: [facility] [place] [facility] [address] [address] [facility] [place] [facility] BASIC METABOLIC PANEL (fasting) GLUCOSE [MASS/VOLUM E] IN SERUM OR PLASMA 129 mg/dL 65 - 100 07/28 H Specimen Type: SERUM No comment entered. Ordering Provider: OKSANA GOLDBERG Report Released Date/Time: Mar 04, 2024 03:04 PM Reporting Lab: [facility] [place] [facility] [address] [address] Performing Lab: [facility] [place] [facility] [address] [address] [facility] BASIC METABOLIC PANEL (fasting) SODIUM [MOLES/VOLU ME] IN SERUM OR PLASMA 139 mmol/L 135 - 145 07/28 Specimen Type: SERUM No comment entered. Ordering Provider: OKSANA GOLDBERG Report Released Date/Time: Mar 04, 2024 03:04 PM Reporting Lab: [facility] [place] [facility] [address] [address] Performing Lab: [facility] [place] [facility] [address] [address] [facility] [place] [facility] BASIC METABOLIC PANEL (fasting) POTASSIUM [MOLES/VOLU ME] IN SERUM OR PLASMA 3.7 mmol/L 3.5 - 5.0 07/28 Specimen Type: SERUM No comment entered. Ordering Provider: OKSANA GOLDBERG Report Released Date/Time: Mar 04, 2024 03:04 PM Reporting Lab: [facility] [place] [facility] [address] [address] Performing Lab: [facility] [address] [address] [facility]N [facility] BASIC METABOLIC PANEL (fasting) CHLORIDE [MOLES/VOLU ME] IN SERUM OR PLASMA 100 mmol/L 100 - 110 07/28 Specimen Type: SERUM No comment entered. Ordering Provider: OKSANA GOLDBERG Report Released Date/Time: Mar 04, 2024 03:04 PM Reporting Lab: [facility]ENTERUSE[address] [address] Performing Lab: [facility]USE[address] [address] [facility] SYSTEMRHILL CREST BEHAVIORAL HEALTH SERVICESTRN [facility]ENTERUSE [facility] BASIC METABOLIC PANEL (fasting) CARBON DIOXIDE, TOTAL [MOLES/VOLU ME] IN SERUM OR PLASMA 31 meq/L 20 - 30 07/28 H Specimen Type: SERUM No comment entered. Ordering Provider: OKSANA GOLDBERG Report Released Date/Time: Mar 04, 2024 03:04 PM Reporting Lab: [facility] [place] [place] [address] [address] Performing Lab: DC CNTRL W[facility]N [facility]ENTERUSE[address] [address] [facility]RL W[facility]N [facility]ENTERUSE [facility] BASIC METABOLIC PANEL (fasting) CREATININE [MASS/VOLUM E] IN SERUM OR PLASMA 0.89 mg/dL 0.50 - 1.40 07/28 Specimen Type: SERUM No comment entered. Ordering Provider: OKSANA GOLDBERG Report Released Date/Time: Mar 04, 2024 03:04 PM Reporting Lab: [facility] [place] [address] [address] Performing Lab: DC CN[facility]L W[facility]ENTERUSE[address] [address] [facility] SYSTEMRL [facility]N [facility]ENTERUSE [facility] BASIC METABOLIC PANEL (fasting) GLOMERULAR FILTRATION RATE/1.73 SQ M.PREDICTED [VOLUME RATE/AREA] IN SERUM, PLASMA OR BLOOD BY CREATININE- BASED FORMULA (CKD-EPI 2020) >90mL/ min 60 07/28 Specimen Type: SERUM No comment entered. Ordering Provider: OKSANA GOLDBERG Report Released Date/Time: Mar 04, 2024 03:04 PM Reporting Lab: [facility]RL [facility] [place] [address] [address] Performing Lab: [facility] SYSTEMRL W[facility]N [facility]ENTERUSE[address] [address] [facility] LIVER FUNCTION PROTEIN [MASS/VOLUM E] IN SERUM OR PLASMA 7.6 g/dL 6.0 - 8.3 07/28 Specimen Type: SERUM No comment entered. Ordering Provider: OKSANA GOLDBERG Report Released Date/Time: Mar 04, 2024 03:04 PM Reporting Lab: [facility] SYSTEMRL TRN [place] [address] Performing Lab: [facility] SYSTEMRL W[facility]N [facility]ENTERUSE[address] [address] [facility] LIVER FUNCTION ALBUMIN [MASS/VOLUM E] IN SERUM OR PLASMA 4.2 g/dL 3.5 - 5.0 07/28 Specimen Type: SERUM No comment entered. Ordering Provider: OKSANA GOLDBERG Report Released Date/Time: Mar 04, 2024 03:04 PM Reporting Lab: [facility]RL WSTRN [place] [address] Performing Lab: [facility] SYSTEMRL W[facility]N [facility]ENTERUSE[address] [address] [facility] LIVER FUNCTION ALKALINE PHOSPHATASE [ENZYMATIC ACTIVITY/VO LUME] IN SERUM OR PLASMA 75 U/L 40 - 150 07/28 Specimen Type: SERUM No comment entered. Ordering Provider: OKSANA GOLDBERG Report Released Date/Time: Mar 04, 2024 03:04 PM Reporting Lab: [facility] SYSTEMRHILL CREST BEHAVIORAL HEALTH SERVICESTRN [facility]ENTERUSE[address] [address] Performing Lab: DC CNTRL [facility] [address] [address] [facility] SYSTEMRL W[facility]N [place] [facility] LIVER FUNCTION ASPARTATE AMINOTRANSF ERASE [ENZYMATIC ACTIVITY/VO LUME] IN SERUM OR PLASMA 14 U/L 5 - 34 07/28 Specimen Type: SERUM No comment entered. Ordering Provider: OKSANA GOLDBERG Report Released Date/Time: Mar 04, 2024 03:04 PM Reporting Lab: [facility] [place] [facility] [address] [address] Performing Lab: [facility] SYSTEMRL WSTRN [facility]ENTERUSEMARY [facility] [address] [address] [facility] SYSTEMRL W[facility]N [place] [facility] LIVER FUNCTION ALANINE AMINOTRANSF ERASE [ENZYMATIC ACTIVITY/VO LUME] IN SERUM OR PLASMA 13 U/L 07/28 Specimen Type: SERUM No comment entered. Ordering Provider: OKSANA GOLDBERG Report Released Date/Time: Mar 04, 2024 03:04 PM Reporting Lab: [facility] [place] [facility] [address] [address] Performing Lab: [facility] SYSTEMRL WSTRN [place]SE[address] [address] [facility] SYSTEMRL TRN [facility]USE [facility] LIVER FUNCTION BILIRUBIN.T OTAL [MASS/VOLUM E] IN SERUM OR PLASMA 0.3 mg/dL 0.2 - 1.2 07/28 Specimen Type: SERUM No comment entered. Ordering Provider: OKSANA GOLDBERG Report Released Date/Time: Mar 04, 2024 03:04 PM Reporting Lab: [facility] CN[facility] WSTRN [place] [address] Performing Lab: [facility] SYSTEMRL WSTRN [facility]ENTERUSE[address] [address] [facility] SYSTEMRFAYETTE MEDICAL CENTERN [facility] HEMOGLOBI N A1C PANEL HEMOGLOBIN A1C/HEMOGLO [...] PM Reporting Lab: [facility] [place] [address] [address] Performing Lab: [facility] [place] [facility] [address] [address] [facility] [place] [place] [facility] CBC LEUKOCYTES [#/VOLUME] IN BLOOD BY AUTOMATED COUNT 8.16 10*3/u L 4.50 - 11.00 07/28 Specimen Type: BLOOD No comment entered. Ordering Provider: OKSANA GOLDBERG Report Released Date/Time: Mar 04, 2024 03:04 PM Reporting Lab: [facility] [place] [address] [address] Performing Lab: [facility] [place] [facility] [address] [address] [facility] [place] [place] [facility] CBC ERYTHROCYTE S [#/VOLUME] IN BLOOD BY AUTOMATED COUNT 4.85 10*6/u L 4.23 - 5.66 07/28 Specimen Type: BLOOD No comment entered. Ordering Provider: OKSANA GOLDBERG Report Released Date/Time: Mar 04, 2024 03:04 PM Reporting Lab: [facility] [place] [address] [address] Performing Lab: [facility] [place] [address] [address] [facility] [place] [place] [facility] CBC HEMOGLOBIN [MASS/VOLUM E] IN BLOOD 14.5 g/dL 12.8 - 17 07/28 Specimen Type: BLOOD No comment entered. Ordering Provider: OKSANA GOLDBERG Report Released Date/Time: Mar 04, 2024 03:04 PM Reporting Lab: [facility] [place] [address] [address] Performing Lab: [facility] [place] [place] [facility] [address] [address] [facility] [place] [facility] CBC HEMATOCRIT [VOLUME FRACTION] OF BLOOD BY AUTOMATED COUNT 43.2 39.2 - 50.4 07/28 Specimen Type: BLOOD No comment entered. Ordering Provider: OKSANA GOLDBERG Report Released Date/Time: Mar 04, 2024 03:04 PM Reporting Lab: [facility] [place] [facility] [address] [address] Performing Lab: [facility] [place] [facility] [address] [address] [facility] [place] [facility] CBC MCV [ENTITIC VOLUME] BY AUTOMATED COUNT 89.1 fL 82 - 99 07/28 Specimen Type: BLOOD No comment entered. Ordering Provider: OKSANA GOLDBERG Report Released Date/Time: Mar 04, 2024 03:04 PM Reporting Lab: [facility] [place] [facility] [address] [address] Performing Lab: [facility] [place] [place] [facility] [address] [address] [facility] [place] [facility] CBC MCHC [MASS/VOLUM E] BY AUTOMATED COUNT 33.6 g/dL 30.8 - 35.1 07/28 Specimen Type: BLOOD No comment entered. Ordering Provider: OKSANA GOLDBERG Report Released Date/Time: Mar 04, 2024 03:04 PM Reporting Lab: [facility] [place] [facility] [address] [address] Performing Lab: [facility] [place] [facility] [address] [address] [facility] [place] [facility] CBC PLATELETS [#/VOLUME] IN BLOOD BY AUTOMATED COUNT 290 10*3/u L 140 - 360 07/28 Specimen Type: BLOOD No comment entered. Ordering Provider: OKSANA GOLDBERG Report Released Date/Time: Mar 04, 2024 03:04 PM Reporting Lab: [facility] [place] [facility] [address] [address] Performing Lab: [facility] [place] [facility] [address] [address] [facility] [place] [facility] CBC ERYTHROCYTE DISTRIBUTIO N WIDTH [RATIO] BY AUTOMATED COUNT 13.5 12.0 - 16.0 07/28 Specimen Type: BLOOD No comment entered. Ordering Provider: OKSANA GOLDBERG Report Released Date/Time: Mar 04, 2024 03:04 PM Reporting Lab: [facility] [place] [facility] [address] [address] Performing Lab: [facility] [place] [facility] [address] [address] [facility] [place] [facility] CBC MCH [ENTITIC MASS] BY AUTOMATED COUNT 29.9 pg 26.2 - 32.6 07/28 Specimen Type: BLOOD No comment entered. Ordering Provider: OKSANA GOLDBERG Report Released Date/Time: Mar 04, 2024 03:04 PM Reporting Lab: [facility] SYSTEMRL [facility]N [place] [facility] [address] [address] Performing Lab: [facility] [place] [facility] [address] [address] [facility] [place] [facility] BASIC METABOLIC PANEL (fasting) UREA NITROGEN [MASS/VOLUM E] IN SERUM OR PLASMA 17 mg/dL 7 - 25 02/01 Specimen Type: SERUM No comment entered. Ordering Provider: OKSANA GOLDBERG Report Released Date/Time: Jan 13, 2024 03:44 PM Reporting Lab: [facility] [place] [facility] [address] [address] Performing Lab: [facility] [place] [facility] [address] [address] [facility]RL [facility] [place] [facility] BASIC METABOLIC PANEL (fasting) GLUCOSE [MASS/VOLUM E] IN SERUM OR PLASMA 123 mg/dL 65 - 100 02/01 H Specimen Type: SERUM No comment entered. Ordering Provider: OKSANA GOLDBERG Report Released Date/Time: Jan 13, 2024 03:44 PM Reporting Lab: [facility] [place] [facility] [address] [address] Performing Lab: [facility] SYSTEMRHILL CREST BEHAVIORAL HEALTH SERVICESTRN [facility]ENTERUSEMARY [facility] [address] [address] [facility] SYSTEMRHILL CREST BEHAVIORAL HEALTH SERVICESTRN [facility]ENTERUSE [facility] BASIC METABOLIC PANEL (fasting) SODIUM [MOLES/VOLU ME] IN SERUM OR PLASMA 139 mmol/L 135 - 145 02/01 Specimen Type: SERUM No comment entered. Ordering Provider: OKSANA GOLDBERG Report Released Date/Time: Jan 13, 2024 03:44 PM Reporting Lab: [facility] SYSTEMRHILL CREST BEHAVIORAL HEALTH SERVICESTRN [facility]ENTERUSEMARY [facility] [address] [address] Performing Lab: [facility] SYSTEMRHILL [facility] BEHAVIOR[facility] HEALTH SERVICESTRN [facility]ENTERUSE[address] [address] [facility] BASIC METABOLIC PANEL (fasting) POTASSIUM [MOLES/VOLU ME] IN SERUM OR PLASMA 4.1 mmol/L 3.5 - 5.0 02/01 Specimen Type: SERUM No comment entered. Ordering Provider: OKSANA GOLDBERG Report Released Date/Time: Jan 13, 2024 03:44 PM Reporting Lab: [facility] SYSTEMRHILL CREST BEHAVIORAL HEALTH SERVICESTRN [facility]ENTERUSE[address] [address] Performing Lab: [facility] SYSTEMRL TRN [facility]ENTERUSE[address] [address] [facility] BASIC METABOLIC PANEL (fasting) CHLORIDE [MOLES/VOLU ME] IN SERUM OR PLASMA 104 mmol/L 100 - 110 02/01 Specimen Type: SERUM No comment entered. Ordering Provider: OKSANA GOLDBERG Report Released Date/Time: Jan 13, 2024 03:44 PM Reporting Lab: [facility] SYSTEMRL TRN [facility]ENTERUSE[address] [address] Performing Lab: [facility] SYSTEMRHILL CREST BEHAVIORAL HEALTH SERVICESTRN [facility]ENTERUSE[address] [address] [facility] BASIC METABOLIC PANEL (fasting) CARBON DIOXIDE, TOTAL [MOLES/VOLU ME] IN SERUM OR PLASMA 26 meq/L 20 - 30 02/01 Specimen Type: SERUM No comment entered. Ordering Provider: OKSANA GOLDBERG Report Released Date/Time: Jan 13, 2024 03:44 PM Reporting Lab: [address] [address] Performing Lab: [address] [address] [facility] BASIC METABOLIC PANEL (fasting) CREATININE [MASS/VOLUM E] IN SERUM OR PLASMA 0.77 mg/dL 0.50 - 1.40 02/01 Specimen Type: SERUM No comment entered. Ordering Provider: OKSANA GOLDBERG Report Released Date/Time: Jan 13, 2024 03:44 PM Reporting Lab: [address] [address] Performing Lab: [address] [address] [facility] BASIC METABOLIC PANEL (fasting) GLOMERULAR FILTRATION RATE/1.73 SQ M.PREDICTED [VOLUME RATE/AREA] IN SERUM, PLASMA OR BLOOD BY CREATININE- BASED FORMULA (CKD-EPI 2020) >90mL/ min 60 02/01 Specimen Type: SERUM No comment entered. Ordering Provider: OKSANA GOLDBERG Report Released Date/Time: Jan 13, 2024 03:44 PM Reporting Lab: [address] [address] Performing Lab: [address] [address] [facility] HEMOGLOBI N A1C PANEL HEMOGLOBIN A1C/HEMOGLO BIN.TOTAL [...] PM Reporting Lab: [facility] [place] [facility] [address] [facility] [address] Performing Lab: [facility] [place] [facility] [address] [facility] [address] [address] [facility] [place] [facility] PSA PROSTATE SPECIFIC AG [MASS/VOLUM E] IN SERUM OR PLASMA 4.79 ng/mL 0.00 - 4.00 02/01 H Specimen Type: SERUM No comment entered. Ordering Provider: OKSANA GOLDBERG Report Released Date/Time: Jan 16, 2024 11:20 AM Reporting Lab: [facility] [place] [facility] [address] [facility] [address] Performing Lab: [facility] [place] [facility] [address] [facility] [address] [address] [facility] [place] [facility] MICROALBU MIN CREATININ E RATIO PANEL MICROALBUMI N/CREATININ E [MASS RATIO] IN URINE 12.2 mg/g 0 - 29.9 07/30 Specimen Type: URINE No comment entered. Ordering Provider: OKSANA GOLDBERG Report Released Date/Time: Jul 30, 2023 11:11 AM Reporting Lab: [facility] [place] [facility] [address] [facility] [address] Performing Lab: [facility] [place] [facility] [address] [facility] [address] [facility] [place] [facility] MICROALBU MIN CREATININ E RATIO PANEL MICROALBUMI N [MASS/VOLUM E] IN URINE 0.5 mg/dL 07/30 Specimen Type: URINE No comment entered. Ordering Provider: OKSANA GOLDBERG Report Released Date/Time: Jul 30, 2023 11:11 AM Reporting Lab: [facility] [place] [facility] [address] [facility] [address] Performing Lab: [facility] [place] [facility] [address] [facility] [address] [facility] [place] [facility] MICROALBU MIN CREATININ E RATIO PANEL CREATININE [MASS/VOLUM E] IN URINE 40.83 mg/dL 07/30 Specimen Type: URINE No comment entered. Ordering Provider: OKSANA GOLDBERG Report Released Date/Time: Jul 30, 2023 11:11 AM Reporting Lab: [facility] [place] [address] [address] Performing Lab: [facility] [place] [address] [address] [facility] [place] [facility] CBC LEUKOCYTES [#/VOLUME] IN BLOOD BY AUTOMATED COUNT 7.13 10*3/u L 4.50 - 11.00 07/30 Specimen Type: BLOOD No comment entered. Ordering Provider: ROWENA SCHWARTZ Report Released Date/Time: Jul 29, 2023 07:36 PM Reporting Lab: [facility] [place] [address] [address] Performing Lab: [facility] [place] [address] [address] [facility] [place] [facility] CBC ERYTHROCYTE S [#/VOLUME] IN BLOOD BY AUTOMATED COUNT 5.12 10*6/u L 4.23 - 5.66 07/30 Specimen Type: BLOOD No comment entered. Ordering Provider: ROWENA SCHWARTZ Report Released Date/Time: Jul 29, 2023 07:36 PM Reporting Lab: [facility] [place] [address] [address] Performing Lab: [facility] [place] [address] [address] [facility] [place] [facility] CBC HEMOGLOBIN [MASS/VOLUM E] IN BLOOD 13.9 g/dL 12.8 - 17 07/30 Specimen Type: BLOOD No comment entered. Ordering Provider: ROWENA SCHWARTZ Report Released Date/Time: Jul 29, 2023 07:36 PM Reporting Lab: [facility] [place] [address] [address] Performing Lab: [facility] [place] [address] [address] [facility] [place] [facility] CBC HEMATOCRIT [VOLUME FRACTION] OF BLOOD BY AUTOMATED COUNT 44.1 39.2 - 50.4 07/30 Specimen Type: BLOOD No comment entered. Ordering Provider: ROWENA SCHWARTZ Report Released Date/Time: Jul 29, 2023 07:36 PM Reporting Lab: [facility] [place] [facility] [address] [facility] [address] Performing Lab: [facility] [place] [facility] [address] [address] [facility] [place] [facility] CBC MCV [ENTITIC VOLUME] BY AUTOMATED COUNT 86.1 fL 82 - 99 07/30 Specimen Type: BLOOD No comment entered. Ordering Provider: ROWENA SCHWARTZ Report Released Date/Time: Jul 29, 2023 07:36 PM Reporting Lab: [facility] [place] [facility] [address] [address] Performing Lab: [facility] [place] [address] [address] [facility] [place] [facility] CBC MCHC [MASS/VOLUM E] BY AUTOMATED COUNT 31.5 g/dL 30.8 - 35.1 07/30 Specimen Type: BLOOD No comment entered. Ordering Provider: ROWENA SCHWARTZ Report Released Date/Time: Jul 29, 2023 07:36 PM Reporting Lab: [facility] [place] [facility] [address] [facility] [address] Performing Lab: [facility] [place] [address] [address] [facility] [place] [facility] CBC PLATELETS [#/VOLUME] IN BLOOD BY AUTOMATED COUNT 274 10*3/u L 140 - 360 07/30 Specimen Type: BLOOD No comment entered. Ordering Provider: ROWENA SCHWARTZ Report Released Date/Time: Jul 29, 2023 07:36 PM Reporting Lab: [facility] [place] [facility] [address] [facility] [address] Performing Lab: [facility] [place] [address] [address] [facility] [place] [facility] CBC ERYTHROCYTE DISTRIBUTIO N WIDTH [RATIO] BY AUTOMATED COUNT 18.4 12.0 - 16.0 07/30 H Specimen Type: BLOOD No comment entered. Ordering Provider: ROWENA SCHWARTZ Report Released Date/Time: Jul 29, 2023 07:36 PM Reporting Lab: [facility] [place] [address] [address] Performing Lab: [facility] [place] [address] [address] [facility] [place] [facility] CBC MCH [ENTITIC MASS] BY AUTOMATED COUNT 27.1 pg 26.2 - 32.6 07/30 Specimen Type: BLOOD No comment entered. Ordering Provider: ROWENA SCHWARTZ Report Released Date/Time: Jul 29, 2023 07:36 PM Reporting Lab: [facility] [place] [place] [address] [address] Performing Lab: [facility] [place] [address] [address] [facility] [place] [facility] LIVER FUNCTION PROTEIN [MASS/VOLUM E] IN SERUM OR PLASMA 7.1 g/dL 6.0 - 8.3 07/30 Specimen Type: SERUM No comment entered. Ordering Provider: ROWENA SCHWARTZ Report Released Date/Time: Jul 29, 2023 07:36 PM Reporting Lab: [facility] [place] [address] [address] Performing Lab: [facility] [place] [address] [address] [facility] [place] [facility] LIVER FUNCTION ALBUMIN [MASS/VOLUM E] IN SERUM OR PLASMA 4.1 g/dL 3.5 - 5.0 07/30 Specimen Type: SERUM No comment entered. Ordering Provider: ROWENA SCHWARTZ Report Released Date/Time: Jul 29, 2023 07:36 PM Reporting Lab: [facility] [place] [address] [address] Performing Lab: [facility] [place] [address] [address] [facility] [place] [facility] LIVER FUNCTION ALKALINE PHOSPHATASE [ENZYMATIC ACTIVITY/VO LUME] IN SERUM OR PLASMA 64 U/L 40 - 150 07/30 Specimen Type: SERUM No comment entered. Ordering Provider: ROWENA SCHWARTZ Report Released Date/Time: Jul 29, 2023 07:36 PM Reporting Lab: [facility] [place] [address] [address] Performing Lab: [facility] [place] [address] [address] [facility] [place] [facility] LIVER FUNCTION ASPARTATE AMINOTRANSF ERASE [ENZYMATIC ACTIVITY/VO LUME] IN SERUM OR PLASMA 14 U/L 5 - 34 07/30 Specimen Type: SERUM No comment entered. Ordering Provider: ROWENA SCHWARTZ Report Released Date/Time: Jul 29, 2023 07:36 PM Reporting Lab: [facility] [place] [address] [address] Performing Lab: [facility] [place] [address] [address] [facility] [place] [facility] LIVER FUNCTION ALANINE AMINOTRANSF ERASE [ENZYMATIC ACTIVITY/VO LUME] IN SERUM OR PLASMA 17 U/L 07/30 Specimen Type: SERUM No comment entered. Ordering Provider: ROWENA SCHWARTZ Report Released Date/Time: Jul 29, 2023 07:36 PM Reporting Lab: [facility] [place] [address] [address] Performing Lab: [facility] [place] [address] [address] [facility] [place] [facility] LIVER FUNCTION BILIRUBIN.T OTAL [MASS/VOLUM E] IN SERUM OR PLASMA 0.4 mg/dL 0.2 - 1.2 07/30 Specimen Type: SERUM No comment entered. Ordering Provider: ROWENA SCWHARTZ Report Released Date/Time: Jul 29, 2023 07:36 PM Reporting Lab: [facility] [place] [address] [place] [address] Performing Lab: [facility] [place] [facility] [address] [address] [facility] [place] [facility] Vital [...] [facility] [place] [facility] Out[facility] Encounter [id number] 04/29 [facility] [place] [facility] [place] En[facility] [id number] 07/15 [facility] [place] [facility] [place] [facility] En[facility] [id number] 07/25 [facility] [place] [facility] [facility] [place] [facility] En[facility] [id number] 07/25 [facility] [place] [facility] [place] [facility] En[facility] [id number] 07/28 [facility] [place] [facility] [place] [facility] En[facility] [id number] 07/29 [facility] [place] [facility] [place] [facility] En[facility] [id number] 07/29 [facility] [place] [facility] [place] [facility] OFFICE O/P NEW HI 60 MIN [id number] Diagnos is: ICD-10- CM 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 FURCOLO,TI NA 07/30 [facility] [place] [place] En[facility] [id number] 08/06 [facility] [place] [place] OFF/OP EST MAY X REQ PHY/QHP [id number] Diagnos is: ICD-10- CM Z23 Encount er for immuniz ation CHIDULCE,TI MOTHY E 08/08 [facility] [place] [place] En[facility] [id number] 08/21 [facility] [place] [facility] [place] OFF/OP EST MAY X REQ PHY/QHP [id number] Diagnos is: ICD-10- CM Z23 Encount er for immuniz ation CHIDULCE,TI MOTHY E 09/03 [facility] [place] [place] OFF/OP EST MAY X REQ PHY/QHP [id number] Diagnos is: ICD-10- CM Z23 Encount er for immuniz ation Consuelo MONTOYA H 10/06 [facility] [place] [place] En[facility] [id number] 10/19 [facility] [place] [facility] [place] [facility] En[facility] [id number] 10/29 [facility] [place] [facility] [facility] [place] [facility] OFFICE O/P EST MOD 30 MIN [id number] Diagnos is: ICD-10- CM E11.9 Type 2 diabete s mellitu s without complic ations FURCOLO,TI NA 11/04 [facility] [place] [place] En[facility] [id number] 01/18 [facility] [place] [facility] [place] [facility] En[facility] [id number] 02/01 [facility] [place] [facility] [place] [facility] OFFICE O/P EST MOD 30 MIN [id number] Diagnos is: ICD-10- CM 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 Diagnos is: ICD-10- CM H40.033 Anatomi anni narrow angle, bilater al CHRISTOPHER HENDRICKSON 03/29 [facility] [place] [place] FIT SPECTACLES MULTIFOCAL [id number] Diagnos is: ICD-10- CM Z46.0 Encount er for fit/adj st of spectac les and contact lenses CHRISTOPHER HENDRICKSON 03/29 [facility] [place] [place] En[facility] [id number] 1.04/20 [facility] [place] [facility] [place] [facility] En[facility] [id number] 05/10 [facility] [place] [facility] [place] [facility] Out[facility] Encounter [id number] 05/25 [facility] [place] [facility] [place] [facility] Out[facility] Encounter [id number] [facility] [place] [facility] [place] [facility] Encounter [id number] 07/15 [facility] [place] [facility] [place] [facility] Out[facility] Encounter [id number] 07/16 [facility] [place] [facility] [place] [facility] Out[facility] Encounter [id number] 07/28 [facility] [place] [facility] [place] [facility] OFFICE O/P EST MOD 30 MIN [id number] Diagnos is: ICD-10- CM 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 Social History Type Response Date Comment Sourc e Tobacco smoking status NHIS VA-TOBACCO USE SOME DAYS CIGARETTES [facility] History of tobacco use VA-TOBACCO NEVER USED OTHER TYPE 07/28/2024 [facility] History of tobacco use DC-TOBACCO FORMER USER 07/29/2023 [facility] Plan of Care List of future care activities from Department of Veterans Affairs facilities. Additional future care activities may be listed in the Assessment and Plan section. Date/Time Care Activity Care Activity Detail Facili ty 10/27/2024 AMBULATORY - NONE AMBULATORY - NONE [facility]
--- OUTSIDE RECORDS SUMMARY | 2024-10-08 08:14 | XMS_ITS ---
Author Name [facility] [place] Address [address] [place] [address] Care Team Providers Care Community Organization Worker Name Role Phone OKSANA GOLDBERGA Primary [...] section includes the information on record at [place] for the Encounter. Date/Time Encounter Type Encounter Description Reason Provider Source Mar 29, 2024 08:30 AM [facility] OPTIC NERVE OPTOMETRY ICD-10-CM H40.033 Anatomical narrow angle, bilateral SPENCER HENDRICKSON Sunny Encounter Template Text not used by [place] Assessments - Encounter Diagnoses This section includes the primary and secondary diagnoses documented for the Encounter. Date/Time Primary/Secondary Diagnosis Diagnosis Name Provider Source Mar 29, 2024 02:08 PM PRIMARY Anatomical narrow angle, bilateral SPENCER HENDRICKSON [facility] [place] [facility] Mar 29, 2024 02:08 PM SECONDARY Open angle with borderline findings, low risk, bilateral SPENCER HENDRICKSON [facility] Plan of Treatment: Future Appointments (+ 6 months) and Future Tests (+/- 45 days) The Plan of Treatment section includes future care activities for the patient from all [place] treatmentfacilities. This section includes future appointments and future orders which are active, pending or scheduled. Future Appointments This section includes appointments that were scheduled to occur 6 months from the date of the Encounter, up to a maximum of 20 appointments. The data comes from all [place] treatment facilities. Appointment Date/Time Appointment Type Appointme nt Facility Name May 25, 2024 10:00 AM [facility]ATORY [facility] Jul 28, 2024 03:00 PM [facility] Aug 04, 2024 11:20 AM [facility]ATORY - [facility] Aug 05, 2024 09:00 AM AMBULATORY - NONE [facility] Social History: Smoking Status (Most current) [...] 29, 2023 02:19 PM VA-TOBACCO FORMER USER [facility] Tobacco Use History This section includes a history of the smoking, or tobacco-related health factors, that were collected on or before the date of the Encounter. The data comes from the [place] facility where the Encounter took place. Date/Time Smoking Status/Tobacco Use Comment F acility Jul 29, 2023 02:19 PM VA-TOBACCO QUIT < 1 YEAR [facility] Encounter Notes: All associated encounter notes [...] OF OPTOMETRY Signed: 03/29/2024 14:09 SYDNI HENDRICKSON [facility]
--- OUTSIDE RECORDS SUMMARY | 2024-10-08 08:14 | XMS_ITS ---
Author Name [facility] [place] Organization [place] Address [address] [place] [address] Care Team Providers Care Call Center Analyst Name Role Phone RAUL GOLDBERG Primary Care [...] section includes the information on record at [place] for the Encounter. Date/Time Encounter Type Encounter Description Reason Provider Source November 05, 2023 02:00 PM OFFICE O/P EST MOD 30 MIN PRIMARY CARE/MEDICINE ICD-10-CM E11.9 Type 2 diabetes mellitus without complications RAUL GOLDBERG Sunny Encounter Template Text not used by [place] Assessments - Encounter Diagnoses This section includes the primary and secondary diagnoses documented for the Encounter. Date/Time Primary/Secondary Diagnosis Diagnosis Name Provider Source November 10, 2023 04:45 PM PRIMARY Type 2 diabetes mellitus without complications RAUL GOLDBERG [place] [facility] [place] [facility] November 10, 2023 04:45 PM SECONDARY Acute diastolic (congestive) heart failure RAUL GOLDBERG [facility] [place] [facility] November 10, 2023 04:45 PM SECONDARY Encounter for immunization AKASH DE ANDA [facility] November 10, 2023 04:45 PM SECONDARY Sleep apnea, unspecified [facility]DBERG [facility] November 10, 2023 04:45 PM SECONDARY Venous insufficiency (chronic) (peripheral) RAUL GOLDBERG [facility] Plan of Treatment: Future Appointments (+ 6 months) and Future Tests (+/- 45 days) The Plan of Treatment section includes future care activities for the patient from all [place] [facility]. This section includes future appointments and future orders which are active, pending or scheduled. Future Appointments This section includes appointments that were scheduled to occur 6 months from the date of the Encounter, up to a maximum of 20 appointments. The data comes from all [facility] facilities. Appointment Date/Time Appointment Type Appointme nt Facility Name Feb 02, 2024 09:00 AM AMBULATORY - MEDICINE [facility] Mar 04, 2024 02:30 PM AMBULATORY MEDICINE [facility] Mar 29, 2024 08:00 AM AMBULATORY [facility]INE [facility] Mar 29, 2024 08:30 AM AMBULATORY MEDICINE [facility] Vital Signs: All taken on the encounter date This section contains inpatient and outpatient Vital Signs collected on the date of the Encounter. Date/Time Temperature Pulse Blood Pressure Respiratory Rate SP02 Pain Height Weight Body Mass Index Source November 05, 2023 01:55 PM 98.1 81 134/80 16 97 190 31 [employer] Immunizations: All administered on the encounter date This section contains immunizations associated to the Encounter. Immunization Series Date Issued Administered By Site Reaction Lot Number CVX Code Drug Head Of Sales Promotion Comment(s) Source ZOSTER RECOMBINANT November 05, 2023 AKASH DE ANDA RIGHT DELTO ID [id number] [employer] DAVID Completed Series, ADMINISTERE D AT [facility] Social History: Smoking Status (Most current) and Tobacco Use (All prior to encounter date) This section includes the most current, and the historical, smoking and tobacco- related health factors from the [place] facility where the Encounter took place. Current Smoking Status This section includes the most current smoking, or tobacco-related health factor, from the [place] facility where the Encounter took place. Date/Time Current Smoking Status Comment Monica ity Jul 29, 2023 02:19 PM VA-TOBACCO FORMER USER [facility] Tobacco Use History This section includes a history of the smoking, or tobacco-related health factors, that were collected on or before the date of the Encounter. The data comes from the [place] facility where the Encounter took place. Date/Time Smoking Status/Tobacco Use Comment F acility Jul 29, 2023 02:19 PM VA-TOBACCO QUIT < 1 YEAR [facility] Encounter Notes: All associated encounter notes [...] not seen in years, to re- establish) [place] Specialists: Community Specialists: hematology- [facility]- apt 08/18/23- had HCT >60 Lashell Martinez 08/01/23- gets phlebotomies [facility] pullore- Dr. 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 === HISTORY OF PRESENT ILLNESS === Late Mar 2023 started to develop LE edema and SOB. Had not seen his community PCP in many years- was going to be considered new patient- so took awhile to get in. Found to have sats in the 70s. Sent to [facility], then to [facility] as no improvement in resp status [...] in setting of resp failure/copd. seen by [facility] heme-nc, neg VIOLETA, epo not elevated. thought related to underlying lung disease and HETAL, phlebotomies scheduled by heme/onc 2. Diabetes mellitus 3. Acute right-sided congestive heart failure Acute on chronic right-sided heart failure acute COPD exac 04/2023- intubated in ICU [facility] 4. Liver cyst 5. Pulmonary emphysema [...] HISTORY === Background: born and raised in [place], raised in [place]. did 2 years of college Sexual Orientation: heterosexual Marital Status: Children: 2 daughters and 1 son Lives with: one roommate- fired, involved with grandkids Employment Status: on disability- since hospitalization 05/12/23. 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 Erythrocytosis HCT 62 in setting of resp failure/copd. seen by [facility] heme-nc, neg IVOLETA, epo not elevated. thought related to underlying [...] acute COPD exac 04/2023- intubated in ICU [facility]. no further edema, better breathing status. complete [employer] Disability forms today- unable to perform [...] when hospitalized with respiratory failure 04/2023 at [facility]- no nodularity === HEALTH MAINTENANCE === Colonoscopy - will check with his pcp Abdominal Aortic Aneurysm Screening - CTA [facility] 04/2023- neg for AAA Prostate screening - Tetanus: due every 10 years Pneumonia Vacccine: Flu Vaccine: due yearly Covid Vaccine: due yearly === FOLLOW UP === 6 months VISIT TYPE: a MODERATE complexity visit where 30 minutes was spent in direct patient care, review of records and documentation. /garo/ RAUL GOLDBERG D.O. PHYSICIAN Signed: 11/10/2023 16:46 RAUL GOLDBERG [facility] [place] [facility] November 05, 2023 02:00 PM PREVENTIVE MEDICIN E NURSING NOTE: LOCAL TITLE: CLINICAL REMINDERS/NURSING STANDARD TITLE: PREVENTIVE MEDICINE NURSING NOTE DATE OF NOTE: NOVEMBER 05, 2023@14:00 ENTRY DATE: NOVEMBER 05, 2023@14:01:01 AUTHOR: AKASH DE ANDA EXP COSIGNER: URGENCY: STATUS: COMPLETED Herpes Zoster (Shingles) Vaccine: Administered: ZOSTER RECOMBINANT Date Administered: November 05, 2023 14:00 Series: Complete Head Of Sales Promotion: [employer] Lot: [id number] Exp Date: Jul 17, 2025 NDC: [phone] Admin Route/Site: INTRAMUSCULAR/RIGHT DELTOID Dosage: 0.5mL Vaccine Information Statement(s): RECOMBINANT ZOSTER VACCINE VIS Jul 27, 2021 (YI) Order By: Policy Administered By: Akash De [...] diminished) SENSORY CHECK: Includes 10 gram Monofilament ([place]) test of sensation. Intact (Greater than or [...]
--- OUTSIDE RECORDS SUMMARY | 2024-10-08 08:14 | XMS_ITS ---
Author Name [facility] Organization [facility] [place] Address [address] [place] [address] Care Team Providers Care Roller Inspector Name Role Phone AMRITA LANG Primary Care Provider Alejandro juarez Insurance Providers: [...] section includes the information on record at ME for the Encounter. Date/Time Encounter Type Encounter Description Reason Pro vider Source Aug 26, 2024 02:30 PM Outpatient Encounter PRIMARY CARE/MEDICINE IHE Encounter Template Text not used by ME Plan of Treatment: Future Appointments (+ 6 months) and Future Tests (+/- 45 days) The Plan of Treatment section includes future care activities for the patient from all ME treatmentfacilities. This section includes future appointments and future orders which are active, pending or scheduled. Future Appointments This section includes appointments that were scheduled to occur 6 months from the date of the Encounter, up to a maximum of 20 appointments. The data comes from all ME treatment facilities. Appointment Date/Time Appointment Type Appointme nt Facility Name October 27, 2024 02:30 PM AMBULATORY - NONE [place] [facility] [place] [facility] Feb 01, 2025 11:30 AM AMBULATORY - MEDICINE ME [facility] Active, Pending, and Scheduled Orders This section includes a listing of several types of active, pending, and scheduled orders, including clinic medications orders, diagnostic test orders, procedure orders and consult orders; where the start date of the order is 45 days before the date of the Encounter or 45 days after the date of theEncounter. The data comes from all ME treatment facilities. Test Date/Time Test Type Test Details Facility Name Jul 28, 2024 03:48 PM Consult Order [facility]-COLONOSCOPY SCREENING Cons Flaker Operator's Choice [facility] Lab Results: +/- 30 days of the encounter This section includes the Chemistry and Hematology Lab Results on record with ME for the patient. Radiology Reports and Pathology Reports are provided separately, in subsequent sections. Lab Results This section contains the Chemistry/Hematology Results that were resulted 30 days before or 30 daysafter the date of the Encounter. Date/Time Source Result Type Result - Unit Interpretation Reference Range Specimen Type Comment Jul 28, 2024 03:54 PM [facility] BASIC METABOLIC PANEL (fasting) SERUM Specime n Type: SERUM No comment entered. Ordering Provider: AMRITA LANG Report Released Date/Time: Mar 04, 2024 03:04 PM Reporting Lab: [address] [id number] Performing Lab: [address] [address] UREA NITROGEN 14 mg/dL 7-25 GLUCOSE 129 mg/dL H 65-100 SODIUM 139 mmol/L 135-145 POTASSIUM 3.7 mmol/L 3.5-5.0 CHLORIDE 100 mmol/L 100-110 CO2 31 meq/L H 20-30 CREATININE, Serum 0.89 mg/dL 0.50-1.40 eGFR(CKD-EPI 2020) >90 mL/min >60 Jul 28, 2024 03:54 PM [facility] LIVER FUNCTION SERUM Specimen Type: SERUM No comment entered. Ordering Provider: AMRITA LANG Report Released Date/Time: Mar 04, 2024 03:04 PM Reporting Lab: [address] [address] Performing Lab: [address] [address] PROTEIN,TOTAL 7.6 g/dL 6.0-8.3 ALBUMIN 4.2 g/dL 3.5-5.0 ALKALINE PHOSPHATASE 75 U/L 40-150 AST 14 U/L 5-34 ALT 13 U/L BILIRUBIN, TOTAL 0.3 mg/dL 0.2-1.2 Jul 28, 2024 03:54 PM [facility] HEMOGLOBIN A1C PANEL BLOOD Specimen Type: BLO OD Comment: Values obtained from A1C measurements can vary. For atypical A1C assays, a reported value of 7.0 could actually be between 6.72 and 7.28 if measured by a reference method. A reported value of 9.0 could actually be between 8.73 and 9.27. Ref: http://www.ngsp.org/CAPdata.asp Ordering Provider: AMRITA LANG Report Released Date/Time: Mar 04, 2024 03:04 PM Reporting Lab: [address] [address] Performing Lab: [address] [address] HEMOGLOBIN A1C 6.1 H 4.0-5.6 Jul 28, 2024 03:54 PM [facility] CBC BLOOD Specimen Type: BLOOD No comment entered. Ordering Provider: AMRITA LANG Report Released Date/Time: Mar 04, 2024 03:04 PM Reporting Lab: [address] [address] Performing Lab: [address] [address] WBC 8.16 10*3/uL 4.50-11.00 RBC 4.85 10*6/uL [...] and tobacco- related health factors from the ME facility where the Encounter took place. Current Smoking Status This section includes the most current smoking, or tobacco-related health factor, from the ME facility where the Encounter took place. Date/Time Current Smoking Status Comment Facil ity Jul 28, 2024 03:00 PM VA-TOBACCO USE CAROLYN E DAYS CIGARETTES [facility] Tobacco Use History This section includes a history of the smoking, or tobacco-related health factors, that were collected on or before the date of the Encounter. The data comes from the ME facility where the Encounter took place. Date/Time Smoking Status/Tobacco Use Comment F acility Jul 28, 2024 03:00 PM VA-TOBACCO USE CAROLYN E DAYS CIGARETTES [facility] Jul 29, 2023 02:19 PM VA-TOBACCO FORMER USER [facility] Jul 29, 2023 02:19 PM VA-TOBACCO QUIT < 1 YEAR [facility] Radiology Reports: +/- 30 days of [...] the Encounter. The data comes from all ME treatment facilities. 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 [...] Primary Interpreting Staff: FRANK HUSTON JR, Radiologist (Consumer Educator) /FRANK BURGESS JR [facility] Encounter Notes: All associated encounter notes This section contains the clinical notes associated to the Encounter. Date/Time Encounter Note(s) Provider Source Aug 05, 2024 04:14 PM LETTERS: LOCAL TITLE: PATIENT LETTER (T) STANDARD TITLE: LETTERS DATE OF NOTE: AUG 05, 2024@16:14 ENTRY DATE: AUG 05, 2024@16:14:33 AUTHOR: AMRITA LANG EXP COSIGNER: URGENCY: STATUS: COMPLETED [facility] Toll Free Number Primary Care Telephone Assistance can be reached at extension [phone] [facility] scheduling can be reached at extension [phone] [facility] scheduling can be reached at ext [phone] JEANNINE RAE II [address] [place], [place], [address] [place], Liver shows fatty liver, but no evidence of cirrhosis. No cause for concern. No need to repeat. Dr. Amrita Lang (Case [id number] COMPLETE) ULTRASOUND ABDOMEN LIMITED (US Detailed) CPT:28892 Reason for Study: f/u liver u/s Clinical History: abnormal in setting of acute CHF in 04/2023, needs repeat, h/o heavy ETOH Report: Study: Abdominal ultrasound. Comparison: None. Reported [...] Liver and gallbladder findings, as described above. Sincerely, Your Primary Care Team [facility] [address] [address] [place] [address] [phone] [facility] [address] [place] [address] [place] [address] [phone] [facility] [address],[address]st Floor [address] [place] [address] [place] [address] AMRITA LANG [facility]
--- OUTSIDE RECORDS SUMMARY | 2024-10-08 08:14 | XMS_ITS | Encounter Summary ---
Author Name [facility] of Veter[facility] ([place]) Organization [facility] [place] Address [address] [place] [address] Care Team Providers Care Burr Picker Name Role Phone RAUL GOLDBERG Primary Care [...] E Encounter Template Text not used by [place] Assessments - Encounter Diagnoses This section includes the primary and secondary diagnoses documented for the Encounter. Date/Time Primary/Secondary Diagnosis Diagnosis Name Provider Source Mar 04, 2024 03:02 PM PRIMARY Secondary polycythemia FURCOLO,RAUL [facility] [place] [facility] Mar 04, 2024 03:02 PM SECONDARY Alcoholic cirrhosis of liver without ascites FURCOLO,RAUL [facility] [place] [facility] Mar 04, 2024 03:02 PM SECONDARY Emphysema, unspecified FURCOLO,RAUL [facility] [place] [facility] Mar 04, 2024 03:02 PM SECONDARY Encounter for immunization GIBRAN PACHECO [facility] [place] [facility] Mar 04, 2024 03:02 PM SECONDARY Polyneuropathy, unspecified FURCOLO,RAUL [facility] [place] [facility] Mar 04, 2024 03:02 PM SECONDARY Sleep apnea, unspecified FURCOLO,RAUL [facility] [place] [facility] Mar 04, 2024 03:02 PM SECONDARY Type 2 diabetes mellitus without complications FURCOLO,RAUL [facility] [place] [facility] Mar 04, 2024 03:02 PM SECONDARY Venous insufficiency (chronic) (peripheral) FURCOLO,RAUL [facility] [place] [facility] Plan of Treatment: Future Appointments (+ 6 months) and Future Tests (+/- 45 days) The Plan of Treatment section includes future care activities for the patient from all [place] treatmentfacilities. This section includes future appointments and [...] 29, 2024 08:00 AM AMBULATORY - MEDICINE [facility] [place] [facility] Mar 29, 2024 08:30 AM AMBULATORY - MEDICINE VA C [facility] [place] [facility] May 25, 2024 10:00 AM AMBULATORY - MEDICINE [facility] C [facility] [place] [facility] Jul 28, 2024 03:00 PM AMBULATORY - MEDICINE [facility] [place] [facility] Aug 04, 2024 11:20 AM AMBULATORY - MEDICINE [facility] C [facility] [place] [facility] Aug 05, 2024 09:00 AM AMBULATORY - NONE [place] [facility] [place] [facility] Vital Signs: All taken on the encounter date This section contains inpatient and outpatient Vital Signs collected on the date of the Encounter. Date/Time Temperature Pulse Blood Pressure Respiratory Rate SP02 Pain Height Weight Body Mass Index Source Mar 04, 2024 02:28 PM 98.3 84 120/80 16 94 5 180 29 [facility] [place] [facility] Immunizations: All administered on the encounter date This section contains immunizations associated to the Encounter. Immunization Series Date Issued Administered By Site Reaction Lot Number CVX Code Drug Behavior Support Specialist Comment(s) Source COVID-19 (MODERNA), MRNA, LNP-S, PF, 50 MCG/0.5 ML (AGES 12+ YEARS) Mar 04, 2024 GIBRAN PACHECO E LEFT DELTO ID [id number] MODERNA [employer] Booster for Series, ADMINISTERE D AT [facility] INFLUENZA, SPLIT VIRUS, TRIVALENT, PF Mar 04, 2024 GIBRAN PACHECO LEFT DELTO ID [id number] [employer] [address] Booster for Series, ADMINISTERE D AT [facility] Social History: Smoking Status (Most [...] place. Date/Time Current Smoking Status Comment Monica nolany Jul 29, 2023 02:19 PM VA-TOBACCO FORMER USER [facility] Tobacco Use History This section includes a history of the smoking, or tobacco-related health factors, that were collected on or before the date of the Encounter. The data comes from the [place] facility where the Encounter took place. Date/Time Smoking Status/Tobacco Use Comment F acility Jul 29, 2023 02:19 PM VA-TOBACCO QUIT < 1 YEAR [facility] Encounter Notes: All associated encounter notes [...] not seen in years, to re- establish) [place] Specialists: Community Specialists[facility]- had HCT >60 Lashell Juan 08/01/23- gets phlebotomies [facility] pullore- Dr. 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 ==== HISTORY OF PRESENT ILLNESS ==== -gets phlebotomies still every 2 months, if Hb >13 -seeing pulmonary- no changes -feels wel, energy is good, no LE edema, no SOB -no longer on home O2. 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 Erythrocytosis HCT 62 in setting of resp failure/copd. seen by [facility] heme-nc, neg VIOLETA, epo not elevated. thought related to underlying lung disease and HETAL, phlebotomies scheduled by heme/onc 2. Diabetes mellitus- imporved 3. Acute right-sided congestive heart failure Acute on chronic right-sided heart failure acute COPD exac 04/2023- intubated in ICU [facility] 4. Liver cyst 5. Pulmonary emphysema [...] HISTORY ==== Background: born and raised in [place], raised in [place]. did 2 years of college Sexual Orientation: heterosexual Marital Status: Children: 2 daughters and 1 son Lives with: one roommate- fired, involved with grandkids Employment Status: on disability- since hospitalization 05/12/23. 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 seen by [facility] heme-nc, neg VIOLETA, epo not elevated. thought related to underlying lung disease and HETAL, phlebotomies scheduled by heme/onc- now every 2 mo- when Hb>13 2. Diabetes mellitus- improved overall with better diet 3. Acute right-sided congestive heart failure Acute on chronic right-sided heart failure acute COPD exac 04/2023- intubated in ICU [facility]. no further edema, better breathing status. nromal echo on repeat Ef 60% 4. Liver cyst- found incedentally 5. Pulmonary emphysema home BiPAP and oxygen concentrator- not needing as much now. sees pulmonary [facility] 6. Peripheral venous insufficiency - improved overall 7. Stasis dermatitis Venous stasis dermatitis of both lower extremities 8. Polyneuropathy Peripheral polyneuropathy- previously on gabapentin- not currently 9. Sleep apnea- pulmonary HTN- thought to have sleep apnea, home with BiPAP. seeing pulmonary. 10. former smoker- quit 04/2023- 40 pack year. had CTA chest when hospitalized with respiratory failure 04/2023 at [facility]- no nodularity ==== HEALTH MAINTENANCE ==== Colonoscopy - will check with his pcp Abdominal Aortic Aneurysm Screening - CTA [facility] 04/2023- neg for AAA Prostate screening - Tetanus: due every 10 years Pneumonia Vacccine: Flu Vaccine: due yearly Covid Vaccine: due yearly ==== FOLLOW UP ==== 6 months VISIT TYPE: a MODERATE complexity visit where 30 minutes was spent in direct patient care, review of records and documentation. /garo/ RAUL GOLDBERG D.O. PHYSICIAN Signed: 03/04/2024 15:04 04/23/2024 ADDENDUM STATUS: COMPLETED reviewed [facility] records 04/23/24- no record of colonosocpy /garo/ RAUL GOLDBERG D.O. PHYSICIAN Signed: 04/23/2024 14:14 RAUL GOLDBERG [facility] Mar 04, 2024 02:33 PM PREVENTIVE MEDICINE NURSING NOTE: LOCAL TITLE: CLINICAL REMINDERS/NURSING STANDARD TITLE: PREVENTIVE MEDICINE NURSING NOTE DATE OF NOTE: MAR 04, 2024@14:33 ENTRY DATE: MAR 04, 2024@14:33:18 AUTHOR: YOHANA PACHECO EXP COSIGNER: URGENCY: STATUS: COMPLETED COVID-19 Immunization: Moderna Monovalent (Spikevax) Administered: COVID-19 (MODERNA), MRNA, LNP-S, PF, 50 MCG/0.5 ML (AGES 12 + YEARS) Date Administered: Mar 04, 2024 14:30 Series: Booster Behavior Support Specialist: [employer]. Lot: [id number] Exp Date: Apr 25, 2024 NDC: [id number] Admin Route/Site: INTRAMUSCULAR/LEFT DELTOID Dosage: 0.5mL Vaccine Information Statement(s): COVID-19 MRNA VACCINE (12+ YRS) VACCINE VIS Apr 10, 2023 (CHADIAN) Order By: Policy Administered By: Yohana Pacheco Vaccine administered without complications. Influenza Immunization: Influenza, Trivalent, Preservative Free (Fluarix-Syringe) Administered: INFLUENZA, SPLIT VIRUS, TRIVALENT, PF Date Administered: Mar 04, 2024 14:30 Series: Booster Behavior Support Specialist: Bridge Lot: [id number] Exp Date: Dec 20, 2024 NDC: [id number] Admin Route/Site: INTRAMUSCULAR/LEFT DELTOID Dosage: 0.5mL Vaccine Information Statement(s): INFLUENZA(FLU) VACC(INACTIVATED OR RECOMBINANT)VIS Jan 26, 2021 (CHADIAN) Order By: Policy Administered By: Yohana Pacheco The Influenza Vaccine Information Statement (VIS) [...] verbal consent to receive the vaccine. /garo/ YOHANA PACHECO LPN Signed: 03/04/2024 14:35 YOHANA PACHECO CN[facility]L [facility]
--- OUTSIDE RECORDS SUMMARY | 2024-10-08 08:14 | XMS_ITS | Encounter Summary ---
Author Name [facility] [place] Organization [place] Address [address] [place] [address] Care Team Providers Care Pain Management Physician Name Role Phone RAUL GOLDBERG Primary Care [...] 25, 2024 10:00 AM AM[facility]ULATORY [facility] Jul 28, 2024 03:00 PM AMBULATORY - MEDICINE [place] C [facility] Aug 04, 2024 11:20 AM AMBULATORY - MEDICINE [facility] NTRL [facility] Aug 05, 2024 09:00 AM AMBULATORY - NONE [facility] Social History: Smoking Status (Most current) and [...] 29, 2023 02:19 PM VA-TOBACCO FORMER USER [facility] Tobacco Use History This section includes a history of the smoking, or tobacco-related health factors, that were collected on or before the date of the Encounter. The data comes from the [place] facility where the Encounter took place. Date/Time Smoking Status/Tobacco Use Comment F acility Jul 29, 2023 02:19 PM VA-TOBACCO QUIT < 1 YEAR [facility] Encounter [...] MEDICATION RENEWAL Has ADDENDA Date: Mar Division: [place] Pt referred by Pharmacy Call Center for medication renewal: Non-controlled/maintenan ce medication Medications requested: [id number]$ TIOTROPIUM 2.5MCG/ACTUAT 60D ORAL INHL Defer to primary care provider To be mailed . Please review and renew if appropriate. *This note was generated by [facility] Customer Care. If you have any questions or need assistance, do not contact this author. Please refer all questions to your local, on-site pharmacy departments. /garo/ MAGGY MERA [facility] Director Of Cardiac Rehabilitation, [place]/Pharmacy Customer Care Signed: 04/20/2024 15:11 Receipt Acknowledged By: 04/20/2024 16:17 /garo/ RUAL GOLDBERG D.O. PHYSICIAN 04/20/2024 15:20 /garo/ REINA MARTINEZ, SOFÍA REGISTERED NURSE 04/20/2024 ADDENDUM STATUS: COMPLETED already refills- please direct them to the pharmacy /garo/ RAUL GOLDBERG D.O. PHYSICIAN Signed: 04/20/2024 16:18 MAGGY MERA [place] [facility]
--- OUTSIDE RECORDS SUMMARY | 2024-10-08 08:14 | XMS_ITS | Encounter Summary ---
Author Organization [employer] Address [address] [place] [address] Care Team Providers Care Environmental Services Supervisor Name Role Phone Kimberlee Osorio Primary Care Provider Geovanna Herrera DO Primary Care Provider [phone] Inactive/Transferred Primary Care Provider Unava ilable Encounter Details Date Type Department Care Team (Late st Contact Info) Description 09/15/[address] [facility] MEDICAL [address] [place] [address] Kimberlee Osorio PA Pulmonary emphysema, unspecified emphysema [...] (CMS/HCC) documented in this encounter Care Teams Environmental Services Supervisor Relationship Specialty Start Date End Date Kimberlee Osorio PA PCP - General Family Medicine 05/09/23 01/06/24 Geovanna Morgan DO [address] [place] [address] PCP - General Family Medicine 01/07/24 07/04/24 Inactive/Transferred PCP - General 07/05/24 documented as of this encounter
== END 2024-10-08 08:07 | disposition home or self-care (01) ==
LOC: HO.BBR 08:06
PROVIDERS: Visit Provider Physician Assistant Medical
DX: D75.1 Secondary polycythemia (principal)
CPT/HCPCS: 85014; 85018; 99195

== ENCOUNTER 2025-01-13 09:01 | Outpatient (REF) | payer BC, SELFPAY ==
--- OUTSIDE RECORDS SUMMARY | 2025-01-13 09:27 | XMS_ITS | Clinical Summary ---
Author Organization [facility] Address [address] [place] [address] Phone Care Team Providers Care Tumbler Plater Name Role Phone Unavailable Primary Care Provider Unavailabl e Social History Tobacco Use Types Packs/Day Years Used Date Smoking Tobacco: Never Assessed Education Answer Date Recorded Are you interested in more education? Not on dee e 05/16/2023 Are you concerned about learning? Not on file 05/16/2023 No 05/16/2023 No 05/16/2023 Digital Access Answer Date Recorded No 05/16/2023 No 05/16/2023 Reliable internet access at home? Not on file 05/16/2023 Device with a working camera? Not on file Sex and Gender Information Value Date Recorded Sex Assigned at Not on file Legal Sex Male 11:49 AM EST Gender Identity Not on file Sexual Orientation Not on file Plan of Treatment Not on file Medical Devices Not on file Insurance [facility] STATE PPO BLUE CROSS OUT OF STATE PPO BLUE CROSS OUT OF [facility] PPO BLUE CROSS OUT OF [facility] PPO BLUE CROSS OUT OF STATE PPO BLUE CROSS OUT OF STATE PPO Additional Source Comments The information contained in this document represents components of the legal health record. It is not the complete legal health record.[facility]
--- OUTSIDE RECORDS SUMMARY | 2025-01-13 09:28 | XMS_ITS | Clinical Summary ---
Author Organization [employer] Address [address] [facility] [address] [place] [address] Care Team Providers Care Licensing Engineer Name Role Phone Inactive/Transferred Primary Care Provider [...] Once per day. 30 tablet 11 4 Active Anoro Ellipta 62.5-25 MCG/ACT aerosol powderIndications: [...] He called his roommate, who came from [place] to bring him to [place] [facility]. I discussed with the pt due to his decline in the short amt of time that he was at our facility that he would likely start at [facility] but will likely be transferred to [facility]. I told him that he was pretty serious at this point and he needed immediate care but continued to refuse to go by ambulance. I discussed with him that the ambulance could get him O2, IVF/Lasix, etc. But he continued to refuse to go by ambulance. His friend brought him to [place] [facility]. I called in a report to SOFÍA Valles at [facility]. Discussed the seriousness/pt refusing to go [...] stasis dermatitis of both lower extremities Immunizations Immunization Administration Dates Next Due Hep A / [...] the past 12 months, has t he [employer], gas, oil or water [employer] threatened to shut off services in your [...] 81 01/08/2024 10:52 AM EDT Temperature 36.6 C (97.9 F) 01/08/2024 10:52 AM EDT Respiratory Rate - - Oxygen Saturation 93% [...] Diabetes: Foot Exam 1969 Eye Exam 1969 Alcohol/Substance Use Screening 1971 Hepatitis C Screening 1977 Diabetes: Urine Protein [...] 05/08/2023 Diabetes: Hemoglobin A1C 07/10/2024 01/08/2024, 04/23 COVID-19 Vaccine ( season) 2024 03/04/2024, 07/21/2023, 06/20/2021, Additional history exists Tobacco Screening 01/07/2025 01/08/2024 Influenza Vaccine (#1) 2025 4, 07/25/2023, 07/21/2023 DTaP/Tdap/Td Vaccines (2 - Td or Tdap) 08/08/2033 08/08/2023 Pneumococcal Vaccine: 50+ Years Completed 08/08/2023 Zoster Vaccines Completed 11/05/2023, 09/04/2023 HIB Vaccines Aged Out No longer eligi ble based on patient's age to complete this topic HPV Vaccines Aged Out No longer eligi ble based on patient's age to complete this topic IPV Vaccines Aged Out No longer eligi ble based on patient's age to complete this topic Meningococcal B Vaccine Aged Out No l onger eligible based on patient's age to complete [...] complication, without long-term current use of insulin ([facility]) LIPID PANEL, STANDARD Routine 05/08/2023 4:13 PM EST Encounter to establish care from Last 3 Months or Most Recently Relevant to Health Maintenance Results * (ABNORMAL) POCT glycosylated hemoglobin (Hgb A1c) (01/08/2024 11:01 AM EDT) Pathologist [facility] Hemoglobin A1C 6.5(A) 4.0 - 6.0 % Blood Capillary blood specimen / Unknown 01/08/2024 11:01 AM EDT [facility] POINT OF CARE TEST ENTER/EDIT ORDERABLES Final Result * (ABNORMAL) Lipid panel (05/08/2023 4:13 PM EST) Cholesterol, Total 112 (<200) MG/DL [facility] Triglyceride (mg/dL) in Serum/Plasma 157(H) (<150) MG/DL [facility] HDL Cholesterol 39(L) (>39) MG/DL [facility] LDL Cholesterol, Calculated 42 (0-130) MG/DL [facility] Non HDL Chol. (LDL+VLDL) 73 (<160) MG/DL [facility] Comment: Testing performed or reported by [facility], a Service of [facility], [address] [place] [id number] Manuel Hopkins MD, Oncology Social Worker [facility]# [id number] Blood Venous blood specimen / Unknown 05/08/2023 4:13 PM EST 05/08/2023 4:14 PM EST us Kimberlee SHAFER LAB BLOOD ORDERABLES Final Resul t [facility] [address] [id number] from Last 3 Months or Most Recently Relevant to Health Maintenance Care Teams Licensing Engineer Relationship Specialty Start Date End Date Inactive/Transferred PCP - General 07/05/24
== END 2025-01-13 09:02 | disposition home or self-care (01) ==
LOC: HO.BBR 09:01
PROVIDERS: PCP Family Medicine; Visit Provider Physician Assistant Medical
DX: D75.1 Secondary polycythemia (principal)
CPT/HCPCS: 85018; 99195

== ENCOUNTER 2025-04-14 08:56 | Outpatient (REF) | payer BC, SELFPAY ==
--- OUTSIDE RECORDS SUMMARY | 2025-04-14 09:39 | XMS_ITS | Clinical Summary ---
Author Organization [employer] Address [address] [facility] [address] [place] [address] Care Team Providers Care Customer Loyalty Representative Name Role Phone Inactive/Transferred Primary Care Provider Unava ilable Allergies No known active allergies Medications albuterol 108 (90 Base) MCG/ACT inhalerIndications :Pulmonary emphysema, unspecified emphysema type Inhale 2 puffs in the morning, at noon, in the evening, and at bedtime. 18 g 3 4 Active furosemide (Lasix) 40 MG tabletIndications: Chronic right-sided heart failure (HCC),Edema of both lower extremities due to peripheral venous insufficiency Take 1 tablet (40 mg) by mouth Once per day. 30 tablet 11 4 Active Anoro Ellipta 62.5-25 MCG/ACT aerosol powderIndications: Pulmonary emphysema, unspecified emphysema type Inhale 1 puff Once per day. 180 each 3 4 Active Active Problems Problem Noted Date Diagnosed Date Alcoholic cirrhosis (CMS/HCC) 01/08/2024 Overview (01/08/2024): Jul 30, 2023 Entered [...] He called his roommate, who came from [place] to bring him to [place] [facility]. I discussed with the pt due to his decline in the short amt of time that he was at our facility that he would likely start at [place] but will likely be transferred to [facility]. I told him that he was pretty serious at this point and he needed immediate care but continued to refuse to go by ambulance. I discussed with him that the ambulance could get him O2, IVF/Lasix, etc. But he continued to refuse to go by ambulance. His friend brought him to [place] [facility]. I called in a report to SOFÍA Valles at [facility]. Discussed the seriousness/pt refusing to go by [...] the past 12 months, has t he [employer], gas, oil or water company threatened to [...] 05/08/2023 Diabetes: Hemoglobin A1C 07/10/2024 01/08/2024, 04/23 Tobacco Screening 01/07/2025 01/08/2024 COVID-19 Vaccine ( season) 2025 03/04/2024, 07/21/2023, 06/20/2021, Additional history exists Influenza Vaccine (#1) 2025 4, 07/25/2023, 07/21/2023 [...] complication, without long-term current use of insulin ([facility]) LIPID PANEL, STANDARD Routine 05/08/2023 4:13 PM EST Encounter to establish care from Last 3 Months or Most Recently Relevant to Health Maintenance Results * (ABNORMAL) POCT glycosylated hemoglobin (Hgb A1c) (01/08/2024 11:01 AM EDT) Pathologist [facility] Hemoglobin A1C 6.5(A) 4.0 - 6.0 % Blood Capillary blood specimen / Unknown 01/08/2024 11:01 AM EDT Jalil Eddie POINT OF CARE TEST ENTER/EDIT ORDERABLES Final [...] LABORATORY Comment: Testing performed or reported by [facility], a Service of [facility], [address] [place] [id number] Manuel Hopkins MD, Research Tech [facility]# [id number] Blood Venous blood specimen / Unknown 05/08/2023 4:13 PM EST 05/08/2023 4:14 PM EST us Kimberlee SHAFER LAB BLOOD ORDERABLES Final Resul t [facility] [address] [place] [address] [phone] from Last 3 Months or Most Recently Relevant to Health Maintenance Care Teams Customer Loyalty Representative Relationship Specialty Start Date End Date Inactive/Transferred PCP - General 07/05/24
--- OUTSIDE RECORDS SUMMARY | 2025-04-14 09:39 | XMS_ITS | Encounter Summary ---
Author Organization [employer] Address [address] [place] [address] Care Team Providers Care Plant Nursery Worker Name Role Phone Kimberlee Osorio Primary Care Provider Geovanna Herrera DO Primary Care Provider [phone] Inactive/Transferred Primary Care Provider Unavalentin ilable Encounter Details Date Type Department Care Team (Late st Contact Info) Description 09/15/2023 Orders Only [facility] MEDICAL [address] [place] [address] Kimberlee Osorio PA Pulmonary emphysema, unspecified emphysema [...] Routine 09/10/2023 Pulmonary emphysema, unspecified emphysema type ([facility]) documented in this encounter Results * Pulmonary function test (09/10/2023) Kimberlee SHAFER PFT ORDERABLES Final Result documented in this encounter Visit Diagnoses Diagnosis Pulmonary emphysema, unspecified emphysema type documented in this encounter Care Teams Plant Nursery Worker Relationship Specialty Start Date End Date Kimberlee Osorio PA PCP - General Family Medicine 05/09/23 01/06/24 Geovanna Morgan DO [address] [place] [id number] PCP - General Family Medicine 01/07/24 07/04/24 Inactive/Transferred PCP - General 07/05/24 documented as of this encounter
--- OUTSIDE RECORDS SUMMARY | 2025-04-14 09:39 | XMS_ITS | Encounter Summary ---
Author Organization [email or web address] Address [address] [place] [address] Care Team Providers Care Dry Cleaner Helper Name Role Phone Geovanna Morgan DO Primary Care Provider [phone] Inactive/Transferred Primary Care Provider Unava ilable Encounter Details Date Type Department Care Team (Late st Contact Info) Description 01/14/2024 Orders Only [facility] MEDICAL [address] [place] [address] Kimberlee Osorio PA Pulmonary emphysema, unspecified emphysema [...] the past 12 months, has t he [employer], gas, oil or water company threatened to [...] Diagnoses Diagnosis Pulmonary emphysema, unspecified emphysema type Liver cyst Other specified disorders of liver Polycythemia Polycythemia, secondary Acute on chronic right-sided heart failure (HCC) History of snoring Venous stasis dermatitis of both lower extremities documented in this encounter Care Teams Dry Cleaner Helper Relationship Specialty Start Date End Date Geovanna Morgan DO [address] [id number] PCP - General Family Medicine 01/07/24 07/04/24 Inactive/Transferred PCP - General 07/05/24 documented as of this encounter
--- OUTSIDE RECORDS SUMMARY | 2025-04-14 09:39 | XMS_ITS | Clinical Summary ---
Author Organization [facility] Address [address] [facility] [address] [place] [phone] Phone Care Team Providers Care Photographer Name Role Phone Unavailable Primary Care Provider [...] OF STATE PPO BLUE CROSS OUT OF [facility] PPO BLUE CROSS OUT OF [facility] PPO BLUE CROSS OUT OF STATE PPO BLUE CROSS OUT OF STATE PPO Additional Source Comments The information contained in this document represents components of the legal health record. It is not the complete legal health record.[facility]
== END 2025-04-14 08:57 | disposition home or self-care (01) ==
LOC: HO.BBR 08:56
PROVIDERS: PCP Family Medicine; Visit Provider Internal Medicine Hematology
DX: D75.1 Secondary polycythemia (principal)
CPT/HCPCS: 85018; 99195